=== PATIENT | male | born 1965 | race Caucasian/White ===

== ENCOUNTER 2016-10-16 08:59 | Inpatient (IN) | payer MEDICARE ==
[2016-10-16] MEDS ORDERED: Zofran 4 MG/2 ML VIAL IV ONE (09:26)
[2016-10-16] MEDS ORDERED: PROTONIX 40 MG IV IV ONE ×2 (09:26→09:30)
[2016-10-16] MEDS ORDERED: Sodium Chloride 0.9% 1000 ML 1,000 ML IV STA (09:26)
[2016-10-16] MEDS ORDERED: Hydromorphone 1 mg/ml Ampule IV ONE ×2 (09:26→10:07)
[2016-10-16] MEDS ORDERED: Sodium Chloride 0.9% 1000 ML 1,000 ML ONE (09:30)
[2016-10-16] MEDS ORDERED: Hydromorphone 1 mg/ml Ampule ONE ×2 (09:30→10:11)
[2016-10-16] MEDS ORDERED: Zofran 4 MG/2 ML VIAL ONE (09:30)
--- NOTE | 2016-10-16 09:34 | ERPHSYRPT ---
- History of Present Illness Time Seen by Provider: 10/16/16 09:24 Historian: patient Exam Limitations: clinical condition Patient Subjective Stated Complaint: pt states pt woke her up at 0730 this morning with complaints of abdominal pain. states last bowel movement this morning and was normal. denies any vomiting. pt also c/o mid lower back pain. denies any dysuria. Triage Nursing Assessment: pt pale, warm, dry. abdomen obese, round. bowel sounds present all 4 quads. pt afebrile. Physician History: PATIENT WITH A HISTORY OF HYPERTENSION, HYPERLIPIDEMIA, AND PULMONARY EMBOLISM COMPLAINS OF ACUTE ONSET OF PERIUMBILICAL AND LOWER ABDOMINAL PAINS SINCE 7AM TODAY, DENIES NAUSEA, EMESIS, DIARRHEA, DYSPNEA, RADIATION OF PAIN TO FLANKS. Timing/Duration: today Activities at Onset: none Quality: pressure Abdominal Pain Onset Location: periumbilical, suprapubic Pain Radiation: no radiation Severity of Pain-Max: severe Severity of Pain-Current: severe Modifying Factors: Improves With: nothing Associated Symptoms: denies symptoms Previous symptoms: no prior history Allergies/Adverse Reactions: No Known Drug Allergies Allergy (Unverified 10/16/16 09:13) Home Medications: Lisinopril 20 mg [Zestril 20 MG] 20 mg PO BID 06/30/13 [History] Paroxetine HCl 40 mg PO DAILY 06/30/13 [History] Rivaroxaban [Xarelto] 20 mg PO DAILY 06/30/13 [History] Omeprazole 20 MG [Prilosec 20 mg] 20 mg PO DAILY 01/23/15 [History] Pravastatin Sodium [Pravachol] 20 mg PO DAILY 01/23/15 [History] Amitriptyline HCl 100 mg PO HS 02/20/15 [History] Hydrochlorothiazide 25 mg [hydroDIURIL 25 MG] 25 mg PO DAILY 02/20/15 [ History] Hx Tetanus, Diphtheria Vaccination/Date Given: Yes (unknown) Hx Influenza Vaccination/Date Given: No Hx Pneumococcal Vaccination/Date Given: No Immunizations Up to Date: Yes - Review of Systems Constitutional: No Fever, No Chills Eyes: No Symptoms Ears, Nose, & Throat: No Symptoms Respiratory: No Symptoms, No Cough, No Dyspnea Cardiac: No Symptoms, No Chest Pain, No Edema, No Syncope Abdominal/Gastrointestinal: Abdominal Pain, No Nausea, No Vomiting, No Diarrhea Genitourinary Symptoms: No Symptoms, No Dysuria Musculoskeletal: No Symptoms, No Back Pain, No Neck Pain Skin: No Symptoms, No Rash Neurological: No Symptoms, No Dizziness, No Focal Weakness, No Sensory Changes Psychological: No Symptoms Endocrine: No Symptoms All Other Systems: Reviewed and Negative - Past Medical History Pertinent Past Medical History: Yes Neurological History: No Pertinent History ENT History: Glaucoma Cardiac History: Deep Vein Thrombosis, Hypertension Respiratory History: Pulmonary Embolism Endocrine Medical History: No Pertinent History Musculoskeletal History: No Pertinent History GI Medical History: No Pertinent History History: No Pertinent History Psycho-Social History: Depression Male Reproductive Disorders: No Pertinent History Other Medical History: DVT/PE - Past Surgical History Past Surgical History: Yes Neuro Surgical History: No Pertinent History Cardiac: Other Respiratory: No Pertinent History Gastrointestinal: Hernia Repair Genitourinary: No Pertinent History Musculoskeletal: No Pertinent History Male Surgical History: No Pertinent History Other Surgical History: eye surgery. [facility] - Social History Smoking Status: Current every day smoker How long have you smoked: 30 Exposure to second hand smoke: No Drug Use: none Patient Lives Alone: No - Nursing Vital Signs Nursing Vital Signs: Initial Vital Signs Temperature 97.3 F Temperature Source Oral Pulse Rate 67 Respiratory Rate 18 Blood Pressure [] 120/76 Pain Intensity 7 - Physical Exam General Appearance: moderate distress Eye Exam: PERRL/EOMI, eyes nml inspection Ears, Nose, Throat Exam: normal ENT inspection, pharynx normal, moist mucous membranes Neck Exam: normal inspection, non-tender, supple, full range of motion Respiratory Exam: normal breath sounds, lungs clear, No respiratory distress Cardiovascular Exam: regular rate/rhythm, normal heart sounds Gastrointestinal/Abdomen Exam: soft, No tenderness, No mass Back Exam: normal inspection, normal range of motion, No CVA tenderness, No vertebral tenderness Extremity Exam: normal inspection, normal range of motion, pelvis stable Neurologic Exam: alert, 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, cooperative, normal mood/affect, nml cerebellar function, sensation nml, No motor deficits Skin Exam: normal color, warm, dry SpO2 Interpretation: normal SpO2: 99 Oxygen Delivery: Room Air - CT Exams Abdomen/Pelvis CT Interpretation: Discussed w/radiologist (DISTENDED GALLBLADDER WITH TINY 3MM CYSTIC DUCT STONE, INCIDENTIAL COLONIC DIVERTICULOSIS, FATTY LIVER, FATTY UMBILICAL HERNIA, NORMAL APPENDIX) Ordered Tests: Active Orders 24 hr Category Date Time Status Up Ad Meena ROUTINE Activity 10/16/16 12:13 Ordered Admission/Status Order ROUTINE Care 10/16/16 12:12 Ordered Call Admit Doctor for Orders ON ADMISSION Care 10/16/16 12:13 Ordered Code Status Order ROUTINE Care 10/16/16 12:12 Ordered IV Care Q6H Care 10/16/16 12:12 Ordered IV Insertion STAT Care 10/16/16 09:26 Active Intake and Output Q12H Care 10/16/16 12:12 Ordered Oxygen-ED Only NASAL CANNULA 2 lpm Care 10/16/16 09:28 Active Vital Signs Q4H Care 10/16/16 12:12 Ordered Consult Surgery ROUTINE Cons 10/16/16 12:12 Ordered NPO except Meds Diet 10/16/16 12:13 Ordered ABDOMEN AND PELVIS W CONTRAST [CT] Stat Exams 10/16/16 09:26 Completed AMYLASE Stat Lab 10/16/16 09:15 Completed BLOOD CULTURE Stat Lab 10/16/16 09:55 Received CBC W DIFF Stat Lab 10/16/16 09:15 Completed CMP Stat Lab 10/16/16 09:15 Completed LIPASE Stat Lab 10/16/16 09:15 Completed UA Stat Lab 10/16/16 09:15 Completed Oxygen NASAL CANNULA 2 lpm RT 10/16/16 12:12 Ordered Pulse Oximetry CONTINUOUS RT 10/16/16 12:16 Ordered Transfer Order Routine Transfer 10/16/16 12:11 Ordered Medication Summary Generic Name Dose Route Start Last Admin Trade Name Freq PRN Reason Stop Dose Admin Amlodipine Besylate 5 mg 10/17/16 10:00 Norvasc 5 Mg PO 11/16/16 09:59 QAM SHERLYN Sodium Chloride 1,000 mls @ 125 mls/hr 10/16/16 12:15 Sodium Chloride 0.9% 1000 Ml IV 11/15/16 12:14 .Q8H SHERLYN Lisinopril 20 mg 10/16/16 22:00 Zestril 20 Mg PO 11/15/16 21:59 BID SHERLYN Ondansetron HCl 4 mg 10/16/16 12:12 Zofran 4 Mg/2 Ml Vial IV 11/15/16 12:11 Q6H PRN PRN NAUSEA/VOMITING Discontinued Medications Generic Name Dose Route Start Last Admin Trade Name Freq PRN Reason Stop Dose Admin Hydromorphone HCl 1 mg 10/16/16 09:26 10/16/16 09:37 Hydromorphone 1 Mg/Ml Ampule IV 10/16/16 09:27 1 mg STAT ONE Administration Hydromorphone HCl Confirm 10/16/16 09:30 Hydromorphone 1 Mg/Ml Ampule Administered 10/16/16 09:31 Dose 1 mg .ROUTE .STK-MED ONE Hydromorphone HCl 1 mg 10/16/16 10:07 10/16/16 10:12 Hydromorphone 1 Mg/Ml Ampule IV 10/16/16 10:08 1 mg STAT ONE Administration Hydromorphone HCl Confirm 10/16/16 10:11 Hydromorphone 1 Mg/Ml Ampule Administered 10/16/16 10:12 Dose 1 mg .ROUTE .STK-MED ONE Sodium Chloride 1,000 mls @ 999 mls/hr 10/16/16 09:26 10/16/16 09:31 Sodium Chloride 0.9% 1000 Ml IV 10/16/16 10:26 999 mls/hr .Q1H1M STA Administration Sodium Chloride Confirm 10/16/16 09:30 Sodium Chloride 0.9% 1000 Ml Administered 10/16/16 09:31 Dose 1,000 mls @ ud .ROUTE .STK-MED ONE Morphine Sulfate 4 mg 10/16/16 11:15 10/16/16 11:37 Morphine Sulfate 4 Mg Inj IV 10/16/16 11:16 4 mg STAT ONE Administration Morphine Sulfate Confirm 10/16/16 11:35 Morphine Sulfate 4 Mg Inj Administered 10/16/16 11:36 Dose 4 mg .ROUTE .STK-MED ONE Ondansetron HCl 4 mg 10/16/16 09:26 10/16/16 09:33 Zofran 4 Mg/2 Ml Vial IV 10/16/16 09:27 4 mg STAT ONE Administration Ondansetron HCl Confirm 10/16/16 09:30 Zofran 4 Mg/2 Ml Vial Administered 10/16/16 09:31 Dose 4 mg .ROUTE .STK-MED ONE Pantoprazole Sodium 40 mg 10/16/16 09:26 10/16/16 09:38 Protonix 40 Mg Iv IV 10/16/16 09:27 40 mg STAT ONE Administration Pantoprazole Sodium Confirm 10/16/16 09:30 Protonix 40 Mg Iv Administered 10/16/16 09:31 Dose 40 mg IV .K-MED ONE Lab/Rad Data: Laboratory Result Diagrams 10/16/16 09:15 10/16/16 09:15 Laboratory Results 10/16/16 10/16/16 10/16/16 Range/Units 09:15 09:15 09:15 WBC 8.0 (4.0-10.5) K/mm3 RBC 5.15 (4.1-5.6) M/mm3 Hgb 15.4 (12.5-18.0) gm/dl Hct 47.2 (42-50) % MCV 91.7 (78-100) fl MCH 29.9 (26-32) pg MCHC 32.6 (32-36) g/dl RDW 14.9 H (11.5-14.0) % Plt Count 270 (150-450) K/mm3 MPV 10.3 H (6-9.5) fl Gran % 55.9 (36.0-66.0) % Lymphocytes % 27.4 (24.0-44.0) % Monocytes % 11.7 (0.0-12.0) % Eosinophils % 4.2 (0.00-5.0) % Basophils % 0.8 (0.0-0.4) % Basophils # 0.06 (0-0.4) Sodium 139 (136-145) mEq/L Potassium 3.3 L (3.5-5.1) mEq/L Chloride 102 (98-107) mEq/L Carbon Dioxide 24.6 (21-32) mEq/L Anion Gap 15.8 H (5-15) MEQ/L BUN 8 L (9-20) mg/dL Creatinine 1.19 (0.55-1.30) mg/dl Estimated GFR > 60 ML/MIN Glucose 171 H (70-110) MG/DL Calcium 9.4 (8.5-10.1) mg/dL Total Bilirubin 0.4 (0.2-1.0) mg/dL AST 29 (15-37) U/L ALT 28 (12-78) U/L Alkaline Phosphatase 118 H (46-116) U/L Serum Total Protein 8.1 (6.4-8.2) gm/dL Albumin 4.1 (3.4-5.0) g/dL Amylase 79 (25-115) U/L Lipase 292 (73-393) U/L Ur Collection Type CCMS Urine Color YELLOW (YELLOW) Urine Appearance CLEAR (CLEAR) Urine pH 5.5 (5-6) Ur Specific [place] 1.020 (1.005-1.025) Urine Protein NEGATIVE (Negative) Urine Glucose (UA) NEGATIVE (NEGATIVE) mg/dL Urine Ketones NEGATIVE (NEGATIVE) Urine Nitrite NEGATIVE (NEGATIVE) Urine Bilirubin NEGATIVE (NEGATIVE) Urine Urobilinogen NORMAL (0-1) mg/dL Urine WBC (Auto) NEGATIVE (NEGATIVE) Urine RBC (Auto) NEGATIVE (0-5) Jose/ul Specimen Received 10/16 0930 - Progress Progress: pain not gone completely Progress Note: 10/16/16 09:33 PATIENT GIVEN BOLUS NORMAL SALINE 1 LITER OVER 1 HOUR, ZOFRAN 4MG, DILAUDID 1MG IV Discussed with Dr.: Mccabe (DISCUSSED WITH DR MCCABE AT 1200 FOR ADMISSION) - Departure Time of Disposition: 12:23 Departure Disposition: Observation Clinical Impression: INTRACTABLE ABDOMINAL PAIN , CHOLELITHIASIS Condition: Stable Critical Care Time: No Referrals: EDILIA MCCABE [Primary Care Provider] -
[2016-10-16 09:41] LABS: BASOPHIL % 0.8 % (0.0-0.4); Collection Type CCMS; Eosinophil % 4.2 % (0.00-5.0); Granulocytes % 55.9 % (36.0-66.0); Lymphocytes % 27.4 % (24.0-44.0); Mean Cell Volume 91.7 fl (78-100); Mean Corpuscular Hemoglobin 29.9 pg (26-32); Mean Platelet Volume 10.3 fl (6-9.5); Monocytes % 11.7 % (0.0-12.0); Ph 5.5 (5-6); Platelet Count 270 K/mm3 (150-450); Red Blood Count 5.15 M/mm3 (4.1-5.6); Red Cell Distribution Width 14.9 % (11.5-14.0)
[2016-10-16 09:42] LABS: COMPLETE URINE MICROSCOPIC? NO
[2016-10-16 09:52] LABS: ALBUMIN 4.1 g/dL (3.4-5.0); ALKALINE PHOSPHATASE 118 U/L (46-116); ANION GAP 15.8 MEQ/L (5-15); BILIRUBIN,TOTAL 0.4 mg/dL (0.2-1.0); BLOOD UREA NITROGEN 8 mg/dL (9-20); CHLORIDE 102 mEq/L (98-107); Carbon Dioxide 24.6 mEq/L (21-32); Glucose 171 MG/DL (70-110); LIPASE 292 U/L (73-393); Potassium 3.3 mEq/L (3.5-5.1); SGOT/AST 29 U/L (15-37); SGPT/ALT 28 U/L (12-78); SODIUM 139 mEq/L (136-145); Total Protein 8.1 gm/dL (6.4-8.2)
--- NOTE | 2016-10-16 11:05 | XRAY ---
Indication: Abdominal and flank pain. Multiple contiguous axial images obtained through the abdomen and pelvis using 80 cc Isovue 370 contrast only. Comparison: None Lung bases demonstrates minimal bibasilar dependent atelectasis/scarring. Heart is not enlarged. Stomach is moderately distended with food/fluid. Noncontrasted bowel loops appear nonobstructed. Minimal scattered descending/sigmoid diverticulosis without diverticulitis. Normal appendix. No free fluid/air. Mild fatty liver. A few calcified hepatic/splenic granulomas. IVC filter in situ. Gallbladder moderately distended with 3 mm cyst duct stone (image 24, series 3). Liver, gallbladder, pancreas, spleen, adrenal glands, kidneys, ureters, and bladder appear unremarkable. Minimal aortoiliac calcifications. No AAA or pathologic retroperitoneal lymphadenopathy. Osseous structures intact. Small fatty umbilical hernia. Impression: 1. Distended gallbladder with tiny 3 mm cystic duct stone. 2. Incidental colonic diverticulosis, fatty liver, fatty umbilical hernia, and evidence for old granulomatous disease. CT DI 28.13
[2016-10-16] MEDS ORDERED: MORPHINE SULFATE 4 MG INJ IV ONE (11:15)
[2016-10-16] MEDS ORDERED: MORPHINE SULFATE 4 MG INJ ONE (11:35)
[2016-10-16] MEDS ORDERED: Zofran 4 MG/2 ML VIAL IV PRN (12:12)
[2016-10-16] MEDS ORDERED: XARELTO 10 MG TABLET PO SCH (13:00)
[2016-10-16] MEDS: DILAUDID 1 MG/1ML PCA IV PRN (13:36)
[2016-10-16] MEDS: Sodium Chloride 0.9% 1000 ML 1,000 ML IV SCH ×2 (13:55→23:08)
[2016-10-16] MEDS: ROCEPHIN 1 Gm-D5w 50 ml Bag** 1 G/50 ML IVPB IV SCH (17:54)
[2016-10-16] MEDS ORDERED: CLINDAMYCIN-D5W 600 MG/50 ML*** 50 ML IV SCH (18:00)
--- NOTE | 2016-10-16 18:20 | PCM.HP ---
History of Present Illness - Chief Complaint Chief Complaint: INTRACTABLE ABDOMINAL PAIN, CHOLELITHIASIS History of Present Illness: is a 51 year old male with HTN and obesity who awoke at 6 am with generalized abd pain. Came to ER for evaluation. In the ER it was 8-9/10. Denies vomiting or diarrhea. No fever. In ER pain was much better with dilaudid. Morphine did not help. Currently he is on a dilaudid [employer] and his pain is 1/10. CT abd pelvis revealed 3mm cystic duct stone with distended gallbladder. Incidental diverticulosis and umbilical hernia. - Review of Systems Abdominal/Gastrointestinal: Abdominal Pain, Nausea, Appetite Changes Neurological: Other (chronic headaches, no c/o currently) Psychological: Other (drinks alcohol intermittently. TOB abuse.) All Other Systems: Reviewed and Negative Medications & Allergies Home Medications: Home Medication List Lisinopril 20 mg [Zestril 20 MG] 20 mg PO BID 06/30/13 [History Confirmed 10/16/16] Paroxetine HCl 40 mg PO HS 06/30/13 [History Confirmed 10/16/16] Rivaroxaban [Xarelto] 20 mg PO HS 06/30/13 [History Confirmed 10/16/16] Amlodipine Besylate 5 mg [Norvasc 5 mg] 5 mg PO QHS #30 tablet 01/23/15 [ Rx Confirmed 10/16/16] Omeprazole 20 MG [Prilosec 20 mg] 20 mg PO HS 01/23/15 [History Confirmed ] Pravastatin Sodium [Pravachol] 20 mg PO HS 01/23/15 [History Confirmed 10/16/16] Amitriptyline HCl 100 mg PO HS 02/20/15 [History Confirmed 10/16/16] Hydrochlorothiazide 25 mg [hydroDIURIL 25 MG] 25 mg PO HS 02/20/15 [ History Confirmed 10/16/16] Allergies/Adverse Reactions: Allergies Allergy/AdvReac Type Severity Reaction Status Date / Time No Known Drug Allergies Allergy Unverified 10/16/16 09:13 - Past Medical History Past Medical History: Yes Neurological History: No Pertinent History ENT History: Glaucoma Cardiac History: Deep Vein Thrombosis, Hypertension Respiratory History: Pulmonary Embolism Endocrine Medical History: No Pertinent History Musculoskelatal History: No Pertinent History GI Medical History: No Pertinent History History: No Pertinent History Pyscho-Social History: Depression Male Reproductive Disorders: No Pertinent History Comment: DVT/PE - Past Surgical History Past Surgical History: Yes Neuro Surgical History: No Pertinent History Cardiac History: Other Respiratory Surgery: No Pertinent History GI Surgical History: Hernia Repair Genitourinary Surgical Hx: No Pertinent History Musculskeletal Surgical Hx: No Pertinent History Male Surgical History: No Pertinent History Other Surgical History: eye surgery. hope filter - Social History Smoking Status: Current every day smoker How long have you smoked: 30 YEARS Exposure to second hand smoke: No Alcohol: Weekly Drug Use: none - Physical Exam Vital Signs: Vital Signs - 24 hr Temp Pulse Resp BP Pulse Ox 10/16/16 17:36 97 10/16/16 16:37 97.6 F 85 20 122/58 97 10/16/16 16:29 97.8 F 10/16/16 13:40 88 18 96 10/16/16 13:36 96 10/16/16 12:45 98.1 F 68 20 124/58 94 L 10/16/16 12:42 98.1 F 68 22 124/58 94 L 10/16/16 12:28 75 16 143/83 98 10/16/16 12:20 99 10/16/16 11:37 67 18 120/76 10/16/16 10:40 76 18 158/99 10/16/16 09:40 73 20 139/93 100 10/16/16 09:12 97.3 F 78 18 150/105 99 Oxygen-Last 24 hours O2 Percentage 2 Liters = 28% O2 Percentage 2 Liters = 28% O2 Percentage 2 Liters = 28% General Appearance: no apparent distress Neurologic Exam: alert, 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, cooperative Eye Exam: eyes nml inspection Neck Exam: normal inspection, non-tender, No lymphadenopathy Respiratory Exam: normal breath sounds, lungs clear, No crackles/rales, No rhonchi, No wheezing Cardiovascular Exam: regular rate/rhythm, normal heart sounds, No murmur Gastrointestinal/Abdomen Exam: soft, tenderness (RUQ), distention, other ( initially, hypoactive bowel sounds. currently, some high pitched bowel sounds) , No guarding, No rebound Back Exam: No CVA tenderness Extremity Exam: normal inspection Skin Exam: normal color, warm, dry, No rash Results - Other Procedures and Tests Respiratory Therapy 10/16/16 12:12 Oxygen NASAL CANNULA 2 lpm Assessment/Plan (1) Cholelithiases Current Visit: Yes Status: Acute Qualifiers: Cholelithiasis location: bile duct Cholecystitis presence: with cholecystitis Cholecystitis acuity: acute Biliary obstruction: without biliary obstruction Qualified Code(s): K80.42 - Calculus of bile duct with acute cholecystitis without obstruction Assessment & Plan: Pt had xarelto last night. Surgery consulted - they will plan to operate on the patient in 2 days (Sunday). (2) Abdominal pain Current Visit: Yes Status: Acute Qualifiers: Abdominal location: generalized Qualified Code(s): R10.84 - Generalized abdominal pain Assessment & Plan: Tender in RUQ. As above. Will ensure at least 1 troponin is negative. On Dilaudid [employer]. Code(s): R10.9 - UNSPECIFIED ABDOMINAL PAIN (3) LUPIS (obstructive sleep apnea) Current Visit: Yes Status: Acute Assessment & Plan: has his own CPAP. Code(s): G47.33 - OBSTRUCTIVE SLEEP APNEA (ADULT) (PEDIATRIC) (4) High blood pressure Current Visit: No Status: Chronic Qualifiers: Hypertension type: essential hypertension Qualified Code(s): I10 - Essential (primary) hypertension Assessment & Plan: continue home meds. Code(s): I10 - ESSENTIAL (PRIMARY) HYPERTENSION
[2016-10-16] MEDS: Paxil 20 MG PO SCH (21:27)
[2016-10-16] MEDS: Zestril 20 MG PO SCH (21:28)
[2016-10-16] MEDS ORDERED: AMITRIPTYLINE HCL 100 MG PO SCH (22:00)
[2016-10-16] MEDS ORDERED: NON-FORMULARY ITEM (Paroxetine Hcl [Paroxetine Hcl] 40 MG) PO SCH (22:00)
[2016-10-17] MEDS: Ativan 2 MG/1 ML VIAL IV SCH ×2 (00:03→21:07)
[2016-10-17] MEDS: Sodium Chloride 0.9% 1000 ML 1,000 ML IV SCH ×2 (06:55→16:17)
[2016-10-17] MEDS: DILAUDID 1 MG/1ML PCA IV PRN (07:34)
[2016-10-17 08:36] LABS: BASOPHIL % 0.4 % (0.0-0.4); Eosinophil % 3.3 % (0.00-5.0); Mean Cell Volume 94.9 fl (78-100); Mean Corpuscular Hemoglobin 29.9 pg (26-32); Mean Platelet Volume 10.1 fl (6-9.5); Monocytes % 14.3 % (0.0-12.0); Platelet Count 221 K/mm3 (150-450); Red Blood Count 4.32 M/mm3 (4.1-5.6); Red Cell Distribution Width 14.9 % (11.5-14.0); White Blood Count 9.8 K/mm3 (4.0-10.5)
--- NOTE | 2016-10-17 08:43 | CONS ---
CONSULT DATE: 10/16/2016 REASON FOR CONSULT: Acute cholelithiasis. HISTORY: The patient has acute severe episode of right upper quadrant pain to his back. He had two smaller episodes not requiring hospitalization and this one was just major. He basically felt like he was going to and he came in. He had CT scan revealing a thickened gallbladder with stones. PAST MEDICAL HISTORY: ALLERGIES: NONE. MEDICATIONS: Xarelto, antihypertensive. PAST SURGICAL HISTORY: He had previous double hernia. SOCIAL HISTORY: Negative tobacco. Negative ETOH. FAMILY HISTORY: Negative. REVIEW OF SYSTEMS: He had two episodes of deep venous thrombosis, one episode of pulmonary embolism. He has been on Xarelto subsequently this has been some while ago. PHYSICAL EXAMINATION: Vital signs normal. He is fairly robust. CHEST: Clear. COR: Regular. ABDOMEN: Tender right upper quadrant. LAB DATA AND TESTS: White blood cell count elevated. CT positive. IMPRESSION: Acute cholecystitis, cholelithiasis. The patient is on Xarelto. PLAN: Laparoscopic cholecystectomy after 48-72 hours.
[2016-10-17 09:06] LABS: ANION GAP 11.5 MEQ/L (5-15); BLOOD UREA NITROGEN 8 mg/dL (9-20); CHLORIDE 102 mEq/L (98-107); Carbon Dioxide 26.8 mEq/L (21-32); Glucose 97 MG/DL (70-110); Potassium 3.9 mEq/L (3.5-5.1); SODIUM 136 mEq/L (136-145)
--- NOTE | 2016-10-17 09:10 | PCM.NOTE ---
Date and Time: 10/17/16906 Subjective Assessment: Pt's abd pain better overnight, states he didn't push the button for the dilaudid but he does have a basal rate. - Review of Systems Constitutional: No Fever Abdominal/Gastrointestinal: No Vomiting Objective Exam General Appearance: no apparent distress Neurologic Exam: alert, 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, cooperative Skin Exam: normal color, warm, dry Respiratory Exam: normal breath sounds, No crackles/rales, No rhonchi, No wheezing Cardiovascular Exam: regular rate/rhythm, normal heart sounds, No murmur Gastrointestinal/Abdomen Exam: soft, tenderness (RUQ), distention (this is baseline), other (scant high pitched bowel sounds), No guarding, No rebound Extremity Exam: No pedal edema, No swelling OBJECTIVE DATA Vital Signs: Vital Signs - 24 hr Temp Pulse Resp BP Pulse Ox 10/17/16 07:48 98.2 F 81 18 126/66 93 L 10/17/16 07:34 92 L 10/17/16 04:00 97.3 F 72 18 115/78 96 10/17/16 00:00 98.1 F 82 19 128/65 95 10/16/16 20:00 97.5 F 81 19 117/65 94 L 10/16/16 18:49 94 L 10/16/16 17:36 97 10/16/16 16:37 97.6 F 85 20 122/58 97 10/16/16 16:29 97.8 F 10/16/16 13:40 88 18 96 10/16/16 13:36 96 10/16/16 12:45 98.1 F 68 20 124/58 94 L 10/16/16 12:42 98.1 F 68 22 124/58 94 L 10/16/16 12:28 75 16 143/83 98 10/16/16 12:20 99 10/16/16 11:37 67 18 120/76 10/16/16 10:40 76 18 158/99 10/16/16 09:40 73 20 139/93 100 10/16/16 09:12 97.3 F 78 18 150/105 99 Oxygen-Last 24 hours O2 Percentage 2 Liters = 28% O2 Percentage 2 Liters = 28% O2 Percentage 2 Liters = 28% O2 Percentage 2 Liters = 28% O2 Percentage 2 Liters = 28% O2 Percentage 2 Liters = 28% Pain Assessment - Last Documented Pain Intensity 4 Pain Scale Used 0-10 Pain Scale Intake and Output: Intake & Output 10/14/16 10/15/16 10/16/16 10/17/16 11:59 11:59 11:59 11:59 Intake Total 2041 Balance 2041 Weight 121.653 kg Lab Results: Lab Results-Last 24 Hours 10/16/16 Range/Units 18:46 Troponin I < 0.017 (0.000-0.056) ng/ml Radiology Exams: Radiology Procedures Category Date Time Status ABDOMEN 2 VIEW Routine Exams 10/17/16 09:07 Ordered Assessment/Plan (1) Cholelithiases Current Visit: Yes Status: Acute Qualifiers: Cholelithiasis location: bile duct Cholecystitis presence: with cholecystitis Cholecystitis acuity: acute Biliary obstruction: without biliary obstruction Qualified Code(s): K80.42 - Calculus of bile duct with acute cholecystitis without obstruction Assessment & Plan: I believe the plan has changed to surgery tonight due to availability of surgery suite. Per surgery, thank you. Last xarelto the night [employer]. (2) Abdominal pain Current Visit: Yes Status: Acute Qualifiers: Abdominal location: right upper quadrant Qualified Code(s): R10.11 - Right upper quadrant pain Assessment & Plan: better. NPO today for surgery. Code(s): R10.9 - UNSPECIFIED ABDOMINAL PAIN (3) LUPIS (obstructive sleep apnea) Current Visit: Yes Status: Acute Assessment & Plan: CPAP at night. Code(s): G47.33 - OBSTRUCTIVE SLEEP APNEA (ADULT) (PEDIATRIC) (4) High blood pressure Current Visit: No Status: Chronic Qualifiers: Hypertension type: essential hypertension Qualified Code(s): I10 - Essential (primary) hypertension Assessment & Plan: stable. Code(s): I10 - ESSENTIAL (PRIMARY) HYPERTENSION
--- NOTE | 2016-10-17 10:27 | XRAY ---
Indication: Abdominal pain. Comparison: June 30, 2013. 2 views of the abdomen again demonstrates nonspecific nonobstructed bowel gas pattern with stable IVC filter. No free air. Stable calcified splenic granuloma. Solid organs unremarkable and osseous structures intact. Stable degenerative changes of both hips. Impression: Again nonacute nonobstructed abdomen with chronic features.
[2016-10-17] MEDS: Zestril 20 MG PO SCH ×2 (10:37→21:07)
[2016-10-17] MEDS: PROTONIX 40 MG IV IV SCH (10:37)
[2016-10-17] MEDS: ROCEPHIN 1 Gm-D5w 50 ml Bag** 1 G/50 ML IVPB IV SCH (17:36)
[2016-10-17] MEDS: NORVASC 5 MG PO SCH (21:07)
[2016-10-17] MEDS: Paxil 20 MG PO SCH (21:07)
[2016-10-18] MEDS: Sodium Chloride 0.9% 1000 ML 1,000 ML IV SCH ×3 (02:27→19:33)
[2016-10-18] MEDS: PROTONIX 40 MG IV IV SCH (08:29)
[2016-10-18] MEDS: Zestril 20 MG PO SCH ×2 (08:29→22:15)
[2016-10-18] MEDS ORDERED: Pepcid 20 MG VIAL IV SCH (08:45)
[2016-10-18] MEDS ORDERED: BICITRA 30 ML CUP PO SCH (08:45)
[2016-10-18] MEDS ORDERED: Lactated Ringers 1,000 ML IV SCH (09:00)
[2016-10-18] MEDS ORDERED: MEFOXIN 2 GM PREMIX** 50 ML IV SCH (09:00)
--- NOTE | 2016-10-18 09:52 | PCM.NOTE ---
Date and Time: 10/18/16945 Subjective Assessment: Required some pain medicine overnight. NPO for surgery today. Has been passing flatus. - Review of Systems Constitutional: No Fever Abdominal/Gastrointestinal: Abdominal Pain Objective Exam General Appearance: no apparent distress Neurologic Exam: alert, 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, cooperative Skin Exam: normal color, warm, dry Respiratory Exam: normal breath sounds, lungs clear, No crackles/rales, No rhonchi, No wheezing Cardiovascular Exam: regular rate/rhythm, normal heart sounds Gastrointestinal/Abdomen Exam: soft, normal bowel sounds, tenderness (RUQ), distention (as usual), No guarding, No rebound Extremity Exam: No pedal edema, No swelling OBJECTIVE DATA Vital Signs: Vital Signs - 24 hr Temp Pulse Resp BP Pulse Ox 10/18/16 08:00 98.6 F 84 21 113/72 89 L 10/18/16 07:49 89 L 10/18/16 06:00 16 90 L 10/18/16 04:00 98.9 F 83 16 131/84 90 L 10/18/16 02:00 18 91 L 10/18/16 00:00 99 F 100 H 18 107/67 91 L 10/17/16 22:24 91 L 10/17/16 22:00 24 10/17/16 21:26 93 L 10/17/16 20:00 98.0 F 77 24 115/74 90 L 10/17/16 18:24 92 L 10/17/16 18:17 88 L 10/17/16 16:00 98.7 F 70 18 123/66 92 L 10/17/16 11:52 98.1 F 60 18 108/73 92 L 10/17/16 11:34 92 L Oxygen-Last 24 hours O2 Percentage 2 Liters = 28% Pain Assessment - Last Documented Pain Intensity 3 Pain Scale Used 0-10 Pain Scale Intake and Output: Intake & Output 10/15/16 10/16/16 10/17/16 10/18/16 11:59 11:59 11:59 11:59 Intake Total 2041 2884 Balance 2041 2884 Weight 121.653 kg Radiology Exams: Radiology Procedures Category Date Time Status ABDOMEN 2 VIEW Routine Exams 10/17/16 09:07 Completed Assessment/Plan (1) Cholelithiases Current Visit: Yes Status: Acute Qualifiers: Cholelithiasis location: bile duct Cholecystitis presence: with cholecystitis Cholecystitis acuity: acute Biliary obstruction: without biliary obstruction Qualified Code(s): K80.42 - Calculus of bile duct with acute cholecystitis without obstruction Assessment & Plan: Surgery today, thank you! (2) Umbilical hernia Current Visit: Yes Status: Acute Qualifiers: Obstruction and gangrene presence: without obstruction or gangrene Qualified Code(s): K42.9 - Umbilical hernia without obstruction or gangrene Assessment & Plan: new; I have left a note on the chart, surgeon to evaluate this as well please. Code(s): K42.9 - UMBILICAL HERNIA WITHOUT OBSTRUCTION OR GANGRENE (3) Abdominal pain Current Visit: Yes Status: Acute Qualifiers: Abdominal location: right upper quadrant Qualified Code(s): R10.11 - Right upper quadrant pain Code(s): R10.9 - UNSPECIFIED ABDOMINAL PAIN (4) LUPIS (obstructive sleep apnea) Current Visit: Yes Status: Acute Assessment & Plan: he has hypoxemia at night. Will need an overnight pulse ox study on his cpap to qualify for O2 at home. Code(s): G47.33 - OBSTRUCTIVE SLEEP APNEA (ADULT) (PEDIATRIC) (5) High blood pressure Current Visit: No Status: Chronic Qualifiers: Hypertension type: essential hypertension Qualified Code(s): I10 - Essential (primary) hypertension Assessment & Plan: well controlled. Code(s): I10 - ESSENTIAL (PRIMARY) HYPERTENSION
[2016-10-18] MEDS: DILAUDID 1 MG/1ML PCA IV PRN (16:53)
[2016-10-18] MEDS: ROCEPHIN 1 Gm-D5w 50 ml Bag** 1 G/50 ML IVPB IV SCH (17:33)
[2016-10-18] MEDS: Paxil 20 MG PO SCH (22:15)
[2016-10-18] MEDS: NORVASC 5 MG PO SCH (22:15)
[2016-10-18] MEDS: Ativan 2 MG/1 ML VIAL IV SCH (22:15)
[2016-10-19] MEDS: Sodium Chloride 0.9% 1000 ML 1,000 ML IV SCH ×2 (03:36→23:38)
[2016-10-19] MEDS ORDERED: SUBLIMAZE 100 MCG/2 ML IV ONE (08:00)
[2016-10-19] MEDS ORDERED: Quelicin Fliptop 200 MG/10 ML IJ ONE (08:00)
[2016-10-19] MEDS ORDERED: Zemuron 100 MG/10 ML IJ ONE (08:00)
[2016-10-19] MEDS ORDERED: Decadron 4 MG INJ IV ONE (08:00)
[2016-10-19] MEDS ORDERED: DILAUDID 2 MG INJECTION IV ONE (08:00)
[2016-10-19] MEDS ORDERED: TORAdol 30 mg Injection IJ ONE (08:00)
[2016-10-19] MEDS ORDERED: BRIDION 200MG/2ML IV ONE (08:00)
[2016-10-19] MEDS ORDERED: DIPRIVAN 200 MG/20 ML IV ONE (08:00)
[2016-10-19] MEDS ORDERED: Zofran 4 MG/2 ML VIAL IV ONE (08:00)
[2016-10-19 08:14] LABS: BASOPHIL % 0.3 % (0.0-0.4); Eosinophil % 3.2 % (0.00-5.0); Granulocytes % 73.3 % (36.0-66.0); Lymphocytes % 11.4 % (24.0-44.0); Mean Cell Volume 95.4 fl (78-100); Mean Corpuscular Hemoglobin 30.3 pg (26-32); Monocytes % 11.8 % (0.0-12.0); Platelet Count 198 K/mm3 (150-450); Red Blood Count 4.13 M/mm3 (4.1-5.6); Red Cell Distribution Width 14.3 % (11.5-14.0); White Blood Count 9.7 K/mm3 (4.0-10.5)
[2016-10-19] MEDS ORDERED: Pepcid 20 MG VIAL IV SCH (08:30)
[2016-10-19] MEDS ORDERED: Lactated Ringers 1,000 ML IV SCH (08:30)
[2016-10-19] MEDS ORDERED: BICITRA 30 ML CUP PO SCH (08:30)
--- NOTE | 2016-10-19 08:53 | PCM.NOTE ---
Date and Time: 10/19/16 0850 Subjective Assessment: Had some pain overnight requiring the pain pump. Feeling OK right now. NPO for surgery, likely today. - Review of Systems Constitutional: No Fever Abdominal/Gastrointestinal: Abdominal Pain Objective Exam General Appearance: no apparent distress Neurologic Exam: alert, 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, cooperative Skin Exam: normal color, warm, dry Respiratory Exam: normal breath sounds, lungs clear, No crackles/rales, No rhonchi, No wheezing Cardiovascular Exam: regular rate/rhythm, normal heart sounds Gastrointestinal/Abdomen Exam: soft, tenderness (RUQ), No guarding, No rebound Extremity Exam: No pedal edema, No swelling OBJECTIVE DATA Vital Signs: Vital Signs - 24 hr Temp Pulse Resp BP Pulse Ox 10/19/16 08:00 99.7 F 85 20 137/67 92 L 10/19/16 04:00 98.7 F 96 H 20 140/82 92 L 10/19/16 00:00 98.0 F 75 19 142/79 94 L 10/18/16 20:53 92 L 10/18/16 20:00 98.5 F 87 16 125/70 92 L 10/18/16 19:05 95 10/18/16 16:53 94 L 10/18/16 16:00 98.1 F 76 20 124/71 93 L 10/18/16 14:00 95 10/18/16 11:52 98.7 F 73 18 122/56 95 10/18/16 10:00 96 Oxygen-Last 24 hours O2 Percentage 2 Liters = 28% O2 Percentage 2 Liters = 28% O2 Percentage 2 Liters = 28% O2 Percentage 2 Liters = 28% Pain Assessment - Last Documented Pain Intensity 3 Pain Scale Used 0-10 Pain Scale Intake and Output: Intake & Output 10/16/16 10/17/16 10/18/16 10/19/16 11:59 11:59 11:59 11:59 Intake Total 2041 2885 2481 Balance 2041 2885 2481 Lab Results: Lab Results-Last 24 Hours 10/19/16 Range/Units 08:00 WBC 9.7 (4.0-10.5) K/mm3 RBC 4.13 (4.1-5.6) M/mm3 Hgb 12.5 (12.5-18.0) gm/dl Hct 39.4 L (42-50) % MCV 95.4 (78-100) fl MCH 30.3 (26-32) pg MCHC 31.7 L (32-36) g/dl RDW 14.3 H (11.5-14.0) % Plt Count 198 (150-450) K/mm3 MPV 10.0 H (6-9.5) fl Gran % 73.3 H (36.0-66.0) % Lymphocytes % 11.4 L (24.0-44.0) % Monocytes % 11.8 (0.0-12.0) % Eosinophils % 3.2 (0.00-5.0) % Basophils % 0.3 (0.0-0.4) % Basophils # 0.03 (0-0.4) Radiology Exams: Radiology Procedures Category Date Time Status ABDOMEN 2 VIEW Routine Exams 10/17/16 09:07 Completed Multi-Disciplinary Progress Notes: Multi-Disciplinary Progress Notes 10/18/16 14:58 Respiratory Note by Yolanda De La Cruz PT'S O2 SAT ON ROOM AIR WHILE AT REST WAS 88%. PT WAS THEN PLACED ON 2LPM NASAL CANNULA. O2 SAT INCREASED TO 94%. Initialized on 10/18/16 14:58 - END OF NOTE Assessment/Plan (1) Cholelithiases Current Visit: Yes Status: Acute Qualifiers: Cholelithiasis location: bile duct Cholecystitis presence: with cholecystitis Cholecystitis acuity: acute Biliary obstruction: without biliary obstruction Qualified Code(s): K80.42 - Calculus of bile duct with acute cholecystitis without obstruction Assessment & Plan: Surgery today, thank you. (2) Umbilical hernia Current Visit: Yes Status: Acute Qualifiers: Obstruction and gangrene presence: without obstruction or gangrene Qualified Code(s): K42.9 - Umbilical hernia without obstruction or gangrene Assessment & Plan: If small, surgery to repair today - thank you. Code(s): K42.9 - UMBILICAL HERNIA WITHOUT OBSTRUCTION OR GANGRENE (3) Abdominal pain Current Visit: Yes Status: Acute Qualifiers: Abdominal location: right upper quadrant Qualified Code(s): R10.11 - Right upper quadrant pain Code(s): R10.9 - UNSPECIFIED ABDOMINAL PAIN (4) LUPIS (obstructive sleep apnea) Current Visit: Yes Status: Chronic Assessment & Plan: Home on O2 in CPAP as advised in last sleep study. Code(s): G47.33 - OBSTRUCTIVE SLEEP APNEA (ADULT) (PEDIATRIC) (5) High blood pressure Current Visit: No Status: Chronic Qualifiers: Hypertension type: essential hypertension Qualified Code(s): I10 - Essential (primary) hypertension Assessment & Plan: well controlled here. Code(s): I10 - ESSENTIAL (PRIMARY) HYPERTENSION
[2016-10-19] MEDS: PROTONIX 40 MG IV IV SCH (08:54)
[2016-10-19] MEDS: Zestril 20 MG PO SCH ×2 (08:54→21:09)
[2016-10-19 08:56] LABS: ALKALINE PHOSPHATASE 95 U/L (46-116); ANION GAP 11.3 MEQ/L (5-15); BILIRUBIN,TOTAL 0.5 mg/dL (0.2-1.0); BLOOD UREA NITROGEN 4 mg/dL (9-20); CHLORIDE 105 mEq/L (98-107); Carbon Dioxide 29.8 mEq/L (21-32); Glucose 104 MG/DL (70-110); Potassium 4.6 mEq/L (3.5-5.1); SGOT/AST 25 U/L (15-37); SGPT/ALT 20 U/L (12-78); SODIUM 142 mEq/L (136-145); Total Protein 6.7 gm/dL (6.4-8.2)
[2016-10-19] MEDS ORDERED: MEFOXIN 2 GM PREMIX** 50 ML IV SCH (09:00)
[2016-10-19] MEDS ORDERED: KEFZOL 1 GM ONE (11:17)
[2016-10-19] MEDS ORDERED: XYLOCAINE 1% HCL 20 ML MDV ONE (11:17)
[2016-10-19] MEDS ORDERED: Sensorcaine 0.25% 10 ML ONE (11:18)
[2016-10-19] MEDS ORDERED: Lactated Ringers 1,000 ML IV ONE (12:26)
[2016-10-19] MEDS ORDERED: MORPHINE SULFATE 4 MG INJ IV PRN (13:58)
[2016-10-19] MEDS ORDERED: MORPHINE SULFATE 2 MG INJ IV PRN (14:24)
[2016-10-19] MEDS ORDERED: Zofran 4 MG/2 ML VIAL IV PRN (14:28)
--- NOTE | 2016-10-19 14:57 | OP ---
SURGERY DATE/TIME: 10/19/2016 1140 PREOPERATIVE DIAGNOSIS: Acute cholecystitis, cholelithiasis. POSTOPERATIVE DIAGNOSIS: Acute cholecystitis, cholelithiasis and umbilical hernia. PROCEDURES: 1) Laparoscopic cholecystectomy. 2) Umbilical herniorrhaphy. SURGEON: Kevin Rivero M.D. ANESTHESIA: General - Grant Jeffery CRNA. COMPLICATIONS: None. ESTIMATED BLOOD LOSS: Less than 50. DRAINS: One. CONDITION: Stable. INDICATION: The patient with acute cholecystitis and cholelithiasis, was on blood thinner. Prepared for surgical intervention. DESCRIPTION OF PROCEDURE: Taken to surgery. General anesthetic. Routine prep and drape. He does have umbilical hernia. Time out performed. Transverse umbilical incision. A 10 port was placed here, three - 5's upper abdomen. Gallbladder looked acutely inflamed. It was markedly distended, thick walled and fragile. Cystic duct defined. Cystic artery defined. Both structures triply clipped and transected. Clips noted across and well approximated. Gallbladder rolled out of gallbladder fossa. Gallbladder delivered in three large pieces through umbilical area. This was quite clean underneath. A 10 LESLI was placed into the gallbladder fossa which was adequately dry. The umbilical closed from the outside deliberately with running suture #0 Vicryl in the hernia. Skin closed with kasandra and Steri-Strips. Drain secured. The patient tolerated the procedure satisfactorily.
[2016-10-19] MEDS: NORCO 5/325 MG PO PRN ×2 (15:21→21:17)
[2016-10-19] MEDS: ROCEPHIN 1 Gm-D5w 50 ml Bag** 1 G/50 ML IVPB IV SCH (16:51)
[2016-10-19] MEDS: Paxil 20 MG PO SCH (21:08)
[2016-10-19] MEDS: NORVASC 5 MG PO SCH (21:08)
[2016-10-19] MEDS: Ativan 2 MG/1 ML VIAL IV SCH (22:41)
[2016-10-20 05:48] LABS: Mean Cell Volume 94.7 fl (78-100); Mean Corpuscular Hemoglobin 30.3 pg (26-32); Mean Platelet Volume 10.3 fl (6-9.5); Platelet Count 219 K/mm3 (150-450); Red Blood Count 4.13 M/mm3 (4.1-5.6); Red Cell Distribution Width 13.9 % (11.5-14.0); White Blood Count 11.9 K/mm3 (4.0-10.5)
[2016-10-20] MEDS: Zestril 20 MG PO SCH ×2 (10:25→22:29)
[2016-10-20] MEDS: PROTONIX 40 MG IV IV SCH (10:25)
--- NOTE | 2016-10-20 15:48 | PCM.NOTE ---
Date and Time: 10/20/16 1544 Subjective Assessment: Pt's pain controlled with norco po. He continues to be hypoxic without O2. - Review of Systems Constitutional: No Fever Abdominal/Gastrointestinal: Abdominal Pain Objective Exam General Appearance: no apparent distress, obese Neurologic Exam: alert, 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, cooperative Skin Exam: normal color, warm, dry Respiratory Exam: normal breath sounds, lungs clear, prolonged expirations, No crackles/rales, No rhonchi, No wheezing Cardiovascular Exam: regular rate/rhythm, normal heart sounds, No murmur Gastrointestinal/Abdomen Exam: soft, other (wrap present. LESLI drain with serosanguinous drainage) Extremity Exam: No pedal edema, No swelling OBJECTIVE DATA Vital Signs: Vital Signs - 24 hr Temp Pulse Resp BP Pulse Ox 10/20/16 12:00 98.1 F 86 21 133/74 93 L 10/20/16 09:40 71 20 97 10/20/16 07:53 98.1 F 78 21 133/76 90 L 10/20/16 04:00 97.5 F 86 20 137/88 95 10/20/16 00:00 98.8 F 108 H 22 124/75 92 L 10/19/16 20:00 94 H 20 96 10/19/16 19:53 97.8 F 97 H 20 128/75 96 10/19/16 17:50 96.5 F 83 18 111/58 92 L 10/19/16 16:34 97.8 F 85 18 142/83 94 L Oxygen-Last 24 hours O2 Percentage 2 Liters = 28% O2 Percentage 2 Liters = 28% O2 Percentage 2 Liters = 28% O2 Percentage 3 Liters = 32% O2 Percentage 3 Liters = 32% Pain Assessment - Last Documented Pain Intensity 2 Pain Scale Used 0-10 Pain Scale Intake and Output: Intake & Output 10/18/16 10/19/16 10/20/16 10/21/16 11:59 11:59 11:59 11:59 Intake Total 2885 2481 2662 220 Output Total 140 Balance 2885 2481 2522 220 Weight 121.653 kg 121.653 kg Lab Results: Lab Results-Last 24 Hours 10/20/16 Range/Units 05:39 WBC 11.9 H (4.0-10.5) K/mm3 RBC 4.13 (4.1-5.6) M/mm3 Hgb 12.5 (12.5-18.0) gm/dl Hct 39.1 L (42-50) % MCV 94.7 (78-100) fl MCH 30.3 (26-32) pg MCHC 32.0 (32-36) g/dl RDW 13.9 (11.5-14.0) % Plt Count 219 (150-450) K/mm3 MPV 10.3 H (6-9.5) fl Multi-Disciplinary Progress Notes: Multi-Disciplinary Progress Notes 10/20/16 11:10 (created 10/20/16 13:21) Case Management Note by Winnie Bernabe FAXED DOCUMENTATION TO [facility] FOR PT'S HOME OXYGEN. AWAIT DR. CHAMBERS PROGRESS NOTE WILL FORWARD ON TO [facility] WHEN AVAILABLE. Initialized on 10/20/16 13:21 - END OF NOTE 10/20/16 10:30 (created 10/20/16 13:31) Case Management Note by Winnie Bernabe DISCHARGE PLAN REVIEWED, PLANS FOR [facility] TO PROVIDE HOME OXYGEN. DECLINED NEEDS FOR DISCHARGE. REPORTS THAT HE IS GOING TO STAY WITH HIS PARENTS A FEW DAYS POST DISCHARGE. DECLINED ADDNL NEEDS. DID DISCUSS HHC FOR ADDNL SUPPORT. DECLINED NEED. WILL CONTINUE TO FOLLOW FOR ALL DC NEEDS. Initialized on 10/20/16 13:31 - END OF NOTE 10/20/16 10:10 Respiratory Note by Yolanda [facility] CALLED PER RT REGARDING PT'S CPAP MASK. [facility] STATED THEY CAN FOLLOW UP WITH PT ABOUT A NEW CPAP MASK ONCE HE'S DISCHARGED HOME. PT NOTIFIED. Initialized on 10/20/16 10:10 - END OF NOTE 10/20/16 09:57 Respiratory Note by Yoladna De La Cruz PT'S O2 SAT ON ROOM AIR WHILE AT REST WAS 87%. PT WAS THEN PLACED ON 2LPM NASAL CANNULA AND O2 SAT INCREASED TO 92%. Initialized on 10/20/16 09:57 - END OF NOTE 10/20/16 05:10 Respiratory Note by Reyes Dominguez TOOK A COUPLE FULL FACED MASKS INTO PT RM TO SEE IF THEY WOULD BE A BETTER FIT FOR PT. PT SATS CONTINUE TO DROP WHEN HE IS SLEEPING. PT IS CURRENTLY ON 20CM H2O W/ 3LPM O2 BLED INTO LINE. I NOTICED PT MASK APPEARED TO BE BREAKING DOWN AND THE FIT WAS PERHAPS COMPROMISED. PT APPEARED TO BE COMFORTABLE W/ THE RESMED FULL FACE 10 AND RESMED FULL FACE 20 MASKS BUT STATED HE PREFERRED HIS OWN MASK. PT SATS MAINTAINED 94-95 ON OUR FULL FACED MASKS AND MAINTAINED 91- 93 ON HIS MASK. I WILL SAY THAT PT DID NOT ACTUALLY FALL ASLEEP DURING THESE FIT TESTS...HE JUST RESTED FOR APPROX 4-5 MINUTES W/ THEM ON. I SUGGESTED TO PT THAT HE CONTACT HIS CARE COMPANY UPON RELEASE TO REQUEST A NEWER MASK. PT DID STATE TO ME THAT HE HAS HAD THIS MASK FOR AROUND 6 MONTHS OR MORE. LATER I WAS CALLED TO PT RM HE HAD FALLEN ASLEEP ON HIS 3LPM NC AND HAD SATS OF 88%. I WOKE PT UP AND PLACED HIM ON HIS CPAP OF 20CM H2O W/ 3LPM O2 BLED INTO LINE. APPROX 10 MINUTES LATER NURSING NOTIFIED ME THAT PT SATS WERE 89%. I TITRATED PT UP TO 4LPM AND PT MAINTAINED SATS OF 89%. ON 5LPM HE MAINTAINED SATS OF 90%. FINALLY ON 6LPM PT MAINTAINED SATS OF 92%. I DID NOTIFY NURSING THAT THE PULSE OX THAT PT WAS USING VIA TELE DID NOT CO-INSIDE W/ MY PULSE OX. TELE REPORTED LOWER NUMBERS THAN MY PULSE OX. I LEFT PT ON 6LPM O2 THRU HIS CPAP AND WILL NOTIFY DAY SHIFT. Initialized on 10/20/16 05:10 - END OF NOTE Assessment/Plan (1) Cholelithiases Current Visit: Yes Status: Acute Qualifiers: Cholelithiasis location: bile duct Cholecystitis presence: with cholecystitis Cholecystitis acuity: acute Biliary obstruction: without biliary obstruction Qualified Code(s): K80.42 - Calculus of bile duct with acute cholecystitis without obstruction Assessment & Plan: s/p cholecystectomy, POD #1. I would like the pt to stay at least one more day. (2) Umbilical hernia Current Visit: Yes Status: Acute Qualifiers: Obstruction and gangrene presence: without obstruction or gangrene Qualified Code(s): K42.9 - Umbilical hernia without obstruction or gangrene Assessment & Plan: repaired, POD #1. Code(s): K42.9 - UMBILICAL HERNIA WITHOUT OBSTRUCTION OR GANGRENE (3) Chronic respiratory failure with hypoxia Current Visit: Yes Status: Chronic Assessment & Plan: He is requiring oxygen at night and during the day as well. Will order home O2. Will have him follow with pulmonology outpatient. (4) Abdominal pain Current Visit: Yes Status: Resolved Qualifiers: Abdominal location: right upper quadrant Qualified Code(s): R10.11 - Right upper quadrant pain Code(s): R10.9 - UNSPECIFIED ABDOMINAL PAIN (5) LUPIS (obstructive sleep apnea) Current Visit: Yes Status: Chronic Code(s): G47.33 - OBSTRUCTIVE SLEEP APNEA (ADULT) (PEDIATRIC) (6) High blood pressure Current Visit: No Status: Chronic Qualifiers: Hypertension type: essential hypertension Qualified Code(s): I10 - Essential (primary) hypertension Code(s): I10 - ESSENTIAL (PRIMARY) HYPERTENSION
[2016-10-20] MEDS: ROCEPHIN 1 Gm-D5w 50 ml Bag** 1 G/50 ML IVPB IV SCH (17:15)
[2016-10-20] MEDS: NORCO 5/325 MG PO PRN (21:30)
[2016-10-20] MEDS: Ativan 2 MG/1 ML VIAL IV SCH (22:28)
[2016-10-20] MEDS: Paxil 20 MG PO SCH (22:29)
[2016-10-20] MEDS: NORVASC 5 MG PO SCH (22:29)
[2016-10-21] MEDS: Sodium Chloride 0.9% 1000 ML 1,000 ML IV SCH ×2 (00:09→00:10)
[2016-10-21 08:58] VITALS: PULSE 78
--- NOTE | 2016-10-21 09:12 | PCM.DCORD ---
- Discharge Discharge Date: 10/21/16 Condition: Stable Prescriptions: Continue Rivaroxaban [Xarelto] 20 mg PO HS Lisinopril 20 mg [Zestril 20 MG] 20 mg PO BID Paroxetine HCl 40 mg PO HS Pravastatin Sodium [Pravachol] 20 mg PO HS Omeprazole 20 MG [Prilosec 20 mg] 20 mg PO HS Amlodipine Besylate 5 mg [Norvasc 5 mg] 5 mg PO QHS #30 tablet Hydrochlorothiazide 25 mg [hydroDIURIL 25 MG] 25 mg PO HS Amitriptyline HCl 100 mg PO HS Instructions: Quit Smoking Additional Instructions: may resume xarelto Follow up with: NGHIA PIMENTEL MD [NON-STAFF PHY W/O PRIVILEGES] - (Dr Pimentel, [facility] Pulmonology, will call with appointment date and time. ) EDILIA CHAMBERS [Primary Care Provider] - Forms: Patient Portal Information
[2016-10-21] MEDS: PROTONIX 40 MG IV IV SCH (09:46)
[2016-10-21] MEDS: Zestril 20 MG PO SCH (09:46)
[2016-10-21] MEDS: NORCO 5/325 MG PO PRN (11:26)
[2016-10-21 11:56] VITALS: BP 157/87; O2SAT 95
--- NOTE | 2016-10-23 12:12 | DS ---
DISCHARGE DIAGNOSIS: ACUTE CHOLECYSTITIS. OPERATIVE PROCEDURE: Laparoscopic cholecystectomy and umbilical hernia repair by surgeon, Dr. Kevin Rivero. HOSPITAL COURSE: The patient is 51 year-old white male patient who presented with complaints of abdominal pain. On evaluation he was found to have acute cholecystitis. He had consultation with the surgeons and he had his gallbladder removed on 10/19/2016. The patient has done well post-operatively. He is afebrile with stable vital signs. He was felt to be ready for discharge home again by 10/21/2016. The patient also has history of pulmonary embolism and sleep apnea. He is on CPAP mask. He has a follow up appointment to Dr. Azar for his evaluation of his sleep apnea otherwise he is to follow up with the surgeons in the office in a week or return to the hospital if he has any further problems in the interim.
== END 2016-10-21 13:03 | disposition home or self-care (01) | DRG 418 ==
LOC: ED 08:59 → MED SURG 12:30 → OBSVTOIN 18:13
PROVIDERS: ADMIT Family Medicine; ATTEND Family Medicine
PROC: 0FT44ZZ Resection of Gallbladder, Percutaneous Endoscopic Approach (ICD-10-PCS; principal; 2016-10-16)
PROC: 0WQF0ZZ Repair Abdominal Wall, Open Approach (ICD-10-PCS; 2016-10-16)
DX: K80.42 Calculus of bile duct with acute cholecystitis without obstruction (principal); J96.11 Chronic respiratory failure with hypoxia; K42.9 Umbilical hernia without obstruction or gangrene; G47.33 Obstructive sleep apnea (adult) (pediatric); I10 Essential (primary) hypertension; Z86.711 Personal history of pulmonary embolism; Z79.01 Long term (current) use of anticoagulants; Z79.899 Other long term (current) drug therapy; Z72.0 Tobacco use
CPT/HCPCS: 00790; 36000; 36415; 74020; 74177; 80048; 80053; 81002; 82150; 83690; 84484; 85025; 85027; 87040; 88304; 93005; 94760; 94762; 96360; 96361; 96374; 96375; 96376; 99285; J0330; J0690; J0694; J0696; J1100; J1170; J1885; J2060; J2270; J2405; J2704; J3010; A9270-GY

== ENCOUNTER 2017-09-18 16:48 | Observation (INO) | payer MEDICARE ==
--- NOTE | 2017-09-18 17:12 | ERPHSYRPT ---
- History of Present Illness Time Seen by Provider: 09/18/17 17:00 Historian: patient Exam Limitations: no limitations Physician History: 52 y/o male with history of PE and HTN currently on xarelto comes to the ER with complaints of left sided chest pain and elevated blood pressure that started last night. Pt reports that the pain has been continuous, pleuritic in nature, describing the pain as tightness, 4/10, and pt has not taken any pain meds. Pt also reports that his BP was 230/110 this afternoon but upon arrival BP is 153/87. Pt has been compliant on his xarelto. Pt denies any fever, chills , shortness of breath, palpitations, abdominal pain, nausea or vomiting. Pt does admit to a mild cough. Timing/Duration: yesterday Activities at Onset: none Quality: other (tightness) Location: central Chest Pain Radiation: no radiation Severity of Pain-Max: mild Severity of Pain-Current: mild Modifying Factors: Improves With: breathing Associated Symptoms: denies symptoms Prior Chest Pain/Cardiac Workup: cardiac cath Nitro Today/Relief: no nitro taken today Aspirin Treatment Today: no aspirin today Allergies/Adverse Reactions: No Known Drug Allergies Allergy (Verified 09/18/17 17:08) Home Medications: Lisinopril 20 mg [Zestril 20 MG] 20 mg PO BID 06/30/13 [History] Paroxetine HCl 40 mg PO HS 06/30/13 [History] Rivaroxaban [Xarelto] 20 mg PO HS 06/30/13 [History] Omeprazole 20 MG [Prilosec 20 mg] 20 mg PO HS 01/23/15 [History] Pravastatin Sodium [Pravachol] 20 mg PO HS 01/23/15 [History] Amitriptyline HCl 100 mg PO HS 02/20/15 [History] Hydrochlorothiazide 25 mg [hydroDIURIL 25 MG] 25 mg PO HS 02/20/15 [ History] Hx Tetanus, Diphtheria Vaccination/Date Given: Yes (unknown) Hx Influenza Vaccination/Date Given: No Hx Pneumococcal Vaccination/Date Given: No - Review of Systems Constitutional: No Fever, No Chills Eyes: No Symptoms Ears, Nose, & Throat: No Symptoms Respiratory: No Cough, No Dyspnea Cardiac: Chest Pain, No Edema, No Syncope Abdominal/Gastrointestinal: No Abdominal Pain, No Nausea, No Vomiting, No Diarrhea Genitourinary Symptoms: No Dysuria Musculoskeletal: No Back Pain, No Neck Pain Skin: No Rash Neurological: No Dizziness, No Focal Weakness, No Sensory Changes Psychological: No Symptoms Endocrine: No Symptoms All Other Systems: Reviewed and Negative - Past Medical History Pertinent Past Medical History: Yes Neurological History: No Pertinent History ENT History: Glaucoma Cardiac History: Deep Vein Thrombosis, Hypertension Respiratory History: Pulmonary Embolism Endocrine Medical History: No Pertinent History Musculoskeletal History: No Pertinent History GI Medical History: No Pertinent History History: No Pertinent History Psycho-Social History: Depression Male Reproductive Disorders: No Pertinent History Other Medical History: DVT/PE - Past Surgical History Past Surgical History: Yes Neuro Surgical History: No Pertinent History Cardiac: Other Respiratory: No Pertinent History Gastrointestinal: Hernia Repair Genitourinary: No Pertinent History Musculoskeletal: No Pertinent History Male Surgical History: No Pertinent History Other Surgical History: eye surgery. [facility] - Social History Smoking Status: Current every day smoker How long have you smoked: 30 YEARS Exposure to second hand smoke: No Drug Use: none Patient Lives Alone: No - Nursing Vital Signs Nursing Vital Signs: Initial Vital Signs Temperature 98.7 F 09/18/17 16:50 Pulse Rate 76 09/18/17 16:50 Respiratory Rate 20 09/18/17 16:50 Blood Pressure 150/88 09/18/17 16:50 O2 Sat by Pulse Oximetry 97 09/18/17 16:50 Pain Scale Pain Intensity 4 - Physical Exam General Appearance: no apparent distress, alert Eye Exam: PERRL/EOMI, eyes nml inspection Ears, Nose, Throat Exam: normal ENT inspection, moist mucous membranes Neck Exam: normal inspection, non-tender, supple, full range of motion Respiratory Exam: normal breath sounds, lungs clear, No chest tenderness, No respiratory distress Cardiovascular Exam: regular rate/rhythm, normal heart sounds, normal peripheral pulses Gastrointestinal/Abdomen Exam: soft, No tenderness, No mass Back Exam: normal inspection, No CVA tenderness, No vertebral tenderness Extremity Exam: normal inspection, normal range of motion Neurologic Exam: alert, 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, cooperative, normal mood/affect, sensation nml, No motor deficits Skin Exam: normal color, warm, dry - Course Nursing assessment & vital signs reviewed: Yes EKG Interpreted by Me: RATE, NORMAL AXIS, NORMAL INTERVALS, NORMAL QRS, NORMAL ST-T Ordered Tests: Active Orders 24 hr Category Date Time Status Production Team Advisor STAT Care 09/18/17 17:06 Active EKG-ER Only STAT Care 09/18/17 17:06 Active IV Insertion STAT Care 09/18/17 17:06 Active CHEST 2 VIEWS (PA AND LAT) Stat Exams 09/18/17 17:06 Taken CBC W DIFF Stat Lab 09/18/17 16:55 Completed CK-Creatinine Phosphokinase Stat Lab 09/18/17 16:55 Completed CMP Stat Lab 09/18/17 16:55 Completed D-DIMER QUANTITATION Stat Lab 09/18/17 16:55 Completed NT PRO BNP Stat Lab 09/18/17 16:55 Completed PROTIME WITH INR Stat Lab 09/18/17 16:55 Completed PTT Stat Lab 09/18/17 16:55 Completed TROPONIN Q3H Lab 09/18/17 16:55 Completed TROPONIN Q3H Lab 09/18/17 20:15 Ordered TROPONIN Q3H Lab 09/18/17 23:15 Ordered TROPONIN Q3H Lab 09/19/17 02:15 Ordered TROPONIN Q3H Lab 09/19/17 05:15 Ordered Medication Summary Discontinued Medications Generic Name Dose Route Start Last Admin Trade Name Freq PRN Reason Stop Dose Admin Morphine Sulfate 4 mg 09/18/17 18:08 Morphine Sulfate 4 Mg Inj IV 09/18/17 18:09 STAT ONE Lab/Rad Data: Laboratory Result Diagrams 09/18/17 16:55 09/18/17 16:55 Laboratory Results 09/18/17 09/18/17 09/18/17 Range/Units 16:55 16:55 16:55 WBC (4.0-10.5) K/mm3 RBC (4.1-5.6) M/mm3 Hgb (12.5-18.0) gm/dl Hct (42-50) % MCV (78-100) fl MCH (26-32) pg MCHC (32-36) g/dl RDW (11.5-14.0) % Plt Count (150-450) K/mm3 MPV (6-9.5) fl Gran % (36.0-66.0) % Eos # (Auto) (0-0.5) Absolute Lymphs (auto) (1.0-4.6) Absolute Monos (auto) (0.0-1.3) Lymphocytes % (24.0-44.0) % Monocytes % (0.0-12.0) % Eosinophils % (0.00-5.0) % Basophils % (0.0-0.4) % Absolute Granulocytes (1.4-6.9) Basophils # (0-0.4) PT 11.4 (8.83-12.87) SECONDS INR 1.02 (0.8-3.0) APTT 33.3 (24.1-36.1) SECONDS D-Dimer 418.75 (215-500) ng/mL Sodium 145 (137-145) mmol/L Potassium 3.8 (3.5-5.1) mmol/L Chloride 102 (98-107) mmol/L Carbon Dioxide 29 (22-30) mmol/L Anion Gap 17.7 H (5-15) MEQ/L BUN 11 (9-20) mg/dL Creatinine 0.94 (0.66-1.25) mg/dL Estimated GFR > 60 ML/MIN Glucose 145 H (74-106) mg/dL Calcium 9.9 (8.4-10.2) mg/dL Total Bilirubin 0.50 (0.2-1.3) mg/dL AST 35 (17-59) U/L ALT 25 (0-50) U/L Alkaline Phosphatase 112 (38-126) U/L Creatine Kinase 96 (55-170) U/L Troponin I < 0.012 (0.000-0.034) ng/mL NT-Pro-B Natriuret Pep 57.6 (0-900) pg/mL Serum Total Protein 7.9 (6.3-8.2) g/dL Albumin 4.4 (3.5-5.0) g/dL 09/18/17 Range/Units 16:55 WBC 8.3 (4.0-10.5) K/mm3 RBC 4.91 (4.1-5.6) M/mm3 Hgb 15.1 (12.5-18.0) gm/dl Hct 45.8 (42-50) % MCV 93.3 (78-100) fl MCH 30.8 (26-32) pg MCHC 33.0 (32-36) g/dl RDW 14.4 H (11.5-14.0) % Plt Count 217 (150-450) K/mm3 MPV 10.8 H (6-9.5) fl Gran % 57.0 (36.0-66.0) % Eos # (Auto) 0.42 (0-0.5) Absolute Lymphs (auto) 2.16 (1.0-4.6) Absolute Monos (auto) 0.94 (0.0-1.3) Lymphocytes % 26.0 (24.0-44.0) % Monocytes % 11.3 (0.0-12.0) % Eosinophils % 5.1 H (0.00-5.0) % Basophils % 0.6 (0.0-0.4) % Absolute Granulocytes 4.74 (1.4-6.9) Basophils # 0.05 (0-0.4) PT (8.83-12.87) SECONDS INR (0.8-3.0) APTT (24.1-36.1) SECONDS D-Dimer (215-500) ng/mL Sodium (137-145) mmol/L Potassium (3.5-5.1) mmol/L Chloride (98-107) mmol/L Carbon Dioxide (22-30) mmol/L Anion Gap (5-15) MEQ/L BUN (9-20) mg/dL Creatinine (0.66-1.25) mg/dL Estimated GFR ML/MIN Glucose (74-106) mg/dL Calcium (8.4-10.2) mg/dL Total Bilirubin (0.2-1.3) mg/dL AST (17-59) U/L ALT (0-50) U/L Alkaline Phosphatase (38-126) U/L Creatine Kinase (55-170) U/L Troponin I (0.000-0.034) ng/mL NT-Pro-B Natriuret Pep (0-900) pg/mL Serum Total Protein (6.3-8.2) g/dL Albumin (3.5-5.0) g/dL - Progress Progress: unchanged Progress Note: 09/18/17 18:10 Pt admits to be having worsening left sided chest pain, rating the pain as a 6/ 10. Pt will be given a dose of morphine 4mg IV X 1 dose. The first set of troponin and EKG are within normal limits as well as d-dimer is within the normal range. The rest of the labs are unremarkable and the CXR does not show any acute findings. Pt has been admitted to Dr Mccabe for chest pain. - Departure Time of Disposition: 18:12 Departure Disposition: Observation Clinical Impression: Chest pain Qualifiers: Chest pain type: unspecified Qualified Code(s): R07.9 - Chest pain, unspecified Condition: Stable Critical Care Time: No Referrals: EDILIA MCCABE [Primary Care Provider] -
[2017-09-18 17:26] LABS: BASOPHIL % 0.6 % (0.0-0.4); Basophil (Absolute #) 0.05 (0-0.4); Eosinophil % 5.1 % (0.00-5.0); Eosinophil (Absolute #) 0.42 (0-0.5); Granulocyte Absolute (ANC) 4.74 (1.4-6.9); Hematocrit 45.8 % (42-50); Hemoglobin 15.1 gm/dl (12.5-18.0); Lymphocyte (Absolute #) 2.16 (1.0-4.6); Mean Cell Volume 93.3 fl (78-100); Mean Corpuscular Hemoglobin 30.8 pg (26-32); Mean Platelet Volume 10.8 fl (6-9.5); Monocyte (Absolute #) 0.94 (0.0-1.3); Monocytes % 11.3 % (0.0-12.0); Platelet Count 217 K/mm3 (150-450); Red Blood Count 4.91 M/mm3 (4.1-5.6); Red Cell Distribution Width 14.4 % (11.5-14.0); White Blood Count 8.3 K/mm3 (4.0-10.5)
[2017-09-18 17:47] LABS: INR 1.02 (0.8-3.0)
[2017-09-18 17:48] LABS: D-DIMER QUANTITATION 418.75 ng/mL (215-500)
[2017-09-18 17:50] LABS: PTT 33.3 SECONDS (24.1-36.1)
[2017-09-18 17:52] LABS: ALBUMIN 4.4 g/dL (3.5-5.0); ALKALINE PHOSPHATASE 112 U/L (38-126); ANION GAP 17.7 MEQ/L (5-15); BLOOD UREA NITROGEN 11 mg/dL (9-20); CHLORIDE 102 mmol/L (98-107); CK-Creatinine Phosphokinase 96 U/L (55-170); Calcium 9.9 mg/dL (8.4-10.2); Carbon Dioxide 29 mmol/L (22-30); Creatinine 1 0.94 mg/dL (0.66-1.25); Glucose 145 mg/dL (74-106); Potassium 3.8 mmol/L (3.5-5.1); SGOT/AST 35 U/L (17-59); SODIUM 145 mmol/L (137-145); Total Protein 7.9 g/dL (6.3-8.2)
[2017-09-18 17:59] LABS: SGPT/ALT 25 U/L (0-50)
[2017-09-18 18:00] LABS: NT PRO BNP 57.6 pg/mL (0-900)
[2017-09-18] MEDS ORDERED: MORPHINE SULFATE 4 MG INJ IV ONE (18:08)
[2017-09-18] MEDS ORDERED: MORPHINE SULFATE 4 MG INJ ONE (18:12)
[2017-09-18] MEDS ORDERED: MAALOX ES 30 ML UNIT DOSE PO PRN (18:12)
[2017-09-18] MEDS ORDERED: Zofran 4 MG/2 ML VIAL IV PRN (18:12)
[2017-09-18] MEDS ORDERED: MILK OF MAGNESIA 30 ML PO PRN (18:12)
[2017-09-18] MEDS ORDERED: Senokot-S Tablet PO PRN (18:12)
[2017-09-18] MEDS ORDERED: TYLENOL 325 MG PO PRN (18:12)
[2017-09-18] MEDS ORDERED: MORPHINE SULFATE 4 MG INJ IV PRN (19:49)
--- NOTE | 2017-09-18 19:54 | PCM.HP ---
History of Present Illness - Chief Complaint Chief Complaint: chest pain History of Present Illness: is a 52 year old male obese pt of mine with hx PE/DVT, smoker, with CP since yesterday. Pain is substernal, now 5/10, pressure, wiht sharp exacerbation with deep breaths. Seemed a little better when up to get a drink, etc. He denies diaphoresis or nausea, no palpitations. No cough. His Bp at home was noted to be 199/131 so he called me and was sent to ER. When he arrived BP was 150s systolic without any meds. He is feeling better wiht morphine. Initial troponin and EKG are negative. - Review of Systems Cardiac: Chest Pain Musculoskeletal: Back Pain (chronic), Joint Pain (chronic) Hematologic/Lymphatic: Blood Clots (hx of) All Other Systems: Reviewed and Negative Medications & Allergies Home Medications: Home Medication List Lisinopril 20 mg [Zestril 20 MG] 20 mg PO BID 06/30/13 [History Confirmed 10/16/16] Paroxetine HCl 40 mg PO HS 06/30/13 [History Confirmed 10/16/16] Rivaroxaban [Xarelto] 20 mg PO HS 06/30/13 [History Confirmed 10/16/16] Amlodipine Besylate 5 mg [Norvasc 5 mg] 5 mg PO QHS #30 tablet 01/23/15 [ Rx Confirmed 10/16/16] Omeprazole 20 MG [Prilosec 20 mg] 20 mg PO HS 01/23/15 [History Confirmed ] Pravastatin Sodium [Pravachol] 20 mg PO HS 01/23/15 [History Confirmed 10/16/16] Amitriptyline HCl 100 mg PO HS 02/20/15 [History Confirmed 10/16/16] Hydrochlorothiazide 25 mg [hydroDIURIL 25 MG] 25 mg PO HS 02/20/15 [ History Confirmed 10/16/16] Hydrocodone Bit/Acetaminophen [[place] 5-325 Tablet] 1 each PO Q4HPRN PRN #25 tablet 10/21/16 [Rx] Varenicline Tartrate [Chantix] 0.5 mg PO UD #0 tablet 10/21/16 [Rx] Allergies/Adverse Reactions: Allergies Allergy/AdvReac Type Severity Reaction Status Date / Time No Known Drug Allergies Allergy Verified 09/18/17 17:08 - Past Medical History Past Medical History: Yes Neurological History: No Pertinent History ENT History: Glaucoma Cardiac History: Deep Vein Thrombosis, Hypertension Respiratory History: Pulmonary Embolism Endocrine Medical History: No Pertinent History Musculoskelatal History: No Pertinent History GI Medical History: No Pertinent History History: No Pertinent History Pyscho-Social History: Depression Male Reproductive Disorders: No Pertinent History Comment: DVT/PE - Past Surgical History Past Surgical History: Yes Neuro Surgical History: No Pertinent History Cardiac History: Other Respiratory Surgery: No Pertinent History GI Surgical History: Hernia Repair Genitourinary Surgical Hx: No Pertinent History Musculskeletal Surgical Hx: No Pertinent History Male Surgical History: No Pertinent History Other Surgical History: eye surgery. samara filter - Social History Smoking Status: Current every day smoker How long have you smoked: 30 YEARS Exposure to second hand smoke: No Alcohol: Weekly Drug Use: none - Physical Exam Vital Signs: Vital Signs - 24 hr Temp Pulse Pulse Resp BP Pulse Ox 09/18/17 18:14 62 16 128/66 95 09/18/17 16:50 98.7 F 74 76 20 150/88 97 General Appearance: no apparent distress, alert Neurologic Exam: 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, cooperative Eye Exam: eyes nml inspection Ears, Nose, Throat Exam: moist mucous membranes Neck Exam: normal inspection, non-tender, No lymphadenopathy Respiratory Exam: normal breath sounds, lungs clear, No chest tenderness, No crackles/rales, No rhonchi, No wheezing Cardiovascular Exam: regular rate/rhythm, normal heart sounds, No murmur Gastrointestinal/Abdomen Exam: soft, normal bowel sounds, No tenderness, No distention, No mass, No guarding, No rebound Extremity Exam: No pedal edema, No swelling Skin Exam: normal color, warm, dry, No rash Results - Other Procedures and Tests Respiratory Therapy 09/19/17 00:50 EKG ROUTINE 09/20/17 05:00 EKG ROUTINE 09/21/17 05:00 EKG ROUTINE 09/22/17 05:00 EKG ROUTINE Assessment/Plan (1) Chest pain Current Visit: Yes Status: Acute Qualifiers: Chest pain type: unspecified Qualified Code(s): R07.9 - Chest pain, unspecified Assessment & Plan: Admitted overnight, will rule out NH. He is a smoker, has gained much weight recently, and has + family hx CAD (father). Code(s): R07.9 - CHEST PAIN, UNSPECIFIED (2) Malignant hypertension Current Visit: No Status: Acute Assessment & Plan: BP spontaneously improved. Will continue to watch overnight on his home meds.May have been up d/t pain and anxiety. Code(s): I10 - ESSENTIAL (PRIMARY) HYPERTENSION (3) Chronic respiratory failure with hypoxia Current Visit: No Status: Chronic Assessment & Plan: wears O2 at [facility]. checked his pulse ox during the day today and was fine. (4) High blood pressure Current Visit: No Status: Chronic Qualifiers: Code(s): I10 - ESSENTIAL (PRIMARY) HYPERTENSION (5) LUPIS (obstructive sleep apnea) Current Visit: No Status: Chronic Assessment & Plan: CPAP here Code(s): G47.33 - OBSTRUCTIVE SLEEP APNEA (ADULT) (PEDIATRIC)
[2017-09-18] MEDS ORDERED: APRESOLINE 20 MG/ML INJ IV PRN (19:56)
[2017-09-18] MEDS ORDERED: Sodium Chloride 0.9% 1000 ML 1,000 ML IV SCH (20:00)
[2017-09-18] MEDS ORDERED: NORCO 5/325 MG PO PRN (21:34)
[2017-09-18] MEDS ORDERED: Paxil 20 MG PO SCH (22:00)
[2017-09-18] MEDS ORDERED: Toprol-Xl 25MG Tablets PO SCH (22:00)
[2017-09-18] MEDS ORDERED: Zestril 20 MG PO SCH (22:00)
[2017-09-18] MEDS ORDERED: hydroDIURIL 25 MG PO SCH (22:00)
[2017-09-18] MEDS ORDERED: XARELTO 10 MG TABLET PO SCH (22:00)
[2017-09-18] MEDS ORDERED: Protonix 40MG Tablet PO SCH (22:00)
[2017-09-18] MEDS ORDERED: NORVASC 5 MG PO SCH (22:00)
[2017-09-18] MEDS: MORPHINE SULFATE 4 MG INJ IV PRN (23:41)
[2017-09-19] MEDS: MORPHINE SULFATE 4 MG INJ IV PRN ×2 (03:36→08:56)
--- NOTE | 2017-09-19 08:30 | XRAY ---
Indication: Chest pain. Hypertension. Comparison: February 20, 2015. PA/lateral chest now demonstrates subtle right middle lobe infiltrate versus atelectasis. Remaining heart and lungs unremarkable. Bony thorax intact with mild degenerative changes.
--- NOTE | 2017-09-19 08:54 | PCM.DS ---
Discharge Summary Date of Admission: 09/18/17 18:30 Admitting Physician: EDILIA CHAMBERS Primary Care Provider: EDILIA CHAMBERS Allergies Allergies No Known Drug Allergies Allergy (Verified 09/18/17 17:08) Hospital Summary - Hospital Course Hospital Course: Pt is a 52 yo male pt of mine from [facility] with PMhx PE/DVT who was admitted through ER with chest pain. BP elevated to 199 systolic at home, but decreased to 150s systolic in ER. D-dimer was negatvie (he has been compliant on xarelto) . Troponins all negative. Cholesterol is elevated. Last stress test just over 1 year ago was negative. CXR with infiltrate vs atelectasis in RML; pt's pain is left sided, no elevated WBC count, no increased cough. Still having cp - likely pleuritis vs musculoskeletal. He will be discharged to home on chantix. Needs to restart pulmonary rehab. - Vitals & Intake/Output Vital Signs: Vital Signs Temperature 97.5 F 09/19/17 07:33 Pulse Rate 57 L 09/19/17 07:33 Respiratory Rate 18 09/19/17 07:33 Blood Pressure 131/76 09/19/17 07:33 O2 Sat by Pulse Oximetry 93 L 09/19/17 08:19 Oxygen-Last Documented O2 Percentage 4 Liters = 36% Intake & Output: Intake & Output 09/16/17 09/17/17 09/18/17 09/19/17 11:59 11:59 11:59 11:59 Intake Total 1725 Balance 1725 Weight 124.4 kg - Lab Result Diagrams: 09/18/17 16:55 09/18/17 16:55 Lab Results-Last 24 Hrs: Lab Results-Last 24 Hours 09/18/17 09/18/17 09/19/17 Range/Units 20:30 23:18 02:07 Troponin I < 0.012 < 0.012 < 0.012 (0.000-0.034) ng/mL Triglycerides (30-150) mg/dL Cholesterol (50-200) mg/dL LDL Cholesterol (30-100) mg/dL HDL Cholesterol (40-60) mg/dL Heart Disease Risk Ratio 09/19/17 09/19/17 Range/Units 05:55 05:55 Troponin I < 0.012 (0.000-0.034) ng/mL Triglycerides 288 H (30-150) mg/dL Cholesterol 269 H (50-200) mg/dL LDL Cholesterol 183 H (30-100) mg/dL HDL Cholesterol 27 L (40-60) mg/dL Heart Disease Risk Ratio 10.0 - Procedures and Test Procedures and Tests throughout Hospitalization: Therapy Orders & Screens 09/18/17 20:51 BiPap/CPAP Assessment ROUTINE Comment: as per home Diagnosis: chest pain 09/18/17 20:52 Oxygen NASAL CANNULA 4 lpm Comment: as per home with cpap at night Diagnosis: chest pain 09/18/17 21:02 RT Screen per Nursing Assess ONCE Comment: Protocol Order Physician Instructions: Greater than 3 points order RT Admission Screen Reason For Exam: Triggered on Admission Diagnosis: chest pain Diagnosis: chest pain Pneumonia: No Home O2: Yes: at night "6 or 9L" hes unsure Asthma: No CHF: No Home CPAP/BIPAP: Yes: CPAP at night Home Nebs/MDI: No Total Points: 10 Smoking Cessation Education ONCE Comment: Diagnosis: chest pain Smoking Status: Current every day smoker How long have you smoked: 35 years Have you smoked in the past 12 months: Yes Approximately how many cigarettes per day: 10 Do you dip or chew tobacco: No 09/19/17 00:50 EKG ROUTINE Comment: Diagnosis: chest pain 09/20/17 05:00 EKG ROUTINE Comment: Diagnosis: chest pain 09/21/17 05:00 EKG ROUTINE Comment: Diagnosis: chest pain 09/22/17 05:00 EKG ROUTINE Comment: Diagnosis: chest pain Discharge Exam General Appearance: no apparent distress, alert Neurologic Exam: 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, cooperative Skin Exam: normal color, warm, dry Eye Exam: eyes nml inspection Respiratory Exam: normal breath sounds, lungs clear, No crackles/rales, No rhonchi, No wheezing Cardiovascular Exam: regular rate/rhythm, normal heart sounds, No murmur Extremity Exam: normal inspection, No pedal edema, No swelling Final Diagnosis/Problem List - Final Discharge Diagnosis/Problem (1) Chest pain Current Visit: Yes Status: Acute Assessment & Plan: MN ruled out. Tylenol for pain at home. OP stress test. (2) Malignant hypertension Current Visit: No Status: Resolved Assessment & Plan: BP to normal here. Cannot increase BP meds, has hx hypotension. (3) Chronic respiratory failure with hypoxia Current Visit: No Status: Chronic Assessment & Plan: back to pulmonary rehab (4) High blood pressure Current Visit: No Status: Chronic (5) LUPIS (obstructive sleep apnea) Current Visit: No Status: Chronic (6) Tobacco abuse Current Visit: Yes Status: Acute Assessment & Plan: chantix at home. - Discharge Disposition: Home, Self-Care Condition: Good Prescriptions: Continue Rivaroxaban [Xarelto] 20 mg PO HS Lisinopril 20 mg [Zestril 20 MG] 20 mg PO QHS Paroxetine HCl 40 mg PO HS Omeprazole 20 MG [Prilosec 20 mg] 20 mg PO HS Amlodipine Besylate 5 mg [Norvasc 5 mg] 5 mg PO QHS #30 tablet Hydrochlorothiazide 25 mg [hydroDIURIL 25 MG] 25 mg PO HS Amitriptyline HCl 100 mg PO HS Hydrocodone Bit/Acetaminophen [[place] 5-325 Tablet] 1 each PO Q4HPRN PRN #25 tablet PRN Reason: Pain Metoprolol Succinate 25 mg Xl* [Toprol-Xl 25MG Tablets] 25 mg PO QHS Follow up with: EDILIA CHAMBERS [Primary Care Provider] - 1 Week
[2017-09-19 11:20] VITALS: BP 121/69; PULSE 58; O2SAT 92
== END 2017-09-19 10:56 | disposition home or self-care (01) ==
LOC: ED 16:48 → MED SURG 18:30
PROVIDERS: ADMIT Family Medicine; ATTEND Family Medicine
DX: R07.9 Chest pain, unspecified (principal); J96.11 Chronic respiratory failure with hypoxia; G47.33 Obstructive sleep apnea (adult) (pediatric); F32.9 Major depressive disorder, single episode, unspecified; Z72.0 Tobacco use; Z86.711 Personal history of pulmonary embolism; Z87.898 Personal history of other specified conditions; Z86.718 Personal history of other venous thrombosis and embolism; Z79.01 Long term (current) use of anticoagulants; Z79.899 Other long term (current) drug therapy
CPT/HCPCS: 36000; 36415; 71046; 80053; 80061; 82550; 83721; 83880; 84484; 85025; 85379; 85610; 85730; 93005; 93041; 93268; 94660; 94760; 96360; 96374; 99285; G0378; J2270; A9270-GY

== ENCOUNTER 2017-10-13 15:01 | Emergency (ER) | payer MEDICARE ==
--- NOTE | 2017-10-13 16:13 | ERPHSYRPT ---
- History of Present Illness Time Seen by Provider: 10/13/17 15:09 Source: patient Exam Limitations: no limitations Patient Subjective Stated Complaint: states had heart cath via right wrist last wed and now is having pain to right lower arm. Triage Nursing Assessment: ambulated to room per self. skin w/d, color normal. resp easy. hard area to right lower arm noted above where iv site for cath was , tender to touch. good radial pulse. right hand warm. Physician History: Pt underwent cardiac cath. 3 days ago, revealing mild blockages, did not require stenting. He noticed right forearm swelling and aching yesterday, denies chest pain, cough, SOB< fever, or other complaints. He was diagnosed with recurrent low extremity DVT'-s underwent [place] filter placement, and takes Xarelto daily. Occurred: yesterday Method of Injury: other Quality: constant Severity of Pain-Max: mild Severity of Pain-Current: mild Extremities Pain Location: arm: right, forearm: right Modifying Factors: Improves With: nothing Associated Symptoms: none Allergies/Adverse Reactions: No Known Drug Allergies Allergy (Verified 10/13/17 15:37) Home Medications: Lisinopril 20 mg [Zestril 20 MG] 20 mg PO QHS 06/30/13 [History] PARoxetine HCl [Paroxetine HCl] 40 mg PO HS 06/30/13 [History] Rivaroxaban [Xarelto] 20 mg PO HS 06/30/13 [History] Omeprazole 20 MG [Prilosec 20 mg] 20 mg PO HS 01/23/15 [History] Amitriptyline HCl 100 mg PO HS 02/20/15 [History] Hydrochlorothiazide 25 mg [hydroDIURIL 25 MG] 25 mg PO HS 02/20/15 [ History] Metoprolol Succinate 25 mg Xl* [Toprol-Xl 25MG Tablets] 25 mg PO QHS [History] Hx Tetanus, Diphtheria Vaccination/Date Given: No Hx Influenza Vaccination/Date Given: No Hx Pneumococcal Vaccination/Date Given: No - Review of Systems Constitutional: No Symptoms Respiratory: No Symptoms Cardiac: No Symptoms Musculoskeletal: Other (right arm, forearm swelling, aches.) All Other Systems: Reviewed and Negative - Past Medical History Pertinent Past Medical History: Yes Neurological History: Migraines ENT History: No Pertinent History, Glaucoma Cardiac History: No Pertinent History, Deep Vein Thrombosis Respiratory History: COPD, Pulmonary Embolism Endocrine Medical History: No Pertinent History Musculoskeletal History: Arthritis GI Medical History: GERD History: No Pertinent History Psycho-Social History: Anxiety Male Reproductive Disorders: No Pertinent History Other Medical History: 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 sam[place] filter - Social History Smoking Status: Current every day smoker How long have you smoked: 35 Exposure to second hand smoke: Yes Drug Use: none Patient Lives Alone: No - Nursing Vital Signs Nursing Vital Signs: Initial Vital Signs Temperature 98.6 F 10/13/17 15:46 Pulse Rate 83 10/13/17 15:46 Respiratory Rate 16 10/13/17 15:46 Blood Pressure 170/90 10/13/17 15:46 O2 Sat by Pulse Oximetry 100 10/13/17 15:46 Pain Scale Pain Intensity 0 - Physical Exam General Appearance: no apparent distress Eyes, Ears, Nose, Throat Exam: normal ENT inspection Neck Exam: normal inspection, non-tender, supple, carotid bruit, No JVD Cardiovascular/Respiratory Exam: chest non-tender, normal breath sounds, regular rate/rhythm, heart sounds normal, no ecchymosis, no JVD Abdominal Exam: non-tender, soft Elbow/Forearm Exam: swelling (mild, diffuse, no discoloration, good radial pulses, and capillary refills. Radial puncture sight slightly tender, but no suffusion, or discoloration, no hematoma, redness or discharge.) Wrist Exam: soft tissue tenderness, No ecchymosis Hand Exam: normal inspection Neuro/Tendon Exam: normal motor functions Mental Status Exam: alert, 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 Skin Exam: normal color, warm, dry, No rash SpO2 Interpretation: normal SpO2: 100 Oxygen Delivery: Room Air - Course Nursing assessment & vital signs reviewed: Yes - Radiology Ultrasound Exam Right Venous Upper Extremity Ultrasound: tele radiology report, Other (thrombus in the cephalic vein from wrist to elbnow, radial artery occlusion from wrist to junction @ elbow) Ordered Tests: Active Orders 24 hr Category Date Time Status IV Insertion STAT Care 10/13/17 17:04 Active VENOUS UNILAT/LIMITED EXTREMIT [US] Stat Exams 10/13/17 16:00 Taken CBC Stat Lab 10/13/17 17:28 Completed CMP Stat Lab 10/13/17 17:28 Completed PROTIME WITH INR Stat Lab 10/13/17 17:28 Completed PTT Stat Lab 10/13/17 17:28 Completed Lab/Rad Data: Laboratory Result Diagrams 10/13/17 17:28 10/13/17 17:28 Laboratory Results 10/13/17 10/13/17 10/13/17 Range/Units 17:28 17:28 17:28 WBC 7.5 (4.0-10.5) K/mm3 RBC 4.76 (4.1-5.6) M/mm3 Hgb 14.6 (12.5-18.0) gm/dl Hct 43.5 (42-50) % MCV 91.4 (78-100) fl MCH 30.7 (26-32) pg MCHC 33.6 (32-36) g/dl RDW 14.4 H (11.5-14.0) % Plt Count 227 (150-450) K/mm3 MPV 9.9 H (6-9.5) fl PT 11.7 (8.83-12.87) SECONDS INR 1.05 (0.8-3.0) APTT 33.8 (24.1-36.1) SECONDS Sodium 142 (137-145) mmol/L Potassium 3.7 (3.5-5.1) mmol/L Chloride 102 (98-107) mmol/L Carbon Dioxide 27 (22-30) mmol/L Anion Gap 16.1 H (5-15) MEQ/L BUN 9 (9-20) mg/dL Creatinine 0.92 (0.66-1.25) mg/dL Estimated GFR > 60.0 ML/MIN Glucose 129 H (74-106) mg/dL Calcium 9.7 (8.4-10.2) mg/dL Total Bilirubin 0.70 (0.2-1.3) mg/dL AST 35 (17-59) U/L ALT 26 (0-50) U/L Alkaline Phosphatase 117 (38-126) U/L Serum Total Protein 7.9 (6.3-8.2) g/dL Albumin 4.5 (3.5-5.0) g/dL - Progress Progress: unchanged Progress Note: 10/13/17 18:[address] Kam, [employer] senior officer in [facility] with our results , discussed patient's current condition, he suggested to increase his Xarelto dose to 15 mg BID, and 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 I informed patient and his fgamily as well as his sister, Dr Mccabe about this, they agreed. He has been stable and pain free. Discussed with .: Eliot Will see patient in: office - Departure Time of Disposition: 18:48 Departure Disposition: Home Clinical Impression: Arterial occlusion due to thromboembolism Condition: Stable Critical Care Time: No Referrals: EDILIA MCCABE [Primary Care Provider] - Instructions: How to Prevent Blood Clots Additional Instructions: Rest with elevated arm, return if severe pain, swelling, chest pain or shortness of breath, follow up with [facility] on Sunday in [facility] ( in 3 days ). Start taking 10 mg Xarelto in the morning and 20 mg at night!
[2017-10-13 17:30] LABS: Hematocrit 43.5 % (42-50); Hemoglobin 14.6 gm/dl (12.5-18.0); Mean Cell Volume 91.4 fl (78-100); Mean Corpuscular Hemoglobin 30.7 pg (26-32); Mean Corpuscular Hgb Concent. 33.6 g/dl (32-36); Mean Platelet Volume 9.9 fl (6-9.5); Platelet Count 227 K/mm3 (150-450); Red Blood Count 4.76 M/mm3 (4.1-5.6); Red Cell Distribution Width 14.4 % (11.5-14.0); White Blood Count 7.5 K/mm3 (4.0-10.5)
[2017-10-13 17:43] LABS: INR 1.05 (0.8-3.0)
[2017-10-13 17:46] LABS: PTT 33.8 SECONDS (24.1-36.1)
[2017-10-13 17:47] LABS: ALBUMIN 4.5 g/dL (3.5-5.0); ALKALINE PHOSPHATASE 117 U/L (38-126); ANION GAP 16.1 MEQ/L (5-15); BLOOD UREA NITROGEN 9 mg/dL (9-20); CHLORIDE 102 mmol/L (98-107); Calcium 9.7 mg/dL (8.4-10.2); Carbon Dioxide 27 mmol/L (22-30); Creatinine 1 0.92 mg/dL (0.66-1.25); Glucose 129 mg/dL (74-106); Potassium 3.7 mmol/L (3.5-5.1); SGOT/AST 35 U/L (17-59); SGPT/ALT 26 U/L (0-50); SODIUM 142 mmol/L (137-145); Total Protein 7.9 g/dL (6.3-8.2)
[2017-10-13 19:17] VITALS: BP 151/92; PULSE 74; O2SAT 93
--- NOTE | 2017-10-13 22:32 | XRAY ---
Indication: Pain following recent heart catheterization using right upper extremity. Two-dimensional sonogram and color Doppler imaging of the major venous vessels of the right upper extremity was performed. Comparison: None Right cephalic vein demonstrates near occluding thrombus along its course. Remaining right internal jugular, subclavian, axillary, brachial, basilic, median cubital, radial, and ulnar veins are patent. Incidentally the radial artery is also occluded. Impression: 1. Nonoccluding thrombus in the cephalic vein. 2. Occluded radial artery. Comment: Preliminary report was given.
== END 2017-10-13 19:17 | disposition home or self-care (01) ==
LOC: ED 15:01
DX: I70.90 Unspecified atherosclerosis (principal); I74.9 Embolism and thrombosis of unspecified artery; Z79.01 Long term (current) use of anticoagulants; Z79.899 Other long term (current) drug therapy; J44.9 Chronic obstructive pulmonary disease, unspecified; I26.99 Other pulmonary embolism without acute cor pulmonale
CPT/HCPCS: 36000; 36415; 80053; 85027; 85610; 85730; 93971; 99283; 99284

== ENCOUNTER 2019-05-23 13:09 | Observation (INO) | payer MEDICARE ==
[2019-05-23] MEDS ORDERED: Sodium Chloride 0.9% 1000 ML 1,000 ML IV STA (13:31)
[2019-05-23] MEDS ORDERED: Sodium Chloride 0.9% 1000 ML 1,000 ML ONE (13:32)
--- NOTE | 2019-05-23 13:34 | ERPHSYRPT ---
- History of Present Illness Time Seen by Provider: 05/23/19 13:25 Source: patient, family Patient Subjective Stated Complaint: Hyperglycemia Triage Nursing Assessment: Patient ambulated back to ED and transferred self to bed. Patient's skin pink, warm and dry. Patient A+O X3. Patient states he has been feeling weak and tired for one week. Patient has labs done today with glucose over 700 and was told to come to ED. Patient also complains of vision changed in the past few weeks. Patient complains of nausea and unable to eat very much. Patient's lungs clear a/p andre. Abdomen round and hard with BS X 4. Patient complains of being extremely thirty. Patient denies pain or discomfort. Physician History: Patient states he has been feeling weak and tired for one week. Patient has labs done today with glucose over 700 and was told to come to ED. Patient also complains of vision changed in the past few weeks. Patient complains of nausea and unable to eat very much. Patient's lungs clear a/p andre. Abdomen round and hard with BS X 4. Patient complains of being extremely thirty. Patient denies pain or discomfort. in ER, sugar is "high" Timing/Duration: day(s) (7) Severity: moderate Associated Symptoms: nausea, loss of appetite, malaise, weakness Allergies/Adverse Reactions: No Known Drug Allergies Allergy (Verified 05/23/19 13:14) Home Medications: Lisinopril 20 mg [Zestril 20 MG] 20 mg PO QHS 06/30/13 [History] PARoxetine HCl [Paroxetine HCl] 40 mg PO HS 06/30/13 [History] Rivaroxaban [Xarelto] 20 mg PO HS 06/30/13 [History] Omeprazole 20 MG [Prilosec 20 mg] 20 mg PO HS 01/23/15 [History] Amitriptyline HCl 100 mg PO HS 02/20/15 [History] Hydrochlorothiazide 25 mg [hydroDIURIL 25 MG] 25 mg PO HS 02/20/15 [ History] Metoprolol Succinate 25 mg Xl* [Toprol-Xl 25MG Tablets] 25 mg PO QHS [History] Hx Tetanus, Diphtheria Vaccination/Date Given: No Hx Influenza Vaccination/Date Given: No Hx Pneumococcal Vaccination/Date Given: No Immunizations Up to Date: Yes - Review of Systems Constitutional: Chills, Fatigue, Malaise, Weakness, No Fever Eyes: No Symptoms Ears, Nose, & Throat: No Symptoms, Throat Pain Respiratory: No Cough, No Dyspnea Cardiac: No Chest Pain, No Edema, No Syncope Abdominal/Gastrointestinal: No Abdominal Pain, No Nausea, No Vomiting, No Diarrhea Genitourinary Symptoms: No Dysuria Musculoskeletal: No Back Pain, No Neck Pain Skin: No Rash Neurological: No Dizziness, No Focal Weakness, No Sensory Changes Psychological: No Symptoms Endocrine: No Symptoms All Other Systems: Reviewed and Negative - Past Medical History Pertinent Past Medical History: Yes Neurological History: Migraines ENT History: No Pertinent History, Glaucoma Cardiac History: Deep Vein Thrombosis Respiratory History: COPD, Pulmonary Embolism Endocrine Medical History: No Pertinent History Musculoskeletal History: Arthritis GI Medical History: GERD History: No Pertinent History Psycho-Social History: Anxiety Male Reproductive Disorders: No Pertinent History Other Medical History: 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 [facility] - Social History Smoking Status: Current some day smoker How long have you smoked: years Exposure to second hand smoke: No Drug Use: none Patient Lives Alone: No - Nursing Vital Signs Nursing Vital Signs: Initial Vital Signs Temperature 98.1 F 05/23/19 13:14 Pulse Rate 94 H 05/23/19 13:14 Respiratory Rate 18 05/23/19 13:14 Blood Pressure 125/87 05/23/19 13:14 O2 Sat by Pulse Oximetry 95 05/23/19 13:14 Pain Scale Pain Intensity 0 - Physical Exam General Appearance: no apparent distress, alert, other (obese) Eye Exam: PERRL/EOMI, eyes nml inspection Ears, Nose, Throat Exam: normal ENT inspection, TMs normal, pharynx normal, moist mucous membranes Neck Exam: normal inspection, non-tender, supple, full range of motion Respiratory Exam: normal breath sounds, lungs clear, No respiratory distress Cardiovascular Exam: regular rate/rhythm, normal heart sounds, normal peripheral pulses Gastrointestinal/Abdomen Exam: soft, normal bowel sounds, No tenderness, No mass Back Exam: normal inspection, normal range of motion, No CVA tenderness, No vertebral tenderness Extremity Exam: normal inspection, normal range of motion, pelvis stable Neurologic Exam: alert, 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, cooperative, normal mood/affect, nml cerebellar function, nml station & gait, sensation nml, No motor deficits Skin Exam: normal color, warm, dry, No rash Lymphatic Exam: No adenopathy SpO2: 95 - Course EKG Interpreted by Me: RATE (79), NORMAL AXIS, NORMAL INTERVALS, NORMAL QRS, Q- wave, NORMAL ST-T Ordered Tests: Active Orders 24 hr Category Date Time Status ACCUCHECK [Accucheck] STAT Care 05/23/19 13:20 Active Claim Representative STAT Care 05/23/19 13:35 Active EKG-ER Only STAT Care 05/23/19 13:36 Active IV Insertion STAT Care 05/23/19 13:20 Active IV Insertion-2nd Peripheral STAT Care 05/23/19 13:28 Active CHEST 1 VIEW (PORTABLE) Stat Exams 05/23/19 13:36 Taken CBC W DIFF Stat Lab 05/23/19 13:36 Completed CK-Creatinine Phosphokinase Stat Lab 05/23/19 13:36 Completed CMP Stat Lab 05/23/19 13:36 Completed Lactic Acid Urgent Lab 05/23/19 14:02 Results MAGNESIUM Stat Lab 05/23/19 13:36 Completed TROPONIN Stat Lab 05/23/19 13:36 Completed UA W/RFX UR CULTURE Stat Lab 05/23/19 13:42 Completed VENOUS BLOOD GAS Urgent Lab 05/23/19 14:02 Results Transfer Order Routine Transfer 05/23/19 Ordered Medication Summary Discontinued Medications Generic Name Dose Route Start Last Admin Trade Name Janie PRN Reason Stop Dose Admin Sodium Chloride 1,000 mls @ 999 mls/hr 05/23/19 13:31 05/23/19 13:34 Sodium Chloride 0.9% 1000 Ml IV 05/23/19 14:31 999 mls/hr .Q1H1M STA Administration Sodium Chloride Confirm 05/23/19 13:32 Sodium Chloride 0.9% 1000 Ml Administered 05/23/19 13:33 Dose 1,000 mls @ ud .ROUTE .STK-MED ONE Ondansetron HCl 4 mg 05/23/19 13:36 05/23/19 13:46 Zofran 4 Mg/2 Ml Vial IV 05/23/19 13:37 4 mg STAT ONE Administration Ondansetron HCl Confirm 05/23/19 13:44 Zofran 4 Mg/2 Ml Vial Administered 05/23/19 13:45 Dose 4 mg .ROUTE .STK-MED ONE Lab/Rad Data: Laboratory Result Diagrams 05/23/19 13:36 05/23/19 13:36 Laboratory Results 05/23/19 05/23/19 05/23/19 Range/Units 14:02 14:00 13:42 WBC (4.0-10.5) K/mm3 RBC (4.1-5.6) M/mm3 Hgb (12.5-18.0) gm/dl Hct (42-50) % MCV (78-100) fl MCH (26-32) pg MCHC (32-36) g/dl RDW (11.5-14.0) % Plt Count (150-450) K/mm3 MPV (6-9.5) fl Gran % (36.0-66.0) % Eos # (Auto) (0-0.5) Absolute Lymphs (auto) (1.0-4.6) Absolute Monos (auto) (0.0-1.3) Lymphocytes % (24.0-44.0) % Monocytes % (0.0-12.0) % Eosinophils % (0.00-5.0) % Basophils % (0.0-0.4) % Absolute Granulocytes (1.4-6.9) Basophils # (0-0.4) pO2/FiO2 Ratio 21.0 % VBG pH 7.30 L (7.32-7.42) VBG pCO2 at Pat Temp 39 L (42-55) mm/Hg VBG pO2 at Pat Temp 30 (25-40) mm/Hg VBG HCO3 19.2 L (22-28) meq/L VBG O2 Sat (Radha) 64.7 L (95-100) VBG Base Excess -6.7 L (-2.0-2.0) VBG Hemoglobin 16.4 VBG Carboxyhemoglobin 2.8 (0.0-6.9) % T HGB POC Potassium 4.4 (3.5-5.1) Sodium (137-145) mmol/L Potassium (3.5-5.1) mmol/L Chloride (98-107) mmol/L Carbon Dioxide (22-30) mmol/L Anion Gap (5-15) MEQ/L BUN (9-20) mg/dL Creatinine (0.66-1.25) mg/dL Estimated GFR ML/MIN Glucose (74-106) mg/dL Lactic Acid 2.8 H (0.4-2.0) Calcium (8.4-10.2) mg/dL Magnesium (1.6-2.3) mg/dL Total Bilirubin (0.2-1.3) mg/dL AST (17-59) U/L ALT (0-50) U/L Alkaline Phosphatase (38-126) U/L Creatine Kinase (55-170) U/L Troponin I (0.000-0.034) ng/mL Serum Total Protein (6.3-8.2) g/dL Albumin (3.5-5.0) g/dL Urine Color STRAW (YELLOW) Urine Appearance CLEAR (CLEAR) Urine pH 5.0 (5-6) Ur Specific [place] 1.026 (1.005-1.025) Urine Protein NEGATIVE (Negative) Urine Ketones MODERATE (NEGATIVE) Urine Blood NEGATIVE (0-5) Jose/ul Urine Nitrite NEGATIVE (NEGATIVE) Urine Bilirubin NEGATIVE (NEGATIVE) Urine Urobilinogen NEGATIVE (0-1) mg/dL Ur Leukocyte Esterase NEGATIVE (NEGATIVE) Urine WBC (Auto) NONE (0-5) /HPF Urine RBC (Auto) NONE (0-2) /HPF U Epithel Cells (Auto) NONE (FEW) /HPF Urine Bacteria (Auto) NONE (NEGATIVE) /HPF Urine Mucus (Auto) SLIGHT (NEGATIVE) /HPF Urine Culture Reflexed NO (NO) Urine Glucose >=500 (NEGATIVE) mg/dL Group A Strep Antibody NEGATIVE (NEGATIVE) 05/23/19 05/23/19 05/23/19 Range/Units 13:36 13:36 13:36 WBC 11.8 H (4.0-10.5) K/mm3 RBC 5.17 (4.1-5.6) M/mm3 Hgb 15.7 (12.5-18.0) gm/dl Hct 47.3 (42-50) % MCV 91.5 (78-100) fl MCH 30.4 (26-32) pg MCHC 33.2 (32-36) g/dl RDW 14.1 H (11.5-14.0) % Plt Count 227 (150-450) K/mm3 MPV 12.2 H (6-9.5) fl Gran % 72.1 H (36.0-66.0) % Eos # (Auto) 0.19 (0-0.5) Absolute Lymphs (auto) 1.79 (1.0-4.6) Absolute Monos (auto) 1.25 (0.0-1.3) Lymphocytes % 15.2 L (24.0-44.0) % Monocytes % 10.6 (0.0-12.0) % Eosinophils % 1.6 (0.00-5.0) % Basophils % 0.5 (0.0-0.4) % Absolute Granulocytes 8.52 H (1.4-6.9) Basophils # 0.06 (0-0.4) pO2/FiO2 Ratio % VBG pH (7.32-7.42) VBG pCO2 at Pat Temp (42-55) mm/Hg VBG pO2 at Pat Temp (25-40) mm/Hg VBG HCO3 (22-28) meq/L VBG O2 Sat (Radha) (95-100) VBG Base Excess (-2.0-2.0) VBG Hemoglobin VBG Carboxyhemoglobin (0.0-6.9) % T HGB POC Potassium (3.5-5.1) Sodium 130 L (137-145) mmol/L Potassium 4.1 (3.5-5.1) mmol/L Chloride 86 L (98-107) mmol/L Carbon Dioxide 17 L (22-30) mmol/L Anion Gap 31.3 H (5-15) MEQ/L BUN 24 H (9-20) mg/dL Creatinine 1.16 (0.66-1.25) mg/dL Estimated GFR > 60.0 ML/MIN Glucose 752 H* (74-106) mg/dL Lactic Acid (0.4-2.0) Calcium 9.5 (8.4-10.2) mg/dL Magnesium 2.4 H (1.6-2.3) mg/dL Total Bilirubin 1.00 (0.2-1.3) mg/dL AST 37 (17-59) U/L ALT 24 (0-50) U/L Alkaline Phosphatase 135 H (38-126) U/L Creatine Kinase 96 (55-170) U/L Troponin I < 0.012 (0.000-0.034) ng/mL Serum Total Protein 8.8 H (6.3-8.2) g/dL Albumin 4.9 (3.5-5.0) g/dL Urine Color (YELLOW) Urine Appearance (CLEAR) Urine pH (5-6) Ur Specific [place] (1.005-1.025) Urine Protein (Negative) Urine Ketones (NEGATIVE) Urine Blood (0-5) Jose/ul Urine Nitrite (NEGATIVE) Urine Bilirubin (NEGATIVE) Urine Urobilinogen (0-1) mg/dL Ur Leukocyte Esterase (NEGATIVE) Urine WBC (Auto) (0-5) /HPF Urine RBC (Auto) (0-2) /HPF U Epithel Cells (Auto) (FEW) /HPF Urine Bacteria (Auto) (NEGATIVE) /HPF Urine Mucus (Auto) (NEGATIVE) /HPF Urine Culture Reflexed (NO) Urine Glucose (NEGATIVE) mg/dL Group A Strep Antibody (NEGATIVE) - Progress Progress: unchanged Progress Note: 05/23/19 15:23 D/W Dr. Mccabe. She told me to admit the pt under her and notifiy Dr. Nelson Discussed with : Chelsie (Left Message for Dr. Mccabe. I spoke wt her at 1515. SHe told me to admit under her and notifie Dr. Nelson), Juan (I called Dr. Nelson. I spoke with Dr. Nelson at 1528. 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
[2019-05-23] MEDS ORDERED: Zofran 4 MG/2 ML VIAL IV ONE (13:36)
[2019-05-23] MEDS ORDERED: Zofran 4 MG/2 ML VIAL ONE (13:44)
[2019-05-23 13:54] LABS: Appearance CLEAR (CLEAR); Bilirubin NEGATIVE (NEGATIVE); Blood NEGATIVE Ery/ul (0-5); Glucose >=500 mg/dL (NEGATIVE); Ketones MODERATE (NEGATIVE); Leukocyte Esterase NEGATIVE (NEGATIVE); Mucus SLIGHT /HPF (NEGATIVE); Nitrite NEGATIVE (NEGATIVE); Protein,Urine Dip NEGATIVE (Negative); Specific Gravity 1.026 (1.005-1.025); Urobilinogen NEGATIVE mg/dL (0-1)
[2019-05-23 13:56] LABS: Absolute Neutrophil Ct (ANC) 8.52 (1.4-6.9); BASOPHIL % 0.5 % (0.0-0.4); Basophil (Absolute #) 0.06 (0-0.4); Eosinophil % 1.6 % (0.00-5.0); Eosinophil (Absolute #) 0.19 (0-0.5); Hematocrit 47.3 % (42-50); Hemoglobin 15.7 gm/dl (12.5-18.0); Lymphocyte (Absolute #) 1.79 (1.0-4.6); Lymphocytes % 15.2 % (24.0-44.0); Mean Cell Volume 91.5 fl (78-100); Mean Corpuscular Hemoglobin 30.4 pg (26-32); Mean Corpuscular Hgb Concent. 33.2 g/dl (32-36); Mean Platelet Volume 12.2 fl (6-9.5); Monocyte (Absolute #) 1.25 (0.0-1.3); Monocytes % 10.6 % (0.0-12.0); Neutrophil % 72.1 % (36.0-66.0); Platelet Count 227 K/mm3 (150-450); Red Blood Count 5.17 M/mm3 (4.1-5.6); Red Cell Distribution Width 14.1 % (11.5-14.0); White Blood Count 11.8 K/mm3 (4.0-10.5)
[2019-05-23 14:05] LABS: Lactic Acid 2.8 (0.4-2.0); VBG BASE EXCESS -6.7 (-2.0-2.0); VBG CARBOXYHEMOGLOBIN 2.8 % T HGB (0.0-6.9); VBG HCO3- 19.2 meq/L (22-28); VBG HEMOGLOBIN 16.4; VBG O2 SATURATION 64.7 (95-100); VBG PCO2 39 mm/Hg (42-55); VBG PO2 30 mm/Hg (25-40); VBG POTASSIUM 4.4 (3.5-5.1)
[2019-05-23 14:06] LABS: ALBUMIN 4.9 g/dL (3.5-5.0); ALKALINE PHOSPHATASE 135 U/L (38-126); ANION GAP 31.3 MEQ/L (5-15); BLOOD UREA NITROGEN 24 mg/dL (9-20); CHLORIDE 86 mmol/L (98-107); Calcium 9.5 mg/dL (8.4-10.2); Carbon Dioxide 17 mmol/L (22-30); Creatinine 1 1.16 mg/dL (0.66-1.25); MAGNESIUM 2.4 mg/dL (1.6-2.3); Potassium 4.1 mmol/L (3.5-5.1); SGOT/AST 37 U/L (17-59); SGPT/ALT 24 U/L (0-50); SODIUM 130 mmol/L (137-145); Total Protein 8.8 g/dL (6.3-8.2)
[2019-05-23 14:14] LABS: Glucose 752 mg/dL (74-106)
[2019-05-23 14:16] LABS: CK-Creatinine Phosphokinase 96 U/L (55-170)
[2019-05-23 14:24] LABS: TROPONIN < 0.012 ng/mL (0.000-0.034)
[2019-05-23] MEDS ORDERED: NovoLIN R SQ ONE (15:28)
[2019-05-23] MEDS ORDERED: NovoLIN R ONE (15:41)
[2019-05-23] MEDS ORDERED: Zofran 4 MG/2 ML VIAL IV PRN (16:22)
[2019-05-23] MEDS: Sodium Chloride 0.9% 1000 ML 1,000 ML IV SCH ×2 (16:35→21:35)
[2019-05-23] MEDS: NovoLOG Insulin SQ PRN ×2 (17:18→21:33)
--- NOTE | 2019-05-23 19:32 | XRAY ---
Indication: Hyperglycemia and malaise. History COPD. Comparison: September 18, 2017. Portable chest is clear. Heart and mediastinal structures within normal limits. Bony thorax intact. Impression: Nonacute chest.
[2019-05-23] MEDS ORDERED: XARELTO 10 MG TABLET ONE (21:51)
[2019-05-23] MEDS: XARELTO 10 MG TABLET PO SCH (21:54)
[2019-05-23] MEDS ORDERED: NORVASC 5 MG PO SCH (22:00)
[2019-05-23] MEDS ORDERED: Paxil 20 MG PO SCH (22:00)
[2019-05-23] MEDS ORDERED: hydroDIURIL 25 MG PO SCH (22:00)
[2019-05-23] MEDS ORDERED: Toprol-Xl 25MG Tablets PO SCH (22:00)
[2019-05-23] MEDS ORDERED: zyPREXA 5MG TABLET PO SCH (22:00)
[2019-05-23] MEDS ORDERED: ZOLOFT 50 MG TABLET PO SCH (22:00)
[2019-05-23] MEDS ORDERED: Protonix 40MG Tablet PO SCH (22:00)
[2019-05-23] MEDS ORDERED: Zestril 20 MG PO SCH (22:00)
[2019-05-24] MEDS: NovoLOG Insulin SQ PRN ×3 (01:16→08:04)
[2019-05-24] MEDS: Sodium Chloride 0.9% 1000 ML 1,000 ML IV SCH ×2 (03:24→11:05)
[2019-05-24 06:33] LABS: Absolute Neutrophil Ct (ANC) 5.43 (1.4-6.9); BASOPHIL % 0.5 % (0.0-0.4); Basophil (Absolute #) 0.05 (0-0.4); Eosinophil % 3.8 % (0.00-5.0); Eosinophil (Absolute #) 0.36 (0-0.5); Hematocrit 39.6 % (42-50); Hemoglobin 13.2 gm/dl (12.5-18.0); Lymphocyte (Absolute #) 2.51 (1.0-4.6); Lymphocytes % 26.8 % (24.0-44.0); Mean Cell Volume 91.5 fl (78-100); Mean Corpuscular Hemoglobin 30.5 pg (26-32); Mean Corpuscular Hgb Concent. 33.3 g/dl (32-36); Mean Platelet Volume 11.5 fl (6-9.5); Monocyte (Absolute #) 1.03 (0.0-1.3); Neutrophil % 57.9 % (36.0-66.0); Platelet Count 167 K/mm3 (150-450); Red Blood Count 4.33 M/mm3 (4.1-5.6); Red Cell Distribution Width 13.7 % (11.5-14.0); White Blood Count 9.4 K/mm3 (4.0-10.5)
[2019-05-24 06:52] LABS: ANION GAP 14.9 MEQ/L (5-15); BLOOD UREA NITROGEN 16 mg/dL (9-20); CHLORIDE 104 mmol/L (98-107); Calcium 8.5 mg/dL (8.4-10.2); Carbon Dioxide 23 mmol/L (22-30); Creatinine 1 0.88 mg/dL (0.66-1.25); Glucose 227 mg/dL (74-106); SODIUM 138 mmol/L (137-145)
[2019-05-24] MEDS ORDERED: ZOFRAN ODT 4 MG PO PRN (09:08)
[2019-05-24] MEDS ORDERED: VENTOLIN 20 ML BOTTLE IH PRN (09:14)
[2019-05-24] MEDS ORDERED: PROVENTIL 2.5 MG/3 ML NEB IH PRN (09:16)
[2019-05-24] MEDS ORDERED: NON-FORMULARY ITEM (Cetirizine Hcl [Zyrtec] 1 TAB) PO SCH (10:00)
[2019-05-24] MEDS ORDERED: Flonase NASAL NS SCH (10:00)
[2019-05-24] MEDS ORDERED: CLARITIN 10 MG PO SCH (10:00)
[2019-05-24] MEDS ORDERED: ECOTRIN 81 MG PO SCH (10:00)
[2019-05-24] MEDS ORDERED: BABY ASPIRIN 81 MG CHEW PO SCH (10:00)
[2019-05-24] MEDS ORDERED: [UNRECOGNIZED DRUG - REMARK] IH SCH (10:00)
[2019-05-24] MEDS ORDERED: Glucophage 500 MG PO ONE (10:56)
[2019-05-24] MEDS: XARELTO 10 MG TABLET PO SCH (11:01)
[2019-05-24 12:47] VITALS: BP 104/51; PULSE 67; O2SAT 97
[2019-05-24] MEDS ORDERED: NON-FORMULARY ITEM (Atorvastatin Calcium [Atorvastatin Calcium] 40 MG) PO SCH (22:00)
[2019-05-24] MEDS ORDERED: ZOCOR 20MG PO SCH (22:00)
--- NOTE | 2019-05-26 12:02 | SSS ---
DISCHARGE DIAGNOSIS: DIABETIC HYPEROSMOLAR STATE. HISTORY: The patient is a 53 year-old white male who presented to the emergency room having increasing thirst and increasing urination, dry and sore throat. The patient had been tested and found to have sugar over 700 on tests done as an outpatient. He was instructed to come to the emergency room for evaluation and management. The patient was subsequently admitted to the hospital for IV fluids and insulin treatment to get his sugars down. PAST MEDICAL/SURGICAL HISTORY: Significant for history of deep venous thrombosis, chronic obstructive pulmonary disease, pulmonary embolism, gastroesophageal reflux disease, anxiety, depression. HOME MEDICATIONS: Lisinopril 20 mg a day, paroxetine 40 mg a day, Xarelto 20 mg a day, Prilosec 20 mg at night, amitriptyline 100 mg at night, hydrochlorothiazide 25 mg at night, metoprolol XL 25 mg daily. ALLERGIES: NKDA. PHYSICAL EXAMINATION: His vital signs on admission showed temperature 98.1F, pulse 94, respiratory rate 18 and blood pressure 125/87. O2 saturation 95% on room air. HEENT: Normocephalic, atraumatic. Pupils equal round reactive to light. Oropharynx appeared to be dry. NECK: Supple without lymphadenopathy, thyromegaly or JVD. CHEST: Clear to auscultation. HEART: Regular rate and rhythm. ABDOMEN: Soft. No palpable masses. EXTREMITIES: Without cyanosis, clubbing or edema. NEUROLOGIC: The patient is alert and oriented x3. No focal deficits were noted. LAB DATA AND TESTS: Showed his A1C to be above 13. His venous blood gas showed pH 7.30, pCO2 of 39. His white count was 11,800, hemoglobin 15.7, PLT count 227,000. UA showed greater than 500 glucose, specific gravity 1.026 and was otherwise normal. Troponin was normal. CPK was normal. Group A strep was negative. His sugar was 752, BUN 24, creatinine 1.16. Sodium slightly low at 130. Potassium 4.1. Liver enzymes were normal. Lactic acid 1.4. He had repeat labs the next morning show his white count to be 9,400. His sugar was down to 227, BUN 16, creatinine 0.88. Potassium was slightly low at 3.0. HOSPITAL COURSE: The patient was newly diagnosed with diabetes and hyperosmolar situation which has been resolved with IV fluids and insulin. We will start the patient on Metformin 500 mg b.i.d. with instructions to follow up his PTT earlier this next week. He will be given extra potassium at 8 mEq daily due to his hypokalemia. After the fluid hydration and insulin. The patient was instructed to decrease intake of starches in his foods, portion management and increased exercise. He was instructed to return to the hospital if he has any further problems with his sugars climbing above 400.
== END 2019-05-24 13:00 | disposition home or self-care (01) ==
LOC: ED 13:09 → MED SURG 16:11
PROVIDERS: ADMIT Internal Medicine; ATTEND Family Medicine
DX: E11.00 Type 2 diabetes mellitus with hyperosmolarity without nonketotic hyperglycemic-hyperosmolar coma (NKHHC) (principal); E87.6 Hypokalemia; J44.9 Chronic obstructive pulmonary disease, unspecified; Z86.718 Personal history of other venous thrombosis and embolism; Z79.899 Other long term (current) drug therapy; K21.9 Gastro-esophageal reflux disease without esophagitis
CPT/HCPCS: 36000; 36415; 71045; 80048; 80053; 81001; 82010; 82550; 82805; 82962; 83036; 83605; 83735; 84484; 85025; 87651; 93005; 93041; 96360; 96372; 96374; 99285; G0378; J2405; A9270-GY

== ENCOUNTER 2020-04-28 12:06 | Emergency (ER) | payer MEDICARE ==
[2020-04-28 13:09] VITALS: BP 138/71; PULSE 76; O2SAT 97
--- NOTE | 2020-04-28 13:48 | ERPHSYRPT ---
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 I am afriad I might get another blood clot." Triage Nursing Assessment: Pt presented alert and oriented X 3, skin pwd Pt ambulates with an upright steady gait, able to speak in clear full sentences. Pt right upper arm bruised and right elbow swollen. 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 I am afriad I might get another blood clot.". 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 Occurred: days ago (10) Method of Injury: direct blow Quality: intermittent, aching Severity of Pain-Max: mild Severity of Pain-Current: mild Extremities Pain Location: arm: right, elbow: right Modifying Factors: Improves With: nothing Associated Symptoms: none Allergies/Adverse Reactions: No Known Drug Allergies Allergy (Verified 05/23/19 13:14) Home Medications: Lisinopril 20 mg [Zestril 20 MG] 20 mg PO QHS 06/30/13 [History] PARoxetine HCL [Paroxetine HCl] 40 mg PO HS 06/30/13 [History] Omeprazole 20 MG [Prilosec 20 mg] 20 mg PO HS 01/23/15 [History] Hydrochlorothiazide 25 mg [hydroDIURIL 25 MG] 25 mg PO HS 02/20/15 [History] Metoprolol Succinate 25 mg Xl* [Toprol-Xl 25MG Tablets] 25 mg PO QHS 09/18/17 [History] Albuterol Sulfate [Ventolin] 2 puffs IH Q4H PRN PRN 05/23/19 [History] Aspirin 1 tab PO DAILY 05/23/19 [History] Atorvastatin Calcium 40 mg PO HS 05/23/19 [History] Cetirizine HCl [Zyrtec] 1 tab PO DAILY 05/23/19 [History] Fluticasone Propionate [Flonase Allergy Relief] 1 sprays IH DAILY 05/23/19 [History] OLANZapine [Olanzapine] 1 tab PO HS 05/23/19 [History] Ondansetron ODT 4 MG [Zofran Odt 4 mg] 1 tab SL Q8H PRN PRN 05/23/19 [History] Sertraline HCl 50 mg [Zoloft 50 mg Tablet] 1 tab PO HS 05/23/19 [History] Rivaroxaban [Xarelto] 20 mg PO DAILY 04/28/20 [History] Hx Tetanus, Diphtheria Vaccination/Date Given: No Hx Influenza Vaccination/Date Given: No Hx Pneumococcal Vaccination/Date Given: No Immunizations Up to Date: Yes Travel Risk - International Travel Have you traveled outside of the country in past 3 weeks: No (N) If Yes, where;: N - Coronavirus Screening Close contact with a COVID-19 positive Pt in past 14-21 Days: No - Review of Systems Constitutional: No Fever, No Chills Eyes: No Symptoms Ears, Nose, & Throat: No Symptoms Respiratory: No Cough, No Dyspnea Cardiac: No Chest Pain, No Edema, No Syncope Abdominal/Gastrointestinal: No Abdominal Pain, No Nausea, No Vomiting, No Diarrhea Genitourinary Symptoms: No Dysuria Musculoskeletal: Other (Arm and posterior elbow area pain and bruits. Mild swelling.), No Back Pain, No Neck Pain Skin: Other (Arm and posterior elbow area pain and bruits. Mild swelling.), No Rash Neurological: No Dizziness, No Focal Weakness, No Sensory Changes Psychological: No Symptoms Endocrine: No Symptoms All Other Systems: Reviewed and Negative - Past Medical History Pertinent Past Medical History: Yes Neurological History: Migraines ENT History: No Pertinent History, Glaucoma Cardiac History: Deep Vein Thrombosis Respiratory History: COPD, Pulmonary Embolism Endocrine Medical History: No Pertinent History Musculoskeletal History: Arthritis GI Medical History: GERD History: No Pertinent History Psycho-Social History: Anxiety Male Reproductive Disorders: No Pertinent History Other Medical History: 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 [employer] [facility] - Social History Smoking Status: Current every day smoker How long have you smoked: years Exposure to second hand smoke: Yes Drug Use: none Patient Lives Alone: No - Nursing Vital Signs Nursing Vital Signs: Initial Vital Signs Temperature 99.1 F 04/28/20 12:13 Pulse Rate 72 04/28/20 12:13 Respiratory Rate 20 04/28/20 12:13 Blood Pressure 145/76 04/28/20 12:13 O2 Sat by Pulse Oximetry 98 04/28/20 12:13 Pain Scale Pain Intensity 4 - Physical Exam General Appearance: alert Eyes, Ears, Nose, Throat Exam: moist mucous membranes Neck Exam: non-tender, supple Cardiovascular/Respiratory Exam: chest non-tender, normal breath sounds, regular rate/rhythm, no respiratory distress Abdominal Exam: non-tender, No guarding Back Exam: normal inspection, No vertebral tenderness Shoulder Exam: normal ROM Elbow/Forearm Exam: normal ROM, swelling Wrist Exam: normal inspection Hand Exam: normal inspection Neuro/Tendon Exam: normal sensation, normal motor functions Mental Status Exam: alert, 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, cooperative Skin Exam: normal color, warm, dry, other (Arm and posterior elbow area pain and bruits. Mild swelling. Distal neurovascular function. No tenderness. No deformity.) SpO2 Interpretation: normal SpO2: 97 O2 Delivery: Room Air - Radiology Ultrasound Exam Right Venous Upper Extremity Ultrasound: negative Ordered Tests: Active Orders 24 hr Category Date Time Status VENOUS UNILAT/LIMITED EXTREMIT [US] Stat Exams 04/28/20 13:35 Taken - Progress Progress: unchanged Progress Note: 04/28/20 13:50 Patient is afebrile, nontoxic. No acute life or limb threatening condition on discharge. There is no DVT according to the hemodialysis lab technician on the ultrasound. Patient does not want to wait for the official report by the radiologist. Counseled pt/family regarding: diagnosis, need for follow-up, rad results - Departure Departure Disposition: Home Clinical Impression: Contusion of arm, right Qualifiers: Encounter type: initial encounter Qualified Code(s): S40.021A - Contusion of right upper arm, initial encounter Condition: Stable Critical Care Time: No Referrals: RAJINDER PRINCE DO [Primary Care Provider] - Follow Up with PCP/3 days Instructions: Elbow Sprain (DC)
--- NOTE | 2020-04-28 13:55 | XRAY ---
Indication: Right upper extremity swelling 2 weeks. Two-dimensional sonogram and color Doppler imaging of the major venous vessels of the right upper extremity performed. Comparison: October 13, 2017. No thrombus seen of the visualized right jugular, subclavian, axillary, brachial, basilic, cephalic, radial, and ulnar veins. Veins demonstrate normal compressibility. Venous waveforms are normal. Targeted soft tissue ultrasound of the posterior medial upper arm demonstrates a benign-appearing 1.7 x 0.6 x 1.1 cm subcutaneous lymph node. Impression: Right upper extremity negative for venous thrombosis. Incidental benign appearing upper arm lymph node.
== END 2020-04-28 13:56 | disposition home or self-care (01) ==
LOC: ED 12:06
DX: S40.021A Contusion of right upper arm, initial encounter (principal); M25.521 Pain in right elbow; M79.621 Pain in right upper arm; J44.9 Chronic obstructive pulmonary disease, unspecified; Z86.718 Personal history of other venous thrombosis and embolism; Z86.711 Personal history of pulmonary embolism
CPT/HCPCS: 93971; 99283

== ENCOUNTER 2020-10-28 13:04 | Observation (INO) | payer MEDICARE ==
[2020-10-28] MEDS ORDERED: BABY ASPIRIN 81 MG CHEW PO ONE (13:33)
--- NOTE | 2020-10-28 13:51 | XRAY ---
Indication: Chest pain and short of breath. Comparison: May 23, 2019. Portable chest remains clear. Heart not enlarged for AP portable technique. Bony thorax intact. Impression: Continued nonacute chest.
[2020-10-28] MEDS ORDERED: Ativan 1 MG PO ONE (13:54)
[2020-10-28 13:55] LABS: Absolute Neutrophil Ct (ANC) 6.86 (1.4-6.9); BASOPHIL % 0.3 % (0.0-0.4); Basophil (Absolute #) 0.03 (0-0.4); Eosinophil % 1.5 % (0.00-5.0); Eosinophil (Absolute #) 0.15 (0-0.5); Hematocrit 46.7 % (42-50); Hemoglobin 15.4 gm/dl (12.5-18.0); Lymphocyte (Absolute #) 2.01 (1.0-4.6); Lymphocytes % 20.1 % (24.0-44.0); Mean Cell Volume 93.8 fl (78-100); Mean Corpuscular Hemoglobin 30.9 pg (26-32); Mean Platelet Volume 10.8 fl (7.5-11.0); Monocyte (Absolute #) 0.96 (0.0-1.3); Monocytes % 9.6 % (0.0-12.0); Neutrophil % 68.5 % (36.0-66.0); Platelet Count 232 K/mm3 (150-450); Red Blood Count 4.98 M/mm3 (4.1-5.6); Red Cell Distribution Width 14.8 % (11.5-14.0)
[2020-10-28 14:15] LABS: ALKALINE PHOSPHATASE 102 U/L (38-126); ANION GAP 18.4 MEQ/L (5-15); BLOOD UREA NITROGEN 13 mg/dL (9-20); CHLORIDE 101 mmol/L (98-107); Calcium 10.2 mg/dL (8.4-10.2); Carbon Dioxide 22 mmol/L (22-30); Creatinine 1 0.91 mg/dL (0.66-1.25); EST GLOMERULAR FILTRATION RATE > 60.0 ML/MIN; Glucose 142 mg/dL (74-106); NT PRO BNP 33.8 pg/mL (0-900); Potassium 3.6 mmol/L (3.5-5.1); SGOT/AST 59 U/L (17-59); SGPT/ALT 41 U/L (0-50); SODIUM 137 mmol/L (137-145); Total Protein 8.7 g/dL (6.3-8.2)
[2020-10-28] MEDS ORDERED: Ativan 1 MG ONE (14:17)
[2020-10-28] MEDS ORDERED: NITRO-BID 2% UD PACKETS TOP ONE (14:26)
[2020-10-28] MEDS ORDERED: NITRO-BID 2% UD PACKETS ONE (14:28)
--- NOTE | 2020-10-28 14:37 | ERPHSYRPT ---
- History of Present Illness Time Seen by Provider: 10/28/20 13:12 Historian: patient Exam Limitations: no limitations Patient Subjective Stated Complaint: pt here for chest pain to center of chest for 2 weeks now, no radiating, he states this happens when he gets anxious, no other Triage Nursing Assessment: pt alert, arrived per wc,. resp easy, skin w/d/p, chest clear, face mask in place, no edema noted, Physician History: 55 years old male with history of hypertension, hyperlipidemia, diabetes mellitus, CAD, pulmonary embolism on Xarelto presented in the ER with chief complaint of left-sided chest tightness and pressure off and on for 2 weeks. Patient went to see his primary care Dr. Qureshi and patient is sent in here because of alarming symptoms. Patient reports intermittent left-sided chest tightness without any significant aggravating or relieving factors. Denies any associated palpitations or shortness of breath. Denies fever chills or cough. Denies dyspnea on exertion. Patient thinks his symptoms are more related to stress and anxiety which is not very well despite taking his medications. Denies any suicidal or homicidal ideations. Timing/Duration: week(s) (2), intermittent, gradual onset, worse Activities at Onset: activity, rest Quality: pressure, tightness Location: other (left) Chest Pain Radiation: no radiation Severity of Pain-Max: moderate Severity of Pain-Current: moderate Modifying Factors: Improves With: nothing Associated Symptoms: denies symptoms Prior Chest Pain/Cardiac Workup: cardiac cath Nitro Today/Relief: no nitro taken today Aspirin Treatment Today: no aspirin today Allergies/Adverse Reactions: No Known Drug Allergies Allergy (Verified 10/28/20 13:10) Home Medications: Lisinopril 20 mg [Zestril 20 MG] 20 mg PO QHS 06/30/13 [History] PARoxetine HCL [Paroxetine HCl] 40 mg PO HS 06/30/13 [History] Omeprazole 20 MG [Prilosec 20 mg] 20 mg PO HS 01/23/15 [History] Hydrochlorothiazide 25 mg [hydroDIURIL 25 MG] 25 mg PO HS 02/20/15 [History] Metoprolol Succinate 25 mg Xl* [Toprol-Xl 25MG Tablets] 25 mg PO QHS 03/27/18 [History] Albuterol Sulfate [Ventolin] 2 puffs IH Q4H PRN PRN 05/23/19 [History] Aspirin 1 tab PO DAILY 05/23/19 [History] Atorvastatin Calcium 40 mg PO HS 05/23/19 [History] Cetirizine HCl [Zyrtec] 1 tab PO DAILY 05/23/19 [History] Fluticasone Propionate [Flonase Allergy Relief] 1 sprays IH DAILY 05/23/19 [History] OLANZapine [Olanzapine] 1 tab PO HS 05/23/19 [History] Ondansetron ODT 4 MG [Zofran Odt 4 mg] 1 tab SL Q8H PRN PRN 05/23/19 [History] Sertraline HCl 50 mg [Zoloft 50 mg Tablet] 1 tab PO HS 05/23/19 [History] Rivaroxaban [Xarelto] 20 mg PO DAILY 04/28/20 [History] Hx Tetanus, Diphtheria Vaccination/Date Given: No Hx Influenza Vaccination/Date Given: No Hx Pneumococcal Vaccination/Date Given: No Immunizations Up to Date: Yes Travel Risk - International Travel Have you traveled outside of the country in past 3 weeks: No - Coronavirus Screening Are you exhibiting any of the following symptoms?: No Close contact with a COVID-19 positive Pt in past 14-21 Days: No - Vaccine Status Have you recieved a Covid-19 vaccination: Yes [employer]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 - Vaccination Dates Date of 2cond Vaccination (if applicable): september - Review of Systems Constitutional: No Symptoms Eyes: No Symptoms Ears, Nose, & Throat: No Symptoms Respiratory: No Symptoms Cardiac: Chest Pain Abdominal/Gastrointestinal: No Symptoms Genitourinary Symptoms: No Symptoms Musculoskeletal: No Symptoms Skin: No Symptoms Neurological: No Symptoms Psychological: No Symptoms Endocrine: No Symptoms Hematologic/Lymphatic: No Symptoms Immunological/Allergic: No Symptoms - Past Medical History Pertinent Past Medical History: Yes Neurological History: Migraines ENT History: No Pertinent History, Glaucoma Cardiac History: Deep Vein Thrombosis Respiratory History: COPD, Pulmonary Embolism Endocrine Medical History: No Pertinent History Musculoskeletal History: Arthritis GI Medical History: GERD History: No Pertinent History Psycho-Social History: Anxiety Male Reproductive Disorders: No Pertinent History Other Medical History: 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 [facility] - Social History Smoking Status: Current every day smoker How long have you smoked: years Exposure to second hand smoke: Yes Drug Use: none Patient Lives Alone: No - Nursing Vital Signs Nursing Vital Signs: Initial Vital Signs Temperature 97.0 F 10/28/20 13:12 Pulse Rate 76 10/28/20 13:12 Respiratory Rate 20 10/28/20 13:12 Blood Pressure 174/99 10/28/20 13:12 O2 Sat by Pulse Oximetry 100 10/28/20 13:12 Pain Scale Pain Intensity 1 - Physical Exam General Appearance: no apparent distress, alert, anxiety Eye Exam: PERRL/EOMI, eyes nml inspection Ears, Nose, Throat Exam: normal ENT inspection, TMs normal, pharynx normal Neck Exam: normal inspection, non-tender, supple, full range of motion Respiratory Exam: normal breath sounds, lungs clear Cardiovascular Exam: regular rate/rhythm, normal heart sounds Gastrointestinal/Abdomen Exam: soft, normal bowel sounds, No tenderness Back Exam: normal inspection, normal range of motion Extremity Exam: normal inspection, normal range of motion, pelvis stable Neurologic Exam: alert, 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, 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, 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 Skin Exam: normal color SpO2 Interpretation: normal SpO2: 100 O2 Delivery: Room Air - Course EKG Interpreted by Me: RATE (70), Sinus Rhythm, NORMAL AXIS, NORMAL INTERVALS (Nonspecific ST and T wave changes) Ordered Tests: Active Orders 24 hr Category Date Time Status [place] Stitcher STAT Care 10/28/20 13:33 Active EKG-ER Only STAT Care 10/28/20 13:33 Active IV Insertion STAT Care 10/28/20 13:33 Active CHEST 1 VIEW (PORTABLE) Stat Exams 10/28/20 13:33 Completed CBC W DIFF Stat Lab 10/28/20 13:35 Completed CMP Stat Lab 10/28/20 13:35 Completed NT PRO BNP Stat Lab 10/28/20 13:35 Completed TROPONIN Q3H Lab 10/28/20 13:35 Completed TROPONIN Q3H Lab 10/28/20 16:45 Ordered TROPONIN Q3H Lab 10/28/20 19:45 Ordered TROPONIN Q3H Lab 10/28/20 22:45 Ordered TROPONIN Q3H Lab 10/29/20 01:45 Ordered Medication Summary Discontinued Medications Generic Name Dose Route Start Last Admin Trade Name Janie PRN Reason Stop Dose Admin Aspirin 324 mg 10/28/20 13:33 10/28/20 13:50 Baby Aspirin 81 Mg Chew PO 10/28/20 13:34 324 mg STAT ONE Administration Lorazepam 1 mg 10/28/20 13:54 10/28/20 14:18 Ativan 1 Mg PO 10/28/20 13:55 1 mg STAT ONE Administration Lorazepam Confirm 10/28/20 14:17 Ativan 1 Mg Administered 10/28/20 14:18 Dose 1 mg .ROUTE .STK-MED ONE Nitroglycerin 0.5 gm 10/28/20 14:26 Nitro-Bid 2% Ud Packets TOP 10/28/20 14:27 STAT ONE Lab/Rad Data: Laboratory Result Diagrams 10/28/20 13:35 10/28/20 13:35 Laboratory Results 10/28/20 10/28/20 10/28/20 Range/Units 13:35 13:35 13:35 WBC 10.0 (4.0-10.5) K/mm3 RBC 4.98 (4.1-5.6) M/mm3 Hgb 15.4 (12.5-18.0) gm/dl Hct 46.7 (42-50) % MCV 93.8 (78-100) fl MCH 30.9 (26-32) pg MCHC 33.0 (32-36) g/dl RDW 14.8 H (11.5-14.0) % Plt Count 232 (150-450) K/mm3 MPV 10.8 (7.5-11.0) fl Gran % 68.5 H (36.0-66.0) % Eos # (Auto) 0.15 (0-0.5) Absolute Lymphs (auto) 2.01 (1.0-4.6) Absolute Monos (auto) 0.96 (0.0-1.3) Lymphocytes % 20.1 L (24.0-44.0) % Monocytes % 9.6 (0.0-12.0) % Eosinophils % 1.5 (0.00-5.0) % Basophils % 0.3 (0.0-0.4) % Absolute Granulocytes 6.86 (1.4-6.9) Basophils # 0.03 (0-0.4) Sodium 137 (137-145) mmol/L Potassium 3.6 (3.5-5.1) mmol/L Chloride 101 (98-107) mmol/L Carbon Dioxide 22 (22-30) mmol/L Anion Gap 18.4 H (5-15) MEQ/L BUN 13 (9-20) mg/dL Creatinine 0.91 (0.66-1.25) mg/dL Estimated GFR > 60.0 ML/MIN Glucose 142 H (74-106) mg/dL Calcium 10.2 (8.4-10.2) mg/dL Total Bilirubin 0.90 (0.2-1.3) mg/dL AST 59 (17-59) U/L ALT 41 (0-50) U/L Alkaline Phosphatase 102 (38-126) U/L Troponin I < 0.012 (0.000-0.034) ng/mL NT-Pro-B Natriuret Pep 33.8 (0-900) pg/mL Serum Total Protein 8.7 H (6.3-8.2) g/dL Albumin 5.0 (3.5-5.0) g/dL - Progress Progress: re-examined Air Movement: good Progress Note: 10/28/20 14:38 45 years old is evaluated for intermittent left-sided chest tightness and pressure. EKG showed normal sinus rhythm with no acute ST elevation. Negative initial troponin. Chest x-ray negative for any acute cardiopulmonary findings. Patient is on Xarelto and not short of breath, low suspicion for PE. Discussed with Dr. Qureshi and patient is admitted for observation to trend cardiac enzymes. 10/28/20 14:39 Blood Culture(s) Obtained: No Antibiotics given: No Discussed with : Eduarda Will see patient in: hospital (observation) Counseled pt/family regarding: lab results, diagnosis, rad results - Departure Departure Disposition: Observation Clinical Impression: Chest pain, rule out acute myocardial infarction Condition: Stable Critical Care Time: No Referrals: RAJINDER PRINCE DO [Primary Care Provider] -
[2020-10-28 15:39] LABS: INFLUENZA A NEGATIVE (NEGATIVE); INFLUENZA B NEGATIVE (NEGATIVE); RESPIRATORY SYNCTIAL VIRUS NEGATIVE (Negative)
[2020-10-28] MEDS ORDERED: DUONEB 0.5-3 MG/3 ml Neb IH PRN (16:04)
[2020-10-28] MEDS ORDERED: TYLENOL 325 MG PO PRN (16:04)
[2020-10-28] MEDS ORDERED: HUMALOG SQ PRN (16:04)
[2020-10-28] MEDS ORDERED: MORPHINE SULFATE 2 MG INJ IV PRN (16:04)
[2020-10-28] MEDS ORDERED: Zofran 4 MG/2 ML VIAL IV PRN (16:04)
[2020-10-28] MEDS: PROTONIX 40 MG IV IV SCH (17:52)
[2020-10-28] MEDS: Ativan 0.5 MG PO PRN (21:46)
[2020-10-28] MEDS ORDERED: NON-FORMULARY ITEM (Potassium Chloride [Klor-Con 8] 8 MEQ) PO SCH (22:00)
[2020-10-28] MEDS ORDERED: Effexor XR 75 MG PO SCH ×2 (22:00)
[2020-10-28] MEDS ORDERED: Klor Con 10 MEQ PO SCH (22:00)
[2020-10-28] MEDS ORDERED: Flonase NASAL NS SCH (22:00)
[2020-10-28] MEDS ORDERED: hydroDIURIL 25 MG PO SCH (22:00)
[2020-10-28] MEDS ORDERED: ZOLOFT 50 MG TABLET PO SCH (22:00)
[2020-10-28] MEDS ORDERED: ZOCOR 20MG PO SCH (22:00)
[2020-10-28] MEDS ORDERED: ECOTRIN 81 MG PO SCH (22:00)
[2020-10-28] MEDS ORDERED: CLARITIN 10 MG PO SCH (22:00)
[2020-10-28] MEDS ORDERED: LIPITOR 40MG PO SCH (22:00)
[2020-10-28] MEDS ORDERED: BABY ASPIRIN 81 MG CHEW PO SCH (22:00)
[2020-10-28] MEDS ORDERED: zyPREXA 5MG TABLET PO SCH (22:00)
[2020-10-28] MEDS ORDERED: [UNRECOGNIZED DRUG - REMARK] IH SCH (22:00)
[2020-10-28] MEDS ORDERED: Zestril 20 MG PO SCH (22:00)
[2020-10-28] MEDS ORDERED: NON-FORMULARY ITEM (Rivaroxaban [Xarelto] 20 MG) PO SCH (22:00)
[2020-10-28] MEDS ORDERED: NON-FORMULARY ITEM (Paroxetine Hcl [Paroxetine Hcl] 40 MG) PO SCH (22:00)
[2020-10-28] MEDS ORDERED: Protonix 40MG Tablet PO SCH (22:00)
[2020-10-28] MEDS ORDERED: NON-FORMULARY ITEM (Cetirizine Hcl [Zyrtec] 10 MG) PO SCH (22:00)
[2020-10-28] MEDS ORDERED: XARELTO 10 MG TABLET PO SCH (22:00)
[2020-10-28] MEDS ORDERED: Toprol-Xl 25MG Tablets PO SCH (22:00)
[2020-10-28] MEDS ORDERED: OLANZAPINE 10 MG PO SCH (22:00)
[2020-10-28] MEDS ORDERED: Paxil 20 MG PO SCH (22:00)
[2020-10-28] MEDS ORDERED: NON-FORMULARY ITEM (Omeprazole 20 Mg [Prilosec 20 Mg] 20 MG) PO SCH (22:00)
[2020-10-29 02:19] LABS: Absolute Neutrophil Ct (ANC) 6.02 (1.4-6.9); BASOPHIL % 0.3 % (0.0-0.4); Basophil (Absolute #) 0.03 (0-0.4); Eosinophil % 2.6 % (0.00-5.0); Eosinophil (Absolute #) 0.26 (0-0.5); Hematocrit 42.7 % (42-50); Hemoglobin 14.2 gm/dl (12.5-18.0); Lymphocyte (Absolute #) 2.58 (1.0-4.6); Lymphocytes % 26.2 % (24.0-44.0); Mean Cell Volume 93.4 fl (78-100); Mean Corpuscular Hemoglobin 31.1 pg (26-32); Mean Corpuscular Hgb Concent. 33.3 g/dl (32-36); Mean Platelet Volume 10.4 fl (7.5-11.0); Monocyte (Absolute #) 0.95 (0.0-1.3); Monocytes % 9.7 % (0.0-12.0); Neutrophil % 61.2 % (36.0-66.0); Platelet Count 205 K/mm3 (150-450); Red Blood Count 4.57 M/mm3 (4.1-5.6); Red Cell Distribution Width 14.7 % (11.5-14.0); White Blood Count 9.8 K/mm3 (4.0-10.5)
[2020-10-29 02:29] LABS: ALBUMIN 4.2 g/dL (3.5-5.0); ALKALINE PHOSPHATASE 80 U/L (38-126); ANION GAP 14.2 MEQ/L (5-15); BLOOD UREA NITROGEN 11 mg/dL (9-20); CHLORIDE 101 mmol/L (98-107); Calcium 9.6 mg/dL (8.4-10.2); Carbon Dioxide 23 mmol/L (22-30); Creatinine 1 0.88 mg/dL (0.66-1.25); EST GLOMERULAR FILTRATION RATE > 60.0 ML/MIN; Glucose 151 mg/dL (74-106); Potassium 3.1 mmol/L (3.5-5.1); SGOT/AST 47 U/L (17-59); SGPT/ALT 36 U/L (0-50); SODIUM 135 mmol/L (137-145); Total Protein 7.1 g/dL (6.3-8.2)
[2020-10-29] MEDS: PROTONIX 40 MG IV IV SCH (09:51)
[2020-10-29] MEDS ORDERED: POTASSIUM CHLORIDE 20 mEq IN WATER 100ML 20 MEQ/100 ML BAG IV ONE (13:15)
[2020-10-29] MEDS ORDERED: Sodium Chloride 0.9% 500 ML 500 ML IV ONE (13:39)
[2020-10-29] MEDS: Ativan 0.5 MG PO PRN (14:52)
[2020-10-29] MEDS ORDERED: K-LYTE 25 MEQ PO ONE (14:55)
[2020-10-29 16:45] VITALS: BP 101/63; PULSE 65; O2SAT 93
[2020-10-29] MEDS ORDERED: Glucophage 500 MG PO SCH (18:00)
--- NOTE | 2020-10-29 18:28 | PCM.DS ---
Discharge Summary Date of Admission: 10/28/20 16:00 Date of Discharge: 10/29/2020 Admitting Physician: RAJINDER PRINCE DO Primary Care Provider: RAJINDER PRINCE DO Allergies Allergies No Known Drug Allergies Allergy (Verified 10/28/20 13:10) Hospital Summary - Hospital Course Hospital Course: Patient is a 55 yr old gentleman patient of mine who was admitted through ER with left sided chest pain associated with worsening of anxiety. He has CAD foll owed by Dr Hatfield who did Cath 2018 with generalized 40-50% CAD,no stent needed . He is fearful hat this could be his heart. PMHx DM2,HTN,HLD,Hx PE on Xarelto,Chronic depression and anxiety evaluated by Psychiatrist Dr Weinberg but no follow up. Is on Zyprexa,Paxil,Effexor . He had been on Zoloft but this was discontinued last year when Effexor started. He has been anxious during hospital stay but chest tightness resolved . Was given Ativan in ER and oral Ativan 0.5 on Med Surg has controlled the anxiety. Serial troponins were not elevated. at the bedside and will manage his meds at home. He has had a good appetite A1c was down to 6% from 8% last clinic visit. I will contact Lead Recoverer,Dr Hatfield to see if he agrees to do another heart cath. He will be continued on low dose Ativan and decrease Effexor from 150mg daily to 75mg daily and decrease Paxil from 20mg to 10mg and follow up with me this week. will come to follow up appt. - Vitals & Intake/Output Vital Signs: Vital Signs Temperature 97.4 F 10/29/20 16:00 Pulse Rate 65 10/29/20 16:00 Respiratory Rate 14 10/29/20 16:00 Blood Pressure 101/63 10/29/20 16:00 O2 Sat by Pulse Oximetry 93 L 10/29/20 16:00 Intake & Output: Intake & Output 10/27/20 10/28/20 10/29/20 10/30/20 11:59 11:59 11:59 11:59 Intake Total 960 240 Output Total 475 Balance 485 240 Weight 117.9 kg - Lab Result Diagrams: 10/29/20 01:59 10/29/20 17:30 Lab Results-Last 24 Hrs: Lab Results-Last 24 Hours 10/28/20 10/28/20 10/28/20 Range/Units 19:57 21:18 22:58 WBC (4.0-10.5) K/mm3 RBC (4.1-5.6) M/mm3 Hgb (12.5-18.0) gm/dl Hct (42-50) % MCV (78-100) fl MCH (26-32) pg MCHC (32-36) g/dl RDW (11.5-14.0) % Plt Count (150-450) K/mm3 MPV (7.5-11.0) fl Gran % (36.0-66.0) % Eos # (Auto) (0-0.5) Absolute Lymphs (auto) (1.0-4.6) Absolute Monos (auto) (0.0-1.3) Lymphocytes % (24.0-44.0) % Monocytes % (0.0-12.0) % Eosinophils % (0.00-5.0) % Basophils % (0.0-0.4) % Absolute Granulocytes (1.4-6.9) Basophils # (0-0.4) Sodium (137-145) mmol/L Potassium (3.5-5.1) mmol/L Chloride (98-107) mmol/L Carbon Dioxide (22-30) mmol/L Anion Gap (5-15) MEQ/L BUN (9-20) mg/dL Creatinine (0.66-1.25) mg/dL Estimated GFR ML/MIN Glucose (74-106) mg/dL POC Glucometer 143 H (74 to 106) mg/dL Calcium (8.4-10.2) mg/dL Total Bilirubin (0.2-1.3) mg/dL AST (17-59) U/L ALT (0-50) U/L Alkaline Phosphatase (38-126) U/L Troponin I < 0.012 < 0.012 (0.000-0.034) ng/mL Serum Total Protein (6.3-8.2) g/dL Albumin (3.5-5.0) g/dL 10/29/20 10/29/20 10/29/20 Range/Units 01:59 01:59 01:59 WBC 9.8 (4.0-10.5) K/mm3 RBC 4.57 (4.1-5.6) M/mm3 Hgb 14.2 (12.5-18.0) gm/dl Hct 42.7 (42-50) % MCV 93.4 (78-100) fl MCH 31.1 (26-32) pg MCHC 33.3 (32-36) g/dl RDW 14.7 H (11.5-14.0) % Plt Count 205 (150-450) K/mm3 MPV 10.4 (7.5-11.0) fl Gran % 61.2 (36.0-66.0) % Eos # (Auto) 0.26 (0-0.5) Absolute Lymphs (auto) 2.58 (1.0-4.6) Absolute Monos (auto) 0.95 (0.0-1.3) Lymphocytes % 26.2 (24.0-44.0) % Monocytes % 9.7 (0.0-12.0) % Eosinophils % 2.6 (0.00-5.0) % Basophils % 0.3 (0.0-0.4) % Absolute Granulocytes 6.02 (1.4-6.9) Basophils # 0.03 (0-0.4) Sodium 135 L (137-145) mmol/L Potassium 3.1 L (3.5-5.1) mmol/L Chloride 101 (98-107) mmol/L Carbon Dioxide 23 (22-30) mmol/L Anion Gap 14.2 (5-15) MEQ/L BUN 11 (9-20) mg/dL Creatinine 0.88 (0.66-1.25) mg/dL Estimated GFR > 60.0 ML/MIN Glucose 151 H (74-106) mg/dL POC Glucometer (74 to 106) mg/dL Calcium 9.6 (8.4-10.2) mg/dL Total Bilirubin 0.60 (0.2-1.3) mg/dL AST 47 (17-59) U/L ALT 36 (0-50) U/L Alkaline Phosphatase 80 (38-126) U/L Troponin I < 0.012 (0.000-0.034) ng/mL Serum Total Protein 7.1 (6.3-8.2) g/dL Albumin 4.2 (3.5-5.0) g/dL 10/29/20 10/29/20 10/29/20 Range/Units 07:24 11:26 16:11 WBC (4.0-10.5) K/mm3 RBC (4.1-5.6) M/mm3 Hgb (12.5-18.0) gm/dl Hct (42-50) % MCV (78-100) fl MCH (26-32) pg MCHC (32-36) g/dl RDW (11.5-14.0) % Plt Count (150-450) K/mm3 MPV (7.5-11.0) fl Gran % (36.0-66.0) % Eos # (Auto) (0-0.5) Absolute Lymphs (auto) (1.0-4.6) Absolute Monos (auto) (0.0-1.3) Lymphocytes % (24.0-44.0) % Monocytes % (0.0-12.0) % Eosinophils % (0.00-5.0) % Basophils % (0.0-0.4) % Absolute Granulocytes (1.4-6.9) Basophils # (0-0.4) Sodium (137-145) mmol/L Potassium (3.5-5.1) mmol/L Chloride (98-107) mmol/L Carbon Dioxide (22-30) mmol/L Anion Gap (5-15) MEQ/L BUN (9-20) mg/dL Creatinine (0.66-1.25) mg/dL Estimated GFR ML/MIN Glucose (74-106) mg/dL POC Glucometer 122 H 199 H 120 H (74 to 106) mg/dL Calcium (8.4-10.2) mg/dL Total Bilirubin (0.2-1.3) mg/dL AST (17-59) U/L ALT (0-50) U/L Alkaline Phosphatase (38-126) U/L Troponin I (0.000-0.034) ng/mL Serum Total Protein (6.3-8.2) g/dL Albumin (3.5-5.0) g/dL 10/29/20 Range/Units 17:30 WBC (4.0-10.5) K/mm3 RBC (4.1-5.6) M/mm3 Hgb (12.5-18.0) gm/dl Hct (42-50) % MCV (78-100) fl MCH (26-32) pg MCHC (32-36) g/dl RDW (11.5-14.0) % Plt Count (150-450) K/mm3 MPV (7.5-11.0) fl Gran % (36.0-66.0) % Eos # (Auto) (0-0.5) Absolute Lymphs (auto) (1.0-4.6) Absolute Monos (auto) (0.0-1.3) Lymphocytes % (24.0-44.0) % Monocytes % (0.0-12.0) % Eosinophils % (0.00-5.0) % Basophils % (0.0-0.4) % Absolute Granulocytes (1.4-6.9) Basophils # (0-0.4) Sodium (137-145) mmol/L Potassium 3.7 (3.5-5.1) mmol/L Chloride (98-107) mmol/L Carbon Dioxide (22-30) mmol/L Anion Gap (5-15) MEQ/L BUN (9-20) mg/dL Creatinine (0.66-1.25) mg/dL Estimated GFR ML/MIN Glucose (74-106) mg/dL POC Glucometer (74 to 106) mg/dL Calcium (8.4-10.2) mg/dL Total Bilirubin (0.2-1.3) mg/dL AST (17-59) U/L ALT (0-50) U/L Alkaline Phosphatase (38-126) U/L Troponin I (0.000-0.034) ng/mL Serum Total Protein (6.3-8.2) g/dL Albumin (3.5-5.0) g/dL Micro Results-Entire Visit: Accuchecks Date 10/29/20 Time 11:26 - Radiology Exams Ordered Rad Exams-Entire Visit: Radiology Procedures Category Date Time Status CHEST 1 VIEW (PORTABLE) Stat Exams 10/28/20 13:33 Completed - Procedures and Test Procedures and Tests throughout Hospitalization: Therapy Orders & Screens 10/28/20 16:51 Smoking Cessation Education ONCE Comment: Diagnosis: Chest Pain R/O Smoking Status: Current every day smoker How long have you smoked: 40 yrs Have you smoked in the past 12 months: Yes Approximately how many cigarettes per day: 20 Do you dip or chew tobacco: No 10/28/20 19:53 Oxygen Nasal Cannula 2 lpm Comment: Diagnosis: Chest Pain R/O 10/28/20 20:13 BiPap/CPAP ROUTINE Comment: Diagnosis: Chest Pain R/O Discharge Exam General Appearance: mild distress, anxiety (is due for dose of Ativan) Neurologic Exam: alert, 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, cooperative, other (decreased affect) Eye Exam: PERRL, EOMI, eyes nml inspection Ears, Nose, Throat Exam: normal ENT inspection Neck Exam: normal inspection Respiratory Exam: diminished breath sounds, other (no wheeze or ronchi or rales) Gastrointestinal/Abdomen Exam: soft, normal bowel sounds (nontender) Back Exam: normal inspection Extremity Exam: normal inspection Skin Exam: normal color, warm, dry Final Diagnosis/Problem List - Final Discharge Diagnosis/Problem (1) Chest pain, rule out acute myocardial infarction Current Visit: Yes Status: Resolved Assessment & Plan: serial troponins negative Code(s): R07.9 - CHEST PAIN, UNSPECIFIED (2) Anxiety about health Current Visit: Yes Status: Acute Assessment & Plan: Patient is fearful heart attack-will discuss with and have patient follow up with his Lead Recoverer,Dr Hatfield Code(s): F41.8 - OTHER SPECIFIED ANXIETY DISORDERS (3) DM2 (diabetes mellitus, type 2) Current Visit: Yes Status: Chronic Assessment & Plan: controlled on oral meds (4) Hx pulmonary embolism Current Visit: Yes Status: Chronic Assessment & Plan: continued on Xarelto Code(s): Z86.711 - PERSONAL HISTORY OF PULMONARY EMBOLISM (5) Factor 5 Leiden mutation, heterozygous Current Visit: No Status: Chronic Code(s): D68.51 - ACTIVATED PROTEIN C RESI STANCE (6) High blood pressure Current Visit: No Status: Chronic Onset Date: ~09/18/17 Assessment & Plan: controlled Code(s): I10 - ESSENTIAL (PRIMARY) HYPERTENSION (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 Due to decreased affect ,try decreasing Paxil from 20mg to 10mg. Decreased Effexor from 150mg to 75mg,Continue Zyprexa. -Close follow up. Code(s): F32.89 - OTHER SPECIFIED DEPRESSIVE EPISODES - Discharge Disposition: Home, Self-Care Condition: Stable Prescriptions: New Lorazepam 0.5 mg [Ativan 0.5 MG] 0.5 mg PO Q4H PRN PRN tablet PRN Reason: Anxiety PARoxetine HCL [Paroxetine HCl] 10 mg PO DAILY #30 tablet Continue Lisinopril 20 mg [Zestril 20 MG] 20 mg PO QHS Omeprazole 20 MG [Prilosec 20 mg] 20 mg PO HS Hydrochlorothiazide 25 mg [hydroDIURIL 25 MG] 25 mg PO HS Metoprolol Succinate 25 mg Xl* [Toprol-Xl 25MG Tablets] 25 mg PO QHS Albuterol Sulfate [Ventolin] 2 puffs IH HS Cetirizine HCl [Zyrtec] 10 mg PO HS Atorvastatin Calcium 40 mg PO HS Aspirin 81 mg PO HS OLANZapine [Olanzapine] 10 mg PO HS Fluticasone Propionate [Flonase Allergy Relief] 1 sprays IH HS Metformin HCl 500 mg [Glucophage 500 MG] 500 mg PO BIDWM #60 tablet Rivaroxaban [Xarelto] 20 mg PO HS Potassium Chloride [Klor-Con 8] 8 meq PO HS Changed Venlafaxine HCl ER 75 mg [Effexor XR 75 MG] 75 mg PO HS #30 Discontinued PARoxetine HCL [Paroxetine HCl] 40 mg PO HS Instructions: Angina Follow up with: IVANIA HATFIELD [COURTESY STAFF] - RAJINDER PRINCE DO [Primary Care Provider] - 11/08/20 1:00 pm Forms: Discharge Instructions
== END 2020-10-29 19:50 | disposition home or self-care (01) ==
LOC: ED 13:04 → MED SURG 16:00
PROVIDERS: ADMIT Family Medicine; ATTEND Family Medicine
DX: R07.9 Chest pain, unspecified (principal); E78.5 Hyperlipidemia, unspecified; I25.10 Atherosclerotic heart disease of native coronary artery without angina pectoris; I10 Essential (primary) hypertension; E11.9 Type 2 diabetes mellitus without complications; Z86.711 Personal history of pulmonary embolism; Z79.01 Long term (current) use of anticoagulants; Z79.899 Other long term (current) drug therapy; J44.9 Chronic obstructive pulmonary disease, unspecified; F41.9 Anxiety disorder, unspecified; D68.51 Activated protein C resistance; F32.89 Other specified depressive episodes; Z20.828 Contact with and (suspected) exposure to other viral communicable diseases
CPT/HCPCS: 0241U; 36000; 36415; 71045; 80053; 82947; 83036; 83880; 84132; 84484; 85025; 93005; 93041; 93268; 94760; 99285; G0378; J1817; J3480; A9270-GY

== ENCOUNTER 2021-01-21 11:52 | Inpatient (IN) | payer MEDICARE ==
--- NOTE | 2021-01-21 12:06 | ERPHSYRPT ---
- History of Present Illness Time Seen by Provider: 01/21/21 12:06 Source: patient Exam Limitations: no limitations Physician History: This is a 55-year-old white male who is obese and diabetic and has history of hypertension and recently was diagnosed with ear infection was placed on what he recalls is possibly doxycycline antibiotic. His symptoms of abdominal irrita tion with nausea coincided with the start of doxycycline per his recollection. He has no chest pain. He has no cough. He has no shortness of breath. He has not vomited any has no diarrhea. He feels weak. He recently had a COVID-19 test result which was negative. It was reported to him on 01/19/2021 as negative. He stopped taking the doxycycline yesterday. Timing/Duration: day(s) (Several), worse Severity: moderate Associated Symptoms: nausea, abdominal pain (3 out of 10), loss of appetite, weakness, No vomiting, No shortness of breath, No chest pain, No fever Allergies/Adverse Reactions: No Known Drug Allergies Allergy (Verified 01/21/21 11:59) Home Medications: Lisinopril 20 mg [Zestril 20 MG] 20 mg PO QHS 06/30/13 [History] Omeprazole 20 MG [Prilosec 20 mg] 20 mg PO HS 01/23/15 [History] Hydrochlorothiazide 25 mg [hydroDIURIL 25 MG] 25 mg PO HS 02/20/15 [History] Metoprolol Succinate 25 mg Xl* [Toprol-Xl 25MG Tablets] 25 mg PO QHS 09/18/17 [History] Albuterol Sulfate [Ventolin] 2 puffs IH HS 05/23/19 [History] Aspirin 81 mg PO HS 05/23/19 [History] Atorvastatin Calcium 40 mg PO HS 05/23/19 [History] Cetirizine HCl [Zyrtec] 10 mg PO HS 05/23/19 [History] Fluticasone Propionate [Flonase Allergy Relief] 1 sprays IH HS 05/23/19 [History] OLANZapine [Olanzapine] 10 mg PO HS 05/23/19 [History] Rivaroxaban [Xarelto] 20 mg PO HS 04/28/20 [History] Potassium Chloride [Klor-Con 8] 8 meq PO HS 10/28/20 [History] Hx Tetanus, Diphtheria Vaccination/Date Given: No Hx Influenza Vaccination/Date Given: No Hx Pneumococcal Vaccination/Date Given: No Travel Risk - International Travel Have you traveled outside of the country in past 3 weeks: No - Coronavirus Screening Are you exhibiting any of the following symptoms?: No - Vaccine Status Have you recieved a Covid-19 vaccination: Yes Pillowcase Maker: Moderna - Vaccination Dates Date of 2cond Vaccination (if applicable): 10/04/20 - Review of Systems Constitutional: Weakness Eyes: No Symptoms Ears, Nose, & Throat: No Symptoms Respiratory: No Symptoms Cardiac: No Symptoms Abdominal/Gastrointestinal: Abdominal Pain (Mild 3 out of 10), Nausea, No Vomiting, No Diarrhea Genitourinary Symptoms: No Symptoms Musculoskeletal: No Symptoms Skin: No Symptoms Neurological: No Symptoms Psychological: No Symptoms Endocrine: No Symptoms Hematologic/Lymphatic: No Symptoms Immunological/Allergic: No Symptoms All Other Systems: Reviewed and Negative - Past Medical History Pertinent Past Medical History: Yes Neurological History: Migraines ENT History: Glaucoma Cardiac History: Angina, Deep Vein Thrombosis Respiratory History: COPD, Pulmonary Embolism Endocrine Medical History: Diabetes Type II Musculoskeletal History: Arthritis GI Medical History: GERD History: No Pertinent History Psycho-Social History: Anxiety Male Reproductive Disorders: No Pertinent History Other Medical History: 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 [facility] - Social History Smoking Status: Current every day smoker How long have you smoked: 40 yrs Exposure to second hand smoke: Yes Drug Use: none Patient Lives Alone: No - Nursing Vital Signs Nursing Vital Signs: Initial Vital Signs Temperature 97.0 F 01/21/21 12:00 Pulse Rate 120 H 01/21/21 12:00 Respiratory Rate 20 01/21/21 12:00 Blood Pressure 146/101 01/21/21 12:00 O2 Sat by Pulse Oximetry 92 L 01/21/21 12:00 Pain Scale Pain Intensity 2 - Physical Exam General Appearance: no apparent distress, alert, obese Eye Exam: PERRL/EOMI, eyes nml inspection Ears, Nose, Throat Exam: normal ENT inspection, moist mucous membranes Neck Exam: normal inspection, non-tender, supple, full range of motion Respiratory Exam: normal breath sounds, lungs clear, airway intact, No chest tenderness, No respiratory distress Cardiovascular Exam: tachycardia Gastrointestinal/Abdomen Exam: soft, normal bowel sounds, tenderness (Mild 3 out of 10), No distention, No guarding, No rebound Rectal Exam: not done Back Exam: normal inspection, normal range of motion, No CVA tenderness, No vertebral tenderness Extremity Exam: normal inspection, normal range of motion, pelvis stable Neurologic Exam: alert, 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, cooperative, medical education manager II-XII nml as tested, normal mood/affect, nml cerebellar function, nml station & gait, sensation nml Skin Exam: normal color, warm, dry Lymphatic Exam: No adenopathy SpO2 Interpretation: normal O2 Delivery: Room Air - Course Nursing assessment & vital signs reviewed: Yes Ordered Tests: Active Orders 24 hr Category Date Time Status EKG-ER Only STAT Care 01/21/21 12:33 Active IV Insertion STAT Care 01/21/21 12:33 Active ABDOMEN AND PELVIS W/0 CONTRAS [CT] Stat Exams 01/21/21 14:19 Completed AMYLASE Stat Lab 01/21/21 12:40 Completed CBC W DIFF Stat Lab 01/21/21 12:40 Completed CMP Stat Lab 01/21/21 12:40 Completed CULTURE,URINE Stat Lab 01/21/21 12:55 Received LIPASE Stat Lab 01/21/21 12:40 Completed Lactic Acid Stat Lab 01/21/21 12:40 Completed TROPONIN Q3H Lab 01/21/21 12:40 Completed TROPONIN Q3H Lab 01/21/21 15:48 Received TROPONIN Q3H Lab 01/21/21 18:45 Ordered TROPONIN Q3H Lab 01/21/21 21:45 Ordered TROPONIN Q3H Lab 01/22/21 00:45 Ordered UA W/RFX UR CULTURE Stat Lab 01/21/21 12:55 Completed Transfer Order Routine Transfer 01/21/21 Ordered Medication Summary Generic Name Dose Route Start Last Admin Trade Name Freq PRN Reason Stop Dose Admin Sodium Chloride 1,000 mls @ 100 mls/hr 01/21/21 14:00 01/21/21 13:50 Sodium Chloride 0.9% 1000 Ml IV 02/20/21 13:59 100 mls/hr .Q10H SHERLYN Administration Discontinued Medications Generic Name Dose Route Start Last Admin Trade Name Freq PRN Reason Stop Dose Admin Famotidine 40 mg 01/21/21 12:33 01/21/21 12:58 Pepcid 20 Mg Vial IV 01/21/21 12:34 40 mg STAT ONE Administration Famotidine Confirm 01/21/21 12:55 Pepcid 20 Mg Vial Administered 01/21/21 12:56 Dose 40 mg IV .STK-MED ONE Sodium Chloride 1,000 mls @ 999 mls/hr 01/21/21 12:33 01/21/21 14:40 Sodium Chloride 0.9% 1000 Ml IV 01/21/21 13:33 Infused .Q1H1M STA Infusion Sodium Chloride Confirm 01/21/21 12:55 Sodium Chloride 0.9% 1000 Ml Administered 01/21/21 12:56 Dose 1,000 mls @ ud .ROUTE .STK-MED ONE Potassium Chloride 20 meq in 100 mls @ 50 mls/hr 01/21/21 13:42 01/21/21 13:49 Potassium Chloride 20 Meq In Water 100ml IV 01/21/21 15:41 50 mls/hr STAT ONE Administration Potassium Chloride Confirm 01/21/21 13:48 Potassium Chloride 20 Meq In Water 100ml Administered 01/21/21 13:49 Dose 100 mls @ ud IV .STK-MED ONE Ondansetron HCl 4 mg 01/21/21 12:33 01/21/21 12:59 Zofran 4 Mg/2 Ml Vial IV 01/21/21 12:34 4 mg STAT ONE Administration Ondansetron HCl Confirm 01/21/21 12:55 Zofran 4 Mg/2 Ml Vial Administered 01/21/21 12:56 Dose 4 mg .ROUTE .STK-MED ONE Potassium Chloride 10 meq 01/21/21 16:08 Klor Con 10 Meq PO 01/21/21 16:09 STAT ONE Lab/Rad Data: Laboratory Result Diagrams 01/21/21 12:40 01/21/21 12:40 Laboratory Results 01/21/21 01/21/21 01/21/21 Range/Units 13:55 12:55 12:40 WBC (4.0-10.5) K/mm3 RBC (4.1-5.6) M/mm3 Hgb (12.5-18.0) gm/dl Hct (42-50) % MCV (78-100) fl MCH (26-32) pg MCHC (32-36) g/dl RDW (11.5-14.0) % Plt Count (150-450) K/mm3 MPV (7.5-11.0) fl Gran % (36.0-66.0) % Eos # (Auto) (0-0.5) Absolute Lymphs (auto) (1.0-4.6) Absolute Monos (auto) (0.0-1.3) Lymphocytes % (24.0-44.0) % Monocytes % (0.0-12.0) % Eosinophils % (0.00-5.0) % Basophils % (0.0-0.4) % Absolute Granulocytes (1.4-6.9) Basophils # (0-0.4) Sodium (137-145) mmol/L Potassium (3.5-5.1) mmol/L Chloride (98-107) mmol/L Carbon Dioxide (22-30) mmol/L Anion Gap (5-15) MEQ/L BUN (9-20) mg/dL Creatinine (0.66-1.25) mg/dL Estimated GFR ML/MIN Glucose (74-106) mg/dL Lactic Acid (0.4-2.0) Calcium (8.4-10.2) mg/dL Total Bilirubin (0.2-1.3) mg/dL AST (17-59) U/L ALT (0-50) U/L Alkaline Phosphatase (38-126) U/L Troponin I 0.016 (0.000-0.034) ng/mL Serum Total Protein (6.3-8.2) g/dL Albumin (3.5-5.0) g/dL Amylase (30-110) U/L Lipase (23-300) U/L Urine Color EVER (YELLOW) Urine Appearance SLIGHTLY CLOUDY (CLEAR) Urine pH 5.0 (5-6) Ur Specific [place] 1.023 (1.005-1.025) Urine Protein 100 (Negative) Urine Ketones MODERATE (NEGATIVE) Urine Blood MODERATE (0-5) Jose/ul Urine Nitrite NEGATIVE (NEGATIVE) Urine Bilirubin NEGATIVE (NEGATIVE) Urine Urobilinogen NEGATIVE (0-1) mg/dL Ur Leukocyte Esterase NEGATIVE (NEGATIVE) Urine WBC (Auto) 0-2 (0-5) /HPF Urine RBC (Auto) 6-10 (0-2) /HPF U Epithel Cells (Auto) RARE (FEW) /HPF Urine Bacteria (Auto) RARE (NEGATIVE) /HPF Granular Casts (Auto) 2-5 (NEGATIVE) /LPF Urine Mucus (Auto) SLIGHT (NEGATIVE) /HPF Urine Culture Reflexed YES (NO) Urine Glucose 50 (NEGATIVE) mg/dL SARS-CoV-2 (PCR) NEGATIVE (NEGATIVE) 01/21/21 01/21/21 01/21/21 Range/Units 12:40 12:40 12:40 WBC 9.2 (4.0-10.5) K/mm3 RBC 4.69 (4.1-5.6) M/mm3 Hgb 14.3 (12.5-18.0) gm/dl Hct 42.8 (42-50) % MCV 91.3 (78-100) fl MCH 30.5 (26-32) pg MCHC 33.4 (32-36) g/dl RDW 14.1 H (11.5-14.0) % Plt Count 221 (150-450) K/mm3 MPV 10.8 (7.5-11.0) fl Gran % 75.0 H (36.0-66.0) % Eos # (Auto) 0.01 (0-0.5) Absolute Lymphs (auto) 1.01 (1.0-4.6) Absolute Monos (auto) 1.27 (0.0-1.3) Lymphocytes % 10.9 L (24.0-44.0) % Monocytes % 13.8 H (0.0-12.0) % Eosinophils % 0.1 (0.00-5.0) % Basophils % 0.2 (0.0-0.4) % Absolute Granulocytes 6.92 H (1.4-6.9) Basophils # 0.02 (0-0.4) Sodium 135 L (137-145) mmol/L Potassium 2.7 L* (3.5-5.1) mmol/L Chloride 99 (98-107) mmol/L Carbon Dioxide 20 L (22-30) mmol/L Anion Gap 19.2 H (5-15) MEQ/L BUN 10 (9-20) mg/dL Creatinine 0.94 (0.66-1.25) mg/dL Estimated GFR > 60.0 ML/MIN Glucose 174 H (74-106) mg/dL Lactic Acid 1.4 (0.4-2.0) Calcium 9.0 (8.4-10.2) mg/dL Total Bilirubin 1.00 (0.2-1.3) mg/dL AST 42 (17-59) U/L ALT 23 (0-50) U/L Alkaline Phosphatase 77 (38-126) U/L Troponin I (0.000-0.034) ng/mL Serum Total Protein 8.0 (6.3-8.2) g/dL Albumin 4.4 (3.5-5.0) g/dL Amylase 129 H (30-110) U/L Lipase 2896 H (23-300) U/L Urine Color (YELLOW) Urine Appearance (CLEAR) Urine pH (5-6) Ur Specific [place] (1.005-1.025) Urine Protein (Negative) Urine Ketones (NEGATIVE) Urine Blood (0-5) Jose/ul Urine Nitrite (NEGATIVE) Urine Bilirubin (NEGATIVE) Urine Urobilinogen (0-1) mg/dL Ur Leukocyte Esterase (NEGATIVE) Urine WBC (Auto) (0-5) /HPF Urine RBC (Auto) (0-2) /HPF U Epithel Cells (Auto) (FEW) /HPF Urine Bacteria (Auto) (NEGATIVE) /HPF Granular Casts (Auto) (NEGATIVE) /LPF Urine Mucus (Auto) (NEGATIVE) /HPF Urine Culture Reflexed (NO) Urine Glucose (NEGATIVE) mg/dL SARS-CoV-2 (PCR) (NEGATIVE) - Progress Progress: improved, pain not gone completely, re-examined Progress Note: 01/21/21 15:13 CAT scan of the abdomen pelvis without contrast shows mild peripancreatic stranding consistent with an favoring a diagnosis of mild pancreatitis. No other significant or acute intra-abdominal or pelvic findings 01/21/21 15:59 Medical decision making: This patient has mild acute pancreatitis. He is dehydrated and has hypokalemia. I spoke with Dr. Hutchinson, his primary care physician. She agrees to admit him to the hospital for IV hydration, potassium supplementation, antiemetics and pain control. We will repeat labs in the morning. Discussed with : Eduarda Counseled pt/family regarding: lab results, diagnosis, rad results - Departure Departure Disposition: In-patient Admission Clinical Impression: Pancreatitis, Hypokalemia, Dehydration, Hypoxia Condition: Fair Critical Care Time: No Referrals: RAJINDER HUTCHINSON DO [Primary Care Provider] -
[2021-01-21] MEDS ORDERED: Sodium Chloride 0.9% 1000 ML 1,000 ML IV STA (12:33)
[2021-01-21] MEDS ORDERED: Zofran 4 MG/2 ML VIAL IV ONE (12:33)
[2021-01-21] MEDS ORDERED: Pepcid 20 MG VIAL IV ONE ×2 (12:33→12:55)
[2021-01-21] MEDS ORDERED: Sodium Chloride 0.9% 1000 ML 1,000 ML ONE ×2 (12:55→13:48)
[2021-01-21] MEDS ORDERED: Zofran 4 MG/2 ML VIAL ONE (12:55)
[2021-01-21 13:01] LABS: ALBUMIN 4.4 g/dL (3.5-5.0); ALKALINE PHOSPHATASE 77 U/L (38-126); AMYLASE 129 U/L (30-110); ANION GAP 19.2 MEQ/L (5-15); BLOOD UREA NITROGEN 10 mg/dL (9-20); CHLORIDE 99 mmol/L (98-107); Carbon Dioxide 20 mmol/L (22-30); Creatinine 1 0.94 mg/dL (0.66-1.25); EST GLOMERULAR FILTRATION RATE > 60.0 ML/MIN; Glucose 174 mg/dL (74-106); SGOT/AST 42 U/L (17-59); SGPT/ALT 23 U/L (0-50); SODIUM 135 mmol/L (137-145)
[2021-01-21 13:03] LABS: Appearance SLIGHTLY CLOUDY (CLEAR); Bacteria RARE /HPF (NEGATIVE); Bilirubin NEGATIVE (NEGATIVE); Blood MODERATE Ery/ul (0-5); Epithelial Cells RARE /HPF (FEW); Glucose 50 mg/dL (NEGATIVE); Ketones MODERATE (NEGATIVE); Leukocyte Esterase NEGATIVE (NEGATIVE); Mucus SLIGHT /HPF (NEGATIVE); Nitrite NEGATIVE (NEGATIVE); Protein,Urine Dip 100 (Negative); Specific Gravity 1.023 (1.005-1.025); Urobilinogen NEGATIVE mg/dL (0-1); WBC 0-2 /HPF (0-5)
[2021-01-21 13:14] LABS: Absolute Neutrophil Ct (ANC) 6.92 (1.4-6.9); BASOPHIL % 0.2 % (0.0-0.4); Basophil (Absolute #) 0.02 (0-0.4); Eosinophil % 0.1 % (0.00-5.0); Eosinophil (Absolute #) 0.01 (0-0.5); Hematocrit 42.8 % (42-50); Hemoglobin 14.3 gm/dl (12.5-18.0); Lymphocyte (Absolute #) 1.01 (1.0-4.6); Lymphocytes % 10.9 % (24.0-44.0); Mean Cell Volume 91.3 fl (78-100); Mean Corpuscular Hemoglobin 30.5 pg (26-32); Mean Corpuscular Hgb Concent. 33.4 g/dl (32-36); Mean Platelet Volume 10.8 fl (7.5-11.0); Monocyte (Absolute #) 1.27 (0.0-1.3); Monocytes % 13.8 % (0.0-12.0); Platelet Count 221 K/mm3 (150-450); Red Blood Count 4.69 M/mm3 (4.1-5.6); Red Cell Distribution Width 14.1 % (11.5-14.0); White Blood Count 9.2 K/mm3 (4.0-10.5)
[2021-01-21 13:37] LABS: LIPASE 2896 U/L (23-300); Potassium 2.7 mmol/L (3.5-5.1)
[2021-01-21] MEDS ORDERED: POTASSIUM CHLORIDE 20 mEq IN WATER 100ML 20 MEQ/100 ML BAG IV ONE (13:42)
[2021-01-21] MEDS ORDERED: POTASSIUM CHLORIDE 20 mEq IN WATER 100ML 100 ML IV ONE (13:48)
[2021-01-21] MEDS ORDERED: Sodium Chloride 0.9% 1000 ML 1,000 ML IV SCH (14:00)
--- NOTE | 2021-01-21 15:08 | XRAY ---
Indication: Abdomen pain, nausea, and vomiting. Pancreatitis. Multiple contiguous axial images obtained through the abdomen and pelvis without contrast. Comparison: October 16, 2016. Lung bases again demonstrates minimal subsegmental atelectasis/scarring. No infiltrate or effusion. Heart not enlarged. New finding small distal paraesophageal calcified node. Noncontrasted stomach and bowel loops remain nonobstructed with minimal scattered colonic diverticulosis. Normal appendix. Pancreas now appears mildly prominent with mild peripancreatic stranding favoring pancreatitis. No free fluid/air. Interval cholecystectomy. Stable diffuse fatty liver, IVC filter, and a few splenic calcified granulomas. Remaining adrenal glands, kidneys, ureters, and bladder are unremarkable. There remains minimal aortoiliac calcifications without AAA. Osseous structures intact with minimal degenerative changes throughout the spine. Impression: 1. New CT findings favoring mild pancreatitis. No free fluid or walled off fluid collection. 2. Again colonic diverticulosis, fatty liver, and old granulomatous disease.
[2021-01-21] MEDS ORDERED: Klor Con 10 MEQ PO ONE ×2 (16:08→16:12)
[2021-01-21] MEDS ORDERED: Zofran 4 MG/2 ML VIAL IV PRN (16:36)
[2021-01-21] MEDS ORDERED: TYLENOL 325 MG PO PRN (16:36)
[2021-01-21] MEDS ORDERED: Sodium Chloride 0.9% W/ 20 mEq KCl/LITER 1,000 ML IV SCH (17:00)
[2021-01-21] MEDS: VENTOLIN COMMON CANISTER IH SCH (17:30)
[2021-01-21] MEDS: Glucophage 500 MG PO SCH (17:56)
[2021-01-21] MEDS: Hydromorphone 1 mg/ml Injection IV PRN ×2 (18:05→23:41)
[2021-01-21] MEDS ORDERED: VENTOLIN COMMON CANISTER IH SCH ×2 (19:00→22:00)
[2021-01-21] MEDS: hydroDIURIL 25 MG PO SCH (21:43)
[2021-01-21] MEDS: Paxil 20 MG PO SCH (21:47)
[2021-01-21] MEDS: PROTONIX 40 MG IV IV SCH (21:48)
[2021-01-21] MEDS: Klor Con 10 MEQ PO SCH (21:48)
[2021-01-21] MEDS: Toprol-Xl 25MG Tablets PO SCH (21:48)
[2021-01-21] MEDS: XARELTO 10 MG TABLET PO SCH (21:48)
[2021-01-21] MEDS: CLARITIN 10 MG PO SCH (21:49)
[2021-01-21] MEDS: ECOTRIN 81 MG PO SCH (21:49)
[2021-01-21] MEDS: ZOCOR 20MG PO SCH (21:49)
[2021-01-21] MEDS: Zestril 20 MG PO SCH (21:49)
[2021-01-21] MEDS: zyPREXA 5MG TABLET PO SCH (21:50)
[2021-01-21] MEDS ORDERED: OLANZAPINE 10 MG PO SCH (22:00)
[2021-01-21] MEDS ORDERED: LIPITOR 40MG PO SCH (22:00)
[2021-01-21] MEDS ORDERED: NON-FORMULARY ITEM (Rivaroxaban [Xarelto] 20 MG) PO SCH (22:00)
[2021-01-21] MEDS ORDERED: VENTOLIN 20 ML BOTTLE IH SCH (22:00)
[2021-01-21] MEDS ORDERED: NON-FORMULARY ITEM (Cetirizine Hcl [Zyrtec] 10 MG) PO SCH (22:00)
[2021-01-21] MEDS ORDERED: NON-FORMULARY ITEM (Paroxetine Hcl [Paroxetine Hcl] 10 MG) PO SCH (22:00)
[2021-01-22 01:37] LABS: Absolute Neutrophil Ct (ANC) 6.68 (1.4-6.9); BASOPHIL % 0.1 % (0.0-0.4); Basophil (Absolute #) 0.01 (0-0.4); Eosinophil % 0.1 % (0.00-5.0); Eosinophil (Absolute #) 0.01 (0-0.5); Hematocrit 36.8 % (42-50); Hemoglobin 12.3 gm/dl (12.5-18.0); Lymphocyte (Absolute #) 1.32 (1.0-4.6); Lymphocytes % 14.3 % (24.0-44.0); Mean Corpuscular Hemoglobin 30.8 pg (26-32); Mean Corpuscular Hgb Concent. 33.4 g/dl (32-36); Mean Platelet Volume 9.9 fl (7.5-11.0); Monocyte (Absolute #) 1.21 (0.0-1.3); Monocytes % 13.1 % (0.0-12.0); Neutrophil % 72.4 % (36.0-66.0); Platelet Count 190 K/mm3 (150-450); White Blood Count 9.2 K/mm3 (4.0-10.5)
[2021-01-22 01:54] LABS: ALBUMIN 3.6 g/dL (3.5-5.0); ALKALINE PHOSPHATASE 64 U/L (38-126); AMYLASE 89 U/L (30-110); ANION GAP 10.9 MEQ/L (5-15); BLOOD UREA NITROGEN 8 mg/dL (9-20); CHLORIDE 99 mmol/L (98-107); Calcium 8.2 mg/dL (8.4-10.2); Carbon Dioxide 24 mmol/L (22-30); Creatinine 1 0.97 mg/dL (0.66-1.25); EST GLOMERULAR FILTRATION RATE > 60.0 ML/MIN; Glucose 143 mg/dL (74-106); SGOT/AST 37 U/L (17-59); SGPT/ALT 18 U/L (0-50); SODIUM 131 mmol/L (137-145); Total Protein 6.7 g/dL (6.3-8.2)
[2021-01-22 01:56] LABS: Potassium 4.7 mmol/L (3.5-5.1)
[2021-01-22 02:09] LABS: LIPASE 2361 U/L (23-300)
[2021-01-22] MEDS: Sodium Chloride 0.9% 1000 ML 1,000 ML IV SCH ×3 (03:08→21:19)
[2021-01-22] MEDS: Glucophage 500 MG PO SCH ×2 (08:19→17:38)
[2021-01-22] MEDS: Klor Con 10 MEQ PO SCH ×2 (08:21→21:26)
--- NOTE | 2021-01-22 08:56 | PCM.HP ---
History of Present Illness - Chief Complaint Chief Complaint: abdominal pain for 2-3 days History of Present Illness: is a 55-year-old white male who is obese and diabetic and has history of hypertension and recently was diagnosed with ear infection was placed on what he recalls is possibly doxycycline antibiotic. His symptoms of abdominal irritation with nausea coincided with the start of doxycycline per his recollection. He has no chest pain. He has no cough. He has no shortness of breath. He has not vomited any has no diarrhea. He feels weak. He recently had a COVID-19 test result which was negative. It was reported to him on 01/19/2021 as negative. He stopped taking the doxycycline yesterday. PMHx of CAD, TIA - Review of Systems Constitutional: No Fever, No Chills Eyes: No Symptoms Ears, Nose, & Throat: No Symptoms Respiratory: No Cough, No Short Of Breath Cardiac: No Chest Pain, No Edema, No Syncope Abdominal/Gastrointestinal: Abdominal Pain, No Nausea, No Vomiting, No Diarrhea Genitourinary Symptoms: No Dysuria Musculoskeletal: No Back Pain, No Neck Pain Skin: No Rash Neurological: No Dizziness, No Focal Weakness, No Sensory Changes Psychological: No Symptoms Endocrine: No Symptoms Hematologic/Lymphatic: No Symptoms Immunological/Allergic: No Symptoms Medications & Allergies Home Medications: Home Medication List Lisinopril 20 mg [Zestril 20 MG] 40 mg PO QHS 06/30/13 [History Confirmed 01/21/21] Omeprazole 20 MG [Prilosec 20 mg] 20 mg PO HS 01/23/15 [History Confirmed 01/21/21] Hydrochlorothiazide 25 mg [hydroDIURIL 25 MG] 25 mg PO HS 02/20/15 [History Confirmed 01/21/21] Metoprolol Succinate 25 mg Xl* [Toprol-Xl 25MG Tablets] 25 mg PO QHS 09/18/17 [History Confirmed 01/21/21] Albuterol Sulfate [Ventolin] 2 puffs IH HS 05/23/19 [History Confirmed 01/21/21] Aspirin 81 mg PO HS 05/23/19 [History Confirmed 01/21/21] Atorvastatin Calcium 40 mg PO HS 05/23/19 [History Confirmed 01/21/21] Cetirizine HCl [Zyrtec] 10 mg PO HS 05/23/19 [History Confirmed 01/21/21] OLANZapine [Olanzapine] 10 mg PO HS 05/23/19 [History Confirmed 01/21/21] Metformin HCl 500 mg [Glucophage 500 MG] 500 mg PO BIDWM #60 tablet 05/24/19 [Rx Confirmed 01/21/21] Rivaroxaban [Xarelto] 20 mg PO HS 04/28/20 [History Confirmed 01/21/21] Potassium Chloride [Klor-Con 8] 8 meq PO HS 10/28/20 [History Confirmed 01/21/21] PARoxetine HCL [Paroxetine HCl] 10 mg PO HS 01/21/21 [History Confirmed 01/21/21] Allergies/Adverse Reactions: Allergies Allergy/AdvReac Type Severity Reaction Status Date / Time No Known Drug Allergies Allergy Verified 01/21/21 11:59 - Past Medical History Past Medical History: Yes Neurological History: Migraines ENT History: Glaucoma Cardiac History: Angina, Deep Vein Thrombosis Respiratory History: COPD, Pulmonary Embolism Endocrine Medical History: Diabetes Type II Musculoskelatal History: Arthritis GI Medical History: GERD History: No Pertinent History Pyscho-Social History: Anxiety Male Reproductive Disorders: No Pertinent History Comment: Difficulty hearing in andre ears - Past Surgical History Past Surgical History: Yes Neuro Surgical History: No Pertinent History Cardiac History: Cardiac Catheterization Respiratory Surgery: No Pertinent History GI Surgical History: Cholecystectomy, Hernia Repair Genitourinary Surgical Hx: No Pertinent History Musculskeletal Surgical Hx: No Pertinent History Male Surgical History: No Pertinent History Other Surgical History: eye surgery. [facility] - Social History Smoking Status: Former smoker How long have you smoked: 40 yrs Exposure to second hand smoke: No Alcohol: Weekly Drug Use: none - Physical Exam Vital Signs: Vital Signs - 24 hr Temp Pulse Resp BP Pulse Ox 01/22/21 07:17 97.6 F 87 18 118/66 95 01/22/21 05:45 18 01/22/21 04:00 97.7 F 76 16 105/71 95 01/22/21 02:00 16 01/22/21 00:51 101.2 F 01/22/21 00:00 102.7 F 91 H 20 125/66 95 01/21/21 22:00 16 01/21/21 20:22 86 16 91 L 01/21/21 19:59 100.3 F 98 H 20 144/84 96 01/21/21 17:00 95 01/21/21 16:58 99.8 F 107 H 20 137/83 97 01/21/21 16:36 97 01/21/21 16:09 108 H 17 148/98 98 01/21/21 15:00 108 H 18 163/107 99 01/21/21 14:02 109 H 16 149/97 93 L 01/21/21 13:02 111 H 18 143/98 92 L 01/21/21 12:00 97.0 F 120 H 20 146/101 92 L General Appearance: no apparent distress, alert Neurologic Exam: alert, 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, cooperative, normal mood/affect, nml cerebellar function, nml station & gait, sensation nml, No motor deficits Eye Exam: PERRL/EOMI, eyes nml inspection Ears, Nose, Throat Exam: normal ENT inspection, TMs normal, pharynx normal, moist mucous membranes Neck Exam: normal inspection, non-tender, supple, full range of motion Respiratory Exam: normal breath sounds, lungs clear, No respiratory distress Cardiovascular Exam: regular rate/rhythm, normal heart sounds, normal peripheral pulses Gastrointestinal/Abdomen Exam: soft, tenderness, No mass Back Exam: normal inspection, normal range of motion, No CVA tenderness, No vertebral tenderness Extremity Exam: normal inspection, normal range of motion, pelvis stable Skin Exam: normal color, warm, dry, No rash Lymphatic Exam: No adenopathy Results - Labs Lab/Micro Results: Lab Results-Last 24 Hours 01/21/21 01/21/21 01/21/21 Range/Units 12:40 12:40 12:40 WBC 9.2 (4.0-10.5) K/mm3 RBC 4.69 (4.1-5.6) M/mm3 Hgb 14.3 (12.5-18.0) gm/dl Hct 42.8 (42-50) % MCV 91.3 (78-100) fl MCH 30.5 (26-32) pg MCHC 33.4 (32-36) g/dl RDW 14.1 H (11.5-14.0) % Plt Count 221 (150-450) K/mm3 MPV 10.8 (7.5-11.0) fl Gran % 75.0 H (36.0-66.0) % Eos # (Auto) 0.01 (0-0.5) Absolute Lymphs (auto) 1.01 (1.0-4.6) Absolute Monos (auto) 1.27 (0.0-1.3) Lymphocytes % 10.9 L (24.0-44.0) % Monocytes % 13.8 H (0.0-12.0) % Eosinophils % 0.1 (0.00-5.0) % Basophils % 0.2 (0.0-0.4) % Absolute Granulocytes 6.92 H (1.4-6.9) Basophils # 0.02 (0-0.4) Sodium 135 L (137-145) mmol/L Potassium 2.7 L* (3.5-5.1) mmol/L Chloride 99 (98-107) mmol/L Carbon Dioxide 20 L (22-30) mmol/L Anion Gap 19.2 H (5-15) MEQ/L BUN 10 (9-20) mg/dL Creatinine 0.94 (0.66-1.25) mg/dL Estimated GFR > 60.0 ML/MIN Glucose 174 H (74-106) mg/dL Lactic Acid 1.4 (0.4-2.0) Calcium 9.0 (8.4-10.2) mg/dL Total Bilirubin 1.00 (0.2-1.3) mg/dL AST 42 (17-59) U/L ALT 23 (0-50) U/L Alkaline Phosphatase 77 (38-126) U/L Troponin I (0.000-0.034) ng/mL Serum Total Protein 8.0 (6.3-8.2) g/dL Albumin 4.4 (3.5-5.0) g/dL Amylase 129 H (30-110) U/L Lipase 2896 H (23-300) U/L Urine Color (YELLOW) Urine Appearance (CLEAR) Urine pH (5-6) Ur Specific Carlton (1.005-1.025) Urine Protein (Negative) Urine Ketones (NEGATIVE) Urine Blood (0-5) Jose/ul Urine Nitrite (NEGATIVE) Urine Bilirubin (NEGATIVE) Urine Urobilinogen (0-1) mg/dL Ur Leukocyte Esterase (NEGATIVE) Urine WBC (Auto) (0-5) /HPF Urine RBC (Auto) (0-2) /HPF U Epithel Cells (Auto) (FEW) /HPF Urine Bacteria (Auto) (NEGATIVE) /HPF Granular Casts (Auto) (NEGATIVE) /LPF Urine Mucus (Auto) (NEGATIVE) /HPF Urine Culture Reflexed (NO) Urine Glucose (NEGATIVE) mg/dL SARS-CoV-2 (PCR) (NEGATIVE) 01/21/21 01/21/21 01/21/21 Range/Units 12:40 12:55 13:55 WBC (4.0-10.5) K/mm3 RBC (4.1-5.6) M/mm3 Hgb (12.5-18.0) gm/dl Hct (42-50) % MCV (78-100) fl MCH (26-32) pg MCHC (32-36) g/dl RDW (11.5-14.0) % Plt Count (150-450) K/mm3 MPV (7.5-11.0) fl Gran % (36.0-66.0) % Eos # (Auto) (0-0.5) Absolute Lymphs (auto) (1.0-4.6) Absolute Monos (auto) (0.0-1.3) Lymphocytes % (24.0-44.0) % Monocytes % (0.0-12.0) % Eosinophils % (0.00-5.0) % Basophils % (0.0-0.4) % Absolute Granulocytes (1.4-6.9) Basophils # (0-0.4) Sodium (137-145) mmol/L Potassium (3.5-5.1) mmol/L Chloride (98-107) mmol/L Carbon Dioxide (22-30) mmol/L Anion Gap (5-15) MEQ/L BUN (9-20) mg/dL Creatinine (0.66-1.25) mg/dL Estimated GFR ML/MIN Glucose (74-106) mg/dL Lactic Acid (0.4-2.0) Calcium (8.4-10.2) mg/dL Total Bilirubin (0.2-1.3) mg/dL AST (17-59) U/L ALT (0-50) U/L Alkaline Phosphatase (38-126) U/L Troponin I 0.016 (0.000-0.034) ng/mL Serum Total Protein (6.3-8.2) g/dL Albumin (3.5-5.0) g/dL Amylase (30-110) U/L Lipase (23-300) U/L Urine Color EVER (YELLOW) Urine Appearance SLIGHTLY CLOUDY (CLEAR) Urine pH 5.0 (5-6) Ur Specific Carlton 1.023 (1.005-1.025) Urine Protein 100 (Negative) Urine Ketones MODERATE (NEGATIVE) Urine Blood MODERATE (0-5) Jose/ul Urine Nitrite NEGATIVE (NEGATIVE) Urine Bilirubin NEGATIVE (NEGATIVE) Urine Urobilinogen NEGATIVE (0-1) mg/dL Ur Leukocyte Esterase NEGATIVE (NEGATIVE) Urine WBC (Auto) 0-2 (0-5) /HPF Urine RBC (Auto) 6-10 (0-2) /HPF U Epithel Cells (Auto) RARE (FEW) /HPF Urine Bacteria (Auto) RARE (NEGATIVE) /HPF Granular Casts (Auto) 2-5 (NEGATIVE) /LPF Urine Mucus (Auto) SLIGHT (NEGATIVE) /HPF Urine Culture Reflexed YES (NO) Urine Glucose 50 (NEGATIVE) mg/dL SARS-CoV-2 (PCR) NEGATIVE (NEGATIVE) 01/21/21 01/21/21 01/21/21 Range/Units 15:48 19:04 21:50 WBC (4.0-10.5) K/mm3 RBC (4.1-5.6) M/mm3 Hgb (12.5-18.0) gm/dl Hct (42-50) % MCV (78-100) fl MCH (26-32) pg MCHC (32-36) g/dl RDW (11.5-14.0) % Plt Count (150-450) K/mm3 MPV (7.5-11.0) fl Gran % (36.0-66.0) % Eos # (Auto) (0-0.5) Absolute Lymphs (auto) (1.0-4.6) Absolute Monos (auto) (0.0-1.3) Lymphocytes % (24.0-44.0) % Monocytes % (0.0-12.0) % Eosinophils % (0.00-5.0) % Basophils % (0.0-0.4) % Absolute Granulocytes (1.4-6.9) Basophils # (0-0.4) Sodium (137-145) mmol/L Potassium (3.5-5.1) mmol/L Chloride (98-107) mmol/L Carbon Dioxide (22-30) mmol/L Anion Gap (5-15) MEQ/L BUN (9-20) mg/dL Creatinine (0.66-1.25) mg/dL Estimated GFR ML/MIN Glucose (74-106) mg/dL Lactic Acid (0.4-2.0) Calcium (8.4-10.2) mg/dL Total Bilirubin (0.2-1.3) mg/dL AST (17-59) U/L ALT (0-50) U/L Alkaline Phosphatase (38-126) U/L Troponin I 0.026 0.058 H* 0.088 H* (0.000-0.034) ng/mL Serum Total Protein (6.3-8.2) g/dL Albumin (3.5-5.0) g/dL Amylase (30-110) U/L Lipase (23-300) U/L Urine Color (YELLOW) Urine Appearance (CLEAR) Urine pH (5-6) Ur Specific Carlton (1.005-1.025) Urine Protein (Negative) Urine Ketones (NEGATIVE) Urine Blood (0-5) Jose/ul Urine Nitrite (NEGATIVE) Urine Bilirubin (NEGATIVE) Urine Urobilinogen (0-1) mg/dL Ur Leukocyte Esterase (NEGATIVE) Urine WBC (Auto) (0-5) /HPF Urine RBC (Auto) (0-2) /HPF U Epithel Cells (Auto) (FEW) /HPF Urine Bacteria (Auto) (NEGATIVE) /HPF Granular Casts (Auto) (NEGATIVE) /LPF Urine Mucus (Auto) (NEGATIVE) /HPF Urine Culture Reflexed (NO) Urine Glucose (NEGATIVE) mg/dL SARS-CoV-2 (PCR) (NEGATIVE) 01/22/21 01/22/21 01/22/21 Range/Units 01:15 01:15 01:15 WBC 9.2 (4.0-10.5) K/mm3 RBC 4.00 L (4.1-5.6) M/mm3 Hgb 12.3 L (12.5-18.0) gm/dl Hct 36.8 L (42-50) % MCV 92.0 (78-100) fl MCH 30.8 (26-32) pg MCHC 33.4 (32-36) g/dl RDW 14.0 (11.5-14.0) % Plt Count 190 (150-450) K/mm3 MPV 9.9 (7.5-11.0) fl Gran % 72.4 H (36.0-66.0) % Eos # (Auto) 0.01 (0-0.5) Absolute Lymphs (auto) 1.32 (1.0-4.6) Absolute Monos (auto) 1.21 (0.0-1.3) Lymphocytes % 14.3 L (24.0-44.0) % Monocytes % 13.1 H (0.0-12.0) % Eosinophils % 0.1 (0.00-5.0) % Basophils % 0.1 (0.0-0.4) % Absolute Granulocytes 6.68 (1.4-6.9) Basophils # 0.01 (0-0.4) Sodium 131 L (137-145) mmol/L Potassium 4.7 D (3.5-5.1) mmol/L Chloride 99 (98-107) mmol/L Carbon Dioxide 24 (22-30) mmol/L Anion Gap 10.9 (5-15) MEQ/L BUN 8 L (9-20) mg/dL Creatinine 0.97 (0.66-1.25) mg/dL Estimated GFR > 60.0 ML/MIN Glucose 143 H (74-106) mg/dL Lactic Acid (0.4-2.0) Calcium 8.2 L (8.4-10.2) mg/dL Total Bilirubin 0.70 (0.2-1.3) mg/dL AST 37 (17-59) U/L ALT 18 (0-50) U/L Alkaline Phosphatase 64 (38-126) U/L Troponin I 0.137 H* (0.000-0.034) ng/mL Serum Total Protein 6.7 (6.3-8.2) g/dL Albumin 3.6 (3.5-5.0) g/dL Amylase 89 (30-110) U/L Lipase 2361 H (23-300) U/L Urine Color (YELLOW) Urine Appearance (CLEAR) Urine pH (5-6) Ur Specific Carlton (1.005-1.025) Urine Protein (Negative) Urine Ketones (NEGATIVE) Urine Blood (0-5) Jose/ul Urine Nitrite (NEGATIVE) Urine Bilirubin (NEGATIVE) Urine Urobilinogen (0-1) mg/dL Ur Leukocyte Esterase (NEGATIVE) Urine WBC (Auto) (0-5) /HPF Urine RBC (Auto) (0-2) /HPF U Epithel Cells (Auto) (FEW) /HPF Urine Bacteria (Auto) (NEGATIVE) /HPF Granular Casts (Auto) (NEGATIVE) /LPF Urine Mucus (Auto) (NEGATIVE) /HPF Urine Culture Reflexed (NO) Urine Glucose (NEGATIVE) mg/dL SARS-CoV-2 (PCR) (NEGATIVE) Microbiology 01/21/21 12:55 Urine Culture - Preliminary Urine, Void <10K NORMAL SKIN NELDA PROBABLE SKIN CONTAMINANT - Radiology Impressions Radiology Exams & Impressions: Radiology Procedures Category Date Time Status ABDOMEN AND PELVIS W/0 CONTRAS [CT] Stat Exams 01/21/21 14:19 Completed - Other Procedures and Tests Respiratory Therapy 01/21/21 16:58 Oxygen Nasal Cannula 2 lpm 01/21/21 17:34 Respiratory Therapy Assessment DAILY 01/21/21 21:00 BiPap/CPAP ROUTINE Assessment/Plan (1) Non-ST elevated myocardial infarction (non-STEMI) Current Visit: Yes Status: Acute Assessment & Plan: elevated troponin, will follow. patient has moderate coronary artery dis. 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
[2021-01-22] MEDS: VENTOLIN COMMON CANISTER IH SCH (09:37)
[2021-01-22] MEDS ORDERED: PROVENTIL 2.5 MG/3 ML NEB IH SCH (19:00)
[2021-01-22] MEDS: Paxil 20 MG PO SCH (21:19)
[2021-01-22] MEDS: PROTONIX 40 MG IV IV SCH (21:20)
[2021-01-22] MEDS: ZOCOR 20MG PO SCH (21:21)
[2021-01-22] MEDS: XARELTO 10 MG TABLET PO SCH (21:22)
[2021-01-22] MEDS: ECOTRIN 81 MG PO SCH (21:25)
[2021-01-22] MEDS: Zestril 20 MG PO SCH (21:25)
[2021-01-22] MEDS ORDERED: PROVENTIL 2.5 MG/3 ML NEB IH ONE (21:25)
[2021-01-22] MEDS: hydroDIURIL 25 MG PO SCH (21:25)
[2021-01-22] MEDS: Toprol-Xl 25MG Tablets PO SCH (21:25)
[2021-01-22] MEDS: zyPREXA 5MG TABLET PO SCH (21:26)
[2021-01-22] MEDS: CLARITIN 10 MG PO SCH (21:26)
[2021-01-23] MEDS: Sodium Chloride 0.9% 1000 ML 1,000 ML IV SCH (05:17)
[2021-01-23] MEDS ORDERED: PROVENTIL 2.5 MG/3 ML NEB IH ONE (07:02)
[2021-01-23] MEDS ORDERED: VENTOLIN COMMON CANISTER IH SCH (07:45)
[2021-01-23] MEDS ORDERED: VENTOLIN COMMON CANISTER IH PRN (07:45)
[2021-01-23] MEDS: Glucophage 500 MG PO SCH ×2 (08:13→17:07)
[2021-01-23] MEDS: Klor Con 10 MEQ PO SCH ×2 (10:29→21:56)
[2021-01-23] MEDS ORDERED: Sodium Chloride 0.9% 500 ML 500 ML IV SCH (10:30)
[2021-01-23] MEDS: VENTOLIN COMMON CANISTER IH SCH (18:54)
[2021-01-23] MEDS: Paxil 20 MG PO SCH (21:55)
[2021-01-23] MEDS: Protonix 40MG Tablet PO SCH (21:56)
[2021-01-23] MEDS: ECOTRIN 81 MG PO SCH (21:56)
[2021-01-23] MEDS: Toprol-Xl 25MG Tablets PO SCH (21:56)
[2021-01-23] MEDS: hydroDIURIL 25 MG PO SCH (21:56)
[2021-01-23] MEDS: XARELTO 10 MG TABLET PO SCH (21:56)
[2021-01-23] MEDS: CLARITIN 10 MG PO SCH (21:56)
[2021-01-23] MEDS: zyPREXA 5MG TABLET PO SCH (21:57)
[2021-01-23] MEDS: ZOCOR 20MG PO SCH (21:57)
[2021-01-23] MEDS: Zestril 20 MG PO SCH (21:57)
[2021-01-24 05:13] LABS: Absolute Neutrophil Ct (ANC) 4.75 (1.4-6.9); BASOPHIL % 0.2 % (0.0-0.4); Basophil (Absolute #) 0.02 (0-0.4); Eosinophil % 5.1 % (0.00-5.0); Eosinophil (Absolute #) 0.42 (0-0.5); Hematocrit 38.5 % (42-50); Hemoglobin 12.4 gm/dl (12.5-18.0); Lymphocyte (Absolute #) 2.33 (1.0-4.6); Lymphocytes % 28.1 % (24.0-44.0); Mean Cell Volume 95.1 fl (78-100); Mean Corpuscular Hemoglobin 30.6 pg (26-32); Mean Corpuscular Hgb Concent. 32.2 g/dl (32-36); Mean Platelet Volume 10.5 fl (7.5-11.0); Monocyte (Absolute #) 0.76 (0.0-1.3); Monocytes % 9.2 % (0.0-12.0); Neutrophil % 57.4 % (36.0-66.0); Platelet Count 235 K/mm3 (150-450); Red Blood Count 4.05 M/mm3 (4.1-5.6); Red Cell Distribution Width 14.5 % (11.5-14.0); White Blood Count 8.3 K/mm3 (4.0-10.5)
[2021-01-24 06:35] LABS: ALBUMIN 3.8 g/dL (3.5-5.0); ALKALINE PHOSPHATASE 71 U/L (38-126); ANION GAP 16.8 MEQ/L (5-15); BLOOD UREA NITROGEN 10 mg/dL (9-20); CHLORIDE 101 mmol/L (98-107); Calcium 9.5 mg/dL (8.4-10.2); Carbon Dioxide 26 mmol/L (22-30); Creatinine 1 0.88 mg/dL (0.66-1.25); EST GLOMERULAR FILTRATION RATE > 60.0 ML/MIN; Glucose 125 mg/dL (74-106); SGOT/AST 67 U/L (17-59); SGPT/ALT 31 U/L (0-50); SODIUM 141 mmol/L (137-145); Total Protein 7.2 g/dL (6.3-8.2)
[2021-01-24] MEDS: VENTOLIN COMMON CANISTER IH SCH ×2 (06:56→19:10)
[2021-01-24 07:11] LABS: Potassium 2.8 mmol/L (3.5-5.1); TROPONIN 0.507 ng/mL (0.000-0.034)
[2021-01-24] MEDS ORDERED: POTASSIUM CHLORIDE 20 mEq IN WATER 100ML 20 MEQ/100 ML BAG IV ONE ×2 (07:18→16:01)
[2021-01-24 07:36] LABS: LIPASE 5696 U/L (23-300)
[2021-01-24] MEDS: Glucophage 500 MG PO SCH ×2 (08:23→16:26)
[2021-01-24] MEDS: Klor Con 10 MEQ PO SCH ×2 (08:23→21:41)
--- NOTE | 2021-01-24 08:31 | PCM.NOTE ---
Date and Time: 01/24/21829 Subjective Assessment: doing ok - Review of Systems Constitutional: No Fever, No Chills Eyes: No Symptoms Ears, Nose, & Throat: No Symptoms Respiratory: No Cough, No Short Of Breath Cardiac: No Chest Pain, No Edema, No Syncope Abdominal/Gastrointestinal: No Abdominal Pain, No Nausea, No Vomiting, No Diarrhea Genitourinary Symptoms: No Dysuria Musculoskeletal: No Back Pain, No Neck Pain Skin: No Rash Neurological: No Dizziness, No Focal Weakness, No Sensory Changes Psychological: No Symptoms Endocrine: No Symptoms Hematologic/Lymphatic: No Symptoms Immunological/Allergic: No Symptoms Objective Exam General Appearance: no apparent distress, alert Neurologic Exam: alert, 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, cooperative, normal mood/affect, nml cerebellar function, sensation nml, No motor deficits Skin Exam: normal color, warm, dry Eye Exam: PERRL, EOMI, eyes nml inspection Ears, Nose, Throat Exam: normal ENT inspection, pharynx normal, moist mucous membranes Neck Exam: normal inspection, non-tender, supple, full range of motion Respiratory Exam: normal breath sounds, lungs clear, No respiratory distress Cardiovascular Exam: regular rate/rhythm, normal heart sounds Gastrointestinal/Abdomen Exam: soft, No tenderness, No mass Extremity Exam: normal inspection, normal range of motion Back Exam: normal inspection, normal range of motion, No CVA tenderness, No vertebral tenderness Male Genitalia Exam: deferred Rectal Exam: deferred OBJECTIVE DATA Vital Signs: Vital Signs - 24 hr Temp Pulse Resp BP Pulse Ox 01/24/21 06:59 71 16 95 01/24/21 06:00 20 01/24/21 04:00 98.2 F 77 20 129/81 96 01/24/21 02:00 18 01/23/21 23:56 98.8 F 87 16 123/79 96 01/23/21 22:00 18 01/23/21 20:00 98.5 F 86 18 118/69 96 01/23/21 18:54 87 14 95 01/23/21 16:00 97.4 F 75 20 118/76 94 L 01/23/21 11:51 97.5 F 74 18 111/63 94 L Pain Assessment - Last Documented Pain Intensity 0 Pain Scale Used 0-10 Pain Scale Intake and Output: Intake & Output 01/21/21 01/22/21 01/23/21 01/24/21 11:59 11:59 11:59 11:59 Intake Total 5168 4171 1843 Output Total 250 Balance 3095 4177 1840 Weight 120.4 kg 120.1 kg Lab Results: Lab Results-Last 24 Hours 01/23/21 01/23/21 01/23/21 Range/Units 11:38 16:09 20:58 WBC (4.0-10.5) K/mm3 RBC (4.1-5.6) M/mm3 Hgb (12.5-18.0) gm/dl Hct (42-50) % MCV (78-100) fl MCH (26-32) pg MCHC (32-36) g/dl RDW (11.5-14.0) % Plt Count (150-450) K/mm3 MPV (7.5-11.0) fl Gran % (36.0-66.0) % Eos # (Auto) (0-0.5) Absolute Lymphs (auto) (1.0-4.6) Absolute Monos (auto) (0.0-1.3) Lymphocytes % (24.0-44.0) % Monocytes % (0.0-12.0) % Eosinophils % (0.00-5.0) % Basophils % (0.0-0.4) % Absolute Granulocytes (1.4-6.9) Basophils # (0-0.4) Sodium (137-145) mmol/L Potassium (3.5-5.1) mmol/L Chloride (98-107) mmol/L Carbon Dioxide (22-30) mmol/L Anion Gap (5-15) MEQ/L BUN (9-20) mg/dL Creatinine (0.66-1.25) mg/dL Estimated GFR ML/MIN Glucose (74-106) mg/dL POC Glucometer 177 H 149 H 132 H (74 to 106) mg/dL Calcium (8.4-10.2) mg/dL Total Bilirubin (0.2-1.3) mg/dL AST (17-59) U/L ALT (0-50) U/L Alkaline Phosphatase (38-126) U/L Troponin I (0.000-0.034) ng/mL Serum Total Protein (6.3-8.2) g/dL Albumin (3.5-5.0) g/dL Lipase (23-300) U/L 01/24/21 01/24/21 01/24/21 Range/Units 04:25 04:25 08:23 WBC 8.3 (4.0-10.5) K/mm3 RBC 4.05 L (4.1-5.6) M/mm3 Hgb 12.4 L (12.5-18.0) gm/dl Hct 38.5 L (42-50) % MCV 95.1 (78-100) fl MCH 30.6 (26-32) pg MCHC 32.2 (32-36) g/dl RDW 14.5 H (11.5-14.0) % Plt Count 235 (150-450) K/mm3 MPV 10.5 (7.5-11.0) fl Gran % 57.4 (36.0-66.0) % Eos # (Auto) 0.42 (0-0.5) Absolute Lymphs (auto) 2.33 (1.0-4.6) Absolute Monos (auto) 0.76 (0.0-1.3) Lymphocytes % 28.1 (24.0-44.0) % Monocytes % 9.2 (0.0-12.0) % Eosinophils % 5.1 H (0.00-5.0) % Basophils % 0.2 (0.0-0.4) % Absolute Granulocytes 4.75 (1.4-6.9) Basophils # 0.02 (0-0.4) Sodium 141 (137-145) mmol/L Potassium 2.8 L* (3.5-5.1) mmol/L Chloride 101 (98-107) mmol/L Carbon Dioxide 26 (22-30) mmol/L Anion Gap 16.8 H (5-15) MEQ/L BUN 10 (9-20) mg/dL Creatinine 0.88 (0.66-1.25) mg/dL Estimated GFR > 60.0 ML/MIN Glucose 125 H (74-106) mg/dL POC Glucometer 144 H (74 to 106) mg/dL Calcium 9.5 (8.4-10.2) mg/dL Total Bilirubin 0.30 (0.2-1.3) mg/dL AST 67 H (17-59) U/L ALT 31 (0-50) U/L Alkaline Phosphatase 71 (38-126) U/L Troponin I 0.507 H* (0.000-0.034) ng/mL Serum Total Protein 7.2 (6.3-8.2) g/dL Albumin 3.8 (3.5-5.0) g/dL Lipase 5696 H (23-300) U/L Radiology Exams: Radiology Procedures Category Date Time Status ECHO W/2D AND DOPPLER [US] Routine Exams 01/24/21 Ordered Multi-Disciplinary Progress Notes: Multi-Disciplinary Progress Notes 01/23/21 10:37 Case Management Note by Daksha Rachel CASE MANAGEMENT REVIEWED CHART- PATIENT NORMALLY INDEPENDENT AT HOME WITH ALL ADLS, LIVES WITH HIS SPOUSE. S/W PRIMARY RN- HE DOES NOT ANTICIPATE PATIENT HAVING ANY NEW NEEDS AT TIME OF DC. HE PLANS TO RETURN HOME TO HIS PRIOR LEVEL OF FUNCTIONING Initialized on 01/23/21 10:37 - END OF NOTE Assessment/Plan (1) Non-ST elevated myocardial infarction (non-STEMI) Current Visit: Yes Status: Resolved Assessment & Plan: Last Vital Signs Temp 98.2 F 01/24/21 04:00 Pulse 71 01/24/21 06:59 Resp 16 01/24/21 06:59 BP 129/81 01/24/21 04:00 Pulse Ox 95 01/24/21 06:59 Allergies No Known Drug Allergies Allergy (Verified 01/21/21 11:59) Active Medications Acetaminophen (Tylenol 325 Mg) 650 mg PO Q4H PRN PRN PRN Reason: PAIN, FEVER, HEADACHE Stop: 02/20/21 16:35 Last Admin: 01/22/21 00:08 Dose: 650 mg Documented by: Albuterol Sulfate (Ventolin Common Canister) 2 puff IH Q4H PRN PRN Stop: 02/22/21 07:44 Albuterol Sulfate (Ventolin Common Canister) 2 puff IH BIDRT SHERLYN Stop: 02/22/21 18:59 Last Admin: 01/24/21 06:56 Dose: 2 puff Documented by: Aspirin (Ecotrin 81 Mg) 81 mg PO HS [facility]ERLY[facility] Stop: 02/20/21 21:59 Last Admin: 01/23/21 21:56 Dose: 81 mg Documented by: Hydrochlorothiazide (Hydrodiuril 25 Mg) 25 mg PO [facility] Stop: 02/20/21 21:59 Last Admin: 01/23/21 21:56 Dose: 25 mg Documented by: Potassium Chloride (Potassium Chloride 20 Meq In Water 100ml) 20 meq in 100 mls @ 50 mls/hr IV STAT ONE Stop: 01/24/21 09:17 Lisinopril (Zestril 20 Mg) 40 mg PO QHS [facility] Stop: 02/20/21 21:59 Last Admin: 01/23/21 21:57 Dose: 40 mg Documented by: Loratadine (Claritin 10 Mg) 10 mg PO [facility] Stop: 02/20/21 21:59 Last Admin: 01/23/21 21:56 Dose: 10 mg Documented by: Metformin HCl (Glucophage 500 Mg) 500 mg PO BIDWM [facility] Stop: 02/20/21 17:59 Last Admin: 01/24/21 08:23 Dose: 500 mg Documented by: Metoprolol Succinate (Toprol-Xl 25mg Tablets) [facility] Stop: 02/20/21 21:59 Last Admin: 01/23/21 21:56 Dose: 25 mg Documented by: Olanzapine (Zyprexa 5mg Tablet) 10 mg PO [facility] Stop: 02/20/21 21:59 Last Admin: 01/23/21 21:57 Dose: 10 mg Documented by: Ondansetron HCl (Zofran 4 Mg/2 Ml Vial) 4 mg IV Q6H PRN PRN PRN Reason: NAUSEA/VOMITING Stop: 02/20/21 16:35 Pantoprazole Sodium (Protonix 40mg Tablet) 40 mg PO Q24H [facility] Stop: 02/22/21 21:59 Last Admin: 01/23/21 21:56 Dose: 40 mg Documented by: Paroxetine HCl (Paxil 20 Mg) 10 mg PO [facility] Stop: 02/20/21 21:59 Last Admin: 01/23/21 21:55 Dose: 10 mg Documented by: Potassium Chloride (Klor Con 10 Meq) 10 meq PO BID [facility] Stop: 02/20/21 21:59 Last Admin: 01/24/21 08:23 Dose: 10 meq Documented by: Rivaroxaban (Xarelto 10 Mg Tablet) 20 mg PO HS [facility] Stop: 02/20/21 21:59 Last Admin: 01/23/21 21:56 Dose: 20 mg Documented by: Simvastatin (Zocor 20mg) 40 mg PO HS [facility] Stop: 02/20/21 21:59 Last Admin: 01/23/21 21:57 Dose: 40 mg Documented by: Intake & Output 01/23/21 01/24/21 11:59 11:59 Intake Total 4172 1840 Balance 4172 1840 Weight 120.1 kg Orders 01/23/21 16:02 Miscellaneous Nursing Order ROUTINE 01/23/21 22:00 PANTOPRAZOLE 40 mg Tablet [Protonix 40MG Tablet] 40 mg PO Q24H Lab Tests 01/23/21 01/23/21 01/23/21 11:38 16:09 20:58 WBC RBC Hgb Hct MCV MCH MCHC RDW Plt Count MPV Gran % Eos # (Auto) Absolute Lymphs (auto) Absolute Monos (auto) Lymphocytes % Monocytes % Eosinophils % Basophils % Absolute Granulocytes Basophils # Sodium Potassium Chloride Carbon Dioxide Anion Gap BUN Creatinine Estimated GFR Glucose POC Glucometer 177 H 149 H 132 H Calcium Total Bilirubin AST ALT Alkaline Phosphatase Troponin I Serum Total Protein Albumin Lipase 01/24/21 01/24/21 01/24/21 04:25 04:25 08:23 WBC 8.3 RBC 4.05 L Hgb 12.4 L Hct 38.5 L MCV 95.1 MCH 30.6 MCHC 32.2 RDW 14.5 H Plt Count 235 MPV 10.5 Gran % 57.4 Eos # (Auto) 0.42 Absolute Lymphs (auto) 2.33 Absolute Monos (auto) 0.76 Lymphocytes % 28.1 Monocytes % 9.2 Eosinophils % 5.1 H Basophils % 0.2 Absolute Granulocytes 4.75 Basophils # 0.02 Sodium 141 Potassium 2.8 L* Chloride 101 Carbon Dioxide 26 Anion Gap 16.8 H BUN 10 Creatinine 0.88 Estimated GFR > 60.0 Glucose 125 H POC Glucometer 144 H Calcium 9.5 Total Bilirubin 0.30 AST 67 H ALT 31 Alkaline Phosphatase 71 Troponin I 0.507 H* Serum Total Protein 7.2 Albumin 3.8 Lipase 5696 H Microbiology 01/22/21 01:15 Blood Blood Culture - Preliminary NO GROWTH TO DATE 01/21/21 12:55 Urine, Void Urine Culture - Final <10K NORMAL SKIN NELDA PROBABLE SKIN CONTAMINANT 01/22/21 00:00 Blood Blood Culture - Preliminary NO GROWTH TO DATE Code(s): I21.4 - NON-ST ELEVATION (NSTEMI) MYOCARDIAL INFARCTION (2) Dehydration Current Visit: Yes Status: Resolved Code(s): E86.0 - DEHYDRATION (3) Hypokalemia Current Visit: Yes Status: Acute Code(s): E87.6 - HYPOKALEMIA (4) Pancreatitis Current Visit: Yes Status: Acute Qualifiers: Chronicity: acute Pancreatitis type: drug induced Code(s): K85.90 - ACUTE PANCREATITIS WITHOUT NECROSIS OR INFECTION, UNSP (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
[2021-01-24] MEDS ORDERED: Ativan 0.5 MG PO PRN (15:58)
--- NOTE | 2021-01-24 16:03 | PCM.NOTE ---
Date and Time: 01/24/21 1545 Subjective Assessment: Patient developed some sob at rest and nurse started O2 ,2L/NC. Elevated troponin -ECHO was this morning,TeleCardiology consult now with DR Boothe covering for Dr. Lynch. Patient has not eaten much today ,nervous. Denies chest pain or abd pain. Objective Exam General Appearance: no apparent distress, anxiety (voices anxiety over heart concerns) Neurologic Exam: alert, 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, cooperative, normal mood/affect Skin Exam: normal color, warm, dry Eye Exam: eyes nml inspection Ears, Nose, Throat Exam: moist mucous membranes Neck Exam: normal inspection Respiratory Exam: diminished breath sounds (bases) Cardiovascular Exam: regular rate/rhythm, other Gastrointestinal/Abdomen Exam: soft (obese protruberant), normal bowel sounds Extremity Exam: pedal edema (pretibial 1+/4 pitting edema,no calf tenderness) Back Exam: normal inspection OBJECTIVE DATA Vital Signs: Vital Signs - 24 hr Temp Pulse Resp BP Pulse Ox 01/24/21 14:00 22 01/24/21 12:00 96.3 F 75 22 127/83 95 01/24/21 10:00 18 01/24/21 08:00 95.9 F 85 18 125/97 97 01/24/21 06:59 71 16 95 01/24/21 06:00 20 01/24/21 04:00 98.2 F 77 20 129/81 96 01/24/21 02:00 18 01/23/21 23:56 98.8 F 87 16 123/79 96 01/23/21 22:00 18 01/23/21 20:00 98.5 F 86 18 118/69 96 01/23/21 18:54 87 14 95 01/23/21 16:00 97.4 F 75 20 118/76 94 L Pain Assessment - Last Documented Pain Intensity 0 Pain Scale Used 0-10 Pain Scale Intake and Output: Intake & Output 01/22/21 01/23/21 01/24/21 01/25/21 11:59 11:59 11:59 11:59 Intake Total 3348 4172 2080 360 Output Total 250 Balance 3098 4172 2080 360 Weight 120.4 kg 120.1 kg Lab Results: Lab Results-Last 24 Hours 01/23/21 01/23/21 01/24/21 Range/Units 16:09 20:58 04:25 WBC 8.3 (4.0-10.5) K/mm3 RBC 4.05 L (4.1-5.6) M/mm3 Hgb 12.4 L (12.5-18.0) gm/dl Hct 38.5 L (42-50) % MCV 95.1 (78-100) fl MCH 30.6 (26-32) pg MCHC 32.2 (32-36) g/dl RDW 14.5 H (11.5-14.0) % Plt Count 235 (150-450) K/mm3 MPV 10.5 (7.5-11.0) fl Gran % 57.4 (36.0-66.0) % Eos # (Auto) 0.42 (0-0.5) Absolute Lymphs (auto) 2.33 (1.0-4.6) Absolute Monos (auto) 0.76 (0.0-1.3) Lymphocytes % 28.1 (24.0-44.0) % Monocytes % 9.2 (0.0-12.0) % Eosinophils % 5.1 H (0.00-5.0) % Basophils % 0.2 (0.0-0.4) % Absolute Granulocytes 4.75 (1.4-6.9) Basophils # 0.02 (0-0.4) Sodium (137-145) mmol/L Potassium (3.5-5.1) mmol/L Chloride (98-107) mmol/L Carbon Dioxide (22-30) mmol/L Anion Gap (5-15) MEQ/L BUN (9-20) mg/dL Creatinine (0.66-1.25) mg/dL Estimated GFR ML/MIN Glucose (74-106) mg/dL POC Glucometer 149 H 132 H (74 to 106) mg/dL Calcium (8.4-10.2) mg/dL Total Bilirubin (0.2-1.3) mg/dL AST (17-59) U/L ALT (0-50) U/L Alkaline Phosphatase (38-126) U/L Troponin I (0.000-0.034) ng/mL Serum Total Protein (6.3-8.2) g/dL Albumin (3.5-5.0) g/dL Lipase (23-300) U/L 01/24/21 01/24/21 01/24/21 Range/Units 04:25 08:23 11:27 WBC (4.0-10.5) K/mm3 RBC (4.1-5.6) M/mm3 Hgb (12.5-18.0) gm/dl Hct (42-50) % MCV (78-100) fl MCH (26-32) pg MCHC (32-36) g/dl RDW (11.5-14.0) % Plt Count (150-450) K/mm3 MPV (7.5-11.0) fl Gran % (36.0-66.0) % Eos # (Auto) (0-0.5) Absolute Lymphs (auto) (1.0-4.6) Absolute Monos (auto) (0.0-1.3) Lymphocytes % (24.0-44.0) % Monocytes % (0.0-12.0) % Eosinophils % (0.00-5.0) % Basophils % (0.0-0.4) % Absolute Granulocytes (1.4-6.9) Basophils # (0-0.4) Sodium 141 (137-145) mmol/L Potassium 2.8 L* (3.5-5.1) mmol/L Chloride 101 (98-107) mmol/L Carbon Dioxide 26 (22-30) mmol/L Anion Gap 16.8 H (5-15) MEQ/L BUN 10 (9-20) mg/dL Creatinine 0.88 (0.66-1.25) mg/dL Estimated GFR > 60.0 ML/MIN Glucose 125 H (74-106) mg/dL POC Glucometer 144 H 158 H (74 to 106) mg/dL Calcium 9.5 (8.4-10.2) mg/dL Total Bilirubin 0.30 (0.2-1.3) mg/dL AST 67 H (17-59) U/L ALT 31 (0-50) U/L Alkaline Phosphatase 71 (38-126) U/L Troponin I 0.507 H* (0.000-0.034) ng/mL Serum Total Protein 7.2 (6.3-8.2) g/dL Albumin 3.8 (3.5-5.0) g/dL Lipase 5696 H (23-300) U/L 01/24/21 Range/Units 13:22 WBC (4.0-10.5) K/mm3 RBC (4.1-5.6) M/mm3 Hgb (12.5-18.0) gm/dl Hct (42-50) % MCV (78-100) fl MCH (26-32) pg MCHC (32-36) g/dl RDW (11.5-14.0) % Plt Count (150-450) K/mm3 MPV (7.5-11.0) fl Gran % (36.0-66.0) % Eos # (Auto) (0-0.5) Absolute Lymphs (auto) (1.0-4.6) Absolute Monos (auto) (0.0-1.3) Lymphocytes % (24.0-44.0) % Monocytes % (0.0-12.0) % Eosinophils % (0.00-5.0) % Basophils % (0.0-0.4) % Absolute Granulocytes (1.4-6.9) Basophils # (0-0.4) Sodium (137-145) mmol/L Potassium 3.3 L (3.5-5.1) mmol/L Chloride (98-107) mmol/L Carbon Dioxide (22-30) mmol/L Anion Gap (5-15) MEQ/L BUN (9-20) mg/dL Creatinine (0.66-1.25) mg/dL Estimated GFR ML/MIN Glucose (74-106) mg/dL POC Glucometer (74 to 106) mg/dL Calcium (8.4-10.2) mg/dL Total Bilirubin (0.2-1.3) mg/dL AST (17-59) U/L ALT (0-50) U/L Alkaline Phosphatase (38-126) U/L Troponin I (0.000-0.034) ng/mL Serum Total Protein (6.3-8.2) g/dL Albumin (3.5-5.0) g/dL Lipase (23-300) U/L Radiology Exams: Radiology Procedures Category Date Time Status ECHO W/2D AND DOPPLER [US] Routine Exams 01/24/21 09:14 Taken Multi-Disciplinary Progress Notes: Multi-Disciplinary Progress Notes 01/24/21 10:58 Case Management Note by Daksha Rachel NO CHANGE IN DC PLANS AT THIS TIME HOWEVER PATIENT HAS ELEVATED TROPONINS AND IS WAITING ON CARDIOLOGY CONSULT. WILL CHECK WITH PATIENT AGAIN WHEN HE IS MORE STABLE Initialized on 01/24/21 10:58 - END OF NOTE Assessment/Plan (1) Hypokalemia Current Visit: Yes Status: Acute Assessment & Plan: Krider this AM,and follow lab,2nd Krider ordered this evening Code(s): E87.6 - HYPOKALEMIA (2) Type 2 IL (myocardial infarction) Current Visit: Yes Status: Acute Assessment & Plan: per Dr Boothe who just evaluated patient on Telecardiology.Discussed with Mile. Code(s): I21.A1 - MYOCARDIAL INFARCTION TYPE 2 (3) Pancreatitis Current Visit: Yes Status: Acute Qualifiers: Chronicity: acute Pancreatitis type: unspecified pancreatitis type Assessment & Plan: Lipase increased since diet advanced,will go back on clear liq diet. Code(s): K85.90 - ACUTE PANCREATITIS WITHOUT NECROSIS OR INFECTION, UNSP (4) Elevated brain natriuretic peptide (BNP) level Current Visit: Yes Status: Acute Assessment & Plan: monitor Is and Os ,await reading of ECHO,start Spironalactone per Dr Boothe,Mobile Electronics Installer. Code(s): R79.89 - OTHER SPECIFIED ABNORMAL FINDINGS OF BLOOD CHEMISTRY (5) Elevated d-dimer Current Visit: Yes Status: Acute Assessment & Plan: is on Xarelto,discuss with Hematology Code(s): R79.89 - OTHER SPECIFIED ABNORMAL FINDINGS OF BLOOD CHEMISTRY
--- NOTE | 2021-01-24 16:37 | XRAY ---
Indication: Chest pain. Short of breath. Comparison: October 28, 2020. Portable chest remains clear. Heart and mediastinal structures within normal limits. Bony thorax intact. Impression: Continued nonacute chest.
[2021-01-24] MEDS: Zestril 20 MG PO SCH (21:40)
[2021-01-24] MEDS: hydroDIURIL 25 MG PO SCH (21:40)
[2021-01-24] MEDS: zyPREXA 5MG TABLET PO SCH (21:40)
[2021-01-24] MEDS: XARELTO 10 MG TABLET PO SCH (21:40)
[2021-01-24] MEDS: ECOTRIN 81 MG PO SCH (21:41)
[2021-01-24] MEDS: Toprol-Xl 25MG Tablets PO SCH (21:42)
[2021-01-24] MEDS: CLARITIN 10 MG PO SCH (21:44)
[2021-01-24] MEDS: ZOCOR 20MG PO SCH (21:44)
[2021-01-24] MEDS: Paxil 20 MG PO SCH (21:44)
[2021-01-24] MEDS: Protonix 40MG Tablet PO SCH (21:44)
[2021-01-24] MEDS ORDERED: K-LYTE 25 MEQ PO ONE (22:57)
[2021-01-25 06:08] LABS: ALBUMIN 3.5 g/dL (3.5-5.0); ALKALINE PHOSPHATASE 65 U/L (38-126); AMYLASE 213 U/L (30-110); ANION GAP 14.5 MEQ/L (5-15); BLOOD UREA NITROGEN 10 mg/dL (9-20); CHLORIDE 102 mmol/L (98-107); Calcium 9.2 mg/dL (8.4-10.2); Carbon Dioxide 28 mmol/L (22-30); Creatinine 1 0.82 mg/dL (0.66-1.25); EST GLOMERULAR FILTRATION RATE > 60.0 ML/MIN; Glucose 137 mg/dL (74-106); Potassium 3.3 mmol/L (3.5-5.1); SGOT/AST 58 U/L (17-59); SGPT/ALT 31 U/L (0-50); SODIUM 142 mmol/L (137-145); Total Protein 6.8 g/dL (6.3-8.2)
[2021-01-25] MEDS ORDERED: Klor Con 10 MEQ PO ONE (07:49)
[2021-01-25] MEDS: VENTOLIN COMMON CANISTER IH SCH ×2 (07:50→19:10)
[2021-01-25] MEDS: Glucophage 500 MG PO SCH ×2 (07:59→17:02)
[2021-01-25] MEDS: Klor Con 10 MEQ PO SCH (09:42)
--- NOTE | 2021-01-25 09:54 | ECHO ---
DATE OF PROCEDURE: 01/24/2021 CLINICAL INFORMATION: Non-ST elevation myocardial infarction. The M-mode 2D, and Doppler echocardiogram including color flow Doppler shows the left ventricle is dilated with a dimension of 6.7 cm. There is no thrombus present. The septal wall thickness is increased at 1.2 cm. The left ventricular posterior wall thickness is increased at 1.2 cm. The left ventricular systolic function is at the lower limits of normal. The ejection fraction is calculated to be 54%. The right ventricle is not well visualized. The left atrium is mildly dilated with a dimension of 4.4 cm. The interatrial septum is intact. The right atrium is normal. The aortic valve opens well. There is no aortic regurgitation. There is mitral valve leaflet thickening associated with mild mitral regurgitation. There is mild tricuspid regurgitation. The right ventricular systolic pressure is calculated to be elevated at 36 mm of Mercury. The pulmonic valve is not well visualized. There is mild pulmonic regurgitation. The aortic root is normal at 3.5 cm. There is no pericardial effusion present. IMPRESSION: 1) LOW NORMAL LEFT VENTRICULAR SYSTOLIC FUNCTION. 2) BORDERLINE CONCENTRIC LEFT VENTRICULAR HYPERTROPHY. 3) MODERATE LEFT VENTRICULAR DILATATION. 4) MILD MITRAL REGURGITATION. 5) MILD TRICUSPID REGURGITATION. 6) MILD PULMONARY HYPERTENSION. 7) MILD PULMONIC REGURGITATION. 8) MILD LEFT ATRIAL DILATATION.
[2021-01-25] MEDS ORDERED: Aldactone 25 MG PO SCH (10:00)
[2021-01-25] MEDS ORDERED: Imdur 30 MG PO SCH (10:00)
[2021-01-25] MEDS ORDERED: HUMALOG SQ PRN (12:16)
[2021-01-25 16:22] VITALS: BP 122/66
--- NOTE | 2021-01-25 19:13 | PCM.DCORD ---
- Discharge Disposition: Home, Self-Care Condition: Stable Prescriptions: New Spironolactone 25 mg [Aldactone 25 MG] 25 mg PO DAILY #30 tablet Isosorbide Mononitrate 30 mg [Imdur 30 MG] 30 mg PO DAILY #30 tab Lorazepam 0.5 mg [Ativan 0.5 MG] 0.5 mg PO Q6H PRN tablet PRN Reason: Anxiety Continue Lisinopril 20 mg [Zestril 20 MG] 40 mg PO QHS Omeprazole 20 MG [Prilosec 20 mg] 20 mg PO HS Hydrochlorothiazide 25 mg [hydroDIURIL 25 MG] 25 mg PO HS Metoprolol Succinate 25 mg Xl* [Toprol-Xl 25MG Tablets] 25 mg PO QHS Albuterol Sulfate [Ventolin] 2 puffs IH HS Cetirizine HCl [Zyrtec] 10 mg PO HS Atorvastatin Calcium 40 mg PO HS Aspirin 81 mg PO HS OLANZapine [Olanzapine] 10 mg PO HS Metformin HCl 500 mg [Glucophage 500 MG] 500 mg PO BIDWM #60 tablet Rivaroxaban [Xarelto] 20 mg PO HS Potassium Chloride [Klor-Con 8] 8 meq PO HS PARoxetine HCL [Paroxetine HCl] 10 mg PO HS Outpatient Orders: AMYLASE Facility: [facility], Location: LABORATORY CBC W DIFF Time Frame: 01/28/21, Facility: [facility], Location: LABORATORY CMP Facility: [facility], Location: LABORATORY LIPASE Facility: [facility], Location: LABORATORY Additional Instructions: Avoid alcohol,discussed help available if needed. present and supportive.Diet bland low fat ,reduce red meat intake. Follow up with: RAJINDER PRINCE DO [Primary Care Provider] - (CALL FOR AN APPOINTMENT FOR 2 WEEKS)
[2021-01-25 20:06] VITALS: PULSE 89; O2SAT 91
== END 2021-01-25 19:55 | disposition home or self-care (01) | DRG 280 ==
LOC: ED 11:52 → MED SURG 16:20
PROVIDERS: ADMIT Family Medicine; ATTEND Family Medicine
DX: I21.4 Non-ST elevation (NSTEMI) myocardial infarction (principal); K85.90 Acute pancreatitis without necrosis or infection, unspecified; I74.9 Embolism and thrombosis of unspecified artery; E87.6 Hypokalemia; R60.0 Localized edema; J44.9 Chronic obstructive pulmonary disease, unspecified; E86.0 Dehydration; E11.9 Type 2 diabetes mellitus without complications; R79.89 Other specified abnormal findings of blood chemistry; Z86.711 Personal history of pulmonary embolism; Z79.899 Other long term (current) drug therapy; Z20.822 Contact with and (suspected) exposure to COVID-19
CPT/HCPCS: 36000; 36415; 71045; 74176; 80053; 81001; 82150; 82947; 83036; 83605; 83690; 83880; 84132; 84484; 85025; 85379; 87040; 87086; 93005; 93306; 94640; 94660; 94760; 96360; 96374; 96375; 99213; 99285; Q3014; U0003; J1170; J1817; J2405; J3480; J7609; A9270-GY

== ENCOUNTER 2021-02-14 01:25 | Emergency (ER) | payer MEDICARE ==
[2021-02-14] MEDS ORDERED: Zofran 4 MG/2 ML VIAL ONE (02:27)
--- NOTE | 2021-02-14 02:27 | ERPHSYRPT ---
- History of Present Illness Time Seen by Provider: 02/14/21 01:57 Historian: patient Exam Limitations: no limitations Patient Subjective Stated Complaint: pt states "I have chest pain and had a small heart attack 3 weeks ago." Triage Nursing Assessment: pt ambulated into the er; pt is axo x4; c/o chest pain; pt states mild chest pressure; pt states 2/10 pain to chest; pt is on blood thinner; pt states that he took a nitro prior to arrival; apical tone clear; clear lung sounds in all lobes; active bowel sounds in all quads; strong andre radial pulses; strong andre pedal pulses; 1+ pitting edema to BLE; hypertension; tachycardic Physician History: 55 years old male with a history of coronary artery disease, pulmonary embolism on anticoagulation presented to the ER with chief complaint of left-sided chest pain for the last 3-4 hours, dull aching, constant, mild intensity without any significant aggravating or relieving factors. No significant increase shortness of breath but what he has at his baseline. Denies any palpitations. No fever chills or cough reported. Timing/Duration: hour(s) (4), constant, gradual onset Activities at Onset: rest Quality: dullness Location: substernal Chest Pain Radiation: no radiation Severity of Pain-Max: mild Severity of Pain-Current: mild Modifying Factors: Improves With: nothing Associated Symptoms: denies symptoms Nitro Today/Relief: no nitro taken today Aspirin Treatment Today: unknown Allergies/Adverse Reactions: No Known Drug Allergies Allergy (Verified 02/14/21 01:38) Home Medications: Lisinopril 20 mg [Zestril 20 MG] 40 mg PO QHS 06/30/13 [History] Omeprazole 20 MG [Prilosec 20 mg] 20 mg PO HS 01/23/15 [History] Hydrochlorothiazide 25 mg [hydroDIURIL 25 MG] 25 mg PO HS 02/20/15 [History] Metoprolol Succinate 25 mg Xl* [Toprol-Xl 25MG Tablets] 25 mg PO QHS 09/18/17 [History] Albuterol Sulfate [Ventolin] 2 puffs IH HS 05/23/19 [History] Aspirin 81 mg PO HS 05/23/19 [History] Atorvastatin Calcium 40 mg PO HS 05/23/19 [History] Cetirizine HCl [Zyrtec] 10 mg PO HS 05/23/19 [History] OLANZapine [Olanzapine] 10 mg PO HS 05/23/19 [History] Rivaroxaban [Xarelto] 20 mg PO HS 04/28/20 [History] Potassium Chloride [Klor-Con 8] 8 meq PO HS 10/28/20 [History] PARoxetine HCL [Paroxetine HCl] 10 mg PO HS 01/21/21 [History] Hx Tetanus, Diphtheria Vaccination/Date Given: No (unknown) Hx Influenza Vaccination/Date Given: No Hx Pneumococcal Vaccination/Date Given: No Travel Risk - International Travel Have you traveled outside of the country in past 3 weeks: No - Coronavirus Screening Are you exhibiting any of the following symptoms?: No Close contact with a COVID-19 positive Pt in past 14-21 Days: No - Vaccine Status Have you recieved a Covid-19 vaccination: Yes Biomedical Equipment Technician: Moderna - Vaccination Dates Date of 2cond Vaccination (if applicable): Comment: Patient states, had both doses of Moderna but does not remember the dates. - Review of Systems Constitutional: No Symptoms Eyes: No Symptoms Ears, Nose, & Throat: No Symptoms Respiratory: Dyspnea Cardiac: Chest Pain Abdominal/Gastrointestinal: No Symptoms Genitourinary Symptoms: No Symptoms Musculoskeletal: No Symptoms Skin: No Symptoms Neurological: No Symptoms Psychological: Anxiety Endocrine: No Symptoms Hematologic/Lymphatic: No Symptoms Immunological/Allergic: No Symptoms - Past Medical History Pertinent Past Medical History: Yes Neurological History: Migraines ENT History: Glaucoma Cardiac History: Angina, Deep Vein Thrombosis Respiratory History: COPD, Pulmonary Embolism Endocrine Medical History: Diabetes Type II Musculoskeletal History: Arthritis GI Medical History: GERD History: No Pertinent History Psycho-Social History: Anxiety Male Reproductive Disorders: No Pertinent History Other Medical History: 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 [facility] - Social History Smoking Status: Former smoker How long have you smoked: 40 yrs Exposure to second hand smoke: Yes Drug Use: none Patient Lives Alone: No - Nursing Vital Signs Nursing Vital Signs: Initial Vital Signs Temperature 98.7 F 08/23/21 01:40 Pulse Rate 98 H 02/14/21 01:40 Respiratory Rate 16 02/14/21 01:40 Blood Pressure 145/97 02/14/21 01:40 O2 Sat by Pulse Oximetry 93 L 02/14/21 01:40 Pain Scale Pain Intensity 0 - Physical Exam General Appearance: no apparent distress, alert Eye Exam: PERRL/EOMI, eyes nml inspection Ears, Nose, Throat Exam: normal ENT inspection, pharynx normal Neck Exam: normal inspection, non-tender, supple, full range of motion Respiratory Exam: normal breath sounds, lungs clear Cardiovascular Exam: regular rate/rhythm, normal heart sounds, edema (1+ bilateral) Gastrointestinal/Abdomen Exam: soft, normal bowel sounds, No tenderness Back Exam: normal inspection, normal range of motion Extremity Exam: normal inspection, normal range of motion Neurologic Exam: alert, 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, cooperative Skin Exam: normal color SpO2 Interpretation: normal SpO2: 93 O2 Delivery: Room Air - Course EKG Interpreted by Me: RATE (100), Sinus Rhythm, NORMAL AXIS, prolonged QT interval, Other (Mild ST depression in inferolateral leads. Prolonged QT interval.) Ordered Tests: Medication Summary Discontinued Medications Generic Name Dose Route Start Last Admin Trade Name Freq PRN Reason Stop Dose Admin Aspirin 324 mg 02/14/21 02:22 02/14/21 02:29 Baby Aspirin 81 Mg Chew PO 02/14/21 02:23 324 mg STAT ONE Administration Aspirin Confirm 02/14/21 02:28 Baby Aspirin 81 Mg Chew Administered 02/14/21 02:29 Dose 324 mg .ROUTE .STK-MED ONE Morphine Sulfate 2 mg 02/14/21 02:22 02/14/21 02:29 Morphine Sulfate 2 Mg Inj IV 02/14/21 02:23 2 mg STAT ONE Administration Morphine Sulfate Confirm 02/14/21 02:28 Morphine Sulfate 2 Mg Inj Administered 02/14/21 02:29 Dose 2 mg .ROUTE .STK-MED ONE Ondansetron HCl 4 mg 02/14/21 02:22 02/14/21 02:29 Zofran 4 Mg/2 Ml Vial IV 02/14/21 02:23 4 mg STAT ONE Administration Ondansetron HCl Confirm 02/14/21 02:27 Zofran 4 Mg/2 Ml Vial Administered 02/14/21 02:28 Dose 4 mg .ROUTE .STK-MED ONE Lab/Rad Data: Laboratory Result Diagrams 02/14/21 02:26 02/14/21 02:26 Laboratory Results 02/14/21 02/14/21 02/14/21 Range/Units 05:30 02:26 02:26 WBC (4.0-10.5) K/mm3 RBC (4.1-5.6) M/mm3 Hgb (12.5-18.0) gm/dl Hct (42-50) % MCV (78-100) fl MCH (26-32) pg MCHC (32-36) g/dl RDW (11.5-14.0) % Plt Count (150-450) K/mm3 MPV (7.5-11.0) fl Gran % (36.0-66.0) % Eos # (Auto) (0-0.5) Absolute Lymphs (auto) (1.0-4.6) Absolute Monos (auto) (0.0-1.3) Lymphocytes % (24.0-44.0) % Monocytes % (0.0-12.0) % Eosinophils % (0.00-5.0) % Basophils % (0.0-0.4) % Absolute Granulocytes (1.4-6.9) Basophils # (0-0.4) Sodium 141 (137-145) mmol/L Potassium 3.7 (3.5-5.1) mmol/L Chloride 106 (98-107) mmol/L Carbon Dioxide 20 L (22-30) mmol/L Anion Gap 17.7 H (5-15) MEQ/L BUN 15 (9-20) mg/dL Creatinine 0.89 (0.66-1.25) mg/dL Estimated GFR > 60.0 ML/MIN Glucose 138 H (74-106) mg/dL Calcium 10.1 (8.4-10.2) mg/dL Total Bilirubin 0.90 (0.2-1.3) mg/dL AST 56 (17-59) U/L ALT 31 (0-50) U/L Alkaline Phosphatase 84 (38-126) U/L Troponin I < 0.012 < 0.012 (0.000-0.034) ng/mL NT-Pro-B Natriuret Pep 41.5 (0-900) pg/mL Serum Total Protein 8.3 H (6.3-8.2) g/dL Albumin 4.8 (3.5-5.0) g/dL 02/14/21 Range/Units 02:26 WBC 8.7 (4.0-10.5) K/mm3 RBC 4.60 (4.1-5.6) M/mm3 Hgb 14.1 (12.5-18.0) gm/dl Hct 42.7 (42-50) % MCV 92.8 (78-100) fl MCH 30.7 (26-32) pg MCHC 33.0 (32-36) g/dl RDW 14.5 H (11.5-14.0) % Plt Count 183 (150-450) K/mm3 MPV 10.6 (7.5-11.0) fl Gran % 63.7 (36.0-66.0) % Eos # (Auto) 0.30 (0-0.5) Absolute Lymphs (auto) 2.06 (1.0-4.6) Absolute Monos (auto) 0.78 (0.0-1.3) Lymphocytes % 23.7 L (24.0-44.0) % Monocytes % 9.0 (0.0-12.0) % Eosinophils % 3.4 (0.00-5.0) % Basophils % 0.2 (0.0-0.4) % Absolute Granulocytes 5.55 (1.4-6.9) Basophils # 0.02 (0-0.4) Sodium (137-145) mmol/L Potassium (3.5-5.1) mmol/L Chloride (98-107) mmol/L Carbon Dioxide (22-30) mmol/L Anion Gap (5-15) MEQ/L BUN (9-20) mg/dL Creatinine (0.66-1.25) mg/dL Estimated GFR ML/MIN Glucose (74-106) mg/dL Calcium (8.4-10.2) mg/dL Total Bilirubin (0.2-1.3) mg/dL AST (17-59) U/L ALT (0-50) U/L Alkaline Phosphatase (38-126) U/L Troponin I (0.000-0.034) ng/mL NT-Pro-B Natriuret Pep (0-900) pg/mL Serum Total Protein (6.3-8.2) g/dL Albumin (3.5-5.0) g/dL - Progress Progress: improved Air Movement: good Progress Note: 02/14/21 06:51 Rule out acute coronary syndrome, pneumonia, pneumothorax, low suspicion for dissection. Patient is anticoagulated and low suspicious for PE. Patient is feeling better on reevaluation. Recommended outpatient primary care and cardiology follow-up. Discussed signs symptoms of worsening needing return to ER which she seems understanding. Stable for discharge. Blood Culture(s) Obtained: No Antibiotics given: No Counseled pt/family regarding: lab results, diagnosis, need for follow-up, rad results - Departure Departure Disposition: Home Clinical Impression: Atypical chest pain Condition: Stable Critical Care Time: No Referrals: RAJINDER PRINCE DO [Primary Care Provider] - Follow Up with PCP/3 days IVANIA NASCIMENTO [CONSULTING PHYSICIAN] - (Call today for appointment for reevaluation) Instructions: Angina (DC), Chest Pain (DC) Additional Instructions: Follow-up with your primary care and filter cleaner for reevaluation. Take Tylenol as needed. Return to ER for worsening chest pain palpitations or if develop shortness of breath.
[2021-02-14] MEDS ORDERED: MORPHINE SULFATE 2 MG INJ ONE (02:28)
[2021-02-14] MEDS ORDERED: BABY ASPIRIN 81 MG CHEW ONE (02:28)
[2021-02-14] MEDS: Zofran 4 MG/2 ML VIAL IV ONE (02:29)
[2021-02-14] MEDS: MORPHINE SULFATE 2 MG INJ IV ONE (02:29)
[2021-02-14] MEDS: BABY ASPIRIN 81 MG CHEW PO ONE (02:29)
[2021-02-14 02:43] LABS: ALBUMIN 4.8 g/dL (3.5-5.0); ALKALINE PHOSPHATASE 84 U/L (38-126); ANION GAP 17.7 MEQ/L (5-15); BLOOD UREA NITROGEN 15 mg/dL (9-20); CHLORIDE 106 mmol/L (98-107); Calcium 10.1 mg/dL (8.4-10.2); Carbon Dioxide 20 mmol/L (22-30); Creatinine 1 0.89 mg/dL (0.66-1.25); EST GLOMERULAR FILTRATION RATE > 60.0 ML/MIN; Glucose 138 mg/dL (74-106); NT PRO BNP 41.5 pg/mL (0-900); Potassium 3.7 mmol/L (3.5-5.1); SGOT/AST 56 U/L (17-59); SGPT/ALT 31 U/L (0-50); SODIUM 141 mmol/L (137-145); Total Protein 8.3 g/dL (6.3-8.2)
[2021-02-14 02:47] LABS: Absolute Neutrophil Ct (ANC) 5.55 (1.4-6.9); BASOPHIL % 0.2 % (0.0-0.4); Basophil (Absolute #) 0.02 (0-0.4); Eosinophil % 3.4 % (0.00-5.0); Hematocrit 42.7 % (42-50); Hemoglobin 14.1 gm/dl (12.5-18.0); Lymphocyte (Absolute #) 2.06 (1.0-4.6); Lymphocytes % 23.7 % (24.0-44.0); Mean Cell Volume 92.8 fl (78-100); Mean Corpuscular Hemoglobin 30.7 pg (26-32); Mean Platelet Volume 10.6 fl (7.5-11.0); Monocyte (Absolute #) 0.78 (0.0-1.3); Neutrophil % 63.7 % (36.0-66.0); Platelet Count 183 K/mm3 (150-450); Red Cell Distribution Width 14.5 % (11.5-14.0); White Blood Count 8.7 K/mm3 (4.0-10.5)
[2021-02-14 06:36] VITALS: BP 100/63; PULSE 62
[2021-02-14 06:55] VITALS: O2SAT 93
--- NOTE | 2021-02-14 08:40 | XRAY ---
Indication: Chest pain. Comparison: January 24, 2021. Portable chest remains clear. Heart not enlarged. Bony thorax intact. No new/acute findings. Comment: Preliminary interpretation made by [facility]. No critical discrepancy.
== END 2021-02-14 07:09 | disposition home or self-care (01) ==
LOC: ED 01:25
DX: R07.89 Other chest pain (principal); Z79.899 Other long term (current) drug therapy; J44.9 Chronic obstructive pulmonary disease, unspecified; E11.9 Type 2 diabetes mellitus without complications; Z86.711 Personal history of pulmonary embolism
CPT/HCPCS: 36000; 36415; 71045; 80053; 83880; 84484; 85025; 93005; 93041; 96374; 96375; 99284; J2270; J2405; A9270-GY

== ENCOUNTER 2021-06-06 12:15 | Emergency (ER) | payer MEDICARE, SELFPAY ==
[2021-06-06] MEDS ORDERED: Zofran 4 MG/2 ML VIAL IV ONE (12:34)
[2021-06-06] MEDS ORDERED: PROTONIX 40 MG IV IV ONE ×2 (12:34→12:39)
[2021-06-06] MEDS ORDERED: Sodium Chloride 0.9% 1000 ML 1,000 ML IV STA ×2 (12:34→14:10)
[2021-06-06] MEDS ORDERED: Sodium Chloride 0.9% 1000 ML 1,000 ML ONE ×2 (12:39→14:19)
[2021-06-06] MEDS ORDERED: Zofran 4 MG/2 ML VIAL ONE (12:39)
--- NOTE | 2021-06-06 12:59 | ERPHSYRPT ---
- History of Present Illness Historian: patient Exam Limitations: no limitations Patient Subjective Stated Complaint: Pt states "I have pancreatitis and I was doing a little drinking last night and I was sick this morning. I started to feel better so I ate a cold can of cream of mushroom soup then I got really sick." Triage Nursing Assessment: Pt presented alert and oriented X 3, skin pwd Pt ambulates with an upright steady gait able to speak in clear full sentences. Pt in no apaprent respiratory distress. Physician History: 55 yo wm w abdominal pain/nausea/vomiting after drinking alcohol last night. Pt has a h/o pancreatitis and rates his pain as 2/10. Pain is diffuse and described as an ache. He denies hematemesis/diarrhea/melena/hematochezia/fever/cough/chest pain/shortness of breath. Timing/Duration: today Activities at Onset: other (Drinking alcohol) Quality: aching Abdominal Pain Onset Location: generalized abdomen Pain Radiation: no radiation Severity of Pain-Max: moderate Severity of Pain-Current: mild Modifying Factors: Improves With: vomiting Associated Symptoms: loss of appetite, nausea, vomiting, No back, No chest pain, No diaphoresis, No diarrhea, No fever/chills, No fatigue, No headache, No heartburn, No neck pain, No rash, No shortness of breath, No syncope, No testicular pain, No weakness Previous symptoms: same symptoms as today Allergies/Adverse Reactions: No Known Drug Allergies Allergy (Verified 02/14/21 01:38) Home Medications: Lisinopril 20 mg [Zestril 20 MG] 40 mg PO QHS 06/30/13 [History] Omeprazole 20 MG [Prilosec 20 mg] 20 mg PO HS 01/23/15 [History] Hydrochlorothiazide 25 mg [hydroDIURIL 25 MG] 25 mg PO HS 02/20/15 [History] Metoprolol Succinate 25 mg Xl* [Toprol-Xl 25MG Tablets] 25 mg PO QHS 09/18/17 [History] Albuterol Sulfate [Ventolin] 2 puffs IH HS 05/23/19 [History] Aspirin 81 mg PO HS 05/23/19 [History] Atorvastatin Calcium 40 mg PO HS 05/23/19 [History] Cetirizine HCl [Zyrtec] 10 mg PO HS 05/23/19 [History] OLANZapine [Olanzapine] 10 mg PO HS 05/23/19 [History] Rivaroxaban [Xarelto] 20 mg PO HS 04/28/20 [History] Potassium Chloride [Klor-Con 8] 8 meq PO HS 10/28/20 [History] PARoxetine HCL [Paroxetine HCl] 10 mg PO HS 01/21/21 [History] Hx Tetanus, Diphtheria Vaccination/Date Given: No (unknown) Hx Influenza Vaccination/Date Given: No Hx Pneumococcal Vaccination/Date Given: No Immunizations Up to Date: Yes Travel Risk - International Travel Have you traveled outside of the country in past 3 weeks: No - Coronavirus Screening Are you exhibiting any of the following symptoms?: No Close contact with a COVID-19 positive Pt in past 14-21 Days: No - Vaccine Status Have you recieved a Covid-19 vaccination: Yes Mma Fighter: Moderna - Vaccination Dates Date of 2cond Vaccination (if applicable): Comment: Patient states, had both doses of Moderna but does not remember the dates. - Review of Systems Constitutional: No Symptoms Eyes: No Symptoms Ears, Nose, & Throat: No Symptoms Respiratory: No Symptoms Cardiac: No Symptoms Abdominal/Gastrointestinal: No Symptoms, Abdominal Pain, Nausea, Vomiting, No Diarrhea Genitourinary Symptoms: No Symptoms Musculoskeletal: No Symptoms Skin: No Symptoms Neurological: No Symptoms Psychological: No Symptoms Endocrine: No Symptoms Hematologic/Lymphatic: No Symptoms Immunological/Allergic: No Symptoms - Past Medical History Pertinent Past Medical History: Yes Neurological History: Migraines ENT History: Glaucoma Cardiac History: Angina, Deep Vein Thrombosis Respiratory History: COPD, Pulmonary Embolism Endocrine Medical History: Diabetes Type II Musculoskeletal History: Arthritis GI Medical History: GERD History: No Pertinent History Psycho-Social History: Anxiety Male Reproductive Disorders: No Pertinent History Other Medical History: 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 [facility] - Social History Smoking Status: Former smoker How long have you smoked: 40 yrs Exposure to second hand smoke: Yes Drug Use: none Patient Lives Alone: No Significant Family History: no pertinent family hx - Nursing Vital Signs Nursing Vital Signs: Initial Vital Signs Temperature 96.7 F 06/06/21 12:21 Pulse Rate 108 H 06/06/21 12:21 Respiratory Rate 20 06/06/21 12:21 Blood Pressure 161/117 06/06/21 12:21 O2 Sat by Pulse Oximetry 95 06/06/21 12:21 Pain Scale Pain Intensity 2 Hypertensive/tachycardic - Physical Exam General Appearance: no apparent distress Eye Exam: PERRL/EOMI, eyes nml inspection Ears, Nose, Throat Exam: normal ENT inspection, TMs normal, pharynx normal, moist mucous membranes Neck Exam: normal inspection, non-tender, supple, full range of motion, No meningismus, No mass, No Brudzinski, No Kernig's Respiratory Exam: normal breath sounds, lungs clear, airway intact, No chest tenderness, No respiratory distress Cardiovascular Exam: tachycardia, No murmur Gastrointestinal/Abdomen Exam: soft, normal bowel sounds, tenderness (Very mild/Diffuse/No guarding or rebound) Back Exam: normal inspection, normal range of motion Extremity Exam: normal inspection, normal range of motion Neurologic Exam: alert, 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, cooperative, 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-XII nml as tested, normal mood/affect, nml cerebellar function, nml station & gait, sensation nml, No motor deficits, No sensory deficit Skin Exam: normal color Lymphatic Exam: No adenopathy SpO2 Interpretation: normal SpO2: 95 O2 Delivery: Room Air - Course Nursing assessment & vital signs reviewed: Yes EKG Interpreted by Me: RATE (Sinus tach/Rate 104/Normal QT-QTc/1mm St depression V4-V6) - CT Exams Abdomen/Pelvis CT Interpretation: Discussed w/radiologist (CT abdomen/pelvis neg for acute pathology) Ordered Tests: Active Orders 24 hr Category Date Time Status EKG-ER Only STAT Care 06/06/21 12:34 Completed EKG-ER Only STAT Care 06/06/21 12:36 Completed IV Insertion STAT Care 06/06/21 12:34 Completed ABDOMEN AND PELVIS W CONTRAST [CT] Stat Exams 06/06/21 14:09 Completed AMYLASE Stat Lab 06/06/21 12:37 Completed CBC W DIFF Stat Lab 06/06/21 12:37 Completed CMP Stat Lab 06/06/21 12:37 Completed ETHYL ALCOHOL Stat Lab 06/06/21 12:37 Completed LIPASE Stat Lab 12/13/21 12:37 Completed TROPONIN Q3H Lab 06/06/21 12:37 Completed TROPONIN Q3H Lab 06/06/21 15:02 Completed UA W/RFX UR CULTURE Stat Lab 06/06/21 16:07 Completed Urine Triage Profile Stat Lab 06/06/21 16:07 Completed Medication Summary Discontinued Medications Generic Name Dose Route Start Last Admin Trade Name Janie PRN Reason Stop Dose Admin Clonidine 0.2 mg 06/06/21 16:44 06/06/21 16:47 Clonidine Hcl 0.1 Mg Tablet PO 06/06/21 16:45 0.2 mg STAT ONE Administration Clonidine Confirm 06/06/21 16:47 Clonidine Hcl 0.1 Mg Tablet Administered 06/06/21 16:48 Dose 0.1 mg .ROUTE .STK-MED ONE Clonidine Confirm 06/06/21 16:48 Clonidine Hcl 0.1 Mg Tablet Administered 06/06/21 16:49 Dose 0.1 mg .ROUTE .STK-MED ONE Sodium Chloride 1,000 mls @ 999 mls/hr 06/06/21 12:34 06/06/21 13:44 Sodium Chloride 0.9% 1000 Ml IV 06/06/21 13:34 Infused .Q1H1M STA Infusion Sodium Chloride Confirm 06/06/21 12:39 Sodium Chloride 0.9% 1000 Ml Administered 06/06/21 12:40 Dose 1,000 mls @ ud .ROUTE .STK-MED ONE Sodium Chloride 1,000 mls @ 999 mls/hr 06/06/21 14:10 06/06/21 15:25 Sodium Chloride 0.9% 1000 Ml IV 06/06/21 15:10 Infused .Q1H1M STA Infusion Sodium Chloride Confirm 06/06/21 14:19 Sodium Chloride 0.9% 1000 Ml Administered 06/06/21 14:20 Dose 1,000 mls @ ud .ROUTE .STK-MED ONE Ondansetron HCl 4 mg 06/06/21 12:34 06/06/21 12:41 Ondansetron Hcl 4 Mg/2 Ml Vial IV 06/06/21 12:35 4 mg STAT ONE Administration Ondansetron HCl Confirm 06/06/21 12:39 Ondansetron Hcl 4 Mg/2 Ml Vial Administered 06/06/21 12:40 Dose 4 mg .ROUTE .STK-MED ONE Pantoprazole Sodium 40 mg 06/06/21 12:34 06/06/21 12:41 Pantoprazole 40 Mg Vial IV 06/06/21 12:35 40 mg STAT ONE Administration Pantoprazole Sodium Confirm 06/06/21 12:39 Pantoprazole 40 Mg Vial Administered 06/06/21 12:40 Dose 40 mg IV .STK-MED ONE Lab/Rad Data: Laboratory Result Diagrams 06/06/21 12:37 06/06/21 12:37 Laboratory Results 06/06/21 06/06/21 06/06/21 Range/Units 16:07 16:07 15:02 WBC (4.0-10.5) K/mm3 RBC (4.1-5.6) M/mm3 Hgb (12.5-18.0) gm/dl Hct (42-50) % MCV (78-100) fl MCH (26-32) pg MCHC (32-36) g/dl RDW (11.5-14.0) % Plt Count (150-450) K/mm3 MPV (7.5-11.0) fl Gran % (36.0-66.0) % Eos # (Auto) (0-0.5) Absolute Lymphs (auto) (1.0-4.6) Absolute Monos (auto) (0.0-1.3) Lymphocytes % (24.0-44.0) % Monocytes % (0.0-12.0) % Eosinophils % (0.00-5.0) % Basophils % (0.0-0.4) % Absolute Granulocytes (1.4-6.9) Basophils # (0-0.4) Sodium (137-145) mmol/L Potassium (3.5-5.1) mmol/L Chloride (98-107) mmol/L Carbon Dioxide (22-30) mmol/L Anion Gap (5-15) MEQ/L BUN (9-20) mg/dL Creatinine (0.66-1.25) mg/dL Estimated GFR ML/MIN Glucose (74-106) mg/dL Calcium (8.4-10.2) mg/dL Total Bilirubin (0.2-1.3) mg/dL AST (17-59) U/L ALT (0-50) U/L Alkaline Phosphatase (38-126) U/L Troponin I < 0.012 (0.000-0.034) ng/mL Serum Total Protein (6.3-8.2) g/dL Albumin (3.5-5.0) g/dL Amylase (30-110) U/L Lipase (23-300) U/L Urine Color STRAW (YELLOW) Urine Appearance CLEAR (CLEAR) Urine pH 5.0 (5-6) Ur Specific [place] 1.024 (1.005-1.025) Urine Protein NEGATIVE (Negative) Urine Ketones TRACE (NEGATIVE) Urine Blood NEGATIVE (0-5) Jose/ul Urine Nitrite NEGATIVE (NEGATIVE) Urine Bilirubin NEGATIVE (NEGATIVE) Urine Urobilinogen NEGATIVE (0-1) mg/dL Ur Leukocyte Esterase NEGATIVE (NEGATIVE) Urine WBC (Auto) NONE (0-5) /HPF Urine RBC (Auto) NONE (0-2) /HPF U Epithel Cells (Auto) NONE (FEW) /HPF Urine Bacteria (Auto) NONE (NEGATIVE) /HPF Urine Mucus (Auto) SLIGHT (NEGATIVE) /HPF Urine Culture Reflexed NO (NO) Urine Glucose NEGATIVE (NEGATIVE) mg/dL Urine Opiates Level NEGATIVE (NEGATIVE) Ur Methadone NEGATIVE (NEGATIVE) Urine Barbiturates NEGATIVE (NEGATIVE) Ur Phencyclidine (PCP) NEGATIVE (NEGATIVE) Urine Amphetamine NEGATIVE (NEGATIVE) U Benzodiazepine Level NEGATIVE (NEGATIVE) Urine Cocaine NEGATIVE (NEGATIVE) Urine Marijuana (THC) NEGATIVE (NEGATIVE) Ethyl Alcohol (0-10) mg/dL 06/06/21 06/06/21 06/06/21 Range/Units 12:37 12:37 12:37 WBC (4.0-10.5) K/mm3 RBC (4.1-5.6) M/mm3 Hgb (12.5-18.0) gm/dl Hct (42-50) % MCV (78-100) fl MCH (26-32) pg MCHC (32-36) g/dl RDW (11.5-14.0) % Plt Count (150-450) K/mm3 MPV (7.5-11.0) fl Gran % (36.0-66.0) % Eos # (Auto) (0-0.5) Absolute Lymphs (auto) (1.0-4.6) Absolute Monos (auto) (0.0-1.3) Lymphocytes % (24.0-44.0) % Monocytes % (0.0-12.0) % Eosinophils % (0.00-5.0) % Basophils % (0.0-0.4) % Absolute Granulocytes (1.4-6.9) Basophils # (0-0.4) Sodium 138 (137-145) mmol/L Potassium 4.1 (3.5-5.1) mmol/L Chloride 105 (98-107) mmol/L Carbon Dioxide 18 L (22-30) mmol/L Anion Gap 19.2 H (5-15) MEQ/L BUN 13 (9-20) mg/dL Creatinine 0.79 (0.66-1.25) mg/dL Estimated GFR > 60.0 ML/MIN Glucose 172 H (74-106) mg/dL Calcium 10.4 H (8.4-10.2) mg/dL Total Bilirubin 0.90 (0.2-1.3) mg/dL AST 37 (17-59) U/L ALT 28 (0-50) U/L Alkaline Phosphatase 114 (38-126) U/L Troponin I < 0.012 (0.000-0.034) ng/mL Serum Total Protein 8.2 (6.3-8.2) g/dL Albumin 4.9 (3.5-5.0) g/dL Amylase 93 (30-110) U/L Lipase 255 (23-300) U/L Urine Color (YELLOW) Urine Appearance (CLEAR) Urine pH (5-6) Ur Specific [place] (1.005-1.025) Urine Protein (Negative) Urine Ketones (NEGATIVE) Urine Blood (0-5) Jose/ul Urine Nitrite (NEGATIVE) Urine Bilirubin (NEGATIVE) Urine Urobilinogen (0-1) mg/dL Ur Leukocyte Esterase (NEGATIVE) Urine WBC (Auto) (0-5) /HPF Urine RBC (Auto) (0-2) /HPF U Epithel Cells (Auto) (FEW) /HPF Urine Bacteria (Auto) (NEGATIVE) /HPF Urine Mucus (Auto) (NEGATIVE) /HPF Urine Culture Reflexed (NO) Urine Glucose (NEGATIVE) mg/dL Urine Opiates Level (NEGATIVE) Ur Methadone (NEGATIVE) Urine Barbiturates (NEGATIVE) Ur Phencyclidine (PCP) (NEGATIVE) Urine Amphetamine (NEGATIVE) U Benzodiazepine Level (NEGATIVE) Urine Cocaine (NEGATIVE) Urine Marijuana (THC) (NEGATIVE) Ethyl Alcohol < 10 (0-10) mg/dL 06/06/21 Range/Units 12:37 WBC 13.4 H (4.0-10.5) K/mm3 RBC 4.90 (4.1-5.6) M/mm3 Hgb 14.7 (12.5-18.0) gm/dl Hct 44.2 (42-50) % MCV 90.2 (78-100) fl MCH 30.0 (26-32) pg MCHC 33.3 (32-36) g/dl RDW 14.7 H (11.5-14.0) % Plt Count 268 (150-450) K/mm3 MPV 11.0 (7.5-11.0) fl Gran % 79.6 H (36.0-66.0) % Eos # (Auto) 0.04 (0-0.5) Absolute Lymphs (auto) 1.52 (1.0-4.6) Absolute Monos (auto) 1.14 (0.0-1.3) Lymphocytes % 11.4 L (24.0-44.0) % Monocytes % 8.5 (0.0-12.0) % Eosinophils % 0.3 (0.00-5.0) % Basophils % 0.2 (0.0-0.4) % Absolute Granulocytes 10.65 H (1.4-6.9) Basophils # 0.03 (0-0.4) Sodium (137-145) mmol/L Potassium (3.5-5.1) mmol/L Chloride (98-107) mmol/L Carbon Dioxide (22-30) mmol/L Anion Gap (5-15) MEQ/L BUN (9-20) mg/dL Creatinine (0.66-1.25) mg/dL Estimated GFR ML/MIN Glucose (74-106) mg/dL Calcium (8.4-10.2) mg/dL Total Bilirubin (0.2-1.3) mg/dL AST (17-59) U/L ALT (0-50) U/L Alkaline Phosphatase (38-126) U/L Troponin I (0.000-0.034) ng/mL Serum Total Protein (6.3-8.2) g/dL Albumin (3.5-5.0) g/dL Amylase (30-110) U/L Lipase (23-300) U/L Urine Color (YELLOW) Urine Appearance (CLEAR) Urine pH (5-6) Ur Specific [place] (1.005-1.025) Urine Protein (Negative) Urine Ketones (NEGATIVE) Urine Blood (0-5) Jose/ul Urine Nitrite (NEGATIVE) Urine Bilirubin (NEGATIVE) Urine Urobilinogen (0-1) mg/dL Ur Leukocyte Esterase (NEGATIVE) Urine WBC (Auto) (0-5) /HPF Urine RBC (Auto) (0-2) /HPF U Epithel Cells (Auto) (FEW) /HPF Urine Bacteria (Auto) (NEGATIVE) /HPF Urine Mucus (Auto) (NEGATIVE) /HPF Urine Culture Reflexed (NO) Urine Glucose (NEGATIVE) mg/dL Urine Opiates Level (NEGATIVE) Ur Methadone (NEGATIVE) Urine Barbiturates (NEGATIVE) Ur Phencyclidine (PCP) (NEGATIVE) Urine Amphetamine (NEGATIVE) U Benzodiazepine Level (NEGATIVE) Urine Cocaine (NEGATIVE) Urine Marijuana (THC) (NEGATIVE) Ethyl Alcohol (0-10) mg/dL - Progress Progress: improved Progress Note: 06/06/21 16:31 1L NS bolus x2/40mg IV Protonix/4mg IV Zofran 06/06/21 16:45 0.2 po Clonidine Counseled pt/family regarding: lab results, diagnosis, need for follow-up, rad results - Departure Departure Disposition: Home Clinical Impression: Acute alcoholic gastritis, Hypertension Condition: Stable Critical Care Time: No Referrals: RAJINDER PRINCE DO [Primary Care Provider] - Follow up/PCP as directed Instructions: Gastritis (DC) Additional Instructions: Fluids Rest Avoid alcohol in foreseeable future Zofran for nausea/vomiting Protonix once a day Follow up with your family MD Return to ER for increasing pain, temperature greater than 100.5, or inability to hold down fluids Take your blood pressure meds Prescriptions: PANTOPRAZOLE 40 mg Tablet [Protonix 40MG Tablet] 40 mg PO QAM #30 tab ondansetron HCL [Zofran] 4 mg PO Q6H PRN #10 tablet PRN Reason: Nausea/Vomiting
[2021-06-06 13:05] LABS: Absolute Neutrophil Ct (ANC) 10.65 (1.4-6.9); BASOPHIL % 0.2 % (0.0-0.4); Basophil (Absolute #) 0.03 (0-0.4); Eosinophil % 0.3 % (0.00-5.0); Eosinophil (Absolute #) 0.04 (0-0.5); Hematocrit 44.2 % (42-50); Hemoglobin 14.7 gm/dl (12.5-18.0); Lymphocyte (Absolute #) 1.52 (1.0-4.6); Lymphocytes % 11.4 % (24.0-44.0); Mean Cell Volume 90.2 fl (78-100); Mean Corpuscular Hgb Concent. 33.3 g/dl (32-36); Monocyte (Absolute #) 1.14 (0.0-1.3); Monocytes % 8.5 % (0.0-12.0); Neutrophil % 79.6 % (36.0-66.0); Platelet Count 268 K/mm3 (150-450); Red Cell Distribution Width 14.7 % (11.5-14.0); White Blood Count 13.4 K/mm3 (4.0-10.5)
[2021-06-06 13:16] LABS: ALBUMIN 4.9 g/dL (3.5-5.0); ALKALINE PHOSPHATASE 114 U/L (38-126); AMYLASE 93 U/L (30-110); ANION GAP 19.2 MEQ/L (5-15); BLOOD UREA NITROGEN 13 mg/dL (9-20); CHLORIDE 105 mmol/L (98-107); Calcium 10.4 mg/dL (8.4-10.2); Carbon Dioxide 18 mmol/L (22-30); Creatinine 1 0.79 mg/dL (0.66-1.25); EST GLOMERULAR FILTRATION RATE > 60.0 ML/MIN; Glucose 172 mg/dL (74-106); LIPASE 255 U/L (23-300); Potassium 4.1 mmol/L (3.5-5.1); SGOT/AST 37 U/L (17-59); SGPT/ALT 28 U/L (0-50); SODIUM 138 mmol/L (137-145); Total Protein 8.2 g/dL (6.3-8.2)
--- NOTE | 2021-06-06 15:04 | XRAY ---
Indication: "Upset stomach." Nausea and vomiting. Multiple contiguous axial images obtained through the abdomen and pelvis using 80 cc Isovue 370 contrast. Comparison: January 21, 2021. Lung bases are clear of infiltrate and effusion. Heart is not enlarged. Noncontrasted stomach and bowel loops are nonobstructed. Normal appendix. Again minimal scattered colonic diverticulosis without diverticulitis, mild fatty liver, splenic calcified granulomas, IVC filter, and previous cholecystectomy. No free fluid/air. Remaining liver, pancreas, spleen, adrenal glands, kidneys, ureters, and bladder are unremarkable. Again minimal aortoiliac calcifications. No AAA or pathologic retroperitoneal lymphadenopathy. Osseous structures intact again with minimal degenerative changes throughout the spine and small L4 vertebral hemangioma. Impression: 1. Again incidental colonic diverticulosis, mild fatty liver, chronic bony findings, and old granulomatous disease. 2. Remaining CT abdomen/pelvis with contrast exam is negative.
[2021-06-06 16:21] LABS: Appearance CLEAR (CLEAR); Bilirubin NEGATIVE (NEGATIVE); Blood NEGATIVE Ery/ul (0-5); Glucose NEGATIVE (NEGATIVE); Ketones TRACE (NEGATIVE); Leukocyte Esterase NEGATIVE (NEGATIVE); Mucus SLIGHT /HPF (NEGATIVE); Nitrite NEGATIVE (NEGATIVE); Protein,Urine Dip NEGATIVE (Negative); Specific Gravity 1.024 (1.005-1.025); Urobilinogen NEGATIVE mg/dL (0-1)
[2021-06-06] MEDS ORDERED: Catapres 0.1 MG PO ONE (16:44)
[2021-06-06] MEDS ORDERED: Catapres 0.1 MG ONE ×2 (16:47→16:48)
[2021-06-06 16:52] LABS: Amphetamine,Urine NEGATIVE (NEGATIVE); Barbiturate,Urine NEGATIVE (NEGATIVE); Benzodiazepine,Urine NEGATIVE (NEGATIVE); Cocaine,Urine NEGATIVE (NEGATIVE); Methadone,Urine NEGATIVE (NEGATIVE); Opiate,Urine NEGATIVE (NEGATIVE); PCP,Urine NEGATIVE (NEGATIVE); THC,Urine NEGATIVE (NEGATIVE)
[2021-06-06 17:06] VITALS: BP 144/108; PULSE 98
[2021-06-06 21:14] VITALS: O2SAT 95
== END 2021-06-06 17:38 | disposition home or self-care (01) ==
LOC: ED 12:15
DX: K29.20 Alcoholic gastritis without bleeding (principal); I10 Essential (primary) hypertension; R11.2 Nausea with vomiting, unspecified; Z79.01 Long term (current) use of anticoagulants; E11.8 Type 2 diabetes mellitus with unspecified complications
CPT/HCPCS: 36000; 36415; 74177; 80053; 80307; 81001; 82150; 83690; 84484; 85025; 93005; 96360; 96361; 96374; 96375; 99285; G0480; J2405; A9270-GY

== ENCOUNTER 2021-06-13 14:07 | Inpatient (IN) | payer MEDICARE ==
[2021-06-13 15:09] LABS: Appearance CLEAR (CLEAR); Bilirubin NEGATIVE (NEGATIVE); Blood NEGATIVE Ery/ul (0-5); Glucose >=500 mg/dL (NEGATIVE); Ketones NEGATIVE (NEGATIVE); Leukocyte Esterase NEGATIVE (NEGATIVE); Mucus SLIGHT /HPF (NEGATIVE); Nitrite NEGATIVE (NEGATIVE); Protein,Urine Dip NEGATIVE (Negative); Specific Gravity 1.026 (1.005-1.025); Urobilinogen NEGATIVE mg/dL (0-1)
[2021-06-13] MEDS ORDERED: TORAdol 30 mg Injection IM ONE (15:09)
[2021-06-13] MEDS ORDERED: TORAdol 30 mg Injection ONE (15:12)
--- NOTE | 2021-06-13 15:14 | ERPHSYRPT ---
- History of Present Illness Historian: patient Exam Limitations: no limitations Patient Subjective Stated Complaint: abdominal pain and lower back pain since last night Triage Nursing Assessment: PT c/o LLQ pain and lower lumbar back pain that started last night. States pain is constant, rates 3/10. C/o nausea, 1 loose stool last night. Denies sob or chest pain. Skin PWD. PT A &O, 3. Answers questions appropriately. Flat affect noted. Pt ambulated to room and provided urine sample without difficulty. HR and BP WNL. Afebrile. Abdomen soft and round, nontender upon palpation. Physician History: 55 yo wm w LLQ pain and L flank pain since last night. Pain is 3/10 but has been up to 6/10. He denies N/V/D/dysuria/hematuria/fever/chills/chest pain. Timing/Duration: yesterday Activities at Onset: rest Quality: tightness Abdominal Pain Onset Location: LLQ Pain Radiation: no radiation Severity of Pain-Max: moderate Severity of Pain-Current: mild Modifying Factors: Improves With: nothing Associated Symptoms: back, No chest pain, No diaphoresis, No diarrhea, No fever/chills, No fatigue, No headache, No heartburn, No loss of appetite, No nausea, No neck pain, No rash, No shortness of breath, No syncope, No testicular pain, No vomiting, No weakness Previous symptoms: same symptoms as today Allergies/Adverse Reactions: No Known Drug Allergies Allergy (Verified 06/13/21 14:33) Home Medications: Lisinopril 20 mg [Zestril 20 MG] 40 mg PO QHS 06/30/13 [History] Omeprazole 20 MG [Prilosec 20 mg] 20 mg PO HS 01/23/15 [History] Hydrochlorothiazide 25 mg [hydroDIURIL 25 MG] 25 mg PO HS 02/20/15 [History] Metoprolol Succinate 25 mg Xl* [Toprol-Xl 25MG Tablets] 25 mg PO QHS 09/18/17 [History] Albuterol Sulfate [Ventolin] 2 puffs IH HS 05/23/19 [History] Aspirin 81 mg PO HS 05/23/19 [History] Atorvastatin Calcium 40 mg PO HS 05/23/19 [History] Cetirizine HCl [Zyrtec] 10 mg PO HS 05/23/19 [History] OLANZapine [Olanzapine] 10 mg PO HS 05/23/19 [History] Rivaroxaban [Xarelto] 20 mg PO HS 04/28/20 [History] Potassium Chloride [Klor-Con 8] 10 meq PO HS 10/28/20 [History] PARoxetine HCL [Paroxetine HCl] 10 mg PO HS 01/21/21 [History] Metformin HCl 500 mg [Glucophage 500 MG] 1,000 mg PO HS 06/13/21 [History] Hx Tetanus, Diphtheria Vaccination/Date Given: No (unknown) Hx Influenza Vaccination/Date Given: No Hx Pneumococcal Vaccination/Date Given: No Travel Risk - International Travel Have you traveled outside of the country in past 3 weeks: No - Coronavirus Screening Are you exhibiting any of the following symptoms?: No Close contact with a COVID-19 positive Pt in past 14-21 Days: No - Vaccine Status Have you recieved a Covid-19 vaccination: Yes Bunch Maker Hand: Moderna - Vaccination Dates Date of 2cond Vaccination (if applicable): Comment: Patient states, had both doses of Moderna but does not remember the dates. - Review of Systems Constitutional: No Symptoms Eyes: No Symptoms Ears, Nose, & Throat: No Symptoms Respiratory: No Symptoms Cardiac: No Symptoms Abdominal/Gastrointestinal: No Symptoms, Abdominal Pain Genitourinary Symptoms: No Symptoms, Flank Pain Musculoskeletal: No Symptoms Skin: No Symptoms Neurological: No Symptoms Psychological: No Symptoms Endocrine: No Symptoms Hematologic/Lymphatic: No Symptoms Immunological/Allergic: No Symptoms - Past Medical History Pertinent Past Medical History: Yes Neurological History: Migraines ENT History: Glaucoma Cardiac History: Angina, Deep Vein Thrombosis Respiratory History: COPD, Pulmonary Embolism Endocrine Medical History: Diabetes Type II Musculoskeletal History: Arthritis GI Medical History: GERD History: No Pertinent History Psycho-Social History: Anxiety Male Reproductive Disorders: No Pertinent History Other Medical History: 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 [place]s filter - Social History Smoking Status: Current every day smoker How long have you smoked: 40 yrs Exposure to second hand smoke: Yes Drug Use: none Patient Lives Alone: No Significant Family History: no pertinent family hx - Nursing Vital Signs Nursing Vital Signs: Initial Vital Signs Temperature 97.1 F 06/13/21 14:27 Pulse Rate 79 06/13/21 14:27 Respiratory Rate 18 06/13/21 14:27 Blood Pressure 134/73 06/13/21 14:27 O2 Sat by Pulse Oximetry 98 06/13/21 14:27 Pain Scale Pain Intensity 3 WNL - Physical Exam General Appearance: no apparent distress Eye Exam: PERRL/EOMI, eyes nml inspection Ears, Nose, Throat Exam: normal ENT inspection, TMs normal, pharynx normal, moist mucous membranes Neck Exam: normal inspection, non-tender, supple, full range of motion, No meningismus, No mass, No Brudzinski, No Kernig's Respiratory Exam: normal breath sounds, lungs clear, airway intact, No chest tenderness, No respiratory distress Cardiovascular Exam: regular rate/rhythm, normal heart sounds, normal peripheral pulses, No murmur Gastrointestinal/Abdomen Exam: soft, normal bowel sounds, tenderness (Mild LLQ/No guarding or rebound) Back Exam: normal inspection, normal range of motion, No CVA tenderness, No v ertebral tenderness Extremity Exam: normal inspection, normal range of motion Neurologic Exam: alert, 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, cooperative, testing specialist II-XII nml as tested, normal mood/affect, nml station & gait, sensation nml, No motor deficits, No sensory deficit Skin Exam: normal color, warm, dry Lymphatic Exam: No adenopathy SpO2 Interpretation: normal SpO2: 98 O2 Delivery: Room Air Ordered Tests: Active Orders 24 hr Category Date Time Status Code Status Order ROUTINE Care 06/13/21 17:21 Completed IV Care Q6H Care 06/13/21 17:21 Completed IV Care Q6H Care 06/13/21 17:[address] in Observation ROUTINE Care 06/13/21 17:21 Completed Vital Signs Q6H Care 06/13/21 17:21 Completed NPO Diet 06/13/21 17:21 Completed ABDOMEN AND PELVIS W CONTRAST [CT] Stat Exams 06/13/21 16:02 Completed AMYLASE Stat Lab 06/13/21 15:00 Completed CBC W DIFF Stat Lab 06/13/21 15:00 Completed CMP Stat Lab 06/13/21 15:00 Completed ETHYL ALCOHOL Stat Lab 06/13/21 13:32 Completed LIPASE Stat Lab 06/13/21 15:00 Completed TROPONIN Q3H Lab 06/13/21 15:00 Completed TROPONIN Q3H Lab 06/13/21 17:34 Completed TROPONIN Q3H Lab 06/13/21 22:15 Completed TROPONIN Q3H Lab 06/13/21 23:45 Completed UA W/RFX UR CULTURE Stat Lab 06/13/21 14:43 Completed Medication Summary Generic Name Dose Route Start Last Admin Trade Name Freq PRN Reason Stop Dose Admin Aspirin 81 mg 06/13/21 23:32 06/14/21 00:55 Aspirin 81 Mg Tablet.Ec PO 07/13/21 23:31 81 mg HS SHERLYN Administration Enoxaparin Sodium 40 mg 06/14/21 10:00 Enoxaparin Sodium 40 Mg/0.4 Ml Syringe SQ 07/14/21 09:59 DAILY SHERLYN Hydrochlorothiazide 25 mg 06/13/21 23:35 06/14/21 00:55 Hydrochlorothiazide 25 Mg Tablet PO 07/13/21 23:34 25 mg HS SHERLYN Administration Hydromorphone HCl 0.5 mg 06/13/21 17:21 Hydromorphone 1 Mg/1ml Inj 1 Mg/Ml Syringe IV 06/18/21 17:20 Q2H PRN PRN PAIN Sodium Chloride 1,000 mls @ 100 mls/hr 06/13/21 17:30 06/13/21 20:49 Sodium Chloride 0.9% 1000 Ml IV 07/13/21 17:29 100 mls/hr .Q10H SHERLYN Administration Piperacillin Sod/Tazobactam 100 mls @ 200 mls/hr 06/13/21 18:00 Sod 3.375 gm/ Sodium Chloride IV 06/16/21 17:59 Q6HT SHERLYN Insulin Human Lispro 0 unit 06/13/21 17:40 Insulin Lispro 1 Unit SQ 07/13/21 17:39 UD PRN HYPERGLYCEMIA Lisinopril 40 mg 06/13/21 23:36 06/14/21 00:55 Lisinopril 20 Mg Tablet PO 07/13/21 23:35 40 mg HS SHERLYN Administration Loratadine 10 mg 06/13/21 23:35 06/14/21 00:55 Loratadine 10 Mg Tablet PO 07/13/21 23:34 10 mg HS SHERLYN Administration Lorazepam 0.5 mg 06/13/21 23:36 Lorazepam 0.5 Mg Tablet PO 07/13/21 23:35 Q6H PRN PRN ANXIETY Metoprolol Succinate 25 mg 06/13/21 23:37 06/14/21 00:55 Metoprolol Succinate 25 Mg Xl Tab PO 07/13/21 23:36 25 mg HS SHERLYN Administration Olanzapine 10 mg 06/13/21 23:37 06/14/21 00:55 Olanzapine 5 Mg Tab PO 07/13/21 23:36 10 mg HS SHERLYN Administration Ondansetron HCl 4 mg 06/13/21 17:21 Ondansetron Hcl 4 Mg/2 Ml Vial IV 07/13/21 17:20 Q6H PRN PRN NAUSEA/VOMITING Ondansetron HCl 4 mg 06/13/21 23:38 Zofran 4 Mg/Udtablet Orally Disintegrating PO 07/13/21 23:37 Q6H PRN PRN NAUSEA/VOMITING Pantoprazole Sodium 40 mg 06/14/21 10:00 Pantoprazole 40 Mg Vial IV 07/14/21 09:59 Q24H10 SHERLYN Pantoprazole Sodium 40 mg 06/13/21 23:38 06/14/21 00:55 Protonix (Pantoprazole) 40 Mg Tablet PO 07/13/21 23:37 40 mg HS SHERLYN Administration Paroxetine HCl 10 mg 06/13/21 22:00 06/14/21 00:55 Paroxetine Hcl 20 Mg Tablet PO 07/13/21 21:59 10 mg HS SHERLYN Administration Potassium Chloride 10 meq 06/13/21 23:42 06/14/21 00:55 Potassium Chloride 10 Meq Tablet PO 07/13/21 23:41 10 meq HS SHERLYN Administration Rivaroxaban 20 mg 06/13/21 23:43 06/14/21 00:55 Rivaroxaban 10 Mg Tablet PO 07/13/21 23:42 20 mg HS SHERLYN Administration Simvastatin 40 mg 06/13/21 23:35 06/14/21 00:55 Simvastatin 20 Mg Tablet PO 07/13/21 23:34 40 mg HS SHERLYN Administration Discontinued Medications Generic Name Dose Route Start Last Admin Trade Name Freq PRN Reason Stop Dose Admin Piperacillin Sod/Tazobactam 100 mls @ 200 mls/hr 06/13/21 17:19 06/13/21 17:29 Sod 3.375 gm/ Sodium Chloride IV 06/13/21 17:48 200 mls/hr STAT ONE Administration Sodium Chloride Confirm 06/13/21 17:24 Sodium Chloride 100ml Mini-Bag Plus Administered 06/13/21 17:25 Dose 100 mls @ ud IV .STK-MED ONE Ketorolac Tromethamine 60 mg 06/13/21 15:09 06/13/21 15:14 Ketorolac Tromethamine 30 Mg/Ml Inj IM 06/13/21 15:10 60 mg STAT ONE Administration Ketorolac Tromethamine Confirm 06/13/21 15:12 Ketorolac Tromethamine 30 Mg/Ml Inj Administered 06/13/21 15:13 Dose 60 mg .ROUTE .STK-MED ONE Pantoprazole Sodium Confirm 06/14/21 00:24 Pantoprazole 20 Mg Tab Administered 06/14/21 00:25 Dose 20 mg PO .STK-MED ONE Piperacillin Sod/Tazobactam Sod Confirm 06/13/21 17:23 Piperacillin/Tazobactam Sodium 3.375 Gm Vial Administered 06/13/21 17:24 Dose 3.375 gm IV .STK-MED ONE Piperacillin Sod/Tazobactam Sod Confirm 06/13/21 17:24 Piperacillin/Tazobactam Sodium 3.375 Gm Vial Administered 06/13/21 17:25 Dose 3.375 gm IV .STK-MED ONE Lab/Rad Data: Laboratory Result Diagrams 06/13/21 15:00 06/13/21 15:00 Laboratory Results 06/13/21 06/13/21 06/13/21 Range/Units 17:34 17:23 15:00 WBC (4.0-10.5) K/mm3 RBC (4.1-5.6) M/mm3 Hgb (12.5-18.0) gm/dl Hct (42-50) % MCV (78-100) fl MCH (26-32) pg MCHC (32-36) g/dl RDW (11.5-14.0) % Plt Count (150-450) K/mm3 MPV (7.5-11.0) fl Gran % (36.0-66.0) % Eos # (Auto) (0-0.5) Absolute Lymphs (auto) (1.0-4.6) Absolute Monos (auto) (0.0-1.3) Lymphocytes % (24.0-44.0) % Monocytes % (0.0-12.0) % Eosinophils % (0.00-5.0) % Basophils % (0.0-0.4) % Absolute Granulocytes (1.4-6.9) Basophils # (0-0.4) Sodium (137-145) mmol/L Potassium (3.5-5.1) mmol/L Chloride (98-107) mmol/L Carbon Dioxide (22-30) mmol/L Anion Gap (5-15) MEQ/L BUN (9-20) mg/dL Creatinine (0.66-1.25) mg/dL Estimated GFR ML/MIN Glucose (74-106) mg/dL Calcium (8.4-10.2) mg/dL Total Bilirubin (0.2-1.3) mg/dL AST (17-59) U/L ALT (0-50) U/L Alkaline Phosphatase (38-126) U/L Troponin I < 0.012 < 0.012 (0.000-0.034) ng/mL Serum Total Protein (6.3-8.2) g/dL Albumin (3.5-5.0) g/dL Amylase (30-110) U/L Lipase (23-300) U/L Urine Color (YELLOW) Urine Appearance (CLEAR) Urine pH (5-6) Ur Specific [place] (1.005-1.025) Urine Protein (Negative) Urine Ketones (NEGATIVE) Urine Blood (0-5) Jose/ul Urine Nitrite (NEGATIVE) Urine Bilirubin (NEGATIVE) Urine Urobilinogen (0-1) mg/dL Ur Leukocyte Esterase (NEGATIVE) Urine WBC (Auto) (0-5) /HPF Urine RBC (Auto) (0-2) /HPF U Epithel Cells (Auto) (FEW) /HPF Urine Bacteria (Auto) (NEGATIVE) /HPF Urine Mucus (Auto) (NEGATIVE) /HPF Urine Culture Reflexed (NO) Urine Glucose (NEGATIVE) mg/dL Ethyl Alcohol (0-10) mg/dL Influenza Type A Ag NEGATIVE (NEGATIVE) Influenza Type B Ag NEGATIVE (NEGATIVE) RSV (PCR) NEGATIVE (Negative) SARS-CoV-2 (PCR) NEGATIVE (NEGATIVE) 06/13/21 06/13/21 06/13/21 Range/Units 15:00 15:00 14:43 WBC 15.5 H (4.0-10.5) K/mm3 RBC 4.27 (4.1-5.6) M/mm3 Hgb 13.0 (12.5-18.0) gm/dl Hct 39.5 L (42-50) % MCV 92.5 (78-100) fl MCH 30.4 (26-32) pg MCHC 32.9 (32-36) g/dl RDW 14.3 H (11.5-14.0) % Plt Count 236 (150-450) K/mm3 MPV 10.3 (7.5-11.0) fl Gran % 85.6 H (36.0-66.0) % Eos # (Auto) 0.03 (0-0.5) Absolute Lymphs (auto) 1.03 (1.0-4.6) Absolute Monos (auto) 1.14 (0.0-1.3) Lymphocytes % 6.6 L (24.0-44.0) % Monocytes % 7.4 (0.0-12.0) % Eosinophils % 0.2 (0.00-5.0) % Basophils % 0.2 (0.0-0.4) % Absolute Granulocytes 13.27 H (1.4-6.9) Basophils # 0.03 (0-0.4) Sodium 134 L (137-145) mmol/L Potassium 4.4 (3.5-5.1) mmol/L Chloride 100 (98-107) mmol/L Carbon Dioxide 26 (22-30) mmol/L Anion Gap 12.4 (5-15) MEQ/L BUN 14 (9-20) mg/dL Creatinine 0.92 (0.66-1.25) mg/dL Estimated GFR > 60.0 ML/MIN Glucose 286 H (74-106) mg/dL Calcium 9.1 (8.4-10.2) mg/dL Total Bilirubin 0.70 (0.2-1.3) mg/dL AST 29 (17-59) U/L ALT 24 (0-50) U/L Alkaline Phosphatase 80 (38-126) U/L Troponin I (0.000-0.034) ng/mL Serum Total Protein 6.7 (6.3-8.2) g/dL Albumin 3.9 (3.5-5.0) g/dL Amylase 523 H (30-110) U/L Lipase 62169 H (23-300) U/L Urine Color YELLOW (YELLOW) Urine Appearance CLEAR (CLEAR) Urine pH 5.0 (5-6) Ur Specific [place] 1.026 (1.005-1.025) Urine Protein NEGATIVE (Negative) Urine Ketones NEGATIVE (NEGATIVE) Urine Blood NEGATIVE (0-5) Jose/ul Urine Nitrite NEGATIVE (NEGATIVE) Urine Bilirubin NEGATIVE (NEGATIVE) Urine Urobilinogen NEGATIVE (0-1) mg/dL Ur Leukocyte Esterase NEGATIVE (NEGATIVE) Urine WBC (Auto) NONE (0-5) /HPF Urine RBC (Auto) NONE (0-2) /HPF U Epithel Cells (Auto) NONE (FEW) /HPF Urine Bacteria (Auto) NONE (NEGATIVE) /HPF Urine Mucus (Auto) SLIGHT (NEGATIVE) /HPF Urine Culture Reflexed NO (NO) Urine Glucose >=500 (NEGATIVE) mg/dL Ethyl Alcohol (0-10) mg/dL Influenza Type A Ag (NEGATIVE) Influenza Type B Ag (NEGATIVE) RSV (PCR) (Negative) SARS-CoV-2 (PCR) (NEGATIVE) 06/13/21 Range/Units 13:32 WBC (4.0-10.5) K/mm3 RBC (4.1-5.6) M/mm3 Hgb (12.5-18.0) gm/dl Hct (42-50) % MCV (78-100) fl MCH (26-32) pg MCHC (32-36) g/dl RDW (11.5-14.0) % Plt Count (150-450) K/mm3 MPV (7.5-11.0) fl Gran % (36.0-66.0) % Eos # (Auto) (0-0.5) Absolute Lymphs (auto) (1.0-4.6) Absolute Monos (auto) (0.0-1.3) Lymphocytes % (24.0-44.0) % Monocytes % (0.0-12.0) % Eosinophils % (0.00-5.0) % Basophils % (0.0-0.4) % Absolute Granulocytes (1.4-6.9) Basophils # (0-0.4) Sodium (137-145) mmol/L Potassium (3.5-5.1) mmol/L Chloride (98-107) mmol/L Carbon Dioxide (22-30) mmol/L Anion Gap (5-15) MEQ/L BUN (9-20) mg/dL Creatinine (0.66-1.25) mg/dL Estimated GFR ML/MIN Glucose (74-106) mg/dL Calcium (8.4-10.2) mg/dL Total Bilirubin (0.2-1.3) mg/dL AST (17-59) U/L ALT (0-50) U/L Alkaline Phosphatase (38-126) U/L Troponin I (0.000-0.034) ng/mL Serum Total Protein (6.3-8.2) g/dL Albumin (3.5-5.0) g/dL Amylase (30-110) U/L Lipase (23-300) U/L Urine Color (YELLOW) Urine Appearance (CLEAR) Urine pH (5-6) Ur Specific [place] (1.005-1.025) Urine Protein (Negative) Urine Ketones (NEGATIVE) Urine Blood (0-5) Jose/ul Urine Nitrite (NEGATIVE) Urine Bilirubin (NEGATIVE) Urine Urobilinogen (0-1) mg/dL Ur Leukocyte Esterase (NEGATIVE) Urine WBC (Auto) (0-5) /HPF Urine RBC (Auto) (0-2) /HPF U Epithel Cells (Auto) (FEW) /HPF Urine Bacteria (Auto) (NEGATIVE) /HPF Urine Mucus (Auto) (NEGATIVE) /HPF Urine Culture Reflexed (NO) Urine Glucose (NEGATIVE) mg/dL Ethyl Alcohol < 10 (0-10) mg/dL Influenza Type A Ag (NEGATIVE) Influenza Type B Ag (NEGATIVE) RSV (PCR) (Negative) SARS-CoV-2 (PCR) (NEGATIVE) - Progress Discussed with DrYolanda: Eduarda Counseled pt/family regarding: lab results, diagnosis, need for follow-up, rad results - Departure Departure Disposition: Observation Clinical Impression: Pancreatitis Condition: Fair Critical Care Time: No
[2021-06-13 15:29] LABS: Absolute Neutrophil Ct (ANC) 13.27 (1.4-6.9); BASOPHIL % 0.2 % (0.0-0.4); Basophil (Absolute #) 0.03 (0-0.4); Eosinophil % 0.2 % (0.00-5.0); Eosinophil (Absolute #) 0.03 (0-0.5); Hematocrit 39.5 % (42-50); Lymphocyte (Absolute #) 1.03 (1.0-4.6); Lymphocytes % 6.6 % (24.0-44.0); Mean Cell Volume 92.5 fl (78-100); Mean Corpuscular Hemoglobin 30.4 pg (26-32); Mean Corpuscular Hgb Concent. 32.9 g/dl (32-36); Mean Platelet Volume 10.3 fl (7.5-11.0); Monocyte (Absolute #) 1.14 (0.0-1.3); Monocytes % 7.4 % (0.0-12.0); Neutrophil % 85.6 % (36.0-66.0); Platelet Count 236 K/mm3 (150-450); Red Blood Count 4.27 M/mm3 (4.1-5.6); Red Cell Distribution Width 14.3 % (11.5-14.0); White Blood Count 15.5 K/mm3 (4.0-10.5)
[2021-06-13 15:31] LABS: ALBUMIN 3.9 g/dL (3.5-5.0); ALKALINE PHOSPHATASE 80 U/L (38-126); AMYLASE 523 U/L (30-110); ANION GAP 12.4 MEQ/L (5-15); BLOOD UREA NITROGEN 14 mg/dL (9-20); CHLORIDE 100 mmol/L (98-107); Calcium 9.1 mg/dL (8.4-10.2); Carbon Dioxide 26 mmol/L (22-30); Creatinine 1 0.92 mg/dL (0.66-1.25); EST GLOMERULAR FILTRATION RATE > 60.0 ML/MIN; Glucose 286 mg/dL (74-106); Potassium 4.4 mmol/L (3.5-5.1); SGOT/AST 29 U/L (17-59); SGPT/ALT 24 U/L (0-50); SODIUM 134 mmol/L (137-145); Total Protein 6.7 g/dL (6.3-8.2)
[2021-06-13 16:21] LABS: LIPASE 10448 U/L (23-300)
--- NOTE | 2021-06-13 17:11 | XRAY ---
Indication: Abdomen pain and diarrhea. Multiple contiguous axial images obtained through the abdomen and pelvis using 80 cc Isovue 370 contrast. Comparison: June 06, 2021. Lung bases demonstrates minimal bilateral dependent atelectasis. No infiltrate or effusion. Heart not enlarged. Noncontrasted stomach and bowel loops remain nonobstructed again with normal appendix. There remains scattered colonic diverticulosis, fatty liver, a few splenic calcified granulomas, IVC filter, and previous cholecystectomy. Pancreas demonstrates new mild peripancreatic stranding favoring acute pancreatitis. No free fluid/air. Remaining liver, spleen, adrenal glands, kidneys, ureters, and bladder are unremarkable. Again minimal aortoiliac calcifications. No AAA or pathological retroperitoneal lymphadenopathy. Impression: 1. New CT findings favoring acute pancreatitis. No complications. 2. Again incidental colonic diverticulosis, fatty liver, and old granulomatous disease.
[2021-06-13] MEDS ORDERED: Zosyn 3.375 GM Vial 3.375 GM in Sodium Chloride 100ML MINI-BAG PLUS 100 ML IV ONE (17:19)
[2021-06-13] MEDS ORDERED: Zofran 4 MG/2 ML VIAL IV PRN (17:21)
[2021-06-13] MEDS ORDERED: Hydromorphone 1 mg/ml Injection IV PRN (17:21)
[2021-06-13] MEDS ORDERED: Zosyn 3.375 GM Vial IV ONE ×2 (17:23→17:24)
[2021-06-13] MEDS ORDERED: Sodium Chloride 100ML MINI-BAG PLUS 100 ML IV ONE (17:24)
[2021-06-13 18:15] LABS: INFLUENZA A NEGATIVE (NEGATIVE); INFLUENZA B NEGATIVE (NEGATIVE); RESPIRATORY SYNCTIAL VIRUS NEGATIVE (Negative); SARS-CoV-2 Xpert Express NEGATIVE (NEGATIVE)
[2021-06-13] MEDS: Sodium Chloride 0.9% 1000 ML 1,000 ML IV SCH (20:49)
[2021-06-13] MEDS ORDERED: ZOFRAN ODT 4 MG PO PRN (23:38)
[2021-06-14] MEDS ORDERED: Protonix 20MG Tablet PO ONE (00:24)
[2021-06-14] MEDS: ZOCOR 20MG PO SCH ×2 (00:55→22:22)
[2021-06-14] MEDS: Zestril 20 MG PO SCH ×2 (00:55→22:27)
[2021-06-14] MEDS: ECOTRIN 81 MG PO SCH ×2 (00:55→22:22)
[2021-06-14] MEDS: Protonix 40MG Tablet PO SCH ×2 (00:55→22:23)
[2021-06-14] MEDS: Klor Con 10 MEQ PO SCH ×2 (00:55→22:25)
[2021-06-14] MEDS: XARELTO 10 MG TABLET PO SCH ×2 (00:55→22:25)
[2021-06-14] MEDS: Toprol-Xl 25MG Tablets PO SCH ×2 (00:55→22:27)
[2021-06-14] MEDS: hydroDIURIL 25 MG PO SCH ×2 (00:55→22:26)
[2021-06-14] MEDS: Paxil 20 MG PO SCH ×3 (00:55→22:23)
[2021-06-14] MEDS: CLARITIN 10 MG PO SCH ×2 (00:55→22:22)
[2021-06-14] MEDS: zyPREXA 5MG TABLET PO SCH ×2 (00:55→22:22)
[2021-06-14 05:18] LABS: Absolute Neutrophil Ct (ANC) 8.67 (1.4-6.9); BASOPHIL % 0.2 % (0.0-0.4); Basophil (Absolute #) 0.02 (0-0.4); Eosinophil % 1.7 % (0.00-5.0); Eosinophil (Absolute #) 0.19 (0-0.5); Hematocrit 36.9 % (42-50); Hemoglobin 11.8 gm/dl (12.5-18.0); Lymphocyte (Absolute #) 1.25 (1.0-4.6); Lymphocytes % 11.1 % (24.0-44.0); Mean Cell Volume 93.7 fl (78-100); Mean Corpuscular Hemoglobin 29.9 pg (26-32); Mean Platelet Volume 10.2 fl (7.5-11.0); Monocyte (Absolute #) 1.09 (0.0-1.3); Monocytes % 9.7 % (0.0-12.0); Neutrophil % 77.3 % (36.0-66.0); Platelet Count 225 K/mm3 (150-450); Red Blood Count 3.94 M/mm3 (4.1-5.6); Red Cell Distribution Width 14.5 % (11.5-14.0); White Blood Count 11.2 K/mm3 (4.0-10.5)
[2021-06-14 05:48] LABS: ALBUMIN 3.8 g/dL (3.5-5.0); ALKALINE PHOSPHATASE 74 U/L (38-126); AMYLASE 409 U/L (30-110); ANION GAP 11.1 MEQ/L (5-15); BLOOD UREA NITROGEN 15 mg/dL (9-20); CHLORIDE 104 mmol/L (98-107); Calcium 8.8 mg/dL (8.4-10.2); Carbon Dioxide 23 mmol/L (22-30); Cholesterol 137 mg/dL (50-200); Creatinine 1 0.94 mg/dL (0.66-1.25); EST GLOMERULAR FILTRATION RATE > 60.0 ML/MIN; Glucose 160 mg/dL (74-106); HDL CHOLESTEROL 28 mg/dL (40-60); LDL, DIRECT 66 mg/dL (30-100); Potassium 3.4 mmol/L (3.5-5.1); Risk Ratio 4.8; SGOT/AST 23 U/L (17-59); SGPT/ALT 20 U/L (0-50); SODIUM 135 mmol/L (137-145); TRIGLYCERIDE 172 mg/dL (30-150); Total Protein 6.9 g/dL (6.3-8.2)
[2021-06-14 07:09] LABS: LIPASE 10459 U/L (23-300)
[2021-06-14] MEDS: Sodium Chloride 0.9% 1000 ML 1,000 ML IV SCH ×2 (08:39→16:32)
[2021-06-14] MEDS ORDERED: PROTONIX 40 MG IV IV SCH (10:00)
[2021-06-14] MEDS ORDERED: ENOXAPARIN SODIUM SQ SCH (10:00)
[2021-06-14] MEDS: Imdur 30 MG PO SCH (10:15)
[2021-06-14] MEDS: Aldactone 25 MG PO SCH (10:15)
[2021-06-14] MEDS ORDERED: K-LYTE 25 MEQ PO ONE (13:46)
--- NOTE | 2021-06-14 13:52 | PCM.HP ---
History of Present Illness - Chief Complaint Chief Complaint: ACUTE PANCREATITIS History of Present Illness: is a 55 year old male with a Hx pancreatitis, initial episode earlier this year. He is S/P cholecytectomy,remote. Has Hx drinking beer daily and quit with the 1st episode of Pancreatitis.He presented to ER a week ago with upper abd pain and symptoms worsened so her returned to ER -both visits his ETOH levels were negative.Patient states he drank alot 2 weeks ago. PMHx HTN,CA D,DM2,COPD. - Review of Systems Eyes: No Symptoms Ears, Nose, & Throat: No Symptoms Respiratory: No Symptoms Cardiac: No Symptoms Abdominal/Gastrointestinal: Abdominal Pain (left midlateral through to back), Nausea, Other (loose stool day of admit) Genitourinary Symptoms: Other (pain across mid back) Musculoskeletal: Back Pain Skin: No Symptoms Neurological: No Symptoms Psychological: Alcohol Abuse, Anxiety, Depression Endocrine: No Symptoms, Other (DM2 ) Hematologic/Lymphatic: Other (on anticoagulant remote Hx PE,DVT) Medications & Allergies Home Medications: Home Medication List Lisinopril 20 mg [Zestril 20 MG] 40 mg PO QHS 06/30/13 [History Confirmed 06/13/21] Omeprazole 20 MG [Prilosec 20 mg] 20 mg PO HS 01/23/15 [History Confirmed 06/13/21] Hydrochlorothiazide 25 mg [hydroDIURIL 25 MG] 25 mg PO HS 02/20/15 [Histor y Confirmed 06/13/21] Metoprolol Succinate 25 mg Xl* [Toprol-Xl 25MG Tablets] 25 mg PO QHS 09/18/17 [History Confirmed 06/13/21] Albuterol Sulfate [Ventolin] 2 puffs IH HS 05/23/19 [History Confirmed 06/13/21] Aspirin 81 mg PO HS 05/23/19 [History Confirmed 06/13/21] Atorvastatin Calcium 40 mg PO HS 05/23/19 [History Confirmed 06/13/21] Cetirizine HCl [Zyrtec] 10 mg PO HS 05/23/19 [History Confirmed 06/13/21] OLANZapine [Olanzapine] 10 mg PO HS 05/23/19 [History Confirmed 06/13/21] Rivaroxaban [Xarelto] 20 mg PO HS 04/28/20 [History Confirmed 06/13/21] Potassium Chloride [Klor-Con 8] 10 meq PO HS 10/28/20 [History Confirmed 06/13/21] PARoxetine HCL [Paroxetine HCl] 10 mg PO HS 01/21/21 [History Confirmed 06/13/21] Isosorbide Mononitrate 30 mg [Imdur 30 MG] 30 mg PO DAILY #30 tab 01/25/21 [Rx Confirmed 06/13/21] Lorazepam 0.5 mg [Ativan 0.5 MG] 0.5 mg PO Q6H PRN tablet 01/25/21 [Rx Confirmed 06/13/21] Spironolactone 25 mg [Aldactone 25 MG] 25 mg PO DAILY #30 tablet 01/25/21 [Rx Confirmed 06/13/21] PANTOPRAZOLE 40 mg Tablet [Protonix 40MG Tablet] 40 mg PO QAM #30 tab 06/06/21 [Rx Confirmed 06/13/21] ondansetron HCL [Zofran] 4 mg PO Q6H PRN #10 tablet 06/06/21 [Rx Confirmed 06/13/21] Metformin HCl 500 mg [Glucophage 500 MG] 1,000 mg PO HS 06/13/21 [History Confirmed 06/13/21] Allergies/Adverse Reactions: Allergies Allergy/AdvReac Type Severity Reaction Status Date / Time No Known Drug Allergies Allergy Verified 06/13/21 14:33 - Past Medical History Past Medical History: Yes Neurological History: Migraines ENT History: Glaucoma Cardiac History: Angina, Deep Vein Thrombosis Respiratory History: COPD, Pulmonary Embolism Endocrine Medical History: Diabetes Type II Musculoskelatal History: Arthritis GI Medical History: GERD History: No Pertinent History Pyscho-Social History: Anxiety Male Reproductive Disorders: No Pertinent History Comment: Difficulty hearing in andre ears - Past Surgical History Past Surgical History: Yes Neuro Surgical History: No Pertinent History Cardiac History: Cardiac Catheterization Respiratory Surgery: No Pertinent History GI Surgical History: Cholecystectomy, Hernia Repair Genitourinary Surgical Hx: No Pertinent History Musculskeletal Surgical Hx: No Pertinent History Male Surgical History: No Pertinent History Other Surgical History: eye surgery. samara filter - Social History Smoking Status: Current every day smoker How long have you smoked: 40 yrs Exposure to second hand smoke: Yes Alcohol: None Drug Use: none Significant Family History: no pertinent family hx - Physical Exam Vital Signs: Vital Signs - 24 hr Temp Pulse Resp BP Pulse Ox 06/14/21 12:00 20 06/14/21 08:00 96.2 F 64 19 103/64 91 L 06/14/21 06:32 98 06/14/21 04:00 98.3 F 62 18 125/73 95 06/14/21 00:00 98.7 F 73 18 133/80 94 L 06/13/21 20:49 97.9 F 66 20 137/79 95 06/13/21 18:57 67 20 109/84 98 06/13/21 17:16 67 20 109/84 96 06/13/21 16:31 97.1 F 75 20 109/84 98 06/13/21 15:30 97.1 F 73 20 113/64 98 06/13/21 14:27 97.1 F 79 18 134/73 98 General Appearance: no apparent distress (reclined in bedside chair , at bedside) Neurologic Exam: alert, 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, cooperative Eye Exam: eyes nml inspection Ears, Nose, Throat Exam: normal ENT inspection, TMs normal Neck Exam: normal inspection Respiratory Exam: normal breath sounds Cardiovascular Exam: regular rate/rhythm Back Exam: other (no CVA tenderness) Skin Exam: normal color, warm, dry Results - Labs Lab/Micro Results: Lab Results-Last 24 Hours 06/13/21 06/13/21 06/13/21 Range/Units 13:32 14:43 15:00 WBC 15.5 H (4.0-10.5) K/mm3 RBC 4.27 (4.1-5.6) M/mm3 Hgb 13.0 (12.5-18.0) gm/dl Hct 39.5 L (42-50) % MCV 92.5 (78-100) fl MCH 30.4 (26-32) pg MCHC 32.9 (32-36) g/dl RDW 14.3 H (11.5-14.0) % Plt Count 236 (150-450) K/mm3 MPV 10.3 (7.5-11.0) fl Gran % 85.6 H (36.0-66.0) % Eos # (Auto) 0.03 (0-0.5) Absolute Lymphs (auto) 1.03 (1.0-4.6) Absolute Monos (auto) 1.14 (0.0-1.3) Lymphocytes % 6.6 L (24.0-44.0) % Monocytes % 7.4 (0.0-12.0) % Eosinophils % 0.2 (0.00-5.0) % Basophils % 0.2 (0.0-0.4) % Absolute Granulocytes 13.27 H (1.4-6.9) Basophils # 0.03 (0-0.4) Sodium (137-145) mmol/L Potassium (3.5-5.1) mmol/L Chloride (98-107) mmol/L Carbon Dioxide (22-30) mmol/L Anion Gap (5-15) MEQ/L BUN (9-20) mg/dL Creatinine (0.66-1.25) mg/dL Estimated GFR ML/MIN Glucose (74-106) mg/dL Calcium (8.4-10.2) mg/dL Total Bilirubin (0.2-1.3) mg/dL AST (17-59) U/L ALT (0-50) U/L Alkaline Phosphatase (38-126) U/L Troponin I (0.000-0.034) ng/mL Serum Total Protein (6.3-8.2) g/dL Albumin (3.5-5.0) g/dL Triglycerides (30-150) mg/dL Cholesterol (50-200) mg/dL LDL Cholesterol (30-100) mg/dL HDL Cholesterol (40-60) mg/dL Heart Disease Risk Ratio Amylase (30-110) U/L Lipase (23-300) U/L Urine Color YELLOW (YELLOW) Urine Appearance CLEAR (CLEAR) Urine pH 5.0 (5-6) Ur Specific [place] 1.026 (1.005-1.025) Urine Protein NEGATIVE (Negative) Urine Ketones NEGATIVE (NEGATIVE) Urine Blood NEGATIVE (0-5) Jose/ul Urine Nitrite NEGATIVE (NEGATIVE) Urine Bilirubin NEGATIVE (NEGATIVE) Urine Urobilinogen NEGATIVE (0-1) mg/dL Ur Leukocyte Esterase NEGATIVE (NEGATIVE) Urine WBC (Auto) NONE (0-5) /HPF Urine RBC (Auto) NONE (0-2) /HPF U Epithel Cells (Auto) NONE (FEW) /HPF Urine Bacteria (Auto) NONE (NEGATIVE) /HPF Urine Mucus (Auto) SLIGHT (NEGATIVE) /HPF Urine Culture Reflexed NO (NO) Urine Glucose >=500 (NEGATIVE) mg/dL Ethyl Alcohol < 10 (0-10) mg/dL Influenza Type A Ag (NEGATIVE) Influenza Type B Ag (NEGATIVE) RSV (PCR) (Negative) SARS-CoV-2 (PCR) (NEGATIVE) 06/13/21 06/13/21 06/13/21 Range/Units 15:00 15:00 17:23 WBC (4.0-10.5) K/mm3 RBC (4.1-5.6) M/mm3 Hgb (12.5-18.0) gm/dl Hct (42-50) % MCV (78-100) fl MCH (26-32) pg MCHC (32-36) g/dl RDW (11.5-14.0) % Plt Count (150-450) K/mm3 MPV (7.5-11.0) fl Gran % (36.0-66.0) % Eos # (Auto) (0-0.5) Absolute Lymphs (auto) (1.0-4.6) Absolute Monos (auto) (0.0-1.3) Lymphocytes % (24.0-44.0) % Monocytes % (0.0-12.0) % Eosinophils % (0.00-5.0) % Basophils % (0.0-0.4) % Absolute Granulocytes (1.4-6.9) Basophils # (0-0.4) Sodium 134 L (137-145) mmol/L Potassium 4.4 (3.5-5.1) mmol/L Chloride 100 (98-107) mmol/L Carbon Dioxide 26 (22-30) mmol/L Anion Gap 12.4 (5-15) MEQ/L BUN 14 (9-20) mg/dL Creatinine 0.92 (0.66-1.25) mg/dL Estimated GFR > 60.0 ML/MIN Glucose 286 H (74-106) mg/dL Calcium 9.1 (8.4-10.2) mg/dL Total Bilirubin 0.70 (0.2-1.3) mg/dL AST 29 (17-59) U/L ALT 24 (0-50) U/L Alkaline Phosphatase 80 (38-126) U/L Troponin I < 0.012 (0.000-0.034) ng/mL Serum Total Protein 6.7 (6.3-8.2) g/dL Albumin 3.9 (3.5-5.0) g/dL Triglycerides (30-150) mg/dL Cholesterol (50-200) mg/dL LDL Cholesterol (30-100) mg/dL HDL Cholesterol (40-60) mg/dL Heart Disease Risk Ratio Amylase 523 H (30-110) U/L Lipase 46965 H (23-300) U/L Urine Color (YELLOW) Urine Appearance (CLEAR) Urine pH (5-6) Ur Specific [place] (1.005-1.025) Urine Protein (Negative) Urine Ketones (NEGATIVE) Urine Blood (0-5) Jose/ul Urine Nitrite (NEGATIVE) Urine Bilirubin (NEGATIVE) Urine Urobilinogen (0-1) mg/dL Ur Leukocyte Esterase (NEGATIVE) Urine WBC (Auto) (0-5) /HPF Urine RBC (Auto) (0-2) /HPF U Epithel Cells (Auto) (FEW) /HPF Urine Bacteria (Auto) (NEGATIVE) /HPF Urine Mucus (Auto) (NEGATIVE) /HPF Urine Culture Reflexed (NO) Urine Glucose (NEGATIVE) mg/dL Ethyl Alcohol (0-10) mg/dL Influenza Type A Ag NEGATIVE (NEGATIVE) Influenza Type B Ag NEGATIVE (NEGATIVE) RSV (PCR) NEGATIVE (Negative) SARS-CoV-2 (PCR) NEGATIVE (NEGATIVE) 06/13/21 06/13/21 06/14/21 Range/Units 17:34 22:15 01:30 WBC (4.0-10.5) K/mm3 RBC (4.1-5.6) M/mm3 Hgb (12.5-18.0) gm/dl Hct (42-50) % MCV (78-100) fl MCH (26-32) pg MCHC (32-36) g/dl RDW (11.5-14.0) % Plt Count (150-450) K/mm3 MPV (7.5-11.0) fl Gran % (36.0-66.0) % Eos # (Auto) (0-0.5) Absolute Lymphs (auto) (1.0-4.6) Absolute Monos (auto) (0.0-1.3) Lymphocytes % (24.0-44.0) % Monocytes % (0.0-12.0) % Eosinophils % (0.00-5.0) % Basophils % (0.0-0.4) % Absolute Granulocytes (1.4-6.9) Basophils # (0-0.4) Sodium (137-145) mmol/L Potassium (3.5-5.1) mmol/L Chloride (98-107) mmol/L Carbon Dioxide (22-30) mmol/L Anion Gap (5-15) MEQ/L BUN (9-20) mg/dL Creatinine (0.66-1.25) mg/dL Estimated GFR ML/MIN Glucose (74-106) mg/dL Calcium (8.4-10.2) mg/dL Total Bilirubin (0.2-1.3) mg/dL AST (17-59) U/L ALT (0-50) U/L Alkaline Phosphatase (38-126) U/L Troponin I < 0.012 < 0.012 < 0.012 (0.000-0.034) ng/mL Serum Total Protein (6.3-8.2) g/dL Albumin (3.5-5.0) g/dL Triglycerides (30-150) mg/dL Cholesterol (50-200) mg/dL LDL Cholesterol (30-100) mg/dL HDL Cholesterol (40-60) mg/dL Heart Disease Risk Ratio Amylase (30-110) U/L Lipase (23-300) U/L Urine Color (YELLOW) Urine Appearance (CLEAR) Urine pH (5-6) Ur Specific [place] (1.005-1.025) Urine Protein (Negative) Urine Ketones (NEGATIVE) Urine Blood (0-5) Jose/ul Urine Nitrite (NEGATIVE) Urine Bilirubin (NEGATIVE) Urine Urobilinogen (0-1) mg/dL Ur Leukocyte Esterase (NEGATIVE) Urine WBC (Auto) (0-5) /HPF Urine RBC (Auto) (0-2) /HPF U Epithel Cells (Auto) (FEW) /HPF Urine Bacteria (Auto) (NEGATIVE) /HPF Urine Mucus (Auto) (NEGATIVE) /HPF Urine Culture Reflexed (NO) Urine Glucose (NEGATIVE) mg/dL Ethyl Alcohol (0-10) mg/dL Influenza Type A Ag (NEGATIVE) Influenza Type B Ag (NEGATIVE) RSV (PCR) (Negative) SARS-CoV-2 (PCR) (NEGATIVE) 06/14/21 06/14/21 Range/Units 05:00 05:00 WBC 11.2 H (4.0-10.5) K/mm3 RBC 3.94 L (4.1-5.6) M/mm3 Hgb 11.8 L (12.5-18.0) gm/dl Hct 36.9 L (42-50) % MCV 93.7 (78-100) fl MCH 29.9 (26-32) pg MCHC 32.0 (32-36) g/dl RDW 14.5 H (11.5-14.0) % Plt Count 225 (150-450) K/mm3 MPV 10.2 (7.5-11.0) fl Gran % 77.3 H (36.0-66.0) % Eos # (Auto) 0.19 (0-0.5) Absolute Lymphs (auto) 1.25 (1.0-4.6) Absolute Monos (auto) 1.09 (0.0-1.3) Lymphocytes % 11.1 L (24.0-44.0) % Monocytes % 9.7 (0.0-12.0) % Eosinophils % 1.7 (0.00-5.0) % Basophils % 0.2 (0.0-0.4) % Absolute Granulocytes 8.67 H (1.4-6.9) Basophils # 0.02 (0-0.4) Sodium 135 L (137-145) mmol/L Potassium 3.4 L D (3.5-5.1) mmol/L Chloride 104 (98-107) mmol/L Carbon Dioxide 23 (22-30) mmol/L Anion Gap 11.1 (5-15) MEQ/L BUN 15 (9-20) mg/dL Creatinine 0.94 (0.66-1.25) mg/dL Estimated GFR > 60.0 ML/MIN Glucose 160 H (74-106) mg/dL Calcium 8.8 (8.4-10.2) mg/dL Total Bilirubin 0.80 (0.2-1.3) mg/dL AST 23 (17-59) U/L ALT 20 (0-50) U/L Alkaline Phosphatase 74 (38-126) U/L Troponin I (0.000-0.034) ng/mL Serum Total Protein 6.9 (6.3-8.2) g/dL Albumin 3.8 (3.5-5.0) g/dL Triglycerides 172 H (30-150) mg/dL Cholesterol 137 (50-200) mg/dL LDL Cholesterol 66 (30-100) mg/dL HDL Cholesterol 28 L (40-60) mg/dL Heart Disease Risk Ratio 4.8 Amylase 409 H (30-110) U/L Lipase 26438 H (23-300) U/L Urine Color (YELLOW) Urine Appearance (CLEAR) Urine pH (5-6) Ur Specific [place] (1.005-1.025) Urine Protein (Negative) Urine Ketones (NEGATIVE) Urine Blood (0-5) Jose/ul Urine Nitrite (NEGATIVE) Urine Bilirubin (NEGATIVE) Urine Urobilinogen (0-1) mg/dL Ur Leukocyte Esterase (NEGATIVE) Urine WBC (Auto) (0-5) /HPF Urine RBC (Auto) (0-2) /HPF U Epithel Cells (Auto) (FEW) /HPF Urine Bacteria (Auto) (NEGATIVE) /HPF Urine Mucus (Auto) (NEGATIVE) /HPF Urine Culture Reflexed (NO) Urine Glucose (NEGATIVE) mg/dL Ethyl Alcohol (0-10) mg/dL Influenza Type A Ag (NEGATIVE) Influenza Type B Ag (NEGATIVE) RSV (PCR) (Negative) SARS-CoV-2 (PCR) (NEGATIVE) - Radiology Impressions Radiology Exams & Impressions: Radiology Procedures Category Date Time Status ABDOMEN AND PELVIS W CONTRAST [CT] Stat Exams 06/13/21 16:02 Completed Assessment/Plan (1) Pancreatitis Current Visit: Yes Status: Acute Qualifiers: Chronicity: acute Pancreatitis type: alcohol induced Assessment & Plan: minimal pain today,is thirsty Code(s): K85.90 - ACUTE PANCREATITIS WITHOUT NECROSIS OR INFECTION, UNSP (2) DM2 (diabetes mellitus, type 2) Current Visit: No Status: Chronic Qualifiers: Diabetes 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
[2021-06-14] MEDS: Zosyn 3.375 GM Vial 3.375 GM in Sodium Chloride 100ML MINI-BAG PLUS 100 ML IV SCH ×2 (14:29→20:31)
[2021-06-14] MEDS ORDERED: K-LYTE 25 MEQ ONE (16:42)
[2021-06-14] MEDS: VENTOLIN COMMON CANISTER IH SCH ×2 (18:15→18:16)
[2021-06-14] MEDS: HOLD METFORMIN PRODUCTS FOR 48 HOURS MC SCH ×2 (20:32→22:28)
[2021-06-14] MEDS ORDERED: Zosyn 3.375 GM Vial 3.375 GM in Sodium Chloride 100ML MINI-BAG PLUS 100 ML IV SCH (22:00)
[2021-06-15] MEDS: Sodium Chloride 0.9% 1000 ML 1,000 ML IV SCH ×3 (00:40→14:13)
[2021-06-15] MEDS: Zosyn 3.375 GM Vial 3.375 GM in Sodium Chloride 100ML MINI-BAG PLUS 100 ML IV SCH ×4 (03:59→21:02)
[2021-06-15 05:51] LABS: Absolute Neutrophil Ct (ANC) 5.05 (1.4-6.9); BASOPHIL % 0.1 % (0.0-0.4); Basophil (Absolute #) 0.01 (0-0.4); Eosinophil % 2.4 % (0.00-5.0); Hematocrit 36.7 % (42-50); Hemoglobin 11.4 gm/dl (12.5-18.0); Lymphocyte (Absolute #) 1.89 (1.0-4.6); Lymphocytes % 23.1 % (24.0-44.0); Mean Cell Volume 95.8 fl (78-100); Mean Corpuscular Hemoglobin 29.8 pg (26-32); Mean Corpuscular Hgb Concent. 31.1 g/dl (32-36); Mean Platelet Volume 10.5 fl (7.5-11.0); Monocyte (Absolute #) 1.02 (0.0-1.3); Monocytes % 12.5 % (0.0-12.0); Neutrophil % 61.9 % (36.0-66.0); Platelet Count 228 K/mm3 (150-450); Red Blood Count 3.83 M/mm3 (4.1-5.6); Red Cell Distribution Width 14.4 % (11.5-14.0); White Blood Count 8.2 K/mm3 (4.0-10.5)
[2021-06-15 06:23] LABS: ALBUMIN 3.6 g/dL (3.5-5.0); ALKALINE PHOSPHATASE 70 U/L (38-126); AMYLASE 260 U/L (30-110); ANION GAP 10.9 MEQ/L (5-15); BLOOD UREA NITROGEN 13 mg/dL (9-20); CHLORIDE 107 mmol/L (98-107); Calcium 8.8 mg/dL (8.4-10.2); Carbon Dioxide 24 mmol/L (22-30); Creatinine 1 1.05 mg/dL (0.66-1.25); EST GLOMERULAR FILTRATION RATE > 60.0 ML/MIN; Glucose 144 mg/dL (74-106); Potassium 3.6 mmol/L (3.5-5.1); SGOT/AST 24 U/L (17-59); SGPT/ALT 17 U/L (0-50); SODIUM 139 mmol/L (137-145); Total Protein 6.7 g/dL (6.3-8.2)
[2021-06-15 06:48] LABS: LIPASE 7629 U/L (23-300)
[2021-06-15] MEDS: Imdur 30 MG PO SCH (09:33)
[2021-06-15] MEDS: Aldactone 25 MG PO SCH (09:33)
[2021-06-15] MEDS: HUMALOG SQ PRN ×2 (12:21→22:03)
[2021-06-15] MEDS: VENTOLIN COMMON CANISTER IH SCH (18:19)
[2021-06-15] MEDS: hydroDIURIL 25 MG PO SCH (21:00)
[2021-06-15] MEDS: ECOTRIN 81 MG PO SCH (21:00)
[2021-06-15] MEDS: Klor Con 10 MEQ PO SCH (21:00)
[2021-06-15] MEDS: CLARITIN 10 MG PO SCH (21:00)
[2021-06-15] MEDS: ZOCOR 20MG PO SCH (21:01)
[2021-06-15] MEDS: XARELTO 10 MG TABLET PO SCH (21:01)
[2021-06-15] MEDS: Protonix 40MG Tablet PO SCH (21:01)
[2021-06-15] MEDS: Toprol-Xl 25MG Tablets PO SCH (21:01)
[2021-06-15] MEDS: Paxil 20 MG PO SCH (21:01)
[2021-06-15] MEDS: Zestril 20 MG PO SCH (21:01)
[2021-06-15] MEDS: zyPREXA 5MG TABLET PO SCH (21:02)
[2021-06-16] MEDS: Sodium Chloride 0.9% 1000 ML 1,000 ML IV SCH ×3 (01:18→23:50)
[2021-06-16] MEDS: Zosyn 3.375 GM Vial 3.375 GM in Sodium Chloride 100ML MINI-BAG PLUS 100 ML IV SCH ×4 (03:08→22:13)
[2021-06-16 06:28] LABS: ALBUMIN 3.3 g/dL (3.5-5.0); ALKALINE PHOSPHATASE 72 U/L (38-126); AMYLASE 178 U/L (30-110); BLOOD UREA NITROGEN 11 mg/dL (9-20); CHLORIDE 109 mmol/L (98-107); Calcium 8.8 mg/dL (8.4-10.2); Carbon Dioxide 23 mmol/L (22-30); Creatinine 1 0.94 mg/dL (0.66-1.25); EST GLOMERULAR FILTRATION RATE > 60.0 ML/MIN; Glucose 146 mg/dL (74-106); Potassium 3.8 mmol/L (3.5-5.1); SGOT/AST 27 U/L (17-59); SGPT/ALT 19 U/L (0-50); SODIUM 140 mmol/L (137-145); Total Protein 6.1 g/dL (6.3-8.2)
[2021-06-16 06:29] LABS: Absolute Neutrophil Ct (ANC) 3.81 (1.4-6.9); BASOPHIL % 0.4 % (0.0-0.4); Basophil (Absolute #) 0.03 (0-0.4); Eosinophil (Absolute #) 0.21 (0-0.5); Hematocrit 36.5 % (42-50); Hemoglobin 11.8 gm/dl (12.5-18.0); Lymphocyte (Absolute #) 2.02 (1.0-4.6); Lymphocytes % 29.3 % (24.0-44.0); Mean Cell Volume 94.1 fl (78-100); Mean Corpuscular Hemoglobin 30.4 pg (26-32); Mean Corpuscular Hgb Concent. 32.3 g/dl (32-36); Mean Platelet Volume 10.5 fl (7.5-11.0); Monocyte (Absolute #) 0.82 (0.0-1.3); Monocytes % 11.9 % (0.0-12.0); Neutrophil % 55.4 % (36.0-66.0); Platelet Count 249 K/mm3 (150-450); Red Blood Count 3.88 M/mm3 (4.1-5.6); Red Cell Distribution Width 14.2 % (11.5-14.0); White Blood Count 6.9 K/mm3 (4.0-10.5)
[2021-06-16 06:46] LABS: LIPASE 4625 U/L (23-300)
[2021-06-16] MEDS: Ativan 0.5 MG PO PRN (10:25)
[2021-06-16] MEDS: Aldactone 25 MG PO SCH (10:26)
[2021-06-16] MEDS: Imdur 30 MG PO SCH (10:26)
[2021-06-16] MEDS: VENTOLIN COMMON CANISTER IH SCH (18:50)
[2021-06-16] MEDS ORDERED: Glucophage 500 MG PO SCH (22:00)
[2021-06-16] MEDS: Zestril 20 MG PO SCH (22:10)
[2021-06-16] MEDS: ZOCOR 20MG PO SCH (22:10)
[2021-06-16] MEDS: zyPREXA 5MG TABLET PO SCH (22:10)
[2021-06-16] MEDS: Paxil 20 MG PO SCH (22:11)
[2021-06-16] MEDS: CLARITIN 10 MG PO SCH (22:11)
[2021-06-16] MEDS: XARELTO 10 MG TABLET PO SCH (22:11)
[2021-06-16] MEDS: Protonix 40MG Tablet PO SCH (22:12)
[2021-06-16] MEDS: Toprol-Xl 25MG Tablets PO SCH (22:12)
[2021-06-16] MEDS: Klor Con 10 MEQ PO SCH (22:12)
[2021-06-16] MEDS: ECOTRIN 81 MG PO SCH (22:12)
[2021-06-16] MEDS: hydroDIURIL 25 MG PO SCH (22:13)
[2021-06-17] MEDS: Zosyn 3.375 GM Vial 3.375 GM in Sodium Chloride 100ML MINI-BAG PLUS 100 ML IV SCH ×2 (04:21→09:46)
[2021-06-17 05:57] LABS: BASOPHIL % 0.3 % (0.0-0.4); Basophil (Absolute #) 0.02 (0-0.4); Eosinophil (Absolute #) 0.22 (0-0.5); Hematocrit 36.5 % (42-50); Hemoglobin 11.7 gm/dl (12.5-18.0); Lymphocyte (Absolute #) 2.08 (1.0-4.6); Mean Cell Volume 93.8 fl (78-100); Mean Corpuscular Hemoglobin 30.1 pg (26-32); Mean Corpuscular Hgb Concent. 32.1 g/dl (32-36); Mean Platelet Volume 10.5 fl (7.5-11.0); Monocyte (Absolute #) 0.72 (0.0-1.3); Monocytes % 9.7 % (0.0-12.0); Platelet Count 236 K/mm3 (150-450); Red Blood Count 3.89 M/mm3 (4.1-5.6); Red Cell Distribution Width 13.8 % (11.5-14.0); White Blood Count 7.4 K/mm3 (4.0-10.5)
[2021-06-17 06:40] LABS: ALBUMIN 3.6 g/dL (3.5-5.0); ALKALINE PHOSPHATASE 71 U/L (38-126); ANION GAP 12.3 MEQ/L (5-15); BLOOD UREA NITROGEN 7 mg/dL (9-20); CHLORIDE 109 mmol/L (98-107); Calcium 8.9 mg/dL (8.4-10.2); Carbon Dioxide 22 mmol/L (22-30); Creatinine 1 0.95 mg/dL (0.66-1.25); EST GLOMERULAR FILTRATION RATE > 60.0 ML/MIN; Glucose 141 mg/dL (74-106); Potassium 3.7 mmol/L (3.5-5.1); SGOT/AST 35 U/L (17-59); SGPT/ALT 23 U/L (0-50); SODIUM 139 mmol/L (137-145); Total Protein 6.8 g/dL (6.3-8.2)
[2021-06-17 07:11] LABS: AMYLASE 130 U/L (30-110)
[2021-06-17 07:52] LABS: LIPASE 2776 U/L (23-300)
[2021-06-17] MEDS: Imdur 30 MG PO SCH (09:45)
[2021-06-17] MEDS: Aldactone 25 MG PO SCH (09:45)
[2021-06-17] MEDS: Ativan 0.5 MG PO PRN (09:49)
--- NOTE | 2021-06-17 11:07 | PCM.DS ---
Discharge Summary Date of Admission: 06/14/21 08:00 Date of Discharge: 06/17/2021 Admitting Physician: RAJINDER HUTCHINSON DO Primary Care Provider: RAJINDER HUTCHINSON DO Allergies Allergies No Known Drug Allergies Allergy (Verified 06/13/21 14:33) Hospital Summary - Hospital Course Hospital Course: Patient is a 55yr old male patient of mine . He was admitted through ER with acute pancreatitis since binge drinking approx 2 weeks ago. WBC was 15,500 on ad mission now 7,400 and was treated with IV Zosyn. Amylase and lipase were 523 and 10,448 on admission and now 130 and 2,776. He has tolerated clear liquids and toast today. He is very ready to go home. Has been up and showered without help yesterday. He will need te revisit Psychiatrist for chronic atypical depression and anxiety.He sits all day with little motivation,chronically. He does take his meds as prescribed and monitors sugars. After 1st episode of pancreatitis earlier this year,he quit drinking (was drinking beer daily) Is aware that even an occasional binge will set off his pancreatitis. He has had loose stool and will go home on Cholysteiramine, is S/P cholecystectomy -remote. is supportive. I will follow with him in 1 week . Diet will continue on veg,fruit and startch for 2 days then may advance as tolerated. - Vitals & Intake/Output Vital Signs: Vital Signs Temperature 95.9 F 06/17/21 08:00 Pulse Rate 48 L 06/17/21 08:00 Respiratory Rate 19 06/17/21 08:00 Blood Pressure 121/74 06/17/21 08:00 O2 Sat by Pulse Oximetry 93 L 06/17/21 08:00 Intake & Output: Intake & Output 06/14/21 06/15/21 06/16/21 06/17/21 11:59 11:59 11:59 11:59 Intake Total 10 6107 7238 3823 Balance 10 6107 7238 3823 Weight 116 kg 116 kg - Lab Result Diagrams: 06/17/21 05:20 06/17/21 05:20 Lab Results-Last 24 Hrs: Lab Results-Last 24 Hours 06/16/21 06/16/21 06/16/21 Range/Units 11:30 16:23 22:18 WBC (4.0-10.5) K/mm3 RBC (4.1-5.6) M/mm3 Hgb (12.5-18.0) gm/dl Hct (42-50) % MCV (78-100) fl MCH (26-32) pg MCHC (32-36) g/dl RDW (11.5-14.0) % Plt Count (150-450) K/mm3 MPV (7.5-11.0) fl Gran % (36.0-66.0) % Eos # (Auto) (0-0.5) Absolute Lymphs (auto) (1.0-4.6) Absolute Monos (auto) (0.0-1.3) Lymphocytes % (24.0-44.0) % Monocytes % (0.0-12.0) % Eosinophils % (0.00-5.0) % Basophils % (0.0-0.4) % Absolute Granulocytes (1.4-6.9) Basophils # (0-0.4) Sodium (137-145) mmol/L Potassium (3.5-5.1) mmol/L Chloride (98-107) mmol/L Carbon Dioxide (22-30) mmol/L Anion Gap (5-15) MEQ/L BUN (9-20) mg/dL Creatinine (0.66-1.25) mg/dL Estimated GFR ML/MIN Glucose (74-106) mg/dL POC Glucometer 204 H 180 H 152 H (74 to 106) mg/dL Calcium (8.4-10.2) mg/dL Total Bilirubin (0.2-1.3) mg/dL AST (17-59) U/L ALT (0-50) U/L Alkaline Phosphatase (38-126) U/L Serum Total Protein (6.3-8.2) g/dL Albumin (3.5-5.0) g/dL Amylase (30-110) U/L Lipase (23-300) U/L 06/17/21 06/17/21 06/17/21 Range/Units 05:20 05:20 05:20 WBC 7.4 (4.0-10.5) K/mm3 RBC 3.89 L (4.1-5.6) M/mm3 Hgb 11.7 L (12.5-18.0) gm/dl Hct 36.5 L (42-50) % MCV 93.8 (78-100) fl MCH 30.1 (26-32) pg MCHC 32.1 (32-36) g/dl RDW 13.8 (11.5-14.0) % Plt Count 236 (150-450) K/mm3 MPV 10.5 (7.5-11.0) fl Gran % 59.0 (36.0-66.0) % Eos # (Auto) 0.22 (0-0.5) Absolute Lymphs (auto) 2.08 (1.0-4.6) Absolute Monos (auto) 0.72 (0.0-1.3) Lymphocytes % 28.0 (24.0-44.0) % Monocytes % 9.7 (0.0-12.0) % Eosinophils % 3.0 (0.00-5.0) % Basophils % 0.3 (0.0-0.4) % Absolute Granulocytes 4.40 (1.4-6.9) Basophils # 0.02 (0-0.4) Sodium 139 (137-145) mmol/L Potassium 3.7 (3.5-5.1) mmol/L Chloride 109 H (98-107) mmol/L Carbon Dioxide 22 (22-30) mmol/L Anion Gap 12.3 (5-15) MEQ/L BUN 7 L (9-20) mg/dL Creatinine 0.95 (0.66-1.25) mg/dL Estimated GFR > 60.0 ML/MIN Glucose 141 H (74-106) mg/dL POC Glucometer (74 to 106) mg/dL Calcium 8.9 (8.4-10.2) mg/dL Total Bilirubin 0.60 (0.2-1.3) mg/dL AST 35 (17-59) U/L ALT 23 (0-50) U/L Alkaline Phosphatase 71 (38-126) U/L Serum Total Protein 6.8 (6.3-8.2) g/dL Albumin 3.6 (3.5-5.0) g/dL Amylase 130 H (30-110) U/L Lipase 2776 H (23-300) U/L 12/24/21 Range/Units 07:19 WBC (4.0-10.5) K/mm3 RBC (4.1-5.6) M/mm3 Hgb (12.5-18.0) gm/dl Hct (42-50) % MCV (78-100) fl MCH (26-32) pg MCHC (32-36) g/dl RDW (11.5-14.0) % Plt Count (150-450) K/mm3 MPV (7.5-11.0) fl Gran % (36.0-66.0) % Eos # (Auto) (0-0.5) Absolute Lymphs (auto) (1.0-4.6) Absolute Monos (auto) (0.0-1.3) Lymphocytes % (24.0-44.0) % Monocytes % (0.0-12.0) % Eosinophils % (0.00-5.0) % Basophils % (0.0-0.4) % Absolute Granulocytes (1.4-6.9) Basophils # (0-0.4) Sodium (137-145) mmol/L Potassium (3.5-5.1) mmol/L Chloride (98-107) mmol/L Carbon Dioxide (22-30) mmol/L Anion Gap (5-15) MEQ/L BUN (9-20) mg/dL Creatinine (0.66-1.25) mg/dL Estimated GFR ML/MIN Glucose (74-106) mg/dL POC Glucometer 152 H (74 to 106) mg/dL Calcium (8.4-10.2) mg/dL Total Bilirubin (0.2-1.3) mg/dL AST (17-59) U/L ALT (0-50) U/L Alkaline Phosphatase (38-126) U/L Serum Total Protein (6.3-8.2) g/dL Albumin (3.5-5.0) g/dL Amylase (30-110) U/L Lipase (23-300) U/L Micro Results-Entire Visit: Accuchecks Date 06/17/21 Time 07:20 - Procedures and Test Procedures and Tests throughout Hospitalization: Therapy Orders & Screens 06/14/21 18:14 Respiratory Therapy Assessment DAILY Comment: Diagnosis: ACUTE PANCREATITIS 06/14/21 21:00 BiPap/CPAP ROUTINE Comment: HOME UNIT, HOME SETTINGS Diagnosis: ACUTE PANCREATITIS Discharge Exam General Appearance: no apparent distress Neurologic Exam: alert, 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, normal mood/affect (is more interactive and good eye contact today) Eye Exam: eyes nml inspection Ears, Nose, Throat Exam: normal ENT inspection Neck Exam: normal inspection Respiratory Exam: normal breath sounds Cardiovascular Exam: regular rate/rhythm Gastrointestinal/Abdomen Exam: soft, normal bowel sounds (nontender no guarding), distention (mild) Back Exam: normal inspection Extremity Exam: other (no pitting edema) Final Diagnosis/Problem List - Final Discharge Diagnosis/Problem (1) Pancreatitis Current Visit: Yes Status: Acute Assessment & Plan: improved Code(s): K85.90 - ACUTE PANCREATITIS WITHOUT NECROSIS OR INFECTION, UNSP (2) DM2 (diabetes mellitus, type 2) Current Visit: No Status: Chronic (3) CAD (coronary artery disease) Current Visit: Yes Status: Chronic Assessment & Plan: no chest pain this visit Code(s): I25.10 - ATHSCL HEART DISEASE OF [place] CORONARY ARTERY W/O ANG PCTRS (4) Lethargy Current Visit: Yes Status: Chronic Assessment & Plan: testing testosterone and cortisol and TSH Code(s): R53.83 - OTHER FATIGUE (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 Code(s): F32.89 - OTHER SPECIFIED DEPRESSIVE EPISODES - Discharge Disposition: Home, Self-Care Condition: Good Prescriptions: New Cholestyramine Light 4 gm [QUESTRAN Light 4 GM Packet] 0 gm PO TIDAC #100 packet Continue Lisinopril 20 mg [Zestril 20 MG] 40 mg PO QHS Omeprazole 20 MG [Prilosec 20 mg] 20 mg PO HS Hydrochlorothiazide 25 mg [hydroDIURIL 25 MG] 25 mg PO HS Metoprolol Succinate 25 mg Xl* [Toprol-Xl 25MG Tablets] 25 mg PO QHS Albuterol Sulfate [Ventolin] 2 puffs IH HS Cetirizine HCl [Zyrtec] 10 mg PO HS Atorvastatin Calcium 40 mg PO HS Aspirin 81 mg PO HS OLANZapine [Olanzapine] 10 mg PO HS Rivaroxaban [Xarelto] 20 mg PO HS Potassium Chloride [Klor-Con 8] 10 meq PO HS PARoxetine HCL [Paroxetine HCl] 10 mg PO HS Spironolactone 25 mg [Aldactone 25 MG] 25 mg PO DAILY #30 tablet Isosorbide Mononitrate 30 mg [Imdur 30 MG] 30 mg PO DAILY #30 tab Lorazepam 0.5 mg [Ativan 0.5 MG] 0.5 mg PO Q6H PRN tablet PRN Reason: Anxiety PANTOPRAZOLE 40 mg Tablet [Protonix 40MG Tablet] 40 mg PO QAM #30 tab ondansetron HCL [Zofran] 4 mg PO Q6H PRN #10 tablet PRN Reason: Nausea/Vomiting Metformin HCl 500 mg [Glucophage 500 MG] 1,000 mg PO HS Instructions: Low Cholesterol, Saturated Fat, and Trans Fat Diet , Pancreatitis (DC) Additional Instructions: see notes in hospital course,diet slow advace discussed with patient. See Dr Hutchinson in 1 week.
[2021-06-17 14:44] VITALS: BP 139/86; PULSE 70; O2SAT 96
== END 2021-06-17 13:30 | disposition home or self-care (01) | DRG 440 ==
LOC: ED 14:07 → MED SURG 20:14 → OBSVTOIN 06-14 08:00
PROVIDERS: ADMIT Family Medicine; ATTEND Family Medicine
DX: K85.90 Acute pancreatitis without necrosis or infection, unspecified (principal); E11.9 Type 2 diabetes mellitus without complications; I25.10 Atherosclerotic heart disease of native coronary artery without angina pectoris; R53.83 Other fatigue; I10 Essential (primary) hypertension; J44.9 Chronic obstructive pulmonary disease, unspecified; F32.89 Other specified depressive episodes; F41.9 Anxiety disorder, unspecified; F10.10 Alcohol abuse, uncomplicated; Z79.899 Other long term (current) drug therapy; Z79.01 Long term (current) use of anticoagulants; Z20.828 Contact with and (suspected) exposure to other viral communicable diseases
CPT/HCPCS: 0241U; 36415; 74177; 80053; 80061; 81001; 82150; 82533; 82947; 83690; 83721; 84402; 84403; 84443; 84484; 85025; 94640; 94760; 96372; 96374; 99285; G0378; G0480; 80307; J1817; J1885; A9270-GY

== ENCOUNTER 2022-03-01 09:11 | Day surgery (SDC) | payer MEDICARE ==
[2013-03-14 03:32] VITALS: BP 128/88
== END 2022-03-01 09:45 ==
LOC: SDC-PAIN 09:11
PROVIDERS: ATTEND Psychiatry & Neurology Pain Medicine
DX: Z53.8 Procedure and treatment not carried out for other reasons (principal); E11.9 Type 2 diabetes mellitus without complications
CPT/HCPCS: 82947

== ENCOUNTER 2022-11-15 21:51 | Emergency (ER) | payer MEDICARE ==
[2022-11-15 22:08] VITALS: O2SAT 94
[2022-11-15] MEDS ORDERED: Adacel Vial IM ONE ×2 (22:17→22:20)
--- NOTE | 2022-11-15 22:29 | ERPHSYRPT ---
- History of Present Illness Time Seen by Provider: 11/15/22 22:06 Source: patient Exam Limitations: no limitations Patient Subjective Stated Complaint: pt states he shot himself with a nail gun. pt states that he need a tdap shot Triage Nursing Assessment: pt ambulated into the er; pt is axo x4; c/o finger injury; pt has puncture wound to left thumb; wound is dry, no discharge present; strong left radial pulse; good cap refill to left hand; no respiratory distress; skin PDW; vital wnl Physician History: 57 years old male with multiple medical problems presented to the ER with chief complaint of superficial puncture wound to his skin of left thumb base with a nail gun he was working with earlier today. Denies any pain, bleeding, has a superficial skin break. Intact range of motion of thumb. Patient wants tetanus shot. Timing/Duration: today Location: hands Associated Symptoms: denies symptoms Allergies/Adverse Reactions: No Known Drug Allergies Allergy (Verified 11/15/22 21:57) Home Medications: Lisinopril 20 mg [Zestril 20 MG] 40 mg PO QHS 06/30/13 [History] Omeprazole 20 MG [Prilosec 20 mg] 20 mg PO HS 01/23/15 [History] Hydrochlorothiazide 25 mg [hydroDIURIL 25 MG] 25 mg PO HS 02/20/15 [History] Metoprolol Succinate 25 mg Xl* [Toprol-Xl 25MG Tablets] 25 mg PO QHS 09/18/17 [History] Albuterol Sulfate [Ventolin] 2 puffs IH HS 05/23/19 [History] Aspirin 81 mg PO HS 05/23/19 [History] Atorvastatin Calcium 40 mg PO HS 05/23/19 [History] Cetirizine HCl [Zyrtec] 10 mg PO HS 05/23/19 [History] OLANZapine [Olanzapine] 10 mg PO HS 05/23/19 [History] Rivaroxaban [Xarelto] 20 mg PO HS 04/28/20 [History] Potassium Chloride [Klor-Con 8] 10 meq PO HS 10/28/20 [History] PARoxetine HCL [Paroxetine HCl] 10 mg PO HS 01/21/21 [History] Metformin HCl 500 mg [Glucophage 500 MG] 1,000 mg PO HS 06/13/21 [History] Hx Tetanus, Diphtheria Vaccination/Date Given: No Hx Influenza Vaccination/Date Given: Yes Hx Pneumococcal Vaccination/Date Given: No Travel Risk - International Travel Have you traveled outside of the country in past 3 weeks: No - Coronavirus Screening Are you exhibiting any of the following symptoms?: No Close contact with a COVID-19 positive Pt in past 14-21 Days: No - Vaccine Status Have you recieved a Covid-19 vaccination: Yes 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 - Vaccination Dates Date of 2cond Vaccination (if applicable): - Review of Systems Constitutional: No Symptoms Eyes: No Symptoms Ears, Nose, & Throat: No Symptoms Respiratory: No Symptoms Cardiac: No Symptoms Genitourinary Symptoms: No Symptoms Musculoskeletal: Injury Skin: Skin Lesions Neurological: No Symptoms - Past Medical History Pertinent Past Medical History: Yes Neurological History: Migraines ENT History: Glaucoma Cardiac History: Angina, Deep Vein Thrombosis Respiratory History: COPD, Pulmonary Embolism Endocrine Medical History: Diabetes Type II Musculoskeletal History: Arthritis GI Medical History: GERD History: No Pertinent History Psycho-Social History: Anxiety Male Reproductive Disorders: No Pertinent History Other Medical History: 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 [facility] - Social History Smoking Status: Current every day smoker How long have you smoked: 40 yrs Exposure to second hand smoke: Yes Drug Use: none Patient Lives Alone: No Significant Family History: no pertinent family hx - Nursing Vital Signs Nursing Vital Signs: Initial Vital Signs Temperature 96.5 F 11/15/22 22:00 Pulse Rate 95 H 11/15/22 22:00 Respiratory Rate 18 11/15/22 22:00 Blood Pressure 119/73 11/15/22 22:00 O2 Sat by Pulse Oximetry 94 L 11/15/22 22:00 Pain Scale Pain Intensity 0 - Physical Exam General Appearance: no apparent distress Eye Exam: PERRL/EOMI Neck Exam: normal inspection, full range of motion Respiratory Exam: normal breath sounds, lungs clear Cardiovascular Exam: regular rate/rhythm, normal heart sounds Extremity Exam: normal range of motion, pelvis stable Neurologic Exam: alert, 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, cooperative Skin Exam: normal color, other (Small puncture wound left hand at first metacarpophalangeal joint area with intact range of motion of joint.) SpO2 Interpretation: normal SpO2: 94 O2 Delivery: Room Air Ordered Tests: Medication Summary Discontinued Medications Generic Name Dose Route Start Last Admin Trade Name Janie PRN Reason Stop Dose Admin Diphtheria/Tetanus/Acell Pertussis 0.5 ml 11/15/22 22:17 11/15/22 22:21 Tdap --Diph,Pertuss(Acell),Tet Vac/Pf 0.5 Ml Vial IM 11/15/22 22:18 0.5 ml .ONCE ONE Administration Diphtheria/Tetanus/Acell Pertussis Confirm 11/15/22 22:20 Tdap --Diph,Pertuss(Acell),Tet Vac/Pf 0.5 Ml Vial Administered 11/15/22 22:21 Dose 0.5 ml IM .STK-MED ONE - Progress Progress: unchanged Progress Note: 11/15/22 22:28 57 years old male with multiple medical problems presented to the ER with chief complaint of superficial puncture wound to his skin of left thumb base with a nail gun he was working with earlier today. Denies any pain, bleeding, has a superficial skin break. Intact range of motion of thumb. Patient wants tetanus shot. Has no signs of infection. Nontender. Tetanus was updated and recommended outpatient follow-up. Discussed signs symptoms of infection needing return which he seems understanding. Stable for discharge. Counseled pt/family regarding: diagnosis, need for follow-up Medical Desision Making - Diagnostic Testing Diagnostic test were ordered, analyzed, and reviewed by me: No - Risk of complications Minimal Risk: Minimal risk of morbidity - Departure Departure Disposition: Home Clinical Impression: Puncture wound of thumb Condition: Stable Critical Care Time: No Referrals: RAJINDER PRINCE DO [Primary Care Provider] - Follow up with PCP 2 days Instructions: Wound Care (DC), Taking Care of Cuts, Scrapes, and Puncture Wounds Additional Instructions: Take Tylenol/ibuprofen as needed, follow-up with primary care for reevaluation. Return to ER for if having pain swelling redness discharge, difficulty movements etc.
[2022-11-15 22:34] VITALS: BP 96/70; PULSE 89
== END 2022-11-15 22:45 | disposition home or self-care (01) ==
LOC: ED 21:51
DX: S61.032A Puncture wound without foreign body of left thumb without damage to nail, initial encounter (principal); W29.8XXA Contact with other powered hand tools and household machinery, initial encounter; E11.9 Type 2 diabetes mellitus without complications; Z79.01 Long term (current) use of anticoagulants; Z79.84 Long term (current) use of oral hypoglycemic drugs; Z79.899 Other long term (current) drug therapy; Z72.0 Tobacco use; Z23 Encounter for immunization
CPT/HCPCS: 90471; 90715; 99282

== ENCOUNTER 2023-02-09 15:47 | Emergency (ER) | payer MEDICARE ==
--- NOTE | 2023-02-09 15:55 | ERPHSYRPT ---
- History of Present Illness Time Seen by Provider: 02/09/23 15:55 Historian: patient Exam Limitations: no limitations Physician History: This is a morbidly obese 57-year-old white male patient who has been seeing Dr. Lambert but will soon be switching to Dr. Salazar and presents with chest pain that he describes as a pressure that the level is about a 2 out of 10. It began a couple of days ago but has persisted. He has pain in the left anterior chest without radiation. He is not short of breath. Patient has a history of DVT and PEs in the past with this patient is also on aspirin and Xarelto. He also has a [place] filter in place. He has a history of COPD he has had a cardiac cath in the past. His crisis nurse is Dr. NASCIMENTO. Patient has a history of hypertension, gastroesophageal reflux disease, hyperlipidemia, diabetes, depression and anxiety issues. Timing/Duration: day(s) (Present for couple of days) Activities at Onset: none Quality: pressure Location: other (Left anterior chest) Chest Pain Radiation: no radiation Severity of Pain-Max: mild Severity of Pain-Current: mild Modifying Factors: Improves With: nothing Associated Symptoms: denies symptoms Prior Chest Pain/Cardiac Workup: cardiac cath Nitro Today/Relief: no nitro taken today Aspirin Treatment Today: 81 mg x 1, provided at home Allergies/Adverse Reactions: No Known Drug Allergies Allergy (Verified 02/09/23 15:50) Home Medications: Lisinopril 20 mg [Zestril 20 MG] 40 mg PO QHS 06/30/13 [History] Omeprazole 20 MG [Prilosec 20 mg] 20 mg PO HS 01/23/15 [History] Hydrochlorothiazide 25 mg [hydroDIURIL 25 MG] 25 mg PO HS 02/20/15 [History] Albuterol Sulfate [Ventolin] 2 puffs IH HS 05/23/19 [History] Aspirin 81 mg PO HS 05/23/19 [History] Atorvastatin Calcium 40 mg PO HS 05/23/19 [History] Cetirizine HCl [Zyrtec] 10 mg PO HS 05/23/19 [History] OLANZapine [Olanzapine] 10 mg PO HS 05/23/19 [History] Rivaroxaban [Xarelto] 20 mg PO HS 04/28/20 [History] PARoxetine HCL [Paroxetine HCl] 10 mg PO HS 01/21/21 [History] Metformin HCl 500 mg [Glucophage 500 MG] 1,000 mg PO HS 06/13/21 [History] Amlodipine Besylate 5 mg [Norvasc 5 mg] 5 mg PO DAILY 01/05/23 [History] Budesonide/Glycopyr/Formoterol [Breztri Aerosphere Inhaler] 1 puff IH UD 01/05/23 [History] Cyclobenzaprine HCl 10 mg [Cyclobenzaprine 10 MG] 10 mg PO UD 01/05/23 [History] Glipizide 5 mg [Glucotrol 5 MG] 5 mg PO DAILY 01/05/23 [History] Venlafaxine HCl ER 75 mg [Effexor XR 75 MG] 75 mg PO DAILY 01/05/23 [Hi story] Hx Tetanus, Diphtheria Vaccination/Date Given: No Hx Influenza Vaccination/Date Given: Yes Hx Pneumococcal Vaccination/Date Given: No Travel Risk - International Travel Have you traveled outside of the country in past 3 weeks: No - Coronavirus Screening Are you exhibiting any of the following symptoms?: No Close contact with a COVID-19 positive Pt in past 14-21 Days: No - Vaccine Status Have you recieved a Covid-19 vaccination: Yes 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 - Vaccination Dates Date of 2cond Vaccination (if applicable): - Review of Systems Constitutional: No Symptoms Eyes: No Symptoms Ears, Nose, & Throat: No Symptoms Respiratory: No Symptoms Cardiac: Chest Pain (Described as left anterior chest pressure) Abdominal/Gastrointestinal: No Symptoms Genitourinary Symptoms: No Symptoms Musculoskeletal: No Symptoms Skin: No Symptoms Neurological: No Symptoms Psychological: No Symptoms Endocrine: No Symptoms Hematologic/Lymphatic: No Symptoms Immunological/Allergic: No Symptoms All Other Systems: Reviewed and Negative - Past Medical History Pertinent Past Medical History: Yes Neurological History: Migraines ENT History: Glaucoma Cardiac History: Angina, Deep Vein Thrombosis, High Cholesterol, Hypertension Respiratory History: COPD, Emphysema, Pulmonary Embolism Endocrine Medical History: Diabetes Type II Musculoskeletal History: Arthritis GI Medical History: GERD History: No Pertinent History Psycho-Social History: Anxiety Male Reproductive Disorders: No Pertinent History Other Medical History: 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 [place] filter - Social History Smoking Status: Current every day smoker How long have you smoked: 40 yrs Exposure to second hand smoke: Yes Drug Use: none Patient Lives Alone: No Significant Family History: no pertinent family hx - Nursing Vital Signs Nursing Vital Signs: Initial Vital Signs Temperature 97.4 F 02/09/23 15:59 Pulse Rate 86 02/09/23 15:59 Respiratory Rate 16 02/09/23 15:59 Blood Pressure 128/73 02/09/23 15:59 O2 Sat by Pulse Oximetry 94 L 02/09/23 15:59 Pain Scale Pain Intensity 2 - Physical Exam General Appearance: no apparent distress, alert, anxiety, obese Eye Exam: PERRL/EOMI, eyes nml inspection Ears, Nose, Throat Exam: normal ENT inspection, moist mucous membranes Neck Exam: normal inspection, non-tender, supple, full range of motion Respiratory Exam: normal breath sounds, chest tenderness (Describes as mild 2 out of 10 anterior left chest pressure), lungs clear, airway intact, No respiratory distress Cardiovascular Exam: regular rate/rhythm, normal heart sounds, normal peripheral pulses Gastrointestinal/Abdomen Exam: soft, normal bowel sounds, No tenderness Rectal Exam: not done Back Exam: normal inspection, normal range of motion, No CVA tenderness, No vertebral tenderness Extremity Exam: normal inspection, normal range of motion, pelvis stable Neurologic Exam: alert, 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, cooperative, ditching machine operator II-XII nml as tested, normal mood/affect, nml cerebellar function, nml station & gait, sensation nml Skin Exam: normal color, warm, dry Lymphatic Exam: No adenopathy SpO2 Interpretation: borderline oxygenation O2 Delivery: Room Air - Course Nursing assessment & vital signs reviewed: Yes EKG Interpreted by Me: RATE (84), NORMAL AXIS, NORMAL INTERVALS, NORMAL QRS, Non-specific ST Changes, Other (No acute ischemic changes on today's twelve-lead EKG.) Ordered Tests: Active Orders 24 hr Category Date Time Status Academic Interventionist STAT Care 02/09/23 15:59 Active EKG-ER Only STAT Care 02/09/23 15:58 Active IV Insertion STAT Care 02/09/23 15:58 Active Pulse Oximetry (ED) STAT Care 02/09/23 15:58 Active CHEST 1 VIEW (PORTABLE) Routine Exams 02/09/23 16:12 Completed CBC W DIFF Stat Lab 02/09/23 16:05 Completed CMP Stat Lab 02/09/23 16:05 Completed NT PRO BNPII Stat Lab 02/09/23 16:05 Completed TROPONIN Q4H Lab 02/09/23 16:05 Completed TROPONIN Q4H Lab 02/09/23 20:00 Ordered TROPONIN Q4H Lab 02/10/23 00:00 Ordered Medication Summary Discontinued Medications Generic Name Dose Route Start Last Admin Trade Name Freq PRN Reason Stop Dose Admin Aspirin 243 mg 02/09/23 15:58 02/09/23 16:04 Aspirin 81 Mg Tab.Chew PO 02/09/23 15:59 243 mg STAT ONE Administration Aspirin Confirm 02/09/23 16:07 Aspirin 81 Mg Tab.Chew Administered 02/09/23 16:08 Dose 324 mg .ROUTE [email or web address] ONE Lab/Rad Data: Laboratory Result Diagrams 02/09/23 16:05 02/09/23 16:05 Laboratory Results 02/09/23 02/09/23 02/09/23 Range/Units 16:05 16:05 16:05 WBC 9.9 (4.0-10.5) x10^3/uL RBC 4.63 (4.1-5.6) x10^6/uL Hgb 14.1 (12.5-18.0) g/dL Hct 42.8 (42-50) % MCV 92.4 (78-100) fL MCH 30.5 (26-32) pg MCHC 32.9 (32-36) g/dL RDW 14.9 H (11.5-14.0) % Plt Count 219 (150-450) x10^3/uL MPV 10.0 (7.5-11.0) fL Gran % 72.6 H (36.0-66.0) % Immature Gran % (Auto) 0.7 H (0.00-0.4) % Nucleat RBC Rel Count 0.0 (0.00-0.1) % Eos # (Auto) 0.22 (0-0.5) x10^3/uL Immature Gran # (Auto) 0.07 H (0.00-0.03) x10^3u/L Absolute Lymphs (auto) 1.49 (1.0-4.6) x10^3/uL Absolute Monos (auto) 0.86 (0.0-1.3) x10^3/uL Absolute Nucleated RBC 0.00 (0.00-0.01) x10^3u/L Lymphocytes % 15.1 L (24.0-44.0) % Monocytes % 8.7 (0.0-12.0) % Eosinophils % 2.2 (0.00-5.0) % Basophils % 0.7 (0.0-0.4) % Absolute Granulocytes 7.17 H (1.4-6.9) x10^3/uL Basophils # 0.07 (0-0.4) x10^3/uL Sodium 137 (137-145) mmol/L Potassium 4.2 (3.5-5.1) mmol/L Chloride 104 (98-107) mmol/L Carbon Dioxide 18 L (22-30) mmol/L Anion Gap 19.4 H (5-15) MEQ/L BUN 18 (9-20) mg/dL Creatinine 0.97 (0.66-1.25) mg/dL Estimated GFR > 60.0 ML/MIN Glucose 170 H (74-106) mg/dL Calcium 9.4 (8.4-10.2) mg/dL Total Bilirubin 1.00 (0.2-1.3) mg/dL AST 52 (17-59) U/L ALT 46 (0-50) U/L Alkaline Phosphatase 111 (38-126) U/L Troponin I < 0.012 (0.000-0.034) ng/mL NT-Pro-B Natriuret Pep 28.2 (<300) pg/mL Serum Total Protein 7.9 (6.3-8.2) g/dL Albumin 4.6 (3.5-5.0) g/dL - Progress Progress: improved, re-examined Air Movement: good Progress Note: 02/09/23 17:18 This patient's medical issue is 1 of moderate complexity. Level of complexity in the work-up performed is based on review of the patient's past medical history, review of the patient's medication list, review of the patient's drug allergy list, history of present illness and physical findings on examination. The work-up includes placement of intravenous line, twelve-lead EKG, CBC, CMP, troponin level and chest x-ray. The chest x-ray was interpreted by the radiologist and there is no evidence of any acute cardiopulmonary process. I reviewed and interpreted the laboratory study results. Patient does not have any acute or emergent medical issues at this time. He will be discharged home. 02/09/23 17:20 Blood Culture(s) Obtained: No Antibiotics given: No Counseled pt/family regarding: lab results, diagnosis, need for follow-up, rad results Medical Desision Making - Independent Historian Additional History obtained from: Spouse - Diagnostic Testing Diagnostic test were ordered, analyzed, and reviewed by me: Yes Radiological Interpretation: Reviewed by me, Teleradiologist Report - Risk of complications Minimal Risk: Minimal risk of morbidity - Departure Departure Disposition: Home Clinical Impression: Chest pain, Anxiety about health Condition: Stable Critical Care Time: No Referrals: RAJINDER PRINCE DO [Primary Care Provider] - Follow up/PCP as directed Additional Instructions: Take your medication as prescribed. Follow-up with your primary care provider and crisis nurse on 02/12/2023 for further evaluation management. If your symptoms worsen/recur then return to the emergency department for further evaluation management.
[2023-02-09] MEDS ORDERED: BABY ASPIRIN 81 MG CHEW PO ONE (15:58)
[2023-02-09 16:06] VITALS: TEMP 97.4
[2023-02-09] MEDS ORDERED: BABY ASPIRIN 81 MG CHEW ONE (16:07)
[2023-02-09 16:12] LABS: Absolute Neutrophil Ct (ANC) 7.17 x10^3/uL (1.4-6.9); BASOPHIL % 0.7 % (0.0-0.4); Basophil (Absolute #) 0.07 x10^3/uL (0-0.4); Eosinophil % 2.2 % (0.00-5.0); Eosinophil (Absolute #) 0.22 x10^3/uL (0-0.5); Hematocrit 42.8 % (42-50); Hemoglobin 14.1 g/dL (12.5-18.0); IMMATURE GRAN # 0.07 x10^3u/L (0.00-0.03); IMMATURE GRAN % 0.7 % (0.00-0.4); Lymphocyte (Absolute #) 1.49 x10^3/uL (1.0-4.6); Lymphocytes % 15.1 % (24.0-44.0); Mean Cell Volume 92.4 fL (78-100); Mean Corpuscular Hemoglobin 30.5 pg (26-32); Mean Corpuscular Hgb Concent. 32.9 g/dL (32-36); Monocyte (Absolute #) 0.86 x10^3/uL (0.0-1.3); Monocytes % 8.7 % (0.0-12.0); Neutrophil % 72.6 % (36.0-66.0); Platelet Count 219 x10^3/uL (150-450); Red Blood Count 4.63 x10^6/uL (4.1-5.6); Red Cell Distribution Width 14.9 % (11.5-14.0); White Blood Count 9.9 x10^3/uL (4.0-10.5)
--- NOTE | 2023-02-09 16:34 | XRAY ---
Indication: Chest pain and short of breath. Comparison: February 14, 2021 Portable chest again demonstrate normal heart and lungs with incidental tiny left mid lung calcified granuloma. Bony thorax intact. No new/acute findings.
[2023-02-09 16:44] LABS: ALBUMIN 4.6 g/dL (3.5-5.0); ALKALINE PHOSPHATASE 111 U/L (38-126); ANION GAP 19.4 MEQ/L (5-15); BLOOD UREA NITROGEN 18 mg/dL (9-20); CHLORIDE 104 mmol/L (98-107); Calcium 9.4 mg/dL (8.4-10.2); Carbon Dioxide 18 mmol/L (22-30); Creatinine 1 0.97 mg/dL (0.66-1.25); EST GLOMERULAR FILTRATION RATE > 60.0 ML/MIN; Glucose 170 mg/dL (74-106); NT PRO BNPII 28.2 pg/mL (<300); Potassium 4.2 mmol/L (3.5-5.1); SGOT/AST 52 U/L (17-59); SGPT/ALT 46 U/L (0-50); SODIUM 137 mmol/L (137-145); Total Protein 7.9 g/dL (6.3-8.2)
[2023-02-09 16:57] VITALS: BP 104/70
[2023-02-09] MEDS ORDERED: Ativan 2 MG/1 ML VIAL IV ONE (17:17)
[2023-02-09] MEDS ORDERED: Ativan 2 MG/1 ML VIAL ONE (17:22)
[2023-02-09 17:34] VITALS: PULSE 71; RESP 14; O2SAT 92
== END 2023-02-09 18:06 | disposition home or self-care (01) ==
LOC: ED 15:47
DX: R07.9 Chest pain, unspecified (principal); F45.9 Somatoform disorder, unspecified; I10 Essential (primary) hypertension; E78.5 Hyperlipidemia, unspecified; E11.9 Type 2 diabetes mellitus without complications; Z79.01 Long term (current) use of anticoagulants; Z79.84 Long term (current) use of oral hypoglycemic drugs; Z79.899 Other long term (current) drug therapy; Z72.0 Tobacco use
CPT/HCPCS: 36000; 36415; 71045; 80053; 83880; 84484; 85025; 93005; 93041; 94760; 96374; 99284; J2060; A9270-GY

== ENCOUNTER 2023-05-31 07:41 | Day surgery (SDC) | payer MEDICARE ==
--- NOTE | 2023-03-15 09:15 | HP ---
DATE OF SURGERY: 03/22/2023 HISTORY OF PRESENT ILLNESS: The patient is a 57-year-old man presented with need for colonoscopy. The patient denies colonoscopy to date. He denies colon symptoms. He is on some omeprazole for some heartburn. If he is off of it he has epigastric pain. PAST MEDICAL HISTORY: Pulmonary embolism, deep vein thrombosis, hypertension, diabetes, gastroesophageal reflux disease, anxiety, depression, asthma, hyperlipidemia, sleep apnea. PAST SURGICAL HISTORY: Cataracts. Cholecystectomy. Hernia repair. Cardiac cath. ALLERGIES: NKDA. MEDICATIONS: Albuterol, amlodipine, aspirin, atorvastatin, Breztri Aerosphere Inhaler, Zyrtec, cyclobenzaprine, glipizide, hydrochlorothiazide, lisinopril, lorazepam, metformin, olanzapine, omeprazole, paroxetine, spironolactone, venlafaxine, Xarelto. FAMILY HISTORY: Heart disease, throat cancer. SOCIAL HISTORY: Current every day smoker. Alcohol negative. REVIEW OF SYSTEMS: CONSTITUTIONAL: Denies fever or chills. CHEST: Denies shortness of breath. CVS: Denies chest pain. ABDOMEN: Reports epigastric pain. PHYSICAL EXAMINATION: GENERAL: No acute distress. CHEST: Nonlabored. No shortness of breath. CVS: Regular rate and rhythm. ABDOMEN: Soft. IMPRESSION: Epigastric pain and screening. PLAN: EGD and colonoscopy with Dr. Kevin Rivero. As dictated by Ev Garibay NP.
--- NOTE | 2023-05-30 12:59 | HP ---
DATE OF SURGERY: 05/31/2023 HISTORY OF PRESENT ILLNESS: The patient is a 57-year-old man presents for colonoscopy. The patient has never had a colonoscopy to date. He denies colon symptoms. He is on omeprazole for heartburn. He pretty much has to take that all of the time or if not he is having some bad pain. PAST MEDICAL HISTORY: Pulmonary embolism, deep vein thrombosis, hypertension, hyperlipidemia, diabetes, anxiety, depression, pancreatitis, sleep apnea, glaucoma, migraines. PAST SURGICAL HISTORY: Cataracts. Laparoscopic cholecystectomy. Hernia repair x2. Cardiac cath. ALLERGIES: NKDA. MEDICATIONS: Xarelto, venlafaxine, spironolactone, paroxetine, omeprazole, olanzapine, metformin, lorazepam, Lisinopril, hydrochlorothiazide, glipizide, cyclobenzaprine, Zyrtec, Breztri Aerosphere Inhaler, atorvastatin, aspirin, amlodipine, albuterol. FAMILY HISTORY: Heart disease, colon cancer, throat cancer. SOCIAL HISTORY: Current every day smoker. No alcohol. REVIEW OF SYSTEMS: CONSTITUTIONAL: Denies fever or chills. CHEST: Denies shortness of breath. CVS: Denies chest pain. ABDOMEN: He reports epigastric pain. PHYSICAL EXAMINATION: GENERAL: No acute distress. CHEST: Nonlabored. No shortness of breath. CVS: Regular rate and rhythm. ABDOMEN: Soft. IMPRESSION: Epigastric pain and screening. PLAN: EGD and colonoscopy with Dr. Kevin Rivero. As dictated by Ev Garibay NP.
[~2023-05-31 07:41] MED LIST: Lactated Ringers 1,000 ML IV SCH
[2023-05-31] MEDS ORDERED: Lactated Ringers 1,000 ML IV ONE (07:53)
[2023-05-31] MEDS ORDERED: HUMULIN R SQ ONE (08:18)
[2023-05-31] MEDS ORDERED: Sodium Chloride 0.9% 1000 ML 1,000 ML ONE (08:21)
[2023-05-31] MEDS ORDERED: HUMULIN R ONE (08:26)
[2023-05-31] MEDS ORDERED: Sodium Chloride 0.9% 1000 ML 1,000 ML IV SCH (08:30)
[2023-05-31 08:37] VITALS: RESP 16
[2023-05-31] MEDS ORDERED: Versed 2 MG/2 ML Injection ONE (11:21)
[2023-05-31] MEDS ORDERED: DIPRIVAN 200 MG/20 ML IV ONE ×2 (11:21→11:30)
[2023-05-31] MEDS ORDERED: Xylocaine-Mpf 2% 5 Ml Vial ONE (11:22)
[2023-05-31] MEDS ORDERED: PHENYLEPHRINE HCL ONE (11:40)
[2023-05-31 11:50] VITALS: TEMP 97.6
[2023-05-31 12:02] VITALS: BP 134/80; PULSE 88; O2SAT 94
--- NOTE | 2023-05-31 13:42 | OP ---
SURGERY DATE/TIME: 05/31/2023 1129 PREOPERATIVE DIAGNOSES: 1) Reflux refractory to medicine. He is on omeprazole. 2) Screening exam. He has not had a colonoscopic examination to date and he is 57. POSTOPERATIVE DIAGNOSES: 1) EGD demonstrating grade 3 over 4 gastroesophageal reflux disease and 2 inch hiatal hernia. 2) Colon grossly satisfactory exam. 3) Prep score was okay not good or excellent. 4) Withdrawal time about six minutes. 5) Anticipated three year follow up colon. PROCEDURES: 1) EGD. 2) Colonoscopy. SURGEON: Kevin Rivero M.D. KNIFE FINISHER: Florin Young M.D., [facility]. ANESTHESIA: MAC. COMPLICATIONS: None. CONDITION: Stable. DESCRIPTION OF PROCEDURE: Taken to endoscopy. Left lateral decubitus position. MAC sedation provided. He had a terrible upper airway, very large tongue, very minimal space. With care and patience the scope inserted. Pharyngoesophageal junction normal. Esophagus normal down to gastroesophageal junction. Rim of esophagitis grade 3. There is a 2 inch hiatal hernia. Fundus, body and antrum satisfactory. Pylorus satisfactory. Duodenal bulb satisfactory. Scope withdrawn looped upon itself. A 2 inch hiatal hernia from below. There was about 3 ounces of bilious material suctioned out of the upper part of his stomach/hiatal hernia area. He was extremely reflexic on exam, having irritated like nature despite having excellent MAC anesthetic. Anal digital examination satisfactory. Colon satisfactory. Prostate firm, nothing specific. Scope advanced to the cecum. The prep was only okay. It was not excellent. It was not good. It was okay. There was a light coat of stool on nearly the entire examination with a thick layer of stool a few places. Ileocecal valve was normal. Base of cecum was normal. Appendiceal orifice area normal. Ascending, hepatic, transverse, splenic, descending, sigmoid, rectum, anus within the limits of the prep was normal. Anticipated follow up three year follow up colonoscopy.
== END 2023-05-31 12:12 | disposition home or self-care (01) ==
LOC: SDC 07:41
PROVIDERS: ATTEND Surgery
DX: Z12.11 Encounter for screening for malignant neoplasm of colon (principal); Z80.0 Family history of malignant neoplasm of digestive organs; K21.9 Gastro-esophageal reflux disease without esophagitis; E11.9 Type 2 diabetes mellitus without complications; K44.9 Diaphragmatic hernia without obstruction or gangrene
CPT/HCPCS: 82947; J1815; J2250; J2371; J2704

== ENCOUNTER 2024-10-18 05:22 | Emergency (ER) | payer MEDICARE ==
[2024-10-18 05:36] VITALS: BP 170/109; PULSE 79; RESP 18; TEMP 97.1; O2SAT 98
--- NOTE | 2024-10-18 05:42 | ERPHSYRPT ---
- History of Present Illness Source: patient Patient Subjective Stated Complaint: PT. STATES, "I HAVE A TOOTHACHE, HAVE HAD IT SINCE SUNDAY. I CAN'T GET INTO THE DENTIST TIL NEXT WEEK BUT I CAN'T STAND IT ANY LONGER. I'M ON A CANCELATION LIST." Triage Nursing Assessment: PT. IS A&O X4, AMBULATES TO ROOM WITHOUT DIFF., RESP EVEN UNLABORED, SKIN P/W/D. BROKEN RT. UPPER TRICUSPID TOOTH, NO SWELLING NOTED. Physician History: Patient has a toothache is been going on for about 5 days. Send his right upper incisor. He does not have any Ludewig's angina or trismus. He has no fever chills or toxic symptoms. He is breathing easy Allergies/Adverse Reactions: No Known Drug Allergies Allergy (Verified 05/31/23 08:02) Home Medications: Lisinopril 20 mg [Zestril 20 MG] 40 mg PO QHS 06/30/13 [History] Omeprazole 20 MG [Prilosec 20 mg] 20 mg PO HS 01/23/15 [History] Hydrochlorothiazide 25 mg [hydroDIURIL 25 MG] 25 mg PO HS 02/20/15 [History] Albuterol Sulfate [Ventolin] 2 puffs IH HS 05/23/19 [History] Aspirin 81 mg PO HS 05/23/19 [History] Atorvastatin Calcium 40 mg PO HS 05/23/19 [History] Cetirizine HCl [Zyrtec] 10 mg PO HS 05/23/19 [History] OLANZapine [Olanzapine] 10 mg PO HS 05/23/19 [History] Rivaroxaban [Xarelto] 20 mg PO HS 04/28/20 [History] PARoxetine HCL [Paroxetine HCl] 10 mg PO HS 01/21/21 [History] Metformin HCl 500 mg [Glucophage 500 MG] 1,000 mg PO HS 06/13/21 [History] Amlodipine Besylate 5 mg [Norvasc 5 mg] 5 mg PO DAILY 01/05/23 [History] Budesonide/Glycopyr/Formoterol [Breztri Aerosphere Inhaler] 1 puff IH UD 01/05/23 [History] Cyclobenzaprine HCl 10 mg [Cyclobenzaprine 10 MG] 10 mg PO UD 01/05/23 [History] Glipizide 5 mg [Glucotrol 5 MG] 5 mg PO DAILY 01/05/23 [History] Venlafaxine HCl ER 75 mg [Effexor XR 75 MG] 75 mg PO DAILY 01/05/23 [History] Isosorbide Mononitrate 30 mg [Imdur 30 MG] 30 mg PO DAILY 05/31/23 [History] Hx Tetanus, Diphtheria Vaccination/Date Given: No Hx Influenza Vaccination/Date Given: Yes Hx Pneumococcal Vaccination/Date Given: No Immunizations Up to Date: No Travel Risk - International Travel Have you traveled outside of the country in past 3 weeks: No - Emerging Infectious Disease Are you exhibiting symptoms associated with any current EIDs: No - Review of Systems Constitutional: No Symptoms Eyes: No Symptoms Respiratory: No Symptoms - Past Medical History Pertinent Past Medical History: Yes Neurological History: Migraines ENT History: Glaucoma Cardiac History: Angina, Deep Vein Thrombosis, High Cholesterol, Hypertension Respiratory History: COPD, Emphysema, Pulmonary Embolism Endocrine Medical History: Diabetes Type II Musculoskeletal History: Arthritis GI Medical History: GERD History: No Pertinent History Psycho-Social History: Anxiety Male Reproductive Disorders: No Pertinent History Other Medical History: 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 samara filter Significant Family History: no pertinent family hx - Social History Smoking Status: Current every day smoker How long have you smoked: 40 years Exposure to second hand smoke: Yes Drug Use: none - Social Determinants of Health Will the patient participate in the screening: Declined to provide - Nursing Vital Signs Nursing Vital Signs: Initial Vital Signs Temperature 97.1 F 10/18/24 05:23 Pulse Rate 79 10/18/24 05:23 Respiratory Rate 18 10/18/24 05:23 Blood Pressure 170/109 10/18/24 05:23 O2 Sat by Pulse Oximetry 98 10/18/24 05:23 Pain Scale Pain Intensity 10 - Physical Exam General Appearance: no apparent distress Eye Exam: PERRL/EOMI Ears, Nose, Throat Exam: normal ENT inspection, other (Poor dentition. He also does not have any edema. He has some erythema around his right upper incisor) SpO2: 98 - Course Nursing assessment & vital signs reviewed: Yes - Progress Progress Note: 10/18/24 05:38 Patient is stable throughout stay. I will give him some [place] and some Amoxicillin. - Departure Departure Disposition: Home Clinical Impression: Toothache Condition: Stable Critical Care Time: No Referrals: VAIBHAV MCDONNELL MD [Primary Care Provider, [facility]] - Follow up/PCP as directed Instructions: Dental Pain (DC)
[2024-10-18] MEDS ORDERED: NORCO 5/325 MG ONE (05:43)
[2024-10-18] MEDS ORDERED: Augmentin 875-125 Tablet ONE (05:43)
[2024-10-18] MEDS: Augmentin 875-125 Tablet PO ONE (05:44)
[2024-10-18] MEDS: NORCO 5/325 MG PO ONE (05:44)
== END 2024-10-18 05:54 | disposition home or self-care (01) ==
LOC: ED 05:22
DX: K08.89 Other specified disorders of teeth and supporting structures (principal); E78.5 Hyperlipidemia, unspecified; I10 Essential (primary) hypertension; E11.9 Type 2 diabetes mellitus without complications; Z79.01 Long term (current) use of anticoagulants; Z79.85 Long-term (current) use of injectable non-insulin antidiabetic drugs; Z79.899 Other long term (current) drug therapy; Z72.0 Tobacco use
CPT/HCPCS: 99282; 99283; A9270-GY

== ENCOUNTER 2024-10-18 18:57 | Emergency (ER) | payer MEDICARE ==
[2024-10-18 19:15] VITALS: BP 159/100; PULSE 86; RESP 16; TEMP 96.6; O2SAT 97
--- NOTE | 2024-10-18 19:27 | ERPHSYRPT ---
- History of Present Illness Time Seen by Provider: 10/18/24 19:10 Source: patient Exam Limitations: no limitations Physician History: 59yo m presents via private vehicle for tooth ache. Pt was seen this AM for same complaint, was given motrin and augmentin for dental abscess. Pt reports the pain medication worked for him for a few hours but the pain has returned. Pt denies any fevers, denies any difficulties swallowing, denies any body aches. Pt has appt w/ dentist scheduled in 5 days. Timing/Duration: week(s) (12) Severity: moderate Modifying Factors: Improves With: cold therapy Allergies/Adverse Reactions: No Known Drug Allergies Allergy (Verified 10/18/24 19:15) Home Medications: Lisinopril 20 mg [Zestril 20 MG] 40 mg PO QHS 06/30/13 [History] Omeprazole 20 MG [Prilosec 20 mg] 20 mg PO HS 01/23/15 [History] Hydrochlorothiazide 25 mg [hydroDIURIL 25 MG] 25 mg PO HS 02/20/15 [History] Albuterol Sulfate [Ventolin] 2 puffs IH HS 05/23/19 [History] Aspirin 81 mg PO HS 05/23/19 [History] Atorvastatin Calcium 40 mg PO HS 05/23/19 [History] Cetirizine HCl [Zyrtec] 10 mg PO HS 05/23/19 [History] OLANZapine [Olanzapine] 10 mg PO HS 05/23/19 [History] Rivaroxaban [Xarelto] 20 mg PO HS 04/28/20 [History] PARoxetine HCL [Paroxetine HCl] 10 mg PO HS 01/21/21 [History] Metformin HCl 500 mg [Glucophage 500 MG] 1,000 mg PO HS 06/13/21 [History] Amlodipine Besylate 5 mg [Norvasc 5 mg] 5 mg PO DAILY 01/05/23 [History] Budesonide/Glycopyr/Formoterol [Breztri Aerosphere Inhaler] 1 puff IH UD 01/05/23 [History] Cyclobenzaprine HCl 10 mg [Cyclobenzaprine 10 MG] 10 mg PO UD 01/05/23 [History] Glipizide 5 mg [Glucotrol 5 MG] 5 mg PO DAILY 01/05/23 [History] Venlafaxine HCl ER 75 mg [Effexor XR 75 MG] 75 mg PO DAILY 01/05/23 [History] Isosorbide Mononitrate 30 mg [Imdur 30 MG] 30 mg PO DAILY 05/31/23 [History] Hx Tetanus, Diphtheria Vaccination/Date Given: No Hx Influenza Vaccination/Date Given: Yes Hx Pneumococcal Vaccination/Date Given: No Travel Risk - Emerging Infectious Disease Are you exhibiting symptoms associated with any current EIDs: No - Review of Systems Constitutional: No Symptoms Ears, Nose, & Throat: Mouth Pain, Other (tooth pain), No Mouth Swelling Respiratory: No Symptoms Cardiac: No Symptoms Abdominal/Gastrointestinal: No Symptoms - Past Medical History Pertinent Past Medical History: Yes Neurological History: Migraines ENT History: Glaucoma Cardiac History: Angina, Deep Vein Thrombosis, High Cholesterol, Hypertension Respiratory History: COPD, Emphysema, Pulmonary Embolism Endocrine Medical History: Diabetes Type II Musculoskeletal History: Arthritis GI Medical History: GERD History: No Pertinent History Psycho-Social History: Anxiety Male Reproductive Disorders: No Pertinent History Other Medical History: 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 samara filter Significant Family History: no pertinent family hx - Social History Smoking Status: Current every day smoker How long have you smoked: 40 years Exposure to second hand smoke: Yes Drug Use: none - Social Determinants of Health Will the patient participate in the screening: Declined to provide - Nursing Vital Signs Nursing Vital Signs: Initial Vital Signs Temperature 96.6 F 10/18/24 18:58 Pulse Rate 86 10/18/24 18:58 Respiratory Rate 16 10/18/24 18:58 Blood Pressure 159/100 10/18/24 18:58 O2 Sat by Pulse Oximetry 97 10/18/24 18:58 Pain Scale Pain Intensity 10 - Physical Exam General Appearance: no apparent distress, alert Eye Exam: PERRL/EOMI Ears, Nose, Throat Exam: pharynx normal, other (right upper bicuspid broken, no nerve root exposed, no obvious abscess), No pharyngeal erythema, No tonsillar exudate Neck Exam: normal inspection, non-tender, No lymphadenopathy, No subcutaneous emphysema Respiratory Exam: normal breath sounds, airway intact, No respiratory distress Cardiovascular Exam: regular rate/rhythm, normal heart sounds Ordered Tests: Medication Summary Discontinued Medications Generic Name Dose Route Start Last Admin Trade Name Janie PRN Reason Stop Dose Admin Hydrocodone Bitart/Acetaminophen 2 tab 10/18/24 19:28 10/18/24 19:32 Hydrocodone/Apap 5/325 1 Tab Tablet PO 10/18/24 19:29 2 tab STAT ONE Administration Hydrocodone Bitart/Acetaminophen Confirm 10/18/24 19:31 Hydrocodone/Apap 5/325 1 Tab Tablet Administered 10/18/24 19:32 Dose 2 tab .ROUTE .STK-MED ONE - Progress Progress: improved, pain not gone completely Progress Note: 10/18/24 19:40 offered pt nerve block, pt refused, would rather try oral analgesics no fever or progression of sx, no pain in the zygomatic region or maxillary sinus, no indication for imaging at this time plan for discharge home with Dentist follow up this week will send home w/ 2 norco 10mg tablets - break each tablet in half to take 5mg every 8 hours continue motrin q8h return to ED if: develop fevers, become unable to swallow, develop sore throat, develop neck pain or difficulties breathing Counseled pt/family regarding: diagnosis, need for follow-up Medical Desision Making - Diagnostic Testing Diagnostic test were ordered, analyzed, and reviewed by me: No - Risk of complications Low Risk: Low risk of morbidity from additional dx testing or treatment - Departure Departure Disposition: Home Clinical Impression: Toothache Condition: Stable Critical Care Time: No Referrals: VAIBHAV MCDONNELL MD [Primary Care Provider, [facility]] - Follow up/PCP as directed Additional Instructions: plan for discharge home with Dentist follow up this week will send home w/ 2 norco 10mg tablets - break each tablet in half to take 5mg every 8 hours continue motrin q8h return to ED if: develop fevers, become unable to swallow, develop sore throat, develop neck pain or difficulties breathing
[2024-10-18] MEDS ORDERED: NORCO 5/325 MG ONE (19:31)
[2024-10-18] MEDS: NORCO 5/325 MG PO ONE (19:32)
[2024-10-18] MEDS ORDERED: NORCO 10-325 MG ONE (20:02)
[2024-10-18] MEDS: NORCO 10-325 MG PO STA (20:04)
== END 2024-10-18 20:11 | disposition home or self-care (01) ==
LOC: ED 18:57
DX: K08.89 Other specified disorders of teeth and supporting structures (principal); E78.5 Hyperlipidemia, unspecified; I10 Essential (primary) hypertension; E11.9 Type 2 diabetes mellitus without complications; Z79.01 Long term (current) use of anticoagulants; Z79.84 Long term (current) use of oral hypoglycemic drugs; Z79.899 Other long term (current) drug therapy; Z72.0 Tobacco use
CPT/HCPCS: 99281; A9270-GY